=== PATIENT | female | born 1935 | race Two or more races ===

== ENCOUNTER 2016-07-11 15:53 | Emergency (ER) | payer MEDICARE, BC ==
--- NOTE | 2016-07-11 17:09 | ER Document Report ---
ED General - General Chief Complaint: Chest Pain > 30 Stated Complaint: CHEST PAIN Mode of Arrival: Ambulatory Information source: Patient, Relative Notes: 81-year-old female Hebrew-speaking presents with complaints of angina chest pain of over 3 year duration. Patient notes the pain is every single day does not change. Patient has been seen in over 50 to emergency departments and has had multiple evaluations and is always negative. Patient does have a dehydrator tender but has not seen a dehydrator tender recently. TRAVEL OUTSIDE OF THE [place] IN LAST 30 DAYS: No - HPI Onset: Other Onset/Duration: Persistent Quality of pain: Achy Severity: Mild Pain Level: 1 Associated symptoms: Chest pain Exacerbated by: Denies Relieved by: Denies Similar symptoms previously: Yes Recently seen / treated by doctor: Yes - Related Data Allergies/Adverse Reactions: clindamycin Allergy (Verified 05/15/16 16:13) clopidogrel [From Plavix] Allergy (Verified 05/15/16 16:13) diatrizoate meglumine [From -Gastroview] Allergy (Verified 05/15/16 16:13) diatrizoate sodium [From MD-Gastroview] Allergy (Verified 05/15/16 16:13) dipyridamole [From Aggrenox] Allergy (Verified 05/15/16 16:13) erythromycin base [From Erythrocin] Allergy (Verified 05/15/16 16:13) meloxicam Allergy (Verified 05/15/16 16:13) pantoprazole Allergy (Verified 05/15/16 16:13) risedronate sodium [From Actonel] Allergy (Verified 05/15/16 16:13) sulfamethoxazole [From Bactrim] Allergy (Verified 05/15/16 16:13) ticlopidine Allergy (Verified 05/15/16 16:13) tobramycin Allergy (Verified 05/15/16 16:13) trimethoprim [From Bactrim] Allergy (Verified 05/15/16 16:13) Past Medical History - Social History Smoking Status: Never Smoker Cigarette use (# per day): No Chew tobacco use (# tins/day): No Smoking Education Provided: No Family History: Reviewed & Not Pertinent - Past Medical History Cardiac Medical History: Reports: Hx Congestive Heart Failure, Hx Heart Attack, Hx Hypertension Neurological Medical History: Reports: Hx Cerebrovascular Accident. Denies: Hx Seizures Musculoskeltal Medical History: Reports Hx Arthritis Psychiatric Medical History: Reports: Hx Anxiety Past Surgical History: Reports: Hx Cardiac Catheterization, Hx Cardiac Surgery Review of Systems - Review of Systems Notes: REVIEW OF SYSTEMS: CONSTITUTIONAL : Denies fever, chills, or sweats. Denies recent illness. EENT: Denies eye, ear, throat, or mouth pain or symptoms. Denies nasal or sinus congestion or discharge. Denies throat, tongue, or mouth swelling or difficulty swallowing. CARDIOVASCULAR: Admits to chest pain RESPIRATORY: Denies cough, cold, or chest congestion. Denies shortness of breath, difficulty breathing, or wheezing. GASTROINTESTINAL: Denies abdominal pain or distention. Denies nausea, vomiting , or diarrhea. Denies blood in vomitus, stools, or per rectum. Denies black, tarry stools. Denies constipation. GENITOURINARY: Denies difficulty urinating, painful urination, burning, frequency, blood in urine, or discharge. FEMALE GENITOURINARY: Denies vaginal bleeding, heavy or abnormal periods, irregular periods. Denies vaginal discharge or odor. MUSCULOSKELETAL: Denies back or neck pain or stiffness. Denies joint pain or swelling. SKIN: Denies rash, lesions or sores. HEMATOLOGIC : Denies easy bruising or bleeding. LYMPHATIC: Denies swollen, enlarged glands. NEUROLOGICAL: Denies confusion or altered mental status. Denies passing out or loss of consciousness. Denies dizziness or lightheadedness. Denies headache. Denies weakness or paralysis or loss of use of either side. Denies problems with gait or speech. Denies sensory loss, numbness, or tingling. Denies seizures. PSYCHIATRIC: Denies anxiety or stress. Denies depression, suicidal ideation, or homicidal ideation. ALL OTHER SYSTEMS REVIEWED AND NEGATIVE. Dictation was performed using [employer] voice recognition software PHYSICAL EXAMINATION: GENERAL: Well-appearing, well-nourished and in no acute distress. HEAD: Atraumatic, normocephalic. EYES: Pupils equal round and reactive to light, extraocular movements intact, conjunctiva are normal. ENT: Nares patent, oropharynx clear without exudates. Moist mucous membranes. NECK: Normal range of motion, supple without lymphadenopathy LUNGS: Breath sounds clear to auscultation bilaterally and equal. No wheezes rales or rhonchi. HEART: Regular rate and rhythm without murmurs ABDOMEN: Soft, nontender, nondistended abdomen. No guarding, no rebound. No masses appreciated. Female : deferred Musculoskeletal: Normal range of motion, no pitting or edema. No cyanosis. NEUROLOGICAL: Cranial nerves grossly intact. Normal speech, normal gait. Normal sensory, motor exams PSYCH: Normal mood, normal affect. SKIN: Warm, Dry, normal turgor, no rashes or lesions noted. Physical Exam - Vital signs Vitals: Temp Pulse Resp BP Pulse Ox 97.5 F 66 18 153/67 H 98 07/11/16 16:18 07/11/16 16:18 07/11/16 16:18 07/11/16 16:18 07/11/16 16:18 Course - Re-evaluation Re-evalutation: 07/11/16 19:09 This is an extremely well-appearing 81-year-old female who presents with complaints of chest pain, family member admits that this pain is seen every single day, that he only brings her in intermittently. Today patient was brought in because of chest pain did not resolve immediately. Since arrival however the chest pain has overall resolved. Patient was offered admission they refuse to be admitted at this time. I do not believe there is any life- threatening issues given that the pain is constant and has been worked up often. pt will be dc home with follow up with Dr Portillo After performing a Medical Screening Examination, I estimate there is LOW risk for RUPTURED ESOPHAGUS, PNEUMOTHORAX, PULMONARY EMBOLISM, ACUTE CORONARY SYNDROME, OR THORACIC AORTIC DISSECTION, thus I consider the discharge disposition reasonable. The patient and I have discussed the diagnosis and risks , and we agree with discharging home with close follow-up. We also discussed returning to the Emergency Department immediately if new or worsening symptoms occur. We have discussed the symptoms which are most concerning (e.g., bloody sputum, worsening pain or shortness of breath) that necessitate immediate return. - Vital Signs Vital signs: Temp Pulse Resp BP Pulse Ox 97.5 F 66 19 167/85 H 100 07/11/16 16:18 07/11/16 16:18 07/11/16 18:01 07/11/16 18:01 07/11/16 18:01 - Laboratory Result Diagrams: 07/11/16 18:00 07/11/16 18:00 Laboratory results interpreted by me: 07/11/16 07/11/16 18:00 18:00 RDW 14.9 H Plt Count 121 L BUN 24 H AST 75 H ALT 122 H - Diagnostic Test Radiology reviewed: Image reviewed, Reports reviewed - EKG Interpretation by Me EKG shows normal: Sinus rhythm, [place], Intervals, QRS Complexes Discharge - Discharge Clinical Impression: Chest pain Qualifiers: Chest pain type: unspecified Qualified Code(s): R07.9 - Chest pain, unspecified HTN (hypertension) Qualifiers: Hypertension type: essential hypertension Qualified Code(s): I10 - Essential ( primary) hypertension Condition: Stable Disposition: HOME, SELF-CARE Instructions: Chest Pain of Unclear Cause ([facility]) Referrals: HELEN LOPEZ MD [Primary Care Provider] - Follow up tomorrow
--- NOTE | 2016-07-11 17:41 | EKG REPORT ---
SEVERITY:- OTHERWISE NORMAL ECG - SINUS RHYTHM BORDERLINE LEFT AXIS DEVIATION : Confirmed by: Tami Radford MD 11-Jul-2016 17:39:49
[2016-07-11 18:23] LABS: ABSOLUTE EOSINOPHILS # (AUTO) 0.1 10^3/uL (0.0-0.6); ABSOLUTE LYMPHOCYTES (AUTO) 1.1 10^3/uL (0.5-4.7); ABSOLUTE MONOCYTES (AUTO) 0.7 10^3/uL (0.1-1.4); ABSOLUTE NEUT (AUTO) 4.7 10^3/uL (1.7-8.2); BASOPHILS % (AUTO) 0.7 % (0-2); EOSINOPHILS % (AUTO) 1.2 % (0-6); HEMATOCRIT 39.8 % (36.0-47.0); HEMOGLOBIN 13.3 g/dL (12.0-15.5); HGB HCT DIFFERENCE 0.1; LYMPHOCYTES % (AUTO) 16.8 % (13-45); MEAN CORPUSCULAR HEMOGLOBIN 27.4 pg (27.0-33.4); MEAN CORPUSCULAR HGB CONC 33.5 g/dL (32.0-36.0); MEAN CORPUSCULAR VOLUME 82 fl (80-97); MONOCYTES % (AUTO) 10.9 % (3-13); RED BLOOD COUNT 4.85 10^6/uL (3.72-5.28); RED CELL DISTRIBUTION WIDTH 14.9 % (11.5-14.0); SEGMENTED NEUTROPHILS % (AUTO) 70.4 % (42-78); WHITE BLOOD COUNT 6.7 10^3/uL (4.0-10.5)
[2016-07-11 18:41] LABS: ALANINE AMINOTRANSFERASE 122 U/L (9-52); ALBUMIN 3.7 g/dL (3.5-5.0); ALKALINE PHOSPHATASE 93 U/L (38-126); ANION GAP 10 (5-19); ASPARTATE AMINO TRANSFERASE 75 U/L (14-36); BILIRUBIN,TOTAL 0.7 mg/dL (0.2-1.3); BLOOD UREA NITROGEN 24 mg/dL (7-20); CALCIUM 9.5 mg/dL (8.4-10.2); CARBON DIOXIDE 25 mmol/L (22-30); CHLORIDE 105 mmol/L (98-107); CREATINE KINASE 30 U/L (30-135); CREATININE RESULT 0.73 mg/dL (0.52-1.25); GLUCOSE 81 mg/dL (75-110); POTASSIUM 4.1 mmol/L (3.6-5.0); SODIUM 140.4 mmol/L (137-145); TOTAL PROTEIN 6.3 g/dL (6.3-8.2)
[2016-07-11 18:45] LABS: CREATINE KINASE MB 0.35 ng/mL (<4.55)
[2016-07-11 18:46] LABS: TROPONIN I < 0.012 ng/mL
[2016-07-11 19:29] VITALS: BP 134/79
== END 2016-07-11 19:29 | disposition home or self-care (01) ==
LOC: ER 15:53
DX: I20.9 Angina pectoris, unspecified (principal); I10 Essential (primary) hypertension; I25.2 Old myocardial infarction; Z88.1 Allergy status to other antibiotic agents; Z88.8 Allergy status to other drugs, medicaments and biological substances; Z86.73 Personal history of transient ischemic attack (TIA), and cerebral infarction without residual deficits
CPT/HCPCS: 36415; 80053; 82550; 82553; 84484; 85025; 93005; 93010; 99285

== ENCOUNTER → 2016-12-24 | Outpatient (CLI) | payer BC, MEDICARE ==
[2016-12-24 16:24] LABS: ABSOLUTE EOSINOPHILS # (AUTO) 0.1 10^3/uL (0.0-0.6); ABSOLUTE LYMPHOCYTES (AUTO) 1.5 10^3/uL (0.5-4.7); ABSOLUTE MONOCYTES (AUTO) 0.8 10^3/uL (0.1-1.4); ABSOLUTE NEUT (AUTO) 3.3 10^3/uL (1.7-8.2); BASOPHILS % (AUTO) 0.5 % (0-2); EOSINOPHILS % (AUTO) 1.1 % (0-6); HEMATOCRIT 40.6 % (36.0-47.0); HEMOGLOBIN 13.5 g/dL (12.0-15.5); HGB HCT DIFFERENCE -0.1; LYMPHOCYTES % (AUTO) 27.3 % (13-45); MEAN CORPUSCULAR HEMOGLOBIN 27.1 pg (27.0-33.4); MEAN CORPUSCULAR HGB CONC 33.3 g/dL (32.0-36.0); MEAN CORPUSCULAR VOLUME 81 fl (80-97); MONOCYTES % (AUTO) 13.5 % (3-13); RED BLOOD COUNT 4.98 10^6/uL (3.72-5.28); RED CELL DISTRIBUTION WIDTH 16.1 % (11.5-14.0); SEGMENTED NEUTROPHILS % (AUTO) 57.6 % (42-78); WHITE BLOOD COUNT 5.7 10^3/uL (4.0-10.5)
[2016-12-24 16:45] LABS: ALANINE AMINOTRANSFERASE 75 U/L (9-52); ALBUMIN 4.1 g/dL (3.5-5.0); ALKALINE PHOSPHATASE 109 U/L (38-126); ANION GAP 10 (5-19); ASPARTATE AMINO TRANSFERASE 55 U/L (14-36); BILIRUBIN,DIRECT 0.4 mg/dL (0.0-0.4); BILIRUBIN,TOTAL 0.8 mg/dL (0.2-1.3); BLOOD UREA NITROGEN 25 mg/dL (7-20); CALCIUM 9.3 mg/dL (8.4-10.2); CARBON DIOXIDE 28 mmol/L (22-30); CHLORIDE 101 mmol/L (98-107); CHOLESTEROL 164.61 mg/dL (0-200); CREATININE RESULT 0.93 mg/dL (0.52-1.25); Direct HDL 65 mg/dL (>40); GLUCOSE 85 mg/dL (75-110); POTASSIUM 3.9 mmol/L (3.6-5.0); TOTAL PROTEIN 6.9 g/dL (6.3-8.2); TRIGLYCERIDES 59 mg/dL (<150)
[2016-12-24 16:56] LABS: DIRECT LDL 89 mg/dL (<100)
[2016-12-24 17:17] LABS: THYROID STIMULATING HORMONE 1.85 uIU/mL (0.47-4.68)
== END ==
LOC: OD 15:00
PROVIDERS: ATTEND Family Medicine
DX: I10 Essential (primary) hypertension (principal); E78.5 Hyperlipidemia, unspecified; E03.9 Hypothyroidism, unspecified
CPT/HCPCS: 36415; 80053; 80061; 84439; 84443; 85025

== ENCOUNTER → 2017-01-21 | Outpatient (CLI) | payer MEDICARE ==
--- NOTE | 2017-01-21 12:07 | RADIOLOGY REPORT (SQ) ---
EXAM DESCRIPTION: U/S ABDOMEN LIMITED W/O DOP COMPLETED DATE/TIME: 01/21/2017 11:46 am REASON FOR STUDY: ABN LFT R94.5 ABNORMAL RESULTS OF LIVER FUNCTION STUDIES COMPARISON: None. TECHNIQUE: Dynamic and static grayscale images acquired of the abdomen and recorded on PACS. Additio nal selected color Doppler and spectral images recorded. LIMITATIONS: None. FINDINGS: PANCREAS: Head and body normal. Tail was obscured by gas. LIVER: 12 cm. Normal echotexture. LIVER VASCULATURE: Normal directional flow of the main portal vein and hepatic veins. GALLBLADDER: No stones. Normal wall thickness. No pericholecystic fluid. ULTRASOUND-DETECTED CENTENO'S SIGN: Negative. INTRAHEPATIC DUCTS AND COMMON DUCT: CBD and intrahepatic ducts normal caliber. No filling defects. INFERIOR VENA CAVA: Normal flow. 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 RIGHT KIDNEY: Normal size, 9.2 cm. The renal pelvis is prominent, measuring 13 mm. There is no hardy e hydronephrosis, however. There is a 13 mm lower pole cyst. PERITONEAL AND RIGHT PLEURAL SPACE: No ascites or effusions. OTHER: No other significant findings. IMPRESSION: 1. Normal liver and gallbladder and ductal system. 2. 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 TECHNICAL DOCUMENTATION: JOB ID: [id number] [employer]- All Rights Reserved
== END ==
LOC: RAD 10:54
PROVIDERS: ATTEND Family Medicine
DX: R94.5 Abnormal results of liver function studies (principal)
CPT/HCPCS: 76705

== ENCOUNTER → 2017-05-31 | Outpatient (CLI) | payer MEDICARE, OTHER ==
[2017-05-31 16:15] LABS: ABSOLUTE EOSINOPHILS # (AUTO) 0.1 10^3/uL (0.0-0.6); ABSOLUTE LYMPHOCYTES (AUTO) 1.2 10^3/uL (0.5-4.7); ABSOLUTE MONOCYTES (AUTO) 0.6 10^3/uL (0.1-1.4); ABSOLUTE NEUT (AUTO) 2.8 10^3/uL (1.7-8.2); BASOPHILS % (AUTO) 0.4 % (0-2); EOSINOPHILS % (AUTO) 1.1 % (0-6); HEMATOCRIT 39.7 % (36.0-47.0); HEMOGLOBIN 13.7 g/dL (12.0-15.5); LYMPHOCYTES % (AUTO) 25.5 % (13-45); MEAN CORPUSCULAR HEMOGLOBIN 28.6 pg (27.0-33.4); MEAN CORPUSCULAR HGB CONC 34.6 g/dL (32.0-36.0); MEAN CORPUSCULAR VOLUME 82 fl (80-97); MONOCYTES % (AUTO) 13.5 % (3-13); PLATELET COUNT 160 10^3/uL (150-450); RED BLOOD COUNT 4.81 10^6/uL (3.72-5.28); RED CELL DISTRIBUTION WIDTH 14.9 % (11.5-14.0); SEGMENTED NEUTROPHILS % (AUTO) 59.5 % (42-78); TOTAL CELLS COUNTED % (AUTO) 100 %; WHITE BLOOD COUNT 4.6 10^3/uL (4.0-10.5)
[2017-05-31 16:38] LABS: ALANINE AMINOTRANSFERASE 58 U/L (9-52); ALBUMIN 4.1 g/dL (3.5-5.0); ALKALINE PHOSPHATASE 86 U/L (38-126); ANION GAP 9 (5-19); ASPARTATE AMINO TRANSFERASE 47 U/L (14-36); BILIRUBIN,DIRECT 0.3 mg/dL (0.0-0.4); BILIRUBIN,TOTAL 0.7 mg/dL (0.2-1.3); BLOOD UREA NITROGEN 16 mg/dL (7-20); CALCIUM 9.6 mg/dL (8.4-10.2); CARBON DIOXIDE 29 mmol/L (22-30); CHLORIDE 100 mmol/L (98-107); CHOLESTEROL 146.33 mg/dL (0-200); GLUCOSE 88 mg/dL (75-110); POTASSIUM 3.8 mmol/L (3.6-5.0); SODIUM 137.5 mmol/L (137-145); TOTAL PROTEIN 6.4 g/dL (6.3-8.2); TRIGLYCERIDES 73 mg/dL (<150)
[2017-05-31 16:48] LABS: DIRECT LDL 74 mg/dL (<100)
[2017-05-31 16:54] LABS: FREE T4 (FREE THYROXINE) 2.22 ng/dL (0.78-2.19)
[2017-05-31 17:08] LABS: THYROID STIMULATING HORMONE 0.4 uIU/mL (0.47-4.68)
== END ==
LOC: OD 14:53
PROVIDERS: ATTEND Family Medicine
DX: I10 Essential (primary) hypertension (principal); E03.9 Hypothyroidism, unspecified; E78.5 Hyperlipidemia, unspecified
CPT/HCPCS: 36415; 80053; 80061; 84439; 84443; 85025

== ENCOUNTER 2017-07-16 01:19 | Emergency (ER) | payer MEDICARE, OTHER ==
--- NOTE | 2017-07-16 01:55 | ER Document Report ---
ED General - General Chief Complaint: Fall Stated Complaint: SHOULDER PAIN/FALL Time Seen by Provider: 07/16/17 01:26 TRAVEL OUTSIDE OF THE [place] IN LAST 30 DAYS: No - HPI Notes: Patient is an 82-year-old female with a past medical history of CVA, [place], hypertension, hypercholesterolemia, osteoarthritis, syncopal episodes who presents to the ED status post fall while in the bathroom prior to arrival. Patient states that she believes she had another syncopal episode. Son states that he heard a thump in the bathroom and found his mother on the floor not responding to him initially. After about a minute she was responding normally. Patient states that she felt flushed, developed a headache, started having chest pains prior to the fall. Pt is not sure if she hit her head or not. EMS did not see any hematoma, bleeding, or obvious bruising to the head/face. Son states that she has chronic intermittent headaches as well as angina. Patient has also been complaining of right shoulder pain, mid back pain since the fall. All of her pains do not radiate. Pain in the chest is described as an ache. Son states that she has been eating and drinking normally without any difficulties. She has been urinating normally and having normal bowel movements. EMS stated that she had one episode of vomiting during transport, they gave Zofran, with no other recurrence of vomiting. Patient has no other concerns or complaints at this time. Patient is not on any blood thinners aside from aspirin once daily. Denies any fever, changes in vision/speech/ mentation/hearing, URI, sore throat, palpitations, syncope, cough, shortness of breath, wheeze, dyspnea, abdominal pain, diarrhea, urinary retention, dysuria, hematuria, loss of control of bowel or bladder, numbness/tingling, saddle anesthesia, muscle paralysis/weakness, or rash. - Related Data Allergies/Adverse Reactions: clindamycin Allergy (Verified 07/16/17 01:23) clopidogrel [From Plavix] Allergy (Verified 07/16/17 01:23) diatrizoate meglumine [From MD-Gastroview] Allergy (Verified 07/16/17 01:23) diatrizoate sodium [From MD-Gastroview] Allergy (Verified 07/16/17 01:23) dipyridamole [From Aggrenox] Allergy (Verified 07/16/17 01:23) erythromycin base [From Erythrocin] Allergy (Verified 07/16/17 01:23) meloxicam Allergy (Verified 07/16/17 01:23) pantoprazole Allergy (Verified 07/16/17 01:23) risedronate sodium [From Actonel] Allergy (Verified 07/16/17 01:23) sulfamethoxazole [From Bactrim] Allergy (Verified 07/16/17 01:23) ticlopidine Allergy (Verified 07/16/17 01:23) tobramycin Allergy (Verified 07/16/17 01:23) trimethoprim [From Bactrim] Allergy (Verified 07/16/17 01:23) IVC dye Allergy (Uncoded 07/16/17 01:52) Past Medical History - Social History Smoking Status: Unknown if Ever Smoked Family History: Reviewed & Not Pertinent Patient has suicidal ideation: No Patient has homicidal ideation: No - Past Medical History Cardiac Medical History: Reports: Hx Congestive Heart Failure, Hx Heart Attack, Hx Hypercholesterolemia, Hx Hypertension Neurological Medical History: Reports: Hx Cerebrovascular Accident. Denies: Hx Seizures Renal/ Medical History: Denies: Hx Peritoneal Dialysis Musculoskeltal Medical History: Reports Hx Arthritis Psychiatric Medical History: Reports: Hx Anxiety Past Surgical History: Reports: Hx Cardiac Catheterization, Hx Cardiac Surgery Review of Systems - Review of Systems -: Yes All other systems reviewed and negative Physical Exam - Vital signs Vitals: Temp Pulse Resp BP Pulse Ox 98.4 F 52 L 14 127/57 H 96 07/16/17 01:23 07/16/17 01:23 07/16/17 01:23 07/16/17 01:23 07/16/17 01:23 - Notes Notes: PHYSICAL EXAMINATION: GENERAL: Well-appearing, well-nourished and in no acute distress. A&Ox4. Answers questions appropriately. HEAD: Atraumatic, normocephalic. there is a small 0.2cm abrasion to the posterior scalp, no hematoma or bogginess. No baker sign EYES: Pupils equal round and reactive to light, extraocular movements intact, sclera anicteric, conjunctiva are normal. No raccoon eyes/entrapment. Vis bear grossly intact. ENT: EAC clear b/l. TM's intact b/l without erythema, fluid, or perforation. Nares patent and without discharge. oropharynx clear without exudates. No tonsilar hypertrophy or erythema. Moist mucous membranes. No sinus tenderness. No hemotympanum/CSF discharge. NECK: Normal range of motion, supple without lymphadenopathy. No rigidity. No midline tenderness. Chest: No flail chest. equal rise/fall. + moderate costo-sternal tenderness LUNGS: Breath sounds clear to auscultation bilaterally and equal. No wheezes rales or rhonchi. HEART: Regular rate and rhythm without murmurs, rubs, gallops. ABDOMEN: Soft, nontender, nondistended abdomen. No guarding, no rebound. No masses appreciated. Normal bowel sounds present. No CVA tenderness bilaterally. Musculoskeletal: Rt shoulder: FROM. Strength 5+/5. + mild tenderness to the posterior shoulder. Ext's otherwise b/l: FROM to passive/active. Strength 5+/5. No deficits noted. No bony tenderness of extremities. Back: FROM to passive/active. Strength 5+/5. No vertebral point tenderness, stepoffs, or deformities. + mild tenderness to the mid back rt side soft tissue. No ecchymosis. SLR negative b/l. Extremities: No cyanosis, clubbing, or edema b/l. Peripheral pulses 2+. Capillary refill less than 2 seconds. NEUROLOGICAL: NIH 0. GCS 15. MMSE intact. Cranial nerves grossly intact. Normal speech. Normal sensory, motor exams. Reflexes 2+ b/l. MARY KATE's negative. Pronator drift negative. Heel/tobar, finger/nose wnl. PSYCH: Normal mood, normal affect. SKIN: Warm, Dry, normal turgor, no rashes or lesions noted Course - Re-evaluation Re-evalutation: 07/16/17 04:01 CT scan of the head/neck negative XR's were all unremarkable for acute pathology 07/16/17 04:12 Patient is an afebrile, well-hydrated, 82-year-old female who presents to the ED status post fall with an abrasion to the scalp. There was suspicion of a possible syncopal episode she has had this historically. Vitals are stable. Orthostatics are negative. PE is otherwise unremarkable for any focal neurological deficits. NIH 0, GCS 15, MMSE intact, cranial nerves grossly intact. CT scan of the head and the neck were unremarkable for any acute pathology. X-ray of the right shoulder, thoracic spine, chest x-ray were all unremarkable for any acute pathology. CBC, CMP, EKG/cardiac enzymes were unremarkable for any acute pathology. Urinalysis was also unremarkable. Patient is tolerating p.o. without any difficulties. Low suspicion for any acute glaucoma, temporal arteritis, meningitis, intracranial hemorrhage, ischemic stroke, ACS, or carditis, pneumothorax, PE, dissection, severe dehydration, sepsis, or fracture at this time. Patient is aware that her condition can change from initial presentation and that she needs to monitor symptoms closely for any acute changes. Tylenol was given p.o. today. Patient states that her chest pains have since resolved. Patient states that she is feeling well and would like to go home. Advised patient and family that I recommend she be admitted for chest pain observation. After thorough review of the risks and benefits, patient and family decided that they would like to be discharged and they understand that they will return with any worsening symptoms. They also understand that there is a risk of heart attack and if they leave. She is already scheduled to meet with her primary care provider on Tuesday for a recheck. Return to the ED with any worsening/concerning symptoms otherwise as reviewed discharge. Patient and family are in agreement. - Vital Signs Vital signs: Temp Pulse Resp BP Pulse Ox 98.4 F 67 19 133/67 H 100 07/16/17 01:23 07/16/17 04:11 07/16/17 04:09 07/16/17 04:11 07/16/17 04:09 - Laboratory Result Diagrams: 07/16/17 02:32 07/16/17 02:32 Laboratory results interpreted by me: 07/16/17 07/16/17 02:32 02:32 RDW 14.8 H Potassium 3.5 L BUN 24 H Est GFR (Non-Af Amer) 53 L Creatine Kinase 27 L Discharge - Discharge Clinical Impression: Fall Qualifiers: Encounter type: initial encounter Qualified Code(s): W19.XXXA - Unspecified fall, initial encounter Abrasion of head Qualifiers: Encounter type: initial encounter Qualified Code(s): S00.91XA - Abrasion of unspecified part of head, initial encounter Chest pain, unspecified Qualifiers: Chest pain type: unspecified Qualified Code(s): R07.9 - Chest pain, unspecified Condition: Stable Disposition: HOME, SELF-CARE Instructions: Head Injury Precautions ([facility]) Additional Instructions: Keep the skin clean Wash with soap and water Tylenol/ibuprofen if needed Triple antibiotic ointment Take medication as directed Monitor blood pressure closely Healthy diet Maintain adequate fluid intake Monitor for any worsening symptoms Keep appointment with your PCM on Tuesday Return to the ED with any worsening symptoms and/or development of fever, headache, changes in behavior/mentation/speech/vision, chest pain, palpitations , syncope, shortness of breath, trouble breathing, abdominal pain, n/v/d, abscess, purulent discharge, red streaks, worsening swelling, saddle anesthesia , numbness/tingling, paralysis/weakness, or other worsening symptoms that are concerning to you. Referrals: HELEN LOPEZ MD [Primary Care Provider] - 07/18/17
[2017-07-16 02:41] LABS: ABSOLUTE BASOPHILS # (AUTO) 0.1 10^3/uL (0.0-0.2); ABSOLUTE EOSINOPHILS # (AUTO) 0.1 10^3/uL (0.0-0.6); ABSOLUTE LYMPHOCYTES (AUTO) 1.5 10^3/uL (0.5-4.7); ABSOLUTE MONOCYTES (AUTO) 0.7 10^3/uL (0.1-1.4); ABSOLUTE NEUT (AUTO) 6.1 10^3/uL (1.7-8.2); BASOPHILS % (AUTO) 0.7 % (0-2); EOSINOPHILS % (AUTO) 1.3 % (0-6); HEMATOCRIT 41.2 % (36.0-47.0); HEMOGLOBIN 14.2 g/dL (12.0-15.5); LYMPHOCYTES % (AUTO) 17.2 % (13-45); MEAN CORPUSCULAR HEMOGLOBIN 28.5 pg (27.0-33.4); MEAN CORPUSCULAR HGB CONC 34.4 g/dL (32.0-36.0); MEAN CORPUSCULAR VOLUME 83 fl (80-97); MONOCYTES % (AUTO) 8.6 % (3-13); PLATELET COUNT 165 10^3/uL (150-450); RED BLOOD COUNT 4.97 10^6/uL (3.72-5.28); RED CELL DISTRIBUTION WIDTH 14.8 % (11.5-14.0); SEGMENTED NEUTROPHILS % (AUTO) 72.2 % (42-78); TOTAL CELLS COUNTED % (AUTO) 100 %; WHITE BLOOD COUNT 8.5 10^3/uL (4.0-10.5)
[2017-07-16 02:55] LABS: INTERNATIONAL RATION (INR) 0.96; PROTHROMBIN TIME 13.5 SEC (11.4-15.4)
[2017-07-16 03:01] LABS: ALANINE AMINOTRANSFERASE 49 U/L (9-52); ALBUMIN 3.9 g/dL (3.5-5.0); ALKALINE PHOSPHATASE 97 U/L (38-126); ANION GAP 7 (5-19); ASPARTATE AMINO TRANSFERASE 34 U/L (14-36); BILIRUBIN,DIRECT 0.4 mg/dL (0.0-0.4); BILIRUBIN,TOTAL 0.6 mg/dL (0.2-1.3); BLOOD UREA NITROGEN 24 mg/dL (7-20); CALCIUM 9.3 mg/dL (8.4-10.2); CARBON DIOXIDE 25 mmol/L (22-30); CHLORIDE 106 mmol/L (98-107); CREATINE KINASE 27 U/L (30-135); GLUCOSE 97 mg/dL (75-110); POTASSIUM 3.5 mmol/L (3.6-5.0); SODIUM 138.3 mmol/L (137-145); TOTAL PROTEIN 6.5 g/dL (6.3-8.2)
[2017-07-16 03:11] LABS: APPEARANCE,URINE CLEAR; BILIRUBIN,URINE NEGATIVE (NEGATIVE); COLOR,URINE YELLOW; GLUCOSE, URINE NEGATIVE (NEGATIVE); KETONES,URINE NEGATIVE (NEGATIVE); LEUKOCYTE ESTERASE,URINE NEGATIVE (NEGATIVE); NITRITE,URINE NEGATIVE (NEGATIVE); PROTEIN,URINE NEGATIVE (NEGATIVE); URINE SPECIFIC GRAVITY 1.023; UROBILINOGEN,URINE NEGATIVE mg/dL (<2.0)
[2017-07-16 03:13] LABS: CREATINE KINASE MB 0.41 ng/mL (<4.55)
[2017-07-16 03:16] LABS: TROPONIN I < 0.012 ng/mL
[2017-07-16] MEDS ORDERED: ACETAMINOPHEN 325 MG TABLET PO ONE (03:30)
--- NOTE | 2017-07-16 03:35 | RADIOLOGY REPORT (SQ) ---
EXAM DESCRIPTION: CT HEAD WITHOUT CLINICAL HISTORY: 82 years Female, possible syncope, fall COMPARISON: 05.15.16 TECHNIQUE: No contrast. This exam was performed according to our departmental dose-optimization program, which includes automated exposure control, adjustment of the mA and/or kV according to patient size and/or use of iterative reconstruction technique. FINDINGS: Encephalomalacia of the right basal ganglia involves the right external and internal capsule, lacunar infarct of the left putamen and left external capsule, moderate cerebral volume loss, and atherosclerosis. No hemorrhage. No mass, mass effect, or midline shift. Extra-axial structures appear otherwise grossly intact. Impression: No acute findings.
--- NOTE | 2017-07-16 03:42 | RADIOLOGY REPORT (SQ) ---
EXAM DESCRIPTION: CT CERVICAL SPINE WITHOUT CLINICAL HISTORY: 82 years Female, possible syncope, fall COMPARISON: None. TECHNIQUE: No contrast. Coronal and sagittal reformat. This exam was performed according to our departmental dose-optimization program, which includes automated exposure control, adjustment of the mA and/or kV according to patient size and/or use of iterative reconstruction technique. Limitation: Mild motion artifact. FINDINGS: Mild disc desiccation between the C4 and C6 levels, 0.2 cm C4 retrolisthesis, mild spondylosis includes mild bilateral C6 foraminal stenosis, no evidence of fracture-subluxation. Mild C5 anterior vertebral height loss. 2 cm right thyroid lesion. Atherosclerosis. Unenhanced nuchal soft tissues, inferior cranium, and upper thorax appear otherwise grossly intact. Impression: No acute findings. IMPRESSION: 1. Mild C5 anterior vertebral compression deformity. Limitation. 2. Indeterminate 2 cm right thyroid lesion; thyroid ultrasound recommended.
--- NOTE | 2017-07-16 03:48 | RADIOLOGY REPORT (SQ) ---
EXAM DESCRIPTION: SHOULDER RIGHT 2 OR MORE VIEWS CLINICAL HISTORY: 82 years, Female, shoulder pain s/p fall COMPARISON: None. NUMBER OF VIEWS: 3 Findings: Bones, joints, and soft tissues of the right shoulder appear intact. IMPRESSION: No acute findings.
--- NOTE | 2017-07-16 03:50 | RADIOLOGY REPORT (SQ) ---
EXAM DESCRIPTION: T SPINE AP/LAT CLINICAL HISTORY: 82 years, Female, mid back pain s/p fall COMPARISON: None. NUMBER OF VIEWS: 1 LIMITATIONS: None. FINDINGS: Mild-moderate T12 anterior vertebral compression deformity. Mild exaggerated upper thoracic kyphosis. Normal alignment. Demineralization. Atherosclerosis. IMPRESSION: Mild-moderate T12 anterior vertebral compression deformity.
--- NOTE | 2017-07-16 03:52 | RADIOLOGY REPORT (SQ) ---
EXAM DESCRIPTION: CHEST SINGLE VIEW CLINICAL HISTORY: 82 years Female, chest pain COMPARISON: 12.31.16 NUMBER OF VIEWS/TECHNIQUE: 1/AP LIMITATIONS: None. FINDINGS: Prominent interstitium, mildly enlarged cardiac silhouette atherosclerosis, and bony demineralization. IMPRESSION: No acute cardiopulmonary findings.
[2017-07-16 04:20] VITALS: BP 137/67
--- NOTE | 2017-07-16 08:47 | EKG REPORT ---
SEVERITY:- BORDERLINE ECG - SINUS RHYTHM BORDERLINE LEFT AXIS DEVIATION BORDERLINE T WAVE ABNORMALITIES : Confirmed by: Brayan Bashir MD 16-Jul-2017 08:45:59
== END 2017-07-16 04:54 | disposition home or self-care (01) ==
LOC: ER 01:19
DX: S00.01XA Abrasion of scalp, initial encounter (principal); M25.511 Pain in right shoulder; M54.9 Dorsalgia, unspecified; W19.XXXA Unspecified fall, initial encounter; R51 Headache; R07.9 Chest pain, unspecified; R11.10 Vomiting, unspecified; I10 Essential (primary) hypertension; Z79.82 Long term (current) use of aspirin; I25.2 Old myocardial infarction; Z86.73 Personal history of transient ischemic attack (TIA), and cerebral infarction without residual deficits; Z88.1 Allergy status to other antibiotic agents; Z88.8 Allergy status to other drugs, medicaments and biological substances; Z91.041 Radiographic dye allergy status
CPT/HCPCS: 93005; 99284; 51701; 36415; 87086; 82553; 82550; 85025; 85610; 80053; 81001; 84484; 71045; 73030; 72070; 70450; 72125; 93010; A9270

== ENCOUNTER → 2017-08-10 | Outpatient (CLI) | payer MEDICARE, OTHER ==
--- NOTE | 2017-08-10 16:45 | RADIOLOGY REPORT (SQ) ---
EXAM DESCRIPTION: U/S EXTREMITY NONVASCULAR COMP COMPLETED DATE/TIME: 08/10/2017 4:25 pm REASON FOR STUDY: DISORDER OF THE SKIN AND SUBCUTANEOS TISSUE, UNSPECIFIED L98.9 DISORDER OF THE SK IN AND SUBCUTANEOUS TISSUE, UNSPECIF COMPARISON: None. TECHNIQUE: Dynamic and static grayscale images acquired of the localized site of clinical concern an d recorded on PACS. Additional selected color Doppler and spectral images recorded. SITE OF CONCERN: Right antecubital fossa. LIMITATIONS: None. FINDINGS: SKIN AND SUBCUTANEOUS TISSUES: No masses. No fluid collections. No edema. No foreign vishal s. DEEP SOFT TISSUES/MUSCLES: No masses. No fluid collections. No edema. VASCULAR: No increased or decreased vascularity. No occlusions. OTHER: No other significant finding. IMPRESSION: NO SOFT TISSUE MASS, FLUID COLLECTION, OR FOREIGN BODY. TECHNICAL DOCUMENTATION: JOB ID: [id number] [employer]- All Rights Reserved Reading location - IP/workstation name: [email or web address]
== END ==
LOC: RAD 15:53
PROVIDERS: ATTEND Physician Assistant
DX: L98.9 Disorder of the skin and subcutaneous tissue, unspecified (principal)
CPT/HCPCS: 76881

== ENCOUNTER 2017-08-21 09:47 | Emergency (ER) | payer MEDICARE, OTHER ==
[2017-08-21 10:48] LABS: ABSOLUTE EOSINOPHILS # (AUTO) 0.1 10^3/uL (0.0-0.6); ABSOLUTE LYMPHOCYTES (AUTO) 1.5 10^3/uL (0.5-4.7); ABSOLUTE MONOCYTES (AUTO) 0.7 10^3/uL (0.1-1.4); ABSOLUTE NEUT (AUTO) 4.5 10^3/uL (1.7-8.2); BASOPHILS % (AUTO) 0.4 % (0-2); EOSINOPHILS % (AUTO) 1.3 % (0-6); HEMATOCRIT 44.3 % (36.0-47.0); LYMPHOCYTES % (AUTO) 21.3 % (13-45); MEAN CORPUSCULAR HEMOGLOBIN 28.5 pg (27.0-33.4); MEAN CORPUSCULAR HGB CONC 33.9 g/dL (32.0-36.0); MEAN CORPUSCULAR VOLUME 84 fl (80-97); MONOCYTES % (AUTO) 10.9 % (3-13); PLATELET COUNT 172 10^3/uL (150-450); RED BLOOD COUNT 5.27 10^6/uL (3.72-5.28); RED CELL DISTRIBUTION WIDTH 14.9 % (11.5-14.0); SEGMENTED NEUTROPHILS % (AUTO) 66.1 % (42-78); TOTAL CELLS COUNTED % (AUTO) 100 %; WHITE BLOOD COUNT 6.9 10^3/uL (4.0-10.5)
[2017-08-21 11:06] LABS: INTERNATIONAL RATION (INR) 0.93; PROTHROMBIN TIME 12.9 SEC (11.4-15.4)
--- NOTE | 2017-08-21 11:16 | RADIOLOGY REPORT (SQ) ---
EXAM DESCRIPTION: CT HEAD WITHOUT COMPLETED DATE/TIME: 08/21/2017 10:58 am REASON FOR STUDY: altered COMPARISON: 07/16/2017 TECHNIQUE: Axial images acquired through the brain without intravenous contrast. Images reviewed wi th bone, brain and subdural windows. Additional sagittal and coronal reconstructions were generated. Images stored on PACS. All CT scanners at this facility use dose modulation, iterative reconstruction, and/or weight based d osing when appropriate to reduce radiation dose to as low as reasonably achievable (ALARA). [facility]: Dose Right [facility]: CareDose [facility]: Dose Right [facility]: Teradose 4D [facility]: Smart [employer] RADIATION DOSE: CT Rad equipment meets quality standard of care and radiation dose reduction techniq ues were employed. CTDIvol: 48.5 mGy. DLP: 854 mGy-cm.mGy. LIMITATIONS: None. FINDINGS: VENTRICLES: Prominent. CEREBRUM: No masses. No hemorrhage. No midline shift. Areas of low density in the white matter mos t likely due to chronic micro-vascular ischemic change. No evidence for acute infarction. CEREBELLUM: No masses. No hemorrhage. No alteration of density. No evidence for acute infarction. EXTRAAXIAL SPACES: Age-related involutional change. No fluid collections. No masses. ORBITS AND GLOBE: No intra- or extraconal masses. Normal contour of globe without masses. CALVARIUM: No fracture. PARANASAL SINUSES: No fluid or mucosal thickening. SOFT TISSUES: No mass or hematoma. OTHER: No other significant finding. IMPRESSION: CHRONIC CHANGES OF ATROPHY AND MICROVASCULAR ISCHEMIA. NO ACUTE PROCESS. EVIDENCE OF ACUTE STROKE: NO. TECHNICAL DOCUMENTATION: JOB ID: [id number] Quality ID # [id number]: Final reports with documentation of one or more dose reduction techniques (e.g., Au tomated exposure control, adjustment of the mA and/or kV according to patient size, use of iterative reconstruction technique) 2010 [employer]- All Rights Reserved Reading location - IP/workstation name: [email or web address]
--- NOTE | 2017-08-21 11:27 | RADIOLOGY REPORT (SQ) ---
EXAM DESCRIPTION: CHEST 2 VIEWS COMPLETED DATE/TIME: 08/21/2017 11:12 am REASON FOR STUDY: altered COMPARISON: 07/16/2017 EXAM PARAMETERS: NUMBER OF VIEWS: two views TECHNIQUE: Digital Frontal and Lateral radiographic views of the chest acquired. RADIATION DOSE: NA LIMITATIONS: none FINDINGS: LUNGS AND PLEURA: Chronic interstitial changes. MEDIASTINUM AND HILAR STRUCTURES: Stable. HEART AND VASCULAR STRUCTURES: Stable cardiomegaly. BONES: No acute findings. HARDWARE: None in the chest. OTHER: No other significant finding. IMPRESSION: NO ACUTE RADIOGRAPHIC FINDING IN THE CHEST. TECHNICAL DOCUMENTATION: JOB ID: [id number] [employer]- All Rights Reserved Reading location - IP/workstation name: [email or web address]
[2017-08-21 11:33] LABS: ALANINE AMINOTRANSFERASE 59 U/L (9-52); ALBUMIN 4.1 g/dL (3.5-5.0); ALKALINE PHOSPHATASE 92 U/L (38-126); ANION GAP 10 (5-19); ASPARTATE AMINO TRANSFERASE 60 U/L (14-36); BILIRUBIN,DIRECT 0.4 mg/dL (0.0-0.4); BILIRUBIN,TOTAL 0.7 mg/dL (0.2-1.3); BLOOD UREA NITROGEN 23 mg/dL (7-20); CALCIUM 9.6 mg/dL (8.4-10.2); CARBON DIOXIDE 27 mmol/L (22-30); CHLORIDE 103 mmol/L (98-107); GLUCOSE 107 mg/dL (75-110); POTASSIUM 3.5 mmol/L (3.6-5.0); SODIUM 139.7 mmol/L (137-145); TOTAL PROTEIN 7.1 g/dL (6.3-8.2)
--- NOTE | 2017-08-21 11:46 | ER Document Report ---
ED General - General Chief Complaint: Altered Mental Status Stated Complaint: ALTERED MENTAL STATUS Time Seen by Provider: 08/21/17 10:16 Mode of Arrival: Ambulatory Information source: Patient, Relative Notes: 82-year-old female history of dementia presents with family with concerns of altered mental status and urinary incontinence, it appears patient has been having such symptoms for the past 3-4 days has been staring off acting different from her baseline TRAVEL OUTSIDE OF THE [place] IN LAST 30 DAYS: No - HPI Onset: Other - Since Tuesday Onset/Duration: Intermittent Quality of pain: No pain Severity: Mild Pain Level: Denies Associated symptoms: Slow to respond, Other Exacerbated by: Denies Relieved by: Denies Similar symptoms previously: No Recently seen / treated by doctor: No - Related Data Allergies/Adverse Reactions: clindamycin Allergy (Verified 08/21/17 11:18) clopidogrel [From Plavix] Allergy (Verified 08/21/17 11:18) diatrizoate meglumine [From -Gastroview] Allergy (Verified 08/21/17 11:18) diatrizoate sodium [From MD-Gastroview] Allergy (Verified 08/21/17 11:18) dipyridamole [From Aggrenox] Allergy (Verified 08/21/17 11:18) erythromycin base [From Erythrocin] Allergy (Verified 08/21/17 11:18) meloxicam Allergy (Verified 08/21/17 11:18) pantoprazole Allergy (Verified 08/21/17 11:18) risedronate sodium [From Actonel] Allergy (Verified 08/21/17 11:18) sulfamethoxazole [From Bactrim] Allergy (Verified 08/21/17 11:18) ticlopidine Allergy (Verified 08/21/17 11:18) tobramycin Allergy (Verified 08/21/17 11:18) trimethoprim [From Bactrim] Allergy (Verified 08/21/17 11:18) IVC dye Allergy (Uncoded 07/16/17 01:52) Past Medical History - Social History Smoking Status: Never Smoker Cigarette use (# per day): No Chew tobacco use (# tins/day): No Smoking Education Provided: No Family History: Reviewed & Not Pertinent Patient has suicidal ideation: No Patient has homicidal ideation: No - Past Medical History Cardiac Medical History: Reports: Hx Congestive Heart Failure, Hx Heart Attack, Hx Hypercholesterolemia, Hx Hypertension Neurological Medical History: Reports: Hx Cerebrovascular Accident. Denies: Hx Seizures Renal/ Medical History: Denies: Hx Peritoneal Dialysis Musculoskeltal Medical History: Reports Hx Arthritis Psychiatric Medical History: Reports: Hx Anxiety Past Surgical History: Reports: Hx Cardiac Catheterization, Hx Cardiac Surgery Review of Systems - Review of Systems Notes: REVIEW OF SYSTEMS: CONSTITUTIONAL : Denies fever, chills, or sweats. Denies recent illness. EENT: Denies eye, ear, throat, or mouth pain or symptoms. Denies nasal or sinus congestion or discharge. Denies throat, tongue, or mouth swelling or difficulty swallowing. CARDIOVASCULAR: Denies chest pain. Denies palpitations or racing or irregular heart beat. Denies ankle edema. RESPIRATORY: Denies cough, cold, or chest congestion. Denies shortness of breath, difficulty breathing, or wheezing. GASTROINTESTINAL: Denies abdominal pain or distention. Denies nausea, vomiting , or diarrhea. Denies blood in vomitus, stools, or per rectum. Denies black, tarry stools. Denies constipation. GENITOURINARY: Urinary frequency FEMALE GENITOURINARY: Denies vaginal bleeding, heavy or abnormal periods, irregular periods. Denies vaginal discharge or odor. MUSCULOSKELETAL: Denies back or neck pain or stiffness. Denies joint pain or swelling. SKIN: Denies rash, lesions or sores. HEMATOLOGIC : Denies easy bruising or bleeding. LYMPHATIC: Denies swollen, enlarged glands. NEUROLOGICAL: D slow to respond PSYCHIATRIC: Denies anxiety or stress. Denies depression, suicidal ideation, or homicidal ideation. ALL OTHER SYSTEMS REVIEWED AND NEGATIVE. PHYSICAL EXAMINATION: GENERAL: Frail elderly female. HEAD: Atraumatic, normocephalic. EYES: Pupils equal round and reactive to light, extraocular movements intact, conjunctiva are normal. ENT: Nares patent, oropharynx clear without exudates. Moist mucous membranes. NECK: Normal range of motion, supple without lymphadenopathy LUNGS: Breath sounds clear to auscultation bilaterally and equal. No wheezes rales or rhonchi. HEART: Regular rate and rhythm without murmurs ABDOMEN: Soft, nontender, nondistended abdomen. No guarding, no rebound. No masses appreciated. Female : deferred Musculoskeletal: Normal range of motion, no pitting or edema. No cyanosis. NEUROLOGICAL: Cranial nerves grossly intact. Normal speech, normal gait. Normal sensory, motor exams PSYCH: Normal mood, normal affect. SKIN: Warm, Dry, normal turgor, no rashes or lesions noted. Dictation was performed using [employer] voice recognition software Physical Exam - Vital signs Vitals: Pulse Resp BP Pulse Ox 59 L 16 149/74 H 96 08/21/17 10:03 08/21/17 10:03 08/21/17 10:03 08/21/17 10:03 Course - Re-evaluation Re-evalutation: 08/21/17 11:46 Patient has probable UTI given altered mental status confusion and urinary frequency and incontinence lab work pending 08/21/17 15:05 Patient's urinalysis lab work noted no significant abnormality CT head x-ray were also negative, I believe the urinary incontinence may actually be secondary to worsening dementia, given that there is no infectious process that the patient looks well has no complaints herself I believe she is stable for discharge with social service consult. I believe they do require more care at home and the son is able to provide especially since patient and her are both having significant needs Son is happy with this plan After performing a Medical Screening Examination, I estimate there is LOW risk for INTRACRANIAL HEMORRHAGE, ISCHEMIC CVA, MALIGNANT DYSRHYTHMIA, ACUTE CORONARY SYNDROME, MENINGITIS, PULMONARY EMBOLISM, or SEPSIS thus I consider the discharge disposition reasonable. I have reevaluated this patient multiple times and no significant life threatening changes are noted. The patient her son and I have discussed the diagnosis and risks, and we agree with discharging home with close follow-up with the understanding that symptoms and presentations can change. We also discussed returning to the Emergency Department immediately if new or worsening symptoms occur. We have discussed the symptoms which are most concerning (e.g., changing or worsening pain, weakness, vomiting, fever) that necessitate immediate return. - Vital Signs Vital signs: Temp Pulse Resp BP Pulse Ox 98 F 59 L 17 152/75 H 99 08/21/17 14:29 08/21/17 10:03 08/21/17 14:03 08/21/17 14:03 08/21/17 14:03 - Laboratory Result Diagrams: 08/21/17 10:34 08/21/17 10:34 Laboratory results interpreted by me: 08/21/17 08/21/17 10:34 10:34 RDW 14.9 H Potassium 3.5 L BUN 23 H AST 60 H ALT 59 H - Diagnostic Test Radiology reviewed: Image reviewed - CT head notes no acute abnormality, chest x -ray two-view no acute abnormality, Reports reviewed - EKG Interpretation by Me EKG shows normal: Sinus rhythm, [place], Intervals, QRS Complexes, ST-T Waves Discharge - Discharge Clinical Impression: HTN (hypertension) Qualifiers: Hypertension type: essential hypertension Qualified Code(s): I10 - Essential ( primary) hypertension Dementia Qualifiers: Dementia type: unspecified type Dementia behavioral disturbance: without behavioral disturbance Qualified Code(s): F03.90 - Unspecified dementia without behavioral disturbance Condition: Stable Disposition: HOME, SELF-CARE Instructions: Dementia ([facility]) Referrals: HELEN LOPEZ MD [Primary Care Provider] - Follow up in 3-5 days
[2017-08-21 12:06] LABS: APPEARANCE,URINE CLEAR; BILIRUBIN,URINE NEGATIVE (NEGATIVE); COLOR,URINE YELLOW; GLUCOSE, URINE NEGATIVE (NEGATIVE); KETONES,URINE NEGATIVE (NEGATIVE); LEUKOCYTE ESTERASE,URINE NEGATIVE (NEGATIVE); NITRITE,URINE NEGATIVE (NEGATIVE); PROTEIN,URINE NEGATIVE (NEGATIVE); URINE SPECIFIC GRAVITY 1.011; UROBILINOGEN,URINE NEGATIVE mg/dL (<2.0)
[2017-08-21] MEDS ORDERED: VALSARTAN 80 MG TABLET PO ONE (13:11)
[2017-08-21] MEDS ORDERED: HYDROCHLOROTHIAZIDE 12.5 MG CAPSULE PO SCH (13:15)
[2017-08-21 14:29] VITALS: BP 152/75
--- NOTE | 2017-08-21 16:42 | EKG REPORT ---
SEVERITY:- ABNORMAL ECG - SINUS RHYTHM PROBABLE LVH WITH SECONDARY REPOL ABNRM : Confirmed by: Vikki Boswell 21-Aug-2017 16:41:29
== END 2017-08-21 14:29 | disposition home or self-care (01) ==
LOC: ER 09:47
DX: F03.90 Unspecified dementia, unspecified severity, without behavioral disturbance, psychotic disturbance, mood disturbance, and anxiety (principal); R32 Unspecified urinary incontinence; R35.0 Frequency of micturition; I10 Essential (primary) hypertension; I25.2 Old myocardial infarction; Z88.1 Allergy status to other antibiotic agents; Z88.8 Allergy status to other drugs, medicaments and biological substances; Z91.041 Radiographic dye allergy status; Z86.73 Personal history of transient ischemic attack (TIA), and cerebral infarction without residual deficits
CPT/HCPCS: 36415; 51702; 70450; 71046; 80053; 81001; 82962; 83605; 84443; 85025; 85610; 87040; 87086; 93005; 93010; 99285

== ENCOUNTER 2017-08-26 11:17 | Emergency (ER) | payer MEDICARE, OTHER ==
[2017-08-26] MEDS ORDERED: ASPIRIN 81 MG TABLET, CHEWABLE PO ONE (11:18)
--- NOTE | 2017-08-26 11:26 | ER Document Report ---
ED General - General Stated Complaint: CHEST PAIN Time Seen by Provider: 08/26/17 11:20 Mode of Arrival: Medic Information source: Patient, Relative, [facility] Records Notes: 82-year-old female presents with signs concerning for chest wall pain. Patient' s son who takes care of her and father as well presents stating his mother said that she had chest wall pain, however when patient arrives here she denies any pain to myself or her son, it is noted that son has made either a doctor's appointment or emergency department visit every single day since he has taken custody of his mother TRAVEL OUTSIDE OF THE [place] IN LAST 30 DAYS: No - HPI Onset: Just prior to arrival Onset/Duration: Sudden Quality of pain: Achy Severity: Mild Pain Level: 1 Associated symptoms: Body/muscle aches, Chest pain Exacerbated by: Movement Relieved by: Denies Similar symptoms previously: No Recently seen / treated by doctor: Yes - Related Data Allergies/Adverse Reactions: clindamycin Allergy (Verified 08/21/17 11:18) clopidogrel [From Plavix] Allergy (Verified 08/21/17 11:18) diatrizoate meglumine [From MD-Gastroview] Allergy (Verified 08/21/17 11:18) diatrizoate sodium [From MD-Gastroview] Allergy (Verified 08/21/17 11:18) dipyridamole [From Aggrenox] Allergy (Verified 08/21/17 11:18) erythromycin base [From Erythrocin] Allergy (Verified 08/21/17 11:18) meloxicam Allergy (Verified 08/21/17 11:18) pantoprazole Allergy (Verified 08/21/17 11:18) risedronate sodium [From Actonel] Allergy (Verified 08/21/17 11:18) sulfamethoxazole [From Bactrim] Allergy (Verified 08/21/17 11:18) ticlopidine Allergy (Verified 08/21/17 11:18) tobramycin Allergy (Verified 08/21/17 11:18) trimethoprim [From Bactrim] Allergy (Verified 08/21/17 11:18) IVC dye Allergy (Uncoded 07/16/17 01:52) Past Medical History - Social History Smoking Status: Never Smoker Cigarette use (# per day): No Chew tobacco use (# tins/day): No Smoking Education Provided: No Family History: Reviewed & Not Pertinent - Past Medical History Cardiac Medical History: Reports: Hx Congestive Heart Failure, Hx Heart Attack, Hx Hypercholesterolemia, Hx Hypertension Neurological Medical History: Reports: Hx Cerebrovascular Accident. Denies: Hx Seizures Renal/ Medical History: Denies: Hx Peritoneal Dialysis Musculoskeltal Medical History: Reports Hx Arthritis Psychiatric Medical History: Reports: Hx Anxiety Past Surgical History: Reports: Hx Cardiac Catheterization, Hx Cardiac Surgery Review of Systems - Review of Systems Notes: Patient is evaluated stable at this time there is no signs of any cardiac concerns, patient has been evaluated multiple times in the past week by primary care as well as emergency medicine physicians, she has no chest pain she looks well son notes that she looks well at this time, the chest pain is reproducible upon palpation of her chest wall, given that enzymes were negative and that the patient overall looks fine I do believe she is stable for discharge to follow- up with 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 I have reevaluated this patient multiple times and no significant life threatening changes are noted. The patient her son and I have discussed the diagnosis and risks, and we agree with discharging home with close follow-up. We also discussed returning to the Emergency Department immediately if new or worsening symptoms occur. We have discussed the symptoms which are most concerning (e.g., bloody sputum, worsening pain or shortness of breath) that necessitate immediate return. Physical Exam - Vital signs Vitals: Pulse Ox 95 08/26/17 11:18 Course - Vital Signs Vital signs: Temp Pulse Resp BP Pulse Ox 99.0 F 63 124/59 L 96 08/26/17 14:23 08/26/17 14:23 08/26/17 14:23 08/26/17 14:23 - Laboratory Result Diagrams: 08/26/17 12:13 08/26/17 12:13 Laboratory results interpreted by me: 08/26/17 08/26/17 12:13 12:13 RDW 15.2 H Monocytes % 15.4 H AST 44 H ALT 57 H Total Protein 6.0 L Discharge - Discharge Clinical Impression: Chest wall pain Dementia Qualifiers: Dementia type: Alzheimer's disease Alzheimer's disease onset: late-onset Dementia behavioral disturbance: without behavioral disturbance Qualified Code(s ): G30.1 - Alzheimer's disease with late onset; F02.80 - Dementia in other diseases classified elsewhere without behavioral disturbance; F02.80 - Dementia in other diseases classified elsewhere without behavioral disturbance; F02.80 - Dementia in other diseases classified elsewhere without behavioral disturbance Condition: Stable Disposition: HOME, SELF-CARE Instructions: Chest Wall Pain ([facility]) Referrals: HELEN LOPEZ MD [Primary Care Provider] - Follow up tomorrow
--- NOTE | 2017-08-26 12:18 | RADIOLOGY REPORT (SQ) ---
EXAM DESCRIPTION: CHEST SINGLE VIEW COMPLETED DATE/TIME: 08/26/2017 11:50 am REASON FOR STUDY: bed 8 cp COMPARISON: 08/21/2017 EXAM PARAMETERS: NUMBER OF VIEWS: One view. TECHNIQUE: Single frontal radiographic view of the chest acquired. RADIATION DOSE: NA LIMITATIONS: None. FINDINGS: LUNGS AND PLEURA: No opacities, masses or pneumothorax. No pleural effusion. MEDIASTINUM AND HILAR STRUCTURES: No masses. Contour normal. HEART AND VASCULAR STRUCTURES: Cardiac silhouette remains enlarged and is unchanged in configuration. BONES: No acute findings. HARDWARE: None in the chest. OTHER: No other significant finding. IMPRESSION: No significant interval change. No acute findings. Cardiomegaly. Other findings as no irena above TECHNICAL DOCUMENTATION: JOB ID: [id number] [employer]- All Rights Reserved Reading location - IP/workstation name: [email or web address]
[2017-08-26 12:29] LABS: ABSOLUTE EOSINOPHILS # (AUTO) 0.1 10^3/uL (0.0-0.6); ABSOLUTE LYMPHOCYTES (AUTO) 1.2 10^3/uL (0.5-4.7); ABSOLUTE MONOCYTES (AUTO) 1.1 10^3/uL (0.1-1.4); ABSOLUTE NEUT (AUTO) 4.8 10^3/uL (1.7-8.2); BASOPHILS % (AUTO) 0.4 % (0-2); EOSINOPHILS % (AUTO) 1.3 % (0-6); HEMATOCRIT 39.4 % (36.0-47.0); HEMOGLOBIN 13.5 g/dL (12.0-15.5); LYMPHOCYTES % (AUTO) 16.6 % (13-45); MEAN CORPUSCULAR HEMOGLOBIN 28.5 pg (27.0-33.4); MEAN CORPUSCULAR HGB CONC 34.1 g/dL (32.0-36.0); MEAN CORPUSCULAR VOLUME 84 fl (80-97); MONOCYTES % (AUTO) 15.4 % (3-13); PLATELET COUNT 176 10^3/uL (150-450); RED BLOOD COUNT 4.72 10^6/uL (3.72-5.28); RED CELL DISTRIBUTION WIDTH 15.2 % (11.5-14.0); SEGMENTED NEUTROPHILS % (AUTO) 66.3 % (42-78); TOTAL CELLS COUNTED % (AUTO) 100 %; WHITE BLOOD COUNT 7.2 10^3/uL (4.0-10.5)
[2017-08-26 12:45] LABS: ALANINE AMINOTRANSFERASE 57 U/L (9-52); ALBUMIN 3.6 g/dL (3.5-5.0); ALKALINE PHOSPHATASE 87 U/L (38-126); ANION GAP 9 (5-19); ASPARTATE AMINO TRANSFERASE 44 U/L (14-36); BILIRUBIN,DIRECT 0.3 mg/dL (0.0-0.4); BLOOD UREA NITROGEN 18 mg/dL (7-20); CALCIUM 9.3 mg/dL (8.4-10.2); CARBON DIOXIDE 28 mmol/L (22-30); CHLORIDE 100 mmol/L (98-107); CREATINE KINASE 108 U/L (30-135); GLUCOSE 108 mg/dL (75-110); POTASSIUM 3.8 mmol/L (3.6-5.0); SODIUM 137.3 mmol/L (137-145)
[2017-08-26 12:58] LABS: CREATINE KINASE MB 0.78 ng/mL (<4.55); TROPONIN I < 0.012 ng/mL
--- NOTE | 2017-08-26 13:36 | EKG REPORT ---
SEVERITY:- ABNORMAL ECG - SINUS RHYTHM BORDERLINE LEFT AXIS DEVIATION NONSPECIFIC T ABNORMALITIES, LATERAL LEADS : Confirmed by: Brayan Bashir MD 26-Aug-2017 13:35:38
[2017-08-26 15:09] VITALS: BP 124/59
== END 2017-08-26 14:40 | disposition home or self-care (01) ==
LOC: ER 11:17
DX: R07.89 Other chest pain (principal); G30.1 Alzheimer's disease with late onset; F02.80 Dementia in other diseases classified elsewhere, unspecified severity, without behavioral disturbance, psychotic disturbance, mood disturbance, and anxiety; M79.1 Myalgia; I50.9 Heart failure, unspecified; I25.2 Old myocardial infarction; I10 Essential (primary) hypertension
CPT/HCPCS: 36415; 71045; 80053; 82550; 82553; 84484; 85025; 93005; 93010; 99285

== ENCOUNTER → 2017-08-31 | Outpatient (CLI) | payer MEDICARE, OTHER ==
--- NOTE | 2017-08-31 10:31 | RADIOLOGY REPORT (SQ) ---
EXAM DESCRIPTION: MRI HEAD WITHOUT COMPLETED DATE/TIME: 08/31/2017 9:45 am REASON FOR STUDY: CVA (I63.9) I63.9 CEREBRAL INFARCTION, UNSPECIFIED COMPARISON: CT brain 08/23/2017, 08/21/2017, 07/16/2017 TECHNIQUE: Multiplanar imaging includes non-contrasted T1, T2, FLAIR, and diffusion with ADC map seq uences. Images stored on PACS. LIMITATIONS: None. 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 This result was discussed with Dr. Briseno, 08/31/2017, 1020 hours. CSF SPACES: Normal in size and contour. No hemorrhage. CEREBRUM: Diffusion-weighted images are positive for a subacute nonhemorrhagic infarct in the left fr ontal deep periventricular white matter. Elsewhere in the bifrontal and biparietal, and bilateral temporal lobe white matter there is diffuse small vessel ischemic change, chronic. Multiple old lacunar infarcts in the basal ganglia, right and left thalamus. No mass effect or midline shift. No acute intracranial hemorrhage. Gradient echo T2 weighted images demonstrate spotty hemosiderin deposition in the right basal ganglia from remote prior hemorrhage. POSTERIOR FOSSA: No signal alteration. No hemorrhage. No edema, masses or mass effect. Internal ilia tory canals, cerebello-pontine angles, mastoids normal. DIFFUSION IMAGING: Negative for acute or sub-acute infarction. ORBITS: Post cataract surgery bilaterally PARANASAL SINUSES: No fluid levels. Mucosa normal. OTHER: No other significant finding. IMPRESSION: Subacute nonhemorrhagic left basal ganglia infarct. 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 COMMENT: Pertinent findings on the imaging study reported as a CRITICAL RESULT to SILVESTRE BRISENO MD at10:20 on 08/31/2017. Category of Critical Result: Nonruptured anterior communicating artery region aneurysm, subacute infa rct left deep periventricular white matter TECHNICAL DOCUMENTATION: JOB ID: [id number]- All Rights Reserved Reading location - IP/workstation name: [email or web address]
== END ==
LOC: RAD 08:38
PROVIDERS: ATTEND Psychiatry & Neurology Neurology
DX: I63.9 Cerebral infarction, unspecified (principal)
CPT/HCPCS: 70551

== ENCOUNTER → 2017-10-03 | Outpatient (CLI) | payer MEDICARE, OTHER ==
[2017-10-03 17:41] LABS: ABSOLUTE EOSINOPHILS # (AUTO) 0.1 10^3/uL (0.0-0.6); ABSOLUTE MONOCYTES (AUTO) 0.6 10^3/uL (0.1-1.4); ABSOLUTE NEUT (AUTO) 5.1 10^3/uL (1.7-8.2); BASOPHILS % (AUTO) 0.4 % (0-2); EOSINOPHILS % (AUTO) 1.2 % (0-6); HEMATOCRIT 38.2 % (36.0-47.0); HEMOGLOBIN 12.7 g/dL (12.0-15.5); LYMPHOCYTES % (AUTO) 14.7 % (13-45); MEAN CORPUSCULAR HEMOGLOBIN 27.6 pg (27.0-33.4); MEAN CORPUSCULAR HGB CONC 33.3 g/dL (32.0-36.0); MEAN CORPUSCULAR VOLUME 83 fl (80-97); MONOCYTES % (AUTO) 9.1 % (3-13); PLATELET COUNT 224 10^3/uL (150-450); RED CELL DISTRIBUTION WIDTH 15.2 % (11.5-14.0); SEGMENTED NEUTROPHILS % (AUTO) 74.6 % (42-78); TOTAL CELLS COUNTED % (AUTO) 100 %; WHITE BLOOD COUNT 6.8 10^3/uL (4.0-10.5)
[2017-10-03 17:47] LABS: INTERNATIONAL RATION (INR) 1.08; PROTHROMBIN TIME 14.6 SEC (11.4-15.4)
[2017-10-03 17:54] LABS: ANION GAP 12 (5-19); BLOOD UREA NITROGEN 20 mg/dL (7-20); CALCIUM 9.6 mg/dL (8.4-10.2); CARBON DIOXIDE 26 mmol/L (22-30); CHLORIDE 101 mmol/L (98-107); GLUCOSE 99 mg/dL (75-110); POTASSIUM 4.6 mmol/L (3.6-5.0); SODIUM 138.6 mmol/L (137-145)
== END ==
LOC: OD 16:22
PROVIDERS: ATTEND Family Medicine
DX: S80.12XA Contusion of left lower leg, initial encounter (principal); X58.XXXA Exposure to other specified factors, initial encounter; Y93.9 Activity, unspecified; Y92.9 Unspecified place or not applicable
CPT/HCPCS: 36415; 80048; 85025; 85610

== ENCOUNTER 2017-10-22 20:09 | Emergency (ER) | payer MEDICARE, OTHER ==
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
[2017-10-22 21:06] LABS: ABSOLUTE BASOPHILS # (AUTO) 0.1 10^3/uL (0.0-0.2); ABSOLUTE EOSINOPHILS # (AUTO) 0.1 10^3/uL (0.0-0.6); ABSOLUTE LYMPHOCYTES (AUTO) 1.2 10^3/uL (0.5-4.7); ABSOLUTE MONOCYTES (AUTO) 0.8 10^3/uL (0.1-1.4); BASOPHILS % (AUTO) 0.9 % (0-2); EOSINOPHILS % (AUTO) 2.2 % (0-6); HEMATOCRIT 36.8 % (36.0-47.0); HEMOGLOBIN 12.5 g/dL (12.0-15.5); MEAN CORPUSCULAR HEMOGLOBIN 27.7 pg (27.0-33.4); MEAN CORPUSCULAR HGB CONC 33.9 g/dL (32.0-36.0); MEAN CORPUSCULAR VOLUME 82 fl (80-97); MONOCYTES % (AUTO) 13.1 % (3-13); PLATELET COUNT 196 10^3/uL (150-450); RED CELL DISTRIBUTION WIDTH 15.4 % (11.5-14.0); SEGMENTED NEUTROPHILS % (AUTO) 64.8 % (42-78); TOTAL CELLS COUNTED % (AUTO) 100 %; WHITE BLOOD COUNT 6.2 10^3/uL (4.0-10.5)
[2017-10-22 21:23] LABS: ALANINE AMINOTRANSFERASE 45 U/L (9-52); ALBUMIN 3.7 g/dL (3.5-5.0); ALKALINE PHOSPHATASE 89 U/L (38-126); ANION GAP 9 (5-19); ASPARTATE AMINO TRANSFERASE 61 U/L (14-36); BILIRUBIN,DIRECT 0.3 mg/dL (0.0-0.4); BILIRUBIN,TOTAL 0.5 mg/dL (0.2-1.3); BLOOD UREA NITROGEN 24 mg/dL (7-20); CALCIUM 9.4 mg/dL (8.4-10.2); CARBON DIOXIDE 28 mmol/L (22-30); CHLORIDE 102 mmol/L (98-107); CREATINE KINASE 32 U/L (30-135); GLUCOSE 133 mg/dL (75-110); SODIUM 138.9 mmol/L (137-145); TOTAL PROTEIN 6.4 g/dL (6.3-8.2)
[2017-10-22] MEDS ORDERED: NORMAL SALINE 1000 ML 500 ML IV ONE (21:34)
--- NOTE | 2017-10-22 21:41 | RADIOLOGY REPORT (SQ) ---
EXAM DESCRIPTION: CT HEAD WITHOUT COMPLETED DATE/TIME: 10/22/2017 9:11 pm REASON FOR STUDY: syncope/fall, ? head injury, on xarelto COMPARISON: 08/23/2017. 2016. TECHNIQUE: Axial images acquired through the brain without intravenous contrast. Images reviewed wi th bone, brain and subdural windows. Additional sagittal and coronal reconstructions were generated. Images stored on PACS. All CT scanners at this facility use dose modulation, iterative reconstruction, and/or weight based d osing when appropriate to reduce radiation dose to as low as reasonably achievable (ALARA). [facility]: Dose Right [facility]: CareDose [facility]: Dose Right [facility]: Teradose 4D [facility]: Zagster RADIATION DOSE: mGy. LIMITATIONS: None. FINDINGS: VENTRICLES: Prominent. CEREBRUM: No masses. No hemorrhage. No midline shift. Areas of low density in the white matter mos t likely due to chronic micro-vascular ischemic change. This includes well-defined chronic lacunar i nfarcts in the deep white matter. No evidence for acute infarction. CEREBELLUM: No masses. No hemorrhage. No alteration of density. No evidence for acute infarction. EXTRAAXIAL SPACES: Age-related involutional change. No fluid collections. No masses. ORBITS AND GLOBE: No intra- or extraconal masses. Normal contour of globe without masses. CALVARIUM: No fracture. PARANASAL SINUSES: No fluid or mucosal thickening. SOFT TISSUES: No mass or hematoma. OTHER: No other significant finding. IMPRESSION: CHRONIC CHANGES OF ATROPHY AND MICROVASCULAR ISCHEMIA. NO ACUTE PROCESS. EVIDENCE OF ACUTE STROKE: NO. TECHNICAL DOCUMENTATION: JOB ID: [id number] Quality ID # [id number]: Final reports with documentation of one or more dose reduction techniques (e.g., Au tomated exposure control, adjustment of the mA and/or kV according to patient size, use of iterative reconstruction technique) 2010 [employer]- All Rights Reserved Reading location - IP/workstation name: [email or web address]
--- NOTE | 2017-10-22 21:59 | RADIOLOGY REPORT (SQ) ---
EXAM DESCRIPTION: HIP BILATERAL COMPLETED DATE/TIME: 10/22/2017 9:06 pm REASON FOR STUDY: fall, ? hip injury COMPARISON: None. NUMBER OF VIEWS: Three views. TECHNIQUE: AP pelvis and additional frog-leg views of the right and left hips. LIMITATIONS: None. FINDINGS: There is no acute fracture or dislocation. The pelvic ring is intact. The bilateral hip joints are maintained. Degenerative changes are noted at the visualized lower lumbar spine. The sof t tissues are unremarkable. IMPRESSION: No radiographic evidence for acute fracture or dislocation at the bilateral hips. TECHNICAL DOCUMENTATION: JOB ID: [id number] OH-[id number] 2010 [employer]- All Rights Reserved Reading location - IP/workstation name: [email or web address]
--- NOTE | 2017-10-22 22:02 | RADIOLOGY REPORT (SQ) ---
EXAM DESCRIPTION: CHEST SINGLE VIEW COMPLETED DATE/TIME: 10/22/2017 9:06 pm REASON FOR STUDY: syncopal episode COMPARISON: Chest x-ray 08/21/2017. EXAM PARAMETERS: NUMBER OF VIEWS: One view. TECHNIQUE: Single frontal radiographic view of the chest acquired. RADIATION DOSE: NA LIMITATIONS: None. FINDINGS: LUNGS AND PLEURA: No consolidation, pneumothorax or pleural effusion. MEDIASTINUM AND HILAR STRUCTURES: No masses. Contour normal. HEART AND VASCULAR STRUCTURES: The heart remains enlarged. There is no overt vascular congestion. BONES: No acute findings. HARDWARE: None in the chest. IMPRESSION: Stable cardiomegaly. Otherwise, no acute radiographic finding in the chest. TECHNICAL DOCUMENTATION: JOB ID: [id number] [id number] 2010 [employer]- All Rights Reserved Reading location - IP/workstation name: [email or web address]
[2017-10-23 00:10] LABS: APPEARANCE,URINE CLEAR; BILIRUBIN,URINE NEGATIVE (NEGATIVE); COLOR,URINE STRAW; GLUCOSE, URINE NEGATIVE (NEGATIVE); KETONES,URINE NEGATIVE (NEGATIVE); LEUKOCYTE ESTERASE,URINE NEGATIVE (NEGATIVE); NITRITE,URINE NEGATIVE (NEGATIVE); PROTEIN,URINE NEGATIVE (NEGATIVE); URINE SPECIFIC GRAVITY 1.003; UROBILINOGEN,URINE NEGATIVE mg/dL (<2.0)
[2017-10-23 01:31] VITALS: BP 172/77
--- NOTE | 2017-10-24 07:35 | EKG REPORT ---
SEVERITY:- OTHERWISE NORMAL ECG - SINUS RHYTHM ATRIAL PREMATURE COMPLEX BORDERLINE LEFT AXIS DEVIATION : Confirmed by: Brayan Bashir MD 24-Oct-2017 07:34:20
== END 2017-10-23 01:04 | disposition home or self-care (01) ==
LOC: ER 20:09
DX: S40.022A Contusion of left upper arm, initial encounter (principal); S40.021A Contusion of right upper arm, initial encounter; M25.559 Pain in unspecified hip; W19.XXXA Unspecified fall, initial encounter; Y92.512 Supermarket, store or market as the place of occurrence of the external cause; R55 Syncope and collapse; I10 Essential (primary) hypertension; I25.2 Old myocardial infarction; Z79.01 Long term (current) use of anticoagulants; Z88.1 Allergy status to other antibiotic agents; Z88.8 Allergy status to other drugs, medicaments and biological substances; Z91.041 Radiographic dye allergy status
CPT/HCPCS: 93005; 99285; 51701; 36415; 82550; 85025; 80053; 81001; 84484; 71045; 73522; 70450; 93010; J7030

== ENCOUNTER 2017-10-26 11:42 | Emergency (ER) | payer MEDICARE, OTHER ==
--- NOTE | 2017-10-26 14:15 | RADIOLOGY REPORT (SQ) ---
EXAM DESCRIPTION: CT HEAD WITHOUT COMPLETED DATE/TIME: 10/26/2017 1:51 pm REASON FOR STUDY: fall on xarelto COMPARISON: 10/22/2017 TECHNIQUE: Axial images acquired through the brain without intravenous contrast. Images reviewed wi th bone, brain and subdural windows. Additional sagittal and coronal reconstructions were generated. Images stored on PACS. All CT scanners at this facility use dose modulation, iterative reconstruction, and/or weight based d osing when appropriate to reduce radiation dose to as low as reasonably achievable (ALARA). [facility]: Dose Right [facility]: CareDose [facility]: Dose Right [facility]: Teradose 4D [facility]: Smart NutraMed RADIATION DOSE: CT Rad equipment meets quality standard of care and radiation dose reduction techniq ues were employed. CTDIvol: 53.2 mGy. DLP: 1097 mGy-cm.mGy. LIMITATIONS: None. FINDINGS: VENTRICLES: Prominent. CEREBRUM: No masses. No hemorrhage. No midline shift. Areas of low density in the white matter mos t likely due to chronic micro-vascular ischemic change. The previously described chronic lacunar inf arcts are again identified and appears stable. No evidence for acute infarction. CEREBELLUM: No masses. No hemorrhage. No alteration of density. No evidence for acute infarction. EXTRAAXIAL SPACES: Age-related involutional change. No fluid collections. No masses. ORBITS AND GLOBE: No intra- or extraconal masses. Normal contour of globe without masses. CALVARIUM: No fracture. PARANASAL SINUSES: No fluid or mucosal thickening. SOFT TISSUES: No mass or hematoma. OTHER: No other significant finding. IMPRESSION: CHRONIC CHANGES OF ATROPHY AND MICROVASCULAR ISCHEMIA. Stable appearing old lacunar inf arcts. NO ACUTE PROCESS. EVIDENCE OF ACUTE STROKE: NO. TECHNICAL DOCUMENTATION: JOB ID: [id number] Quality ID # [id number]: Final reports with documentation of one or more dose reduction techniques (e.g., Au tomated exposure control, adjustment of the mA and/or kV according to patient size, use of iterative reconstruction technique) 2010 [employer]- All Rights Reserved Reading location - IP/workstation name: [email or web address]
--- NOTE | 2017-10-26 14:30 | RADIOLOGY REPORT (SQ) ---
EXAM DESCRIPTION: HIP BILATERAL COMPLETED DATE/TIME: 10/26/2017 2:14 pm REASON FOR STUDY: fall on xarelto COMPARISON: Comparison 10/22/2017 TECHNIQUE: AP pelvis and additional frog-leg view of the right and left hip. LIMITATIONS: None. FINDINGS: No acute fractures identified. The hips appear intact and stable prior study. If an occult fracture suspected clinically, consider followup imaging. IMPRESSION: Nothing acute. TECHNICAL DOCUMENTATION: JOB ID: [id number] [employer]- All Rights Reserved Reading location - IP/workstation name: [email or web address]
--- NOTE | 2017-10-26 14:35 | RADIOLOGY REPORT (SQ) ---
EXAM DESCRIPTION: SHOULDER RIGHT 2 OR MORE VIEWS COMPLETED DATE/TIME: 10/26/2017 2:14 pm REASON FOR STUDY: fall on xarelto scapula pain COMPARISON: 07/16/2017 NUMBER OF VIEWS: Three views. TECHNIQUE: Internal rotation, external rotation, and Y view images acquired of the right shoulder. LIMITATIONS: None. FINDINGS: MINERALIZATION: Normal. BONES: No acute fracture or dislocation. No worrisome bone lesions. JOINTS: Joint spaces of the shoulder maintained. VISUALIZED LUNGS AND RIBS: No pneumothorax. No rib fracture. SOFT TISSUES: No tendon calcification. OTHER: No other significant finding. IMPRESSION: No acute fracture or dislocation identified of the right shoulder. TECHNICAL DOCUMENTATION: JOB ID: [id number] [employer]- All Rights Reserved Reading location - IP/workstation name: [email or web address]
--- NOTE | 2017-10-26 14:48 | RADIOLOGY REPORT (SQ) ---
EXAM DESCRIPTION: SACRUM AND COCCYX COMPLETED DATE/TIME: 10/26/2017 2:14 pm REASON FOR STUDY: fall on xarelto COMPARISON: None. NUMBER OF VIEWS: Three views. TECHNIQUE: AP, lateral, and tilt views of the sacrum and coccyx. LIMITATIONS: Study is limited due to the patient's body habitus and overlying gas and fecal material in the colon. FINDINGS: MINERALIZATION: Normal. BONES: No acute fracture or dislocation. No worrisome bone lesions. SOFT TISSUES: No soft tissue swelling. No foreign body. OTHER: There is some loss of the cortical margins of the left SI joint with associated bony sclerosis and cystic changes consistent with degenerative changes. IMPRESSION: Limited study as noted above. No acute fracture or dislocation. Other findings as note d above TECHNICAL DOCUMENTATION: JOB ID: [id number] [employer]- All Rights Reserved Reading location - IP/workstation name: [email or web address]
--- NOTE | 2017-10-26 14:58 | ER Document Report ---
ED General - General Chief Complaint: Fall Injury Stated Complaint: FALL/FACE PAIN Time Seen by Provider: 10/26/17 13:19 TRAVEL OUTSIDE OF THE [place] IN LAST 30 DAYS: No - HPI Patient complains to provider of: Fall face injury Notes: Patient was seen on Tuesday she had a syncopal episode fall hitting her face causing significant trauma patient is on Xarelto at the time basic x-rays and head CT was performed otherwise was negative. Family member at bedside states the patient's bruising has worsened since discharge and is concerned. Otherwise has no other syncopal episodes patient has been going by her daily activities as normal. Patient resting comfortably with obvious bruising to the face and extremities. Family states patient is having some pain of the coccyx at this time and is requesting x-rays of the tailbone - Related Data Allergies/Adverse Reactions: clindamycin Allergy (Verified 08/21/17 11:18) clopidogrel [From Plavix] Allergy (Verified 08/21/17 11:18) diatrizoate meglumine [From -Gastroview] Allergy (Verified 08/21/17 11:18) diatrizoate sodium [From MD-Gastroview] Allergy (Verified 08/21/17 11:18) dipyridamole [From Aggrenox] Allergy (Verified 08/21/17 11:18) erythromycin base [From Erythrocin] Allergy (Verified 08/21/17 11:18) meloxicam Allergy (Verified 08/21/17 11:18) pantoprazole Allergy (Verified 08/21/17 11:18) risedronate sodium [From Actonel] Allergy (Verified 08/21/17 11:18) sulfamethoxazole [From Bactrim] Allergy (Verified 08/21/17 11:18) ticlopidine Allergy (Verified 08/21/17 11:18) tobramycin Allergy (Verified 08/21/17 11:18) trimethoprim [From Bactrim] Allergy (Verified 08/21/17 11:18) IVC dye Allergy (Uncoded 07/16/17 01:52) Past Medical History - Social History Smoking Status: Never Smoker Chew tobacco use (# tins/day): No Frequency of alcohol use: None Drug Abuse: None Family History: Reviewed & Not Pertinent Patient has suicidal ideation: No Patient has homicidal ideation: No - Past Medical History Cardiac Medical History: Reports: Hx Congestive Heart Failure, Hx Heart Attack, Hx Hypercholesterolemia, Hx Hypertension Neurological Medical History: Reports: Hx Cerebrovascular Accident. Denies: Hx Seizures Renal/ Medical History: Denies: Hx Peritoneal Dialysis Musculoskeltal Medical History: Reports Hx Arthritis Psychiatric Medical History: Reports: Hx Anxiety Past Surgical History: Reports: Hx Cardiac Catheterization, Hx Cardiac Surgery Review of Systems - Review of Systems -: Yes ROS unobtainable due to patient's medical condition - Dementia Physical Exam - Vital signs Vitals: Temp Pulse Resp BP Pulse Ox 97.9 F 59 L 20 146/69 H 96 10/26/17 12:08 10/26/17 12:08 10/26/17 12:08 10/26/17 12:08 10/26/17 12:08 Interpretation: Normal - General General appearance: Appears well, Alert - HEENT Head: Normocephalic. No: Atraumatic - Lateral ecchymosis to the nasal bridge and going to the inferior orbits with minimal swelling. Patient also has some ecchymosis to the right superior forehead Eyes: Normal Pupils: PERRL - Respiratory Respiratory status: No respiratory distress Chest status: Nontender Breath sounds: Normal Chest palpation: Normal - Cardiovascular Rhythm: Regular Heart sounds: Normal auscultation Murmur: No - Abdominal Inspection: Normal Distension: No distension Bowel sounds: Normal Tenderness: Nontender Organomegaly: No organomegaly - Back Back: Normal, Nontender - Extremities General upper extremity: Normal inspection, Nontender, Normal color, Normal ROM , Normal temperature, Other - Ecchymosis to the right scapula General lower extremity: Normal inspection, Nontender, Normal color, Normal ROM , Normal temperature, Other - No tenderness to palpation of the hips no tenderness palpation of the SI joints - Neurological Neuro grossly intact: Yes Cognition: Normal Orientation: AAOx4 [place] Coma Scale Eye Opening: Spontaneous [place] Coma Scale Verbal: Oriented [place] Coma Scale Motor: Obeys Commands Martí[place] Coma Scale Total: 15 Speech: Normal Motor strength normal: LUE, RUE, LLE, RLE Sensory: Normal - Psychological Associated symptoms: Normal affect, Normal mood - Skin Skin Temperature: Warm Skin Moisture: Dry Skin Color: Normal Course - Re-evaluation Re-evalutation: 10/26/17 19:43 X-rays performed showing no signs of any critical pathology no fracture seen. Read CT the patient's head again showing no traumatic findings no intracranial bleeding. More likely the continued ecchymosis and developing bruises from patient's underlying use of Xarelto they recommend holding Xarelto for the next 48-72 hours follow-up PCP family states understanding was discharged home - Vital Signs Vital signs: Temp Pulse Resp BP Pulse Ox 98.0 F 59 L 18 151/74 H 96 10/26/17 14:59 10/26/17 12:08 10/26/17 14:59 10/26/17 14:59 10/26/17 12:08 Discharge - Discharge Clinical Impression: Multiple bruises Fall Qualifiers: Encounter type: subsequent encounter Qualified Code(s): W19.XXXD - Unspecified fall, subsequent encounter Condition: Good Disposition: HOME, SELF-CARE Instructions: Contusion ([facility]) Additional Instructions: Hold the patient Xarelto for the next 72 hours for 3 days. Follow-up with your primary care physician return to ER symptoms worsen All of your x-rays today and a repeat head CT did not show any signs of fracture internal bleeding or other significant pathology Referrals: HELEN LOPEZ MD [Primary Care Provider] - Follow up as needed
[2017-10-26 15:03] VITALS: BP 151/74
== END 2017-10-26 15:04 | disposition home or self-care (01) ==
LOC: ER 11:42
DX: S00.33XA Contusion of nose, initial encounter (principal); S00.10XA Contusion of unspecified eyelid and periocular area, initial encounter; S00.83XA Contusion of other part of head, initial encounter; S40.011A Contusion of right shoulder, initial encounter; M53.3 Sacrococcygeal disorders, not elsewhere classified; W19.XXXA Unspecified fall, initial encounter; I10 Essential (primary) hypertension; I25.2 Old myocardial infarction; F03.90 Unspecified dementia, unspecified severity, without behavioral disturbance, psychotic disturbance, mood disturbance, and anxiety; Z79.01 Long term (current) use of anticoagulants; Z88.1 Allergy status to other antibiotic agents; Z88.8 Allergy status to other drugs, medicaments and biological substances; Z91.041 Radiographic dye allergy status
CPT/HCPCS: 70450; 72220; 73522; 99284

== ENCOUNTER 2017-10-26 17:52 | Emergency (ER) | payer MEDICARE, OTHER ==
--- NOTE | 2017-10-26 18:42 | ER Document Report ---
ED General <JAN ZARAGOZA - Last Filed: 10/26/17 22:24> - General Mode of Arrival: Medic Information source: Patient, Relative TRAVEL OUTSIDE OF THE [place] IN LAST 30 DAYS: No <RICKI NIX - Last Filed: 10/27/17 21:46> - General Chief Complaint: Near Syncope Stated Complaint: SYNCOPAL EPISODE Time Seen by Provider: 10/26/17 18:19 Notes: Patient is an 82 year old female with CHF, HTN, high cholesterol, hyperlipidemia , anxiety and dementia presents to the emergency department accompanied by son complaining of a syncopal episode prior to arrival. Son states on 10/22/2017 the patient fell on her face while in [place] and was seen and discharged in this emergency department with negative CT scans of head and xray. Son states he brought the patient to her PCP due to bruising on the patient's face worsening and was sent to the emergency department for another CT scan. Patient was discharged from this emergency with another negative CT scan of the head at around 1500 today. Son states the patient ate at the cafeteria here and went home around 16:30. When the patient arrived to her home, the son states the home was extremely hot due to the heat accidentally being on. Son states the patient was sitting down when she proceeded to have a syncopal episode. Son states he called the ambulance and prior to EMS arrival to their home, the patient became responsive and vomited. Patient states she feels better at bedside. Son states the patient would have very similar syncopal episodes when it was very hot. He states for the last 10 years the patient would always vomit after a syncopal episode due to it being hot but would feel better afterwards. Son states this started to occur after the patient received an cardiac stent that blocked off another smaller artery further stating she had a GA shortly after. (RICKI NIX) - Related Data Allergies/Adverse Reactions: clindamycin Allergy (Verified 08/21/17 11:18) clopidogrel [From Plavix] Allergy (Verified 08/21/17 11:18) diatrizoate meglumine [From MDSharathGastroview] Allergy (Verified 08/21/17 11:18) diatrizoate sodium [From MDSharathGastroview] Allergy (Verified 08/21/17 11:18) dipyridamole [From Aggrenox] Allergy (Verified 08/21/17 11:18) erythromycin base [From Erythrocin] Allergy (Verified 08/21/17 11:18) meloxicam Allergy (Verified 08/21/17 11:18) pantoprazole Allergy (Verified 08/21/17 11:18) risedronate sodium [From Actonel] Allergy (Verified 08/21/17 11:18) sulfamethoxazole [From Bactrim] Allergy (Verified 08/21/17 11:18) ticlopidine Allergy (Verified 08/21/17 11:18) tobramycin Allergy (Verified 08/21/17 11:18) trimethoprim [From Bactrim] Allergy (Verified 08/21/17 11:18) IVC dye Allergy (Uncoded 07/16/17 01:52) Past Medical History - General Information source: Patient, Relative - Social History Smoking Status: Never Smoker Cigarette use (# per day): No Chew tobacco use (# tins/day): No Smoking Education Provided: No Frequency of alcohol use: None Family History: Reviewed & Not Pertinent - Past Medical History Cardiac Medical History: Reports: Hx Congestive Heart Failure, Hx Heart Attack, Hx Hypercholesterolemia, Hx Hypertension Neurological Medical History: Reports: Hx Cerebrovascular Accident. Denies: Hx Seizures Renal/ Medical History: Denies: Hx Peritoneal Dialysis Musculoskeltal Medical History: Reports Hx Arthritis Psychiatric Medical History: Reports: Hx Anxiety Past Surgical History: Reports: Hx Cardiac Catheterization, Hx Cardiac Surgery <RICKI NIX - Last Filed: 10/27/17 21:46> Review of Systems - Review of Systems Constitutional: No symptoms reported EENT: No symptoms reported Cardiovascular: See HPI, Syncope Respiratory: No symptoms reported Gastrointestinal: See HPI, Vomiting Genitourinary: No symptoms reported Female Genitourinary: No symptoms reported Musculoskeletal: No symptoms reported Skin: No symptoms reported Hematologic/Lymphatic: No symptoms reported Neurological/Psychological: See HPI -: Yes All other systems reviewed and negative <RICKI NIX - Last Filed: 10/27/17 21:46> Physical Exam - General General appearance: Appears well, Alert In distress: None - HEENT Head: Normocephalic, Other Eyes: Periorbital ecchymosis - Slightly worsening Conjunctiva: Normal Extraocular movements intact: Yes Pupils: PERRL Neck: Normal. No: Carotid bruit - Respiratory Respiratory status: No respiratory distress Chest status: Nontender Breath sounds: Normal Chest palpation: Normal - Cardiovascular Rhythm: Regular Heart sounds: Normal auscultation Murmur: No Friction rub: No Gallop: None auscultated Pulses: Normal: Radial, Dorsalis pedis - Abdominal Inspection: Normal - Back Back: Normal - Extremities General upper extremity: Normal ROM, Other - Bruising on BUE, son states this was in attempt to pick her up General lower extremity: Normal ROM - Neurological Cognition: Other - Demented Orientation: Disoriented to person, Disoriented to place, Disoriented to time, Disoriented to events - Psychological Associated symptoms: Normal affect, Normal mood - Skin Skin Temperature: Warm Skin Moisture: Dry Skin Color: Normal <RICKI NIX - Last Filed: 10/27/17 21:46> - Vital signs Vitals: Temp Pulse Resp BP Pulse Ox 97.4 F 55 L 18 108/49 L 98 10/26/17 18:21 10/26/17 18:21 10/26/17 18:21 10/26/17 18:21 10/26/17 18:21 Course - Laboratory Result Diagrams: 10/26/17 19:00 10/26/17 19:00 <JAN ZARAGOZA - Last Filed: 10/26/17 22:24> - Laboratory Result Diagrams: 10/26/17 19:00 10/26/17 19:00 <RICKI NIX - Last Filed: 10/27/17 21:46> - Re-evaluation Re-evalutation: 10/26/17 22:24 CBC, Chem-12, and urinalysis are all unremarkable. I suspect her syncopal episode at home was similar to all the others that she has had by history, and possibly been precipitated by the high temperatures in the home when they returned home. At this time there is no concerns about her returning home and continuing her regular medications. (JAN ZARAGOZA) - Vital Signs Vital signs: Temp Pulse Resp BP Pulse Ox 97.8 F 81 20 154/61 H 95 10/26/17 22:38 10/26/17 22:38 10/26/17 22:38 10/26/17 22:38 10/26/17 22:38 - Laboratory Laboratory results interpreted by me: 10/26/17 10/26/17 19:00 19:00 RDW 15.8 H Lymphocytes % 11.9 L Potassium 3.5 L Est GFR (Non-Af Amer) 58 L Glucose 126 H Creatine Kinase 22 L Total Protein 6.0 L Discharge <JAN ZARAGOZA - Last Filed: 10/26/17 22:24> <RICKI NIX - Last Filed: 10/27/17 21:46> - Discharge Clinical Impression: Syncope Qualifiers: Syncope type: unspecified Qualified Code(s): R55 - Syncope and collapse Condition: Stable Disposition: HOME, SELF-CARE Additional Instructions: I suspect you are correct about this syncopal episode being caused by the high temperatures in the home and it being similar to many prior episodes of the same thing. You should continue her regular medications and be sure she drinks plenty of fluids. Follow-up with Dr. Denise as needed. RETURN TO THE EMERGENCY ROOM IF ANY NEW OR WORSENING SYMPTOMS. Referrals: HELEN DENISE MD [Primary Care Provider] - Follow up as needed Scribe Attestation: 10/26/17 18:47 I personally performed the services described in the documentation, reviewed and edited the documentation which was dictated to the scribe in my presence, and it accurately records my words and actions. (JAN ZARAGOZA) Scribe Documentation - Scribe Written by Scribe:: Madison Terry, 10/26/2017 19:44 acting as scribe for :: Hever <RICKI NIX - Last Filed: 10/27/17 21:46>
[2017-10-26 19:20] LABS: ABSOLUTE BASOPHILS # (AUTO) 0.1 10^3/uL (0.0-0.2); ABSOLUTE EOSINOPHILS # (AUTO) 0.2 10^3/uL (0.0-0.6); ABSOLUTE MONOCYTES (AUTO) 0.9 10^3/uL (0.1-1.4); ABSOLUTE NEUT (AUTO) 6.3 10^3/uL (1.7-8.2); BASOPHILS % (AUTO) 0.6 % (0-2); EOSINOPHILS % (AUTO) 2.1 % (0-6); HEMATOCRIT 37.1 % (36.0-47.0); HEMOGLOBIN 12.4 g/dL (12.0-15.5); LYMPHOCYTES % (AUTO) 11.9 % (13-45); MEAN CORPUSCULAR HEMOGLOBIN 27.2 pg (27.0-33.4); MEAN CORPUSCULAR HGB CONC 33.5 g/dL (32.0-36.0); MEAN CORPUSCULAR VOLUME 81 fl (80-97); PLATELET COUNT 190 10^3/uL (150-450); RED BLOOD COUNT 4.58 10^6/uL (3.72-5.28); RED CELL DISTRIBUTION WIDTH 15.8 % (11.5-14.0); SEGMENTED NEUTROPHILS % (AUTO) 74.4 % (42-78); TOTAL CELLS COUNTED % (AUTO) 100 %; WHITE BLOOD COUNT 8.5 10^3/uL (4.0-10.5)
[2017-10-26 19:39] LABS: ALANINE AMINOTRANSFERASE 44 U/L (9-52); ALBUMIN 3.6 g/dL (3.5-5.0); ALKALINE PHOSPHATASE 91 U/L (38-126); ANION GAP 10 (5-19); ASPARTATE AMINO TRANSFERASE 35 U/L (14-36); BILIRUBIN,DIRECT 0.2 mg/dL (0.0-0.4); BILIRUBIN,TOTAL 0.5 mg/dL (0.2-1.3); BLOOD UREA NITROGEN 18 mg/dL (7-20); CALCIUM 9.5 mg/dL (8.4-10.2); CARBON DIOXIDE 28 mmol/L (22-30); CHLORIDE 100 mmol/L (98-107); CREATINE KINASE 22 U/L (30-135); GLUCOSE 126 mg/dL (75-110); POTASSIUM 3.5 mmol/L (3.6-5.0); SODIUM 138.2 mmol/L (137-145)
[2017-10-26 21:51] LABS: APPEARANCE,URINE CLEAR; BILIRUBIN,URINE NEGATIVE (NEGATIVE); COLOR,URINE YELLOW; GLUCOSE, URINE NEGATIVE (NEGATIVE); KETONES,URINE NEGATIVE (NEGATIVE); LEUKOCYTE ESTERASE,URINE NEGATIVE (NEGATIVE); NITRITE,URINE NEGATIVE (NEGATIVE); PROTEIN,URINE NEGATIVE (NEGATIVE); URINE SPECIFIC GRAVITY 1.014; UROBILINOGEN,URINE NEGATIVE mg/dL (<2.0)
[2017-10-26 22:39] VITALS: BP 154/61
== END 2017-10-26 22:44 | disposition home or self-care (01) ==
LOC: ER 17:52
DX: R55 Syncope and collapse (principal); R11.10 Vomiting, unspecified; S00.10XA Contusion of unspecified eyelid and periocular area, initial encounter; W19.XXXA Unspecified fall, initial encounter; S40.022A Contusion of left upper arm, initial encounter; S40.021A Contusion of right upper arm, initial encounter; X58.XXXA Exposure to other specified factors, initial encounter; F03.90 Unspecified dementia, unspecified severity, without behavioral disturbance, psychotic disturbance, mood disturbance, and anxiety; I10 Essential (primary) hypertension; I25.2 Old myocardial infarction; Z95.5 Presence of coronary angioplasty implant and graft; Z88.1 Allergy status to other antibiotic agents; Z88.8 Allergy status to other drugs, medicaments and biological substances; Z91.041 Radiographic dye allergy status
CPT/HCPCS: 36415; 51701; 80053; 81001; 82550; 84484; 85025; 99284

== ENCOUNTER → 2017-10-26 | Outpatient (CLI) | payer MEDICARE, OTHER | LOC: HHS 10:10 | DX: Z12.83 Encounter for screening for malignant neoplasm of skin (principal) ==

== ENCOUNTER 2017-11-03 01:06 | Emergency (ER) | payer MEDICARE, OTHER ==
[2017-11-03 02:06] LABS: ABSOLUTE BASOPHILS # (AUTO) 0.1 10^3/uL (0.0-0.2); ABSOLUTE EOSINOPHILS # (AUTO) 0.2 10^3/uL (0.0-0.6); ABSOLUTE LYMPHOCYTES (AUTO) 1.4 10^3/uL (0.5-4.7); ABSOLUTE MONOCYTES (AUTO) 0.9 10^3/uL (0.1-1.4); ABSOLUTE NEUT (AUTO) 5.1 10^3/uL (1.7-8.2); BASOPHILS % (AUTO) 0.7 % (0-2); EOSINOPHILS % (AUTO) 2.3 % (0-6); HEMATOCRIT 34.3 % (36.0-47.0); HEMOGLOBIN 11.8 g/dL (12.0-15.5); LYMPHOCYTES % (AUTO) 18.1 % (13-45); MEAN CORPUSCULAR HEMOGLOBIN 27.7 pg (27.0-33.4); MEAN CORPUSCULAR HGB CONC 34.4 g/dL (32.0-36.0); MEAN CORPUSCULAR VOLUME 81 fl (80-97); MONOCYTES % (AUTO) 11.9 % (3-13); PLATELET COUNT 193 10^3/uL (150-450); RED BLOOD COUNT 4.25 10^6/uL (3.72-5.28); RED CELL DISTRIBUTION WIDTH 15.5 % (11.5-14.0); TOTAL CELLS COUNTED % (AUTO) 100 %; WHITE BLOOD COUNT 7.7 10^3/uL (4.0-10.5)
--- NOTE | 2017-11-03 02:13 | ER Document Report ---
ED General - General Stated Complaint: SYNCOPE Time Seen by Provider: 11/03/17 01:52 Notes: Patient is an 82-year-old female that comes emergency department by EMS for chief complaint of an episode where she stopped responding, was standing rigid and staring off, then her son supported her slowly down to the bed and she had an episode of vomiting. He states that she did not look like she passed out although after less than a minute later she started responding again. He states that he checked her strength and she was weaker on the right side and appeared to have a right-sided facial droop. This had resolved by the time she got to EMS and then to the emergency department. Patient is on Xarelto, has a history of CVA, dementia, anxiety, CHF, hypertension, hyperlipidemia. She does not speak [place], she lives at home with her son and her . The son is their commercial diver. TRAVEL OUTSIDE OF THE [place] IN LAST 30 DAYS: No - Related Data Allergies/Adverse Reactions: clindamycin Allergy (Verified 08/21/17 11:18) clopidogrel [From Plavix] Allergy (Verified 08/21/17 11:18) diatrizoate meglumine [From MD-Gastroview] Allergy (Verified 08/21/17 11:18) diatrizoate sodium [From MD-Gastroview] Allergy (Verified 08/21/17 11:18) dipyridamole [From Aggrenox] Allergy (Verified 08/21/17 11:18) erythromycin base [From Erythrocin] Allergy (Verified 08/21/17 11:18) meloxicam Allergy (Verified 08/21/17 11:18) pantoprazole Allergy (Verified 08/21/17 11:18) risedronate sodium [From Actonel] Allergy (Verified 08/21/17 11:18) sulfamethoxazole [From Bactrim] Allergy (Verified 08/21/17 11:18) ticlopidine Allergy (Verified 08/21/17 11:18) tobramycin Allergy (Verified 08/21/17 11:18) trimethoprim [From Bactrim] Allergy (Verified 08/21/17 11:18) IVC dye Allergy (Uncoded 07/16/17 01:52) Past Medical History - General Information source: Patient, Relative - Social History Smoking Status: Never Smoker Frequency of alcohol use: None Drug Abuse: None Lives with: Family Family History: Reviewed & Not Pertinent - Past Medical History Cardiac Medical History: Reports: Hx Congestive Heart Failure, Hx Heart Attack, Hx Hypercholesterolemia, Hx Hypertension Neurological Medical History: Reports: Hx Cerebrovascular Accident. Denies: Hx Seizures Renal/ Medical History: Denies: Hx Peritoneal Dialysis Musculoskeltal Medical History: Reports Hx Arthritis Psychiatric Medical History: Reports: Hx Anxiety Past Surgical History: Reports: Hx Cardiac Catheterization, Hx Cardiac Surgery Review of Systems - Review of Systems Constitutional: No symptoms reported EENT: No symptoms reported Cardiovascular: See HPI Respiratory: No symptoms reported Gastrointestinal: No symptoms reported Genitourinary: No symptoms reported Female Genitourinary: No symptoms reported Musculoskeletal: No symptoms reported Skin: No symptoms reported Hematologic/Lymphatic: No symptoms reported Neurological/Psychological: See HPI Physical Exam - Vital signs Vitals: Resp Pulse Ox 15 98 11/03/17 01:13 11/03/17 01:13 - Notes Notes: GENERAL: Alert, interacts well. No acute distress. HEAD: Normocephalic. Old healing ecchymosis around both orbits and over the zygomatic areas. EYES: Pupils equal, round, and reactive to light. Extraocular movements intact. ENT: Oral mucosa moist, tongue midline. NECK: Full range of motion. Supple. Trachea midline. LUNGS: Clear to auscultation bilaterally, no wheezes, rales, or rhonchi. No respiratory distress. HEART: Regular rate and rhythm. No murmur ABDOMEN: Soft, non-tender. Non-distended. Bowel sounds present in all 4 quadrants. EXTREMITIES: Moves all 4 extremities spontaneously. No edema, normal radial and dorsalis pedis pulses bilaterally. No cyanosis. BACK: no cervical, thoracic, lumbar midline tenderness. No saddle anesthesia, normal distal neurovascular exam. NEUROLOGICAL: Alert and responsive but confused. Normal speech. [cranial nerves II through XII grossly intact]. PSYCH: Normal affect, normal mood. SKIN: Warm, dry, normal turgor. No rashes or lesions noted. Course - Re-evaluation Re-evalutation: My neurological exam shows no deficits. Patient has dementia and has some confusion, does not remember details, however otherwise she is neurologically intact. Patient has old bruises over the face, CT of the head with no acute findings, chest x-ray showing possible pneumonia, however patient has no cough, fever, hypoxia, shortness of breath, or leukocytosis. I did discuss the x-ray with the son. CBC, chemistry, troponin, urinalysis generally unremarkable. On reevaluation patient still has no complaints. Because of concerning reported neurological symptoms I discussed with patient and son and recommended admission, especially because of the focal weakness on the right side with facial droop which resolved. However they declined admission, they state they want to leave, they will follow-up with outpatient sources, they state they will return if they need to but they do not agree to admission at this time. I explained that if there is an underlying abnormality including bleed or other abnormality patient could decompensate or even , they state understanding, they state they still want to leave. They do appear to be able to make this decision at this time. Discharged AGAINST MEDICAL ADVICE. - Vital Signs Vital signs: Temp Pulse Resp BP Pulse Ox 17 139/67 H 98 11/03/17 04:00 11/03/17 02:02 11/03/17 04:00 - Laboratory Result Diagrams: 11/03/17 01:50 11/03/17 01:50 Laboratory results interpreted by me: 11/03/17 11/03/17 11/03/17 01:50 01:50 04:16 Hgb 11.8 L Hct 34.3 L RDW 15.5 H Sodium 135.9 L BUN 23 H Est GFR (Non-Af Amer) 55 L AST 39 H Creatine Kinase < 20 L Total Protein 5.9 L Albumin 3.4 L Ur Leukocyte Esterase TRACE H Discharge - Discharge Clinical Impression: Confusion, Resolved focal neurological deficit Syncopal episodes Qualifiers: Syncope type: unspecified Qualified Code(s): R55 - Syncope and collapse Condition: Stable Disposition: AGAINST MEDICAL ADVICE Additional Instructions: Because of the resolving neurological symptoms and deficit reported tonight, admission was recommended, you have signed out AGAINST MEDICAL ADVICE. The workup is incomplete at this time and there could be a life-threatening underlying cause. Please return at any time for additional evaluation and management.
[2017-11-03 02:30] LABS: CREATINE KINASE MB 0.23 ng/mL (<4.55); TROPONIN I < 0.012 ng/mL
[2017-11-03 02:31] VITALS: BP 139/67
[2017-11-03 02:34] LABS: ALANINE AMINOTRANSFERASE 49 U/L (9-52); ALBUMIN 3.4 g/dL (3.5-5.0); ALKALINE PHOSPHATASE 94 U/L (38-126); ANION GAP 8 (5-19); ASPARTATE AMINO TRANSFERASE 39 U/L (14-36); BILIRUBIN,DIRECT 0.3 mg/dL (0.0-0.4); BILIRUBIN,TOTAL 0.5 mg/dL (0.2-1.3); BLOOD UREA NITROGEN 23 mg/dL (7-20); CALCIUM 9.1 mg/dL (8.4-10.2); CARBON DIOXIDE 26 mmol/L (22-30); CHLORIDE 102 mmol/L (98-107); GLUCOSE 109 mg/dL (75-110); POTASSIUM 3.6 mmol/L (3.6-5.0); SODIUM 135.9 mmol/L (137-145); TOTAL PROTEIN 5.9 g/dL (6.3-8.2)
[2017-11-03 02:35] LABS: CREATINE KINASE < 20 U/L (30-135)
--- NOTE | 2017-11-03 03:00 | RADIOLOGY REPORT (SQ) ---
EXAM DESCRIPTION: XR CHEST 1 VIEW COMPLETED DATE/TME: 11/03/2017 02:11 CLINICAL HISTORY: 82 years Female, AMS COMPARISON: 6.9.18, 3.3.18 NUMBER OF VIEWS/TECHNIQUE: 1/AP FINDINGS: Mild interstitial markings, mildly enlarged cardiac silhouette, atherosclerosis, small opacity of the medial right lung apex, possible right infrahilar calcified granuloma. No pneumothorax. No acute bone defect. IMPRESSION: Worsening includes small right upper lobar pneumonia/atelectasis. Recommend CR/CT surveillance including at 7-12 weeks following initiation of clinically warranted therapy.
--- NOTE | 2017-11-03 03:02 | RADIOLOGY REPORT (SQ) ---
EXAM DESCRIPTION: CT HEAD WITHOUT IV CONTRAST COMPLETED DATE/TME: 11/03/2017 02:11 CLINICAL HISTORY: 82 years Female, unresponsive episode, right sided weakness, vomit COMPARISON: None. TECHNIQUE: No contrast. Coronal and sagittal reformat. This exam was performed according to our departmental dose-optimization program, which includes automated exposure control, adjustment of the mA and/or kV according to patient size and/or use of iterative reconstruction technique. FINDINGS: No hemorrhage. No mass, mass effect, or midline shift. Atherosclerosis, moderate cerebral volume loss, lacunar infarct of bilateral basal ganglia includes left putamen and right external capsule, moderate white matter microangiopathy pattern. Brain and extra-axial structures appear otherwise intact. IMPRESSION: No acute findings.
[2017-11-03 04:46] LABS: APPEARANCE,URINE CLEAR; BILIRUBIN,URINE NEGATIVE (NEGATIVE); COLOR,URINE YELLOW; GLUCOSE, URINE NEGATIVE (NEGATIVE); KETONES,URINE NEGATIVE (NEGATIVE); LEUKOCYTE ESTERASE,URINE TRACE (NEGATIVE); NITRITE,URINE NEGATIVE (NEGATIVE); PROTEIN,URINE NEGATIVE (NEGATIVE); URINE SPECIFIC GRAVITY 1.011; UROBILINOGEN,URINE NEGATIVE mg/dL (<2.0)
--- NOTE | 2017-11-03 09:36 | EKG REPORT ---
SEVERITY:- BORDERLINE ECG - SINUS RHYTHM BORDERLINE LEFT AXIS DEVIATION BORDERLINE T WAVE ABNORMALITIES : Confirmed by: Vikki Boswell 03-Nov-2017 09:34:57
== END 2017-11-03 05:30 | disposition left against medical advice (07) ==
LOC: ER 01:06
DX: R55 Syncope and collapse (principal); R41.0 Disorientation, unspecified; R11.10 Vomiting, unspecified; Z79.01 Long term (current) use of anticoagulants; Z86.73 Personal history of transient ischemic attack (TIA), and cerebral infarction without residual deficits; F03.90 Unspecified dementia, unspecified severity, without behavioral disturbance, psychotic disturbance, mood disturbance, and anxiety; I10 Essential (primary) hypertension; I25.2 Old myocardial infarction
CPT/HCPCS: 36415; 70450; 71045; 80053; 81001; 82550; 82553; 84484; 85025; 93005; 93010; 99285

== ENCOUNTER 2017-11-10 22:32 | Emergency (ER) | payer MEDICARE, OTHER ==
--- NOTE | 2017-11-10 22:48 | ER Document Report ---
ED Medical Screen (RME) - General Chief Complaint: Fall Stated Complaint: FALL/HEAD INJURY Time Seen by Provider: 11/10/17 22:45 Mode of Arrival: Wheelchair Information source: Relative Notes: Patient was at home and fell off of her bed. Her son states he found her with her face on the floor. There was no loss of consciousness no nausea or vomiting. Son is very concerned as patient takes Xarelto. Patient is very concerned about bruising to right side of face that does have an old appearance. Patient has tenderness to left maxillary area. I have greeted and performed a rapid initial assessment of this patient. A comprehensive ED assessment and evaluation of the patient, analysis of test results and completion of the medical decision making process will be conducted by additional ED providers. TRAVEL OUTSIDE OF THE [place] IN LAST 30 DAYS: No - Related Data Allergies/Adverse Reactions: clindamycin Allergy (Verified 11/10/17 22:34) clopidogrel [From Plavix] Allergy (Verified 11/10/17 22:34) diatrizoate meglumine [From -Gastroview] Allergy (Verified 11/10/17 22:34) diatrizoate sodium [From MD-Gastroview] Allergy (Verified 11/10/17 22:34) dipyridamole [From Aggrenox] Allergy (Verified 11/10/17 22:34) erythromycin base [From Erythrocin] Allergy (Verified 11/10/17 22:34) meloxicam Allergy (Verified 11/10/17 22:34) pantoprazole Allergy (Verified 11/10/17 22:34) risedronate sodium [From Actonel] Allergy (Verified 11/10/17 22:34) sulfamethoxazole [From Bactrim] Allergy (Verified 11/10/17 22:34) ticlopidine Allergy (Verified 11/10/17 22:34) tobramycin Allergy (Verified 11/10/17 22:34) trimethoprim [From Bactrim] Allergy (Verified 11/10/17 22:34) IVC dye Allergy (Uncoded 07/16/17 01:52) Past Medical History - Past Medical History Cardiac Medical History: Reports: Hx Congestive Heart Failure, Hx Heart Attack, Hx Hypercholesterolemia, Hx Hypertension Neurological Medical History: Reports: Hx Cerebrovascular Accident. Denies: Hx Seizures Renal/ Medical History: Denies: Hx Peritoneal Dialysis Musculoskeltal Medical History: Reports Hx Arthritis Psychiatric Medical History: Reports: Hx Anxiety Past Surgical History: Reports: Hx Cardiac Catheterization, Hx Cardiac Surgery Physical Exam - Vital signs Vitals: Temp Pulse Resp BP Pulse Ox 98.4 F 70 16 182/92 H 97 11/10/17 22:38 11/10/17 22:38 11/10/17 22:38 11/10/17 22:38 11/10/17 22:38 - General General appearance: Appears well Notes: Old appearing ecchymosis to the right periorbital area, patient with tenderness to left maxillary area Course - Vital Signs Vital signs: Temp Pulse Resp BP Pulse Ox 98.4 F 70 16 182/92 H 97 11/10/17 22:38 11/10/17 22:38 11/10/17 22:38 11/10/17 22:38 11/10/17 22:38 Doctor's Discharge - Discharge Referrals: HELEN LOPEZ MD [Primary Care Provider] - Follow up as needed
--- NOTE | 2017-11-10 23:20 | RADIOLOGY REPORT (SQ) ---
EXAM DESCRIPTION: CT HEAD WITHOUT IV CONTRAST COMPLETED DATE/TME: 11/10/2017 22:45 EXAM DESCRIPTION: CLINICAL HISTORY: fall, facial injury COMPARISON: August 23, 2017 TECHNIQUE: Contiguous axial CT images of the head were obtained. Coronal and sagittal reconstructions were created from the axial data. This exam was performed according to our departmental dose-optimization program, which includes automated exposure control, adjustment of the mA and/or kV according to patient size and/or use of iterative reconstruction technique. FINDINGS: Since the prior exam, there is interval evolution of encephalomalacia at sites of abnormality previously seen. No definite acute abnormality is seen today. There is no evidence of acute mass, mass effect, midline shift or hemorrhage. The ventricles and extra-axial CSF spaces are unremarkable. No acute abnormalities of the bones is seen. IMPRESSION: No acute intracranial abnormality.
--- NOTE | 2017-11-10 23:22 | RADIOLOGY REPORT (SQ) ---
EXAM DESCRIPTION: CT MAXILLOFACIAL WITHOUT IV CONTRAST COMPLETED DATE/TME: 11/10/2017 22:45 EXAM DESCRIPTION: CLINICAL HISTORY: 82 years Female fall, facial injury COMPARISON: None. TECHNIQUE: Contiguous axial images obtained through the maxillofacial region without IV contrast. Reformatted images obtained. This exam was performed according to our department optimization program which includes automated exposure control, adjustment of the mA and/or kv according to patient size and/or use of iterative reconstruction technique. FINDINGS: There are degenerative changes. The post septal orbits appear unremarkable. No fluid or significant mucosal thickening in the visualized paranasal sinuses. No facial bone fractures are identified. IMPRESSION: No facial bone fractures are identified.
--- NOTE | 2017-11-10 23:24 | RADIOLOGY REPORT (SQ) ---
EXAM DESCRIPTION: CT CERVICAL SPINE WITHOUT IV CONTRAST COMPLETED DATE/TME: 11/10/2017 22:45 EXAM DESCRIPTION: CLINICAL HISTORY: fall, facial injury COMPARISON: None Available TECHNIQUE: Contiguous axial images of the cervical spine were obtained without the administration of intravenous contrast followed by reconstruction images. This exam was performed according to our departmental dose-optimization program, which includes automated exposure control, adjustment of the mA and/or kV according to patient size and/or use of iterative reconstruction technique. FINDINGS: There is no acute fracture or subluxation. Prevertebral soft tissues are within normal limits. IMPRESSION: No acute fracture or subluxation
--- NOTE | 2017-11-10 23:34 | ER Document Report ---
ED General - General Chief Complaint: Fall Stated Complaint: FALL/HEAD INJURY Time Seen by Provider: 11/10/17 22:45 Mode of Arrival: Ambulatory Information source: Patient Notes: Chief complaint: Fall History of complain:( obtained from----patient) 82 years old female with multiple falls due to dementia as well as stroke in the past. On Xarelto. Had another fall today therefore the son brought her to the ED. She cannot ambulate without assistance. She was trying to get up and do things on her own fell. Hit her left side of the face on the bed. No loss of consciousness. No headache. No other injuries. Onset: As above Duration: Just prior to arrival Severity: Moderate Quality: Sharp Context: CVA and falls Exacerbating factor and relieving factors: Any ambulation REVIEW OF SYSTEMS: Not possible to obtain PHYSICAL EXAMINATION: GENERAL: well-nourished and in no acute distress. Right-sided CVA noted HEAD: Atraumatic, normocephalic. No obvious head trauma EYES: Pupils equal round and reactive to light, extraocular movements intact, conjunctiva are normal. ENT: Nares patent, oropharynx clear without exudates. Moist mucous membranes. NECK: Normal range of motion, supple without lymphadenopathy LUNGS: Breath sounds clear to auscultation bilaterally and equal. No wheezes rales or rhonchi. HEART: Regular rate and rhythm without murmurs ABDOMEN: Soft, nontender, nondistended abdomen. No guarding, no rebound. No masses appreciated. Examination of genitals-deferred Musculoskeletal: Normal range of motion, no pitting or edema. No cyanosis. NEUROLOGICAL: Right-sided weakness over the upper and lower limbs were noted. Right facial weakness. PSYCH: Normal mood, normal affect. SKIN: Warm, Dry, normal turgor, no rashes or lesions noted. Dictation was performed using [employer] voice recognition software TRAVEL OUTSIDE OF THE [place] IN LAST 30 DAYS: No - Related Data Allergies/Adverse Reactions: clindamycin Allergy (Verified 11/10/17 22:34) clopidogrel [From Plavix] Allergy (Verified 11/10/17 22:34) diatrizoate meglumine [From SHERYLGastromisha] Allergy (Verified 11/10/17 22:34) diatrizoate sodium [From SHERYLGastromisha] Allergy (Verified 11/10/17 22:34) dipyridamole [From Aggrenox] Allergy (Verified 11/10/17 22:34) erythromycin base [From Erythrocin] Allergy (Verified 11/10/17 22:34) meloxicam Allergy (Verified 11/10/17 22:34) pantoprazole Allergy (Verified 11/10/17 22:34) risedronate sodium [From Actonel] Allergy (Verified 11/10/17 22:34) sulfamethoxazole [From Bactrim] Allergy (Verified 11/10/17 22:34) ticlopidine Allergy (Verified 11/10/17 22:34) tobramycin Allergy (Verified 11/10/17 22:34) trimethoprim [From Bactrim] Allergy (Verified 11/10/17 22:34) IVC dye Allergy (Uncoded 07/16/17 01:52) Past Medical History - General Information source: Relative - Social History Smoking Status: Never Smoker Cigarette use (# per day): No Chew tobacco use (# tins/day): No Smoking Education Provided: No Frequency of alcohol use: None Drug Abuse: None Lives with: Family Family History: Reviewed & Not Pertinent - Past Medical History Cardiac Medical History: Reports: Hx Congestive Heart Failure, Hx Heart Attack, Hx Hypercholesterolemia, Hx Hypertension Neurological Medical History: Reports: Hx Cerebrovascular Accident. Denies: Hx Seizures Renal/ Medical History: Denies: Hx Peritoneal Dialysis Musculoskeltal Medical History: Reports Hx Arthritis Psychiatric Medical History: Reports: Hx Anxiety Past Surgical History: Reports: Hx Cardiac Catheterization, Hx Cardiac Surgery Review of Systems - Review of Systems Notes: Dictated Physical Exam - Vital signs Vitals: Temp Pulse Resp BP Pulse Ox 98.4 F 70 16 182/92 H 97 11/10/17 22:38 11/10/17 22:38 11/10/17 22:38 11/10/17 22:38 11/10/17 22:38 - Notes Notes: Dictated Course - Vital Signs Vital signs: Temp Pulse Resp BP Pulse Ox 98.4 F 70 16 182/92 H 97 11/10/17 22:38 11/10/17 22:38 11/10/17 22:38 11/10/17 22:38 11/10/17 22:38 - Diagnostic Test Radiology reviewed: Reports reviewed - CT of the head reported by radiologist as no bleeding X-ray of the facial bone reported by radiologist as no fractures Discharge - Discharge Clinical Impression: Multiple falls CVA (cerebral vascular accident) Qualifiers: CVA mechanism: embolism Precerebral and cerebral artery: unspecified cerebral artery Qualified Code(s): I63.40 - 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
[2017-11-11 00:04] VITALS: BP 157/63
== END 2017-11-11 00:21 | disposition home or self-care (01) ==
LOC: ER 22:32
DX: Z04.3 Encounter for examination and observation following other accident (principal); R29.6 Repeated falls; R29.810 Facial weakness; R53.1 Weakness; F03.90 Unspecified dementia, unspecified severity, without behavioral disturbance, psychotic disturbance, mood disturbance, and anxiety; I10 Essential (primary) hypertension; Z79.01 Long term (current) use of anticoagulants; Z88.1 Allergy status to other antibiotic agents; Z88.8 Allergy status to other drugs, medicaments and biological substances; Z91.041 Radiographic dye allergy status; Z86.73 Personal history of transient ischemic attack (TIA), and cerebral infarction without residual deficits
CPT/HCPCS: 70450; 70486; 72125; 99284

== ENCOUNTER 2017-12-04 17:25 | Inpatient (IN) | payer MEDICARE, OTHER ==
[2017-12-04 17:50] LABS: ABSOLUTE BASOPHILS # (AUTO) 0.1 10^3/uL (0.0-0.2); ABSOLUTE EOSINOPHILS # (AUTO) 0.1 10^3/uL (0.0-0.6); ABSOLUTE LYMPHOCYTES (AUTO) 1.4 10^3/uL (0.5-4.7); ABSOLUTE MONOCYTES (AUTO) 0.9 10^3/uL (0.1-1.4); ABSOLUTE NEUT (AUTO) 3.8 10^3/uL (1.7-8.2); EOSINOPHILS % (AUTO) 1.3 % (0-6); HEMATOCRIT 37.8 % (36.0-47.0); HEMOGLOBIN 12.5 g/dL (12.0-15.5); MEAN CORPUSCULAR HEMOGLOBIN 25.9 pg (27.0-33.4); MEAN CORPUSCULAR HGB CONC 33.1 g/dL (32.0-36.0); MEAN CORPUSCULAR VOLUME 78 fl (80-97); MONOCYTES % (AUTO) 14.9 % (3-13); PLATELET COUNT 213 10^3/uL (150-450); RED BLOOD COUNT 4.84 10^6/uL (3.72-5.28); RED CELL DISTRIBUTION WIDTH 15.7 % (11.5-14.0); SEGMENTED NEUTROPHILS % (AUTO) 59.8 % (42-78); TOTAL CELLS COUNTED % (AUTO) 100 %; WHITE BLOOD COUNT 6.3 10^3/uL (4.0-10.5)
[2017-12-04 17:56] LABS: INTERNATIONAL RATION (INR) 1.51; PROTHROMBIN TIME 18.9 SEC (11.4-15.4)
[2017-12-04 17:57] LABS: PARTIAL THROMBOPLASTIN TIME 26.7 SEC (23.5-35.8)
[2017-12-04 18:03] LABS: ALANINE AMINOTRANSFERASE 35 U/L (9-52); ALBUMIN 3.7 g/dL (3.5-5.0); ALKALINE PHOSPHATASE 98 U/L (38-126); ANION GAP 16 (5-19); ASPARTATE AMINO TRANSFERASE 30 U/L (14-36); BILIRUBIN,DIRECT 0.2 mg/dL (0.0-0.4); BILIRUBIN,TOTAL 0.7 mg/dL (0.2-1.3); BLOOD UREA NITROGEN 17 mg/dL (7-20); CALCIUM 9.3 mg/dL (8.4-10.2); CARBON DIOXIDE 21 mmol/L (22-30); CHLORIDE 98 mmol/L (98-107); GLUCOSE 138 mg/dL (75-110); POTASSIUM 4.1 mmol/L (3.6-5.0); TOTAL PROTEIN 6.7 g/dL (6.3-8.2)
--- NOTE | 2017-12-04 18:05 | RADIOLOGY REPORT (SQ) ---
EXAM DESCRIPTION: CHEST SINGLE VIEW COMPLETED DATE/TIME: 12/04/2017 5:55 pm REASON FOR STUDY: fall, syncope COMPARISON: 11/03/2017. EXAM PARAMETERS: NUMBER OF VIEWS: One view. TECHNIQUE: Single frontal radiographic view of the chest acquired. RADIATION DOSE: NA LIMITATIONS: None. FINDINGS: LUNGS AND PLEURA: No opacities, masses or pneumothorax. No pleural effusion. MEDIASTINUM AND HILAR STRUCTURES: No masses. Contour normal. HEART AND VASCULAR STRUCTURES: Heart upper limits of normal in size. Normal vasculature. BONES: No acute findings. HARDWARE: None in the chest. OTHER: No other significant finding. IMPRESSION: NO ACUTE RADIOGRAPHIC FINDING IN THE CHEST. TECHNICAL DOCUMENTATION: JOB ID: [id number] [employer]- All Rights Reserved Reading location - IP/workstation name: [email or web address]
--- NOTE | 2017-12-04 18:05 | RADIOLOGY REPORT (SQ) ---
EXAM DESCRIPTION: CT HEAD WITHOUT COMPLETED DATE/TIME: 12/04/2017 5:52 pm REASON FOR STUDY: fall, syncope COMPARISON: Multiple prior studies, the most recent dated 11/10/2017. TECHNIQUE: Axial images acquired through the brain without intravenous contrast. Images reviewed wi th bone, brain and subdural windows. Additional sagittal and coronal reconstructions were generated. Images stored on PACS. All CT scanners at this facility use dose modulation, iterative reconstruction, and/or weight based d osing when appropriate to reduce radiation dose to as low as reasonably achievable (ALARA). [facility]: Dose Right [facility]: CareDose [facility]: Dose Right [facility]: Teradose 4D [facility]: [employer] RADIATION DOSE: CT Rad equipment meets quality standard of care and radiation dose reduction techniq ues were employed. CTDIvol: 53.2 mGy. DLP: 964 mGy-cm.mGy. LIMITATIONS: None. FINDINGS: VENTRICLES: Prominent. CEREBRUM: No masses. No hemorrhage. No midline shift. Areas of low density in the white matter mos t likely due to chronic micro-vascular ischemic change. Old lacunar infarcts. No evidence for acute infarction. CEREBELLUM: No masses. No hemorrhage. No alteration of density. No evidence for acute infarction. EXTRAAXIAL SPACES: Age-related involutional change. No fluid collections. No masses. ORBITS AND GLOBE: No intra- or extraconal masses. Normal contour of globe without masses. CALVARIUM: No fracture. PARANASAL SINUSES: No fluid or mucosal thickening. SOFT TISSUES: No mass or hematoma. OTHER: No other significant finding. IMPRESSION: CHRONIC CHANGES OF ATROPHY AND MICROVASCULAR ISCHEMIA. OLD LACUNAR INFARCTS. NO ACUTE PROCESS. EVIDENCE OF ACUTE STROKE: NO. TECHNICAL DOCUMENTATION: JOB ID: [id number] Quality ID # [id number]: Final reports with documentation of one or more dose reduction techniques (e.g., Au tomated exposure control, adjustment of the mA and/or kV according to patient size, use of iterative reconstruction technique) 2010 [employer]- All Rights Reserved Reading location - IP/workstation name: [email or web address]
--- NOTE | 2017-12-04 18:20 | RADIOLOGY REPORT (SQ) ---
EXAM DESCRIPTION: CT CERVICAL SPINE WITHOUT COMPLETED DATE/TIME: 12/04/2017 5:52 pm REASON FOR STUDY: fall, syncope COMPARISON: CT cervical spine 11/10/2017. TECHNIQUE: Axial images acquired through the cervical spine without intravenous contrast. Images re viewed with lung, soft tissue and bone windows. Reconstructed coronal and sagittal MPR images review ed. Images stored on PACS. All CT scanners at this facility use dose modulation, iterative reconstruction, and/or weight based d osing when appropriate to reduce radiation dose to as low as reasonably achievable (ALARA). [facility]: Dose Right [facility]: CareDose [facility]: Dose Right [facility]: Teradose 4D [facility]: [employer] RADIATION DOSE: CT Rad equipment meets quality standard of care and radiation dose reduction techniq ues were employed. CTDIvol: 9.8 mGy. DLP: 174 mGy-cm. mGy. LIMITATIONS: None. FINDINGS: ALIGNMENT: Anatomic. MINERALIZATION: Normal. VERTEBRAL BODIES: No fractures or dislocation. DISCS: Mild multilevel degenerative disc disease. FACETS, LATERAL MASSES, POSTERIOR ELEMENTS: No fractures. No dislocation. HARDWARE: None in the spine. VISUALIZED RIBS: No fractures. LUNG APICES AND SOFT TISSUES: No acute findings. There is a 16 x 16 mm hypodense nodule at the right lobe of the thyroid gland. IMPRESSION: 1. No acute fracture at the cervical spine. 2. Hypodense nodule at the right lobe of the thyroid gland. This can be further characterized with d edicated ultrasound. TECHNICAL DOCUMENTATION: JOB ID: [id number] Quality ID # [id number]: Final reports with documentation of one or more dose reduction techniques (e.g., Au tomated exposure control, adjustment of the mA and/or kV according to patient size, use of iterative reconstruction technique) 2010 [employer]- All Rights Reserved Reading location - IP/workstation name: [email or web address]
[2017-12-04 19:58] LABS: FREE T3 3.08 pg/mL (2.77-5.27); FREE T4 (FREE THYROXINE) 1.92 ng/dL (0.78-2.19)
[2017-12-04 20:01] LABS: APPEARANCE,URINE CLEAR; BILIRUBIN,URINE NEGATIVE (NEGATIVE); COLOR,URINE YELLOW; GLUCOSE, URINE NEGATIVE (NEGATIVE); KETONES,URINE NEGATIVE (NEGATIVE); LEUKOCYTE ESTERASE,URINE NEGATIVE (NEGATIVE); NITRITE,URINE NEGATIVE (NEGATIVE); PROTEIN,URINE NEGATIVE (NEGATIVE); URINE SPECIFIC GRAVITY 1.014; UROBILINOGEN,URINE NEGATIVE mg/dL (<2.0)
[2017-12-04 20:12] LABS: THYROID STIMULATING HORMONE 5.58 uIU/mL (0.47-4.68)
--- NOTE | 2017-12-04 21:49 | ER Document Report ---
ED General - General Chief Complaint: Syncope Stated Complaint: FALL,SYNCOPE Time Seen by Provider: 12/04/17 17:29 Information source: Patient - [employer] language line paraprofessional interpreter used. Notes: 82-year-old Gambian-speaking female brought in by EMS for multiple syncopal episodes. Most recent syncopal episode was 2 days ago where she was sitting on the arm couch, passed out the arm of the couch broke and she fell off and hit her head. Son states that she does take blood thinners, since then has been increasingly confused, lethargic, diaphoretic and having nausea and vomiting. When EMS picked her up they report that she bradycardia down to the 30s and then vomited and came back up to the 50s. She was also hypotensive for EMS with a blood pressure of 100/60. Patient was not seen for this syncopal episode a few days ago. Patient reports headache and right-sided neck pain. Son reports that the syncopal episodes are occurring more frequently and lasting for longer and longer before she will wake up and be responsive again. TRAVEL OUTSIDE OF THE [place] IN LAST 30 DAYS: No - Related Data Allergies/Adverse Reactions: clindamycin Allergy (Verified 11/10/17 22:34) clopidogrel [From Plavix] Allergy (Verified 11/10/17 22:34) diatrizoate meglumine [From MD-Gastroview] Allergy (Verified 11/10/17 22:34) diatrizoate sodium [From MD-Gastroview] Allergy (Verified 11/10/17 22:34) dipyridamole [From Aggrenox] Allergy (Verified 11/10/17 22:34) erythromycin base [From Erythrocin] Allergy (Verified 11/10/17 22:34) meloxicam Allergy (Verified 11/10/17 22:34) pantoprazole Allergy (Verified 11/10/17 22:34) risedronate sodium [From Actonel] Allergy (Verified 11/10/17 22:34) sulfamethoxazole [From Bactrim] Allergy (Verified 11/10/17 22:34) ticlopidine Allergy (Verified 11/10/17 22:34) tobramycin Allergy (Verified 11/10/17 22:34) trimethoprim [From Bactrim] Allergy (Verified 11/10/17 22:34) IVC dye Allergy (Uncoded 07/16/17 01:52) Past Medical History - General Information source: Patient - Social History Smoking Status: Former Smoker Lives with: Family Family History: Reviewed & Not Pertinent Patient has suicidal ideation: No Patient has homicidal ideation: No - Past Medical History Cardiac Medical History: Reports: Hx Congestive Heart Failure, Hx Heart Attack, Hx Hypercholesterolemia, Hx Hypertension Neurological Medical History: Reports: Hx Cerebrovascular Accident. Denies: Hx Seizures Renal/ Medical History: Denies: Hx Peritoneal Dialysis Musculoskeletal Medical History: Reports Hx Arthritis Psychiatric Medical History: Reports: Hx Anxiety Past Surgical History: Reports: Hx Cardiac Catheterization, Hx Cardiac Surgery Review of Systems - Review of Systems Constitutional: See HPI, Diaphoresis EENT: See HPI - Facial bruising Cardiovascular: See HPI, Syncope Respiratory: No symptoms reported Gastrointestinal: See HPI, Vomiting Neurological/Psychological: See HPI -: Yes All other systems reviewed and negative Physical Exam - Vital signs Vitals: Temp 98.6 F 12/04/17 17:37 Interpretation: Normal - Notes Notes: GENERAL: Alert, interacts well. No acute distress. HEAD: Normocephalic, diffuse ecchymoses across her forehead, bridge of her nose , under her eyes and raccoon eyes distribution and some bruising posteriorly along her occiput as well. EYES: Pupils equal, round and reactive to light, extraocular movements intact. ENT: Oral mucosa moist, tongue midline. NECK: Full range of motion, supple, trachea midline. Tenderness palpation across the right trapezius muscles in the cervical region. LUNGS: Clear to auscultation bilaterally, no wheezes, rales or rhonchi, no respiratory distress. HEART: Regular rate and rhythm, no murmurs, gallops, rubs. ABDOMEN: Soft, nontender, nondistended, bowel sounds present in all 4 quadrants. EXTREMITIES: Moves all 4 extremities spontaneously, no edema, radial and dorsalis pedis pulses 2/4 bilaterally. No cyanosis. NEUROLOGICAL: Alert and oriented x3, normal speech, cranial nerves II through XII grossly intact, biceps and patellar DTRs 2+ bilaterally. PSYCH: Normal mood, normal affect. SKIN: Warm, Dry, normal turgor. Course - Re-evaluation Re-evalutation: 12/04/17 21:56 CBC unremarkable, coags have a prolonged INR 1.51, CMP grossly unremarkable, slightly dry with a CO2 of 21, no renal failure, TSH is elevated at 5.58, T3 and T3-4 are unremarkable, urinalysis unremarkable, CT scan of the head does not reveal any fractures or intracranial hemorrhage, CT scan of the neck does not reveal any acute fracture or dislocation, there is a 13-16 x 16 mm hypodense nodule of the right lobe of the thyroid gland. Chest x-ray reveals no acute process. 12/04/17 21:56 I am quite concerned about her multiple syncopal episodes this patient has had, I have looked through her prior visits and even though she has been having increasing syncopal episodes since June she remains on blood thinners and does not appear to have had an admission to this hospital in the past year. I discussed the patient with Dr. Hoff who is covering for her primary care physician Dr. Denise, he agrees with placing the patient on Dr. Denise's service in observation status. 12/04/17 21:58 Patient is high risk for intracranial hemorrhage, the descriptions of longer and longer duration of her syncopal episodes is concerning for cardiac etiology including possible bradycardia or sinus pauses. - Vital Signs Vital signs: Temp Pulse Resp BP Pulse Ox 98.6 F 20 116/72 99 12/04/17 17:37 12/04/17 19:02 12/04/17 19:02 12/04/17 19:02 - Laboratory Result Diagrams: 12/04/17 17:34 12/04/17 17:34 Laboratory results interpreted by me: 12/04/17 12/04/17 12/04/17 17:34 17:34 17:34 MCV 78 L MCH 25.9 L RDW 15.7 H Monocytes % 14.9 H PT 18.9 H Sodium 135.0 L Carbon Dioxide 21 L Glucose 138 H TSH 12/04/17 17:34 MCV MCH RDW Monocytes % PT Sodium Carbon Dioxide Glucose TSH 5.58 H - EKG Interpretation by Me Additional EKG results interpreted by me: 12/04/17 22:27 EKG shows sinus rhythm rate of 62, left axis deviation, normal interval, no ST segment elevations or depressions, no T-wave inversions per my interpretation. Discharge - Discharge Clinical Impression: Syncope Qualifiers: Syncope type: unspecified Qualified Code(s): R55 - Syncope and collapse Condition: Good Disposition: ADMITTED OBSERVATION Admitting Provider: Howie Unit Admitted: Telemetry
--- NOTE | 2017-12-04 22:58 | EKG REPORT ---
SEVERITY:- BORDERLINE ECG - SINUS RHYTHM BORDERLINE LEFT AXIS DEVIATION BORDERLINE T WAVE ABNORMALITIES : Confirmed by: Vikki Boswell 04-Dec-2017 22:56:49
[2017-12-05] MEDS ORDERED: HYDROCHLOROTHIAZIDE 12.5 MG TABLET PO ONE (05:05)
[2017-12-05] MEDS ORDERED: VALSARTAN 160 MG TABLET PO ONE (05:05)
[2017-12-05] MEDS ORDERED: ACETAMINOPHEN 325 MG TABLET PO PRN (08:24)
[2017-12-05 11:26] LABS: CREATINE KINASE MB 0.68 ng/mL (<4.55)
[2017-12-05 11:31] LABS: TROPONIN I < 0.012 ng/mL
--- NOTE | 2017-12-05 11:51 | PDOC CONSULTATION ---
Consultation Consult Date: 12/05/17 Attending physician:: HELEN LOPEZ Consult reason:: Syncope History of Present Illness Admission Date/PCP: 12/05/17 08:24 HELEN LOPEZ MD Patient complains of: Syncope History of Present Illness: KEVAN SEAY is a 82 year old female Hebrew-speaking female brought in by EMS for multiple syncopal episodes. Most recent syncopal episode was 2 days ago where she was sitting on the arm couch, passed out the arm of the couch broke and she fell off and hit her head. Son states that she does take blood thinners, since then has been increasingly confused, lethargic, diaphoretic and having nausea and vomiting. When EMS picked her up they report that she bradycardia down to the 30s and then vomited and came back up to the 50s. She was also hypotensive for EMS with a blood pressure of 100/60. Patient was not seen for this syncopal episode a few days ago. Patient reports headache and right-sided neck pain. Son reports that the syncopal episodes are occurring more frequently and lasting for longer and longer before she will wake up and be responsive again. This history was reviewed and confirmed. Patient on questioning denied any chest pain. She denied any shortness of breath. There is no history of seizure disorder, however positive for strokes or mini strokes, based on CT scan reports. Past Medical History Cardiac Medical History: Reports: Congestive Heart Failure, Myocardial Infarction, Hyperlipidema, Hypertension Neurological Medical History: Denies: Seizures Musculoskeltal Medical History: Reports: Arthritis Past Surgical History Past Surgical History: Reports: Cardiac Catheterization Social History Information Source: [facility] Records Lives with: Family Smoking Status: Former Smoker - Advance Directive Resuscitation Status: Full Code Surrogate healthcare decision maker:: Patient's son is the surrogate decision-maker Family History Family History: Reviewed & Not Pertinent Parental Family History Reviewed: No - Noncontributory at patient's age Children Family History Reviewed: No Sibling(s) Family History Reviewed.: No Medication/Allergy Home Medications: Atorvastatin Calcium [Lipitor 20 mg Tablet] 20 mg PO QHS 12/05/17 Carvedilol [Coreg 12.5 mg Tablet] 12.5 mg PO Q12 12/05/17 Levothyroxine Sodium [Synthroid 0.1 mg Tablet] 0.1 mg PO Q6AM 12/05/17 Omeprazole 20 mg PO BIDACBS 12/05/17 Prednisone [Deltasone 5 mg Tablet] 5 mg PO MOWEFR@1000 12/05/17 Rivaroxaban [Xarelto] 20 mg PO DAILY 12/05/17 Valsartan/Hydrochlorothiazide [Valsartan-Hctz 160-12.5 mg Tab] 1 tab PO DAILY Allergies/Adverse Reactions: clindamycin Allergy (Verified 11/10/17 22:34) clopidogrel [From Plavix] Allergy (Verified 11/10/17 22:34) diatrizoate meglumine [From -Gastroview] Allergy (Verified 11/10/17 22:34) diatrizoate sodium [From MD-Gastroview] Allergy (Verified 11/10/17 22:34) dipyridamole [From Aggrenox] Allergy (Verified 11/10/17 22:34) erythromycin base [From Erythrocin] Allergy (Verified 11/10/17 22:34) meloxicam Allergy (Verified 11/10/17 22:34) pantoprazole Allergy (Verified 11/10/17 22:34) risedronate sodium [From Actonel] Allergy (Verified 11/10/17 22:34) sulfamethoxazole [From Bactrim] Allergy (Verified 11/10/17 22:34) ticlopidine Allergy (Verified 11/10/17 22:34) tobramycin Allergy (Verified 11/10/17 22:34) trimethoprim [From Bactrim] Allergy (Verified 11/10/17 22:34) IVC dye Allergy (Uncoded 07/16/17 01:52) Review of Systems Review of Systems: Please see history of present illness and past medical history as wall. Constitutional: No fever or chills reported. Recent fatigue and tiredness. Head : No recent chronic headaches, recent head injury. Eyes: No recent eye pain, diplopia, redness, discharge, acute visual changes. Ears: No recent chronic ear pain, acute hearing loss, ear discharge. Oral cavity: No recent ulcerations, bleeding, oral cavity discomfort. Neck: No recent acute neck pain reported. Hematologic: No recent easy bruising or bleeding. Lymphatic: No recent lymph node enlargement reported. Cardiovascular system review: See history of present illness. Respiratory system review: No hemoptysis or blood clots in the lungs reported. Mild Shortness of breath on exertion Gastrointestinal system review: Negative for any recent acute hematemesis, melena. Genitourinary system review: No recent acute or chronic hematuria, flank pain, UTI etc. reported. Skin system review: Negative for any recent abnormal bruising, no rash, no pruritus reported. Neurologic: History of prior history of strokes, mini strokes, no definite history of seizure disorder. History of syncopal spell at least 2. Psychologic: No history of major psychosis or major depression reported. Musculoskeletal: Minor aches and pains reported. No acute joint swelling reported. Endocrine: No recent polyuria, polydipsia, recent heat or cold intolerance. Physical Exam Vital Signs: Temp Pulse Resp BP Pulse Ox 97.9 F 17 157/66 H 97 12/05/17 04:40 12/05/17 06:01 12/05/17 11:01 12/05/17 11:01 Exam: GENERAL: well-nourished and in no acute distress. Alert and oriented x3 HEAD: Atraumatic, normocephalic. EYES: Pupils equal round and reactive to light, extraocular movements intact, sclera anicteric, conjunctiva are normal. ENT: TMs normal, nares patent, oropharynx clear without exudates. Moist mucous membranes. No oral ulcerations or bleeding gums noted NECK: supple without lymphadenopathy. Trachea is central. No cervical or axillary lymphadenopathy noted. Carotids are 2+, JVD WNL LUNGS: Respiration seems nonlabored, no significant accessory muscle action noted. Breath sounds clear to auscultation bilaterally and equal noted. No wheezes rales or rhonchi noted. No significant dullness noted on percussion. CHEST: Palpation of the chest wall shows no significant chest wall tenderness. 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 ABDOMEN: Soft, no significant tenderness appreciated, normoactive bowel sounds. No guarding, no rebound. No rigidity noted . No masses appreciated. EXTREMITIES: Pedal pulses are 1-2+, no calf tenderness noted. No clubbing or cyanosis. negative pedal edema noted NEUROLOGICAL: Focused neurological exam showed no significant neurologic deficit. Normal speech, no focal weakness appreciated. PSYCH: Normal mood, normal affect. Judgment and insight not evaluated today because of language difficulty. SKIN: No significant ecchymosis, skin is noted to be warm. MUSCULOSKELETAL EXAM: No significant acute joint swelling noted. Results Laboratory Results: 12/05/17 12/05/17 10:15 10:25 Creatine Kinase 41 CK-MB (CK-2) 0.68 Troponin I < 0.012 EKG Comments: Sinus rhythm, no acute ST-T wave changes are noted. Impressions: Cervical Spine CT 12/04/17 17:37 IMPRESSION: 1. No acute fracture at the cervical spine. 2. Hypodense nodule at the right lobe of the thyroid gland. This can be further characterized with dedicated ultrasound. Chest X-Ray 12/04/17 17:37 IMPRESSION: NO ACUTE RADIOGRAPHIC FINDING IN THE CHEST. Head CT 12/04/17 17:37 IMPRESSION: CHRONIC CHANGES OF ATROPHY AND MICROVASCULAR ISCHEMIA. OLD LACUNAR INFARCTS. NO ACUTE PROCESS. EVIDENCE OF ACUTE STROKE: NO. Assessment & Plan - Diagnosis (1) Syncope Qualifiers: Syncope type: unspecified Qualified Code(s): R55 - Syncope and collapse Is this a current diagnosis for this admission?: Yes (2) CAD (coronary artery disease) Qualifiers: Coronary Disease-Associated Artery/Lesion type: [place] artery [place] vs. transplanted heart: [place] heart Associated angina: angina presence unspecified Qualified Code(s): I25.10 - Atherosclerotic heart disease of [place] coronary artery without angina pectoris Is this a current diagnosis for this admission?: Yes (3) Hypertension Qualifiers: Hypertension type: essential hypertension Qualified Code(s): I10 - Essential (primary) hypertension Is this a current diagnosis for this admission?: Yes (4) Gastroesophageal reflux Qualifiers: Esophagitis presence: esophagitis presence not specified Qualified Code(s) : K21.9 - Gastro-esophageal reflux disease without esophagitis Is this a current diagnosis for this admission?: Yes (5) Hypothyroidism Qualifiers: Hypothyroidism type: unspecified Qualified Code(s): E03.9 - Hypothyroidism , unspecified Is this a current diagnosis for this admission?: Yes (6) History of cerebrovascular accident Is this a current diagnosis for this admission?: Yes - Notes Notes: Syncope: The cause is undetermined at this time. There could be multiple differential diagnosis. This includes cardiac arrhythmia in this patient's age group, hypotension secondary to orthostasis, seizure disorder, hypoglycemia et cetera. Both erika and tachyarrhythmias are possible. Patient will benefit from cardiac monitoring during this admission. May need to consider outpatient cardiac monitoring using mobile cardiac supervisor plasma if clinically indicated. At this point agree with holding carvedilol since bradycardia was noted by the ER physician. CAD: Currently symptomatically stable. Hypertension: Recommend liberal blood pressure control in this lady. Gastroesophageal reflux: Continue PPIs Hypothyroidism: Continue replacement therapy with Synthroid History of cerebrovascular accident: CT scans reviewed. May consider neurological input. Based on my review of CT scans and MRI, patient mainly had subcortical and mid brain infarctions which are usually due to atherosclerosis and hypertension. Since patient has history of recurrent fall, may consider switch to just Plavix. - Time Time Spent: 30 to 50 Minutes - CODE STATUS was discussed, patient remains full code. Surrogate decision-maker unchanged. Multiple medical problems were addressed. More than 50% of the time spent coordinating care, discussing management plans with involved caregivers. Management plans discussed with involved personnels. Medical decision making was of moderate to high complexity , patient's has multiple comorbidities. Medications reviewed and adjusted accordingly: Yes
--- NOTE | 2017-12-05 13:24 | PDOC H&P ---
History of Present Illness Admission Date/PCP: 12/05/17 08:24 HELEN LOPEZ MD Patient complains of: Syncopal episode and fall History of Present Illness: KEVAN SEAY is a 82 year old female This 82-year-old female with a significant history of the vascular dementia history of the multiple strokes history of the cardiac arrest and history of the coronary artery disease and a history of the left-sided DVT and currently on the XareltoAnd [facility] issues and Brought the Patient's Back in the Hospital Because of the Multiple Fall and the Bruise on the Face and a Syncopal Episode with the Heart Rate Was Running in the Lower End In the emergency department patient initial CT of the head was negative for any acute intracranial pathology ER physicians noticed the heart rate was running low in the beta-burak currently stopped Patients when I saw in the ER patient is alert awake as usual underlying dementia the patient has always a language barrier unable to speak the [place] and these with his son but much answer all the questions and the son is taking care of the patient's Very extensive discussions with the son today getting the all history is and the plan is we will consult the cardiology and admit the patient in the hospital for further evaluations Past Medical History Cardiac Medical History: Reports: Congestive Heart Failure, Myocardial Infarction, Hyperlipidema, Hypertension Neurological Medical History: Denies: Seizures Musculoskeltal Medical History: Reports: Arthritis Psychiatric Medical History: Reports: Dementia Past Surgical History Past Surgical History: Reports: Cardiac Catheterization, Other Social History Information Source: Relative Lives with: Family Smoking Status: Former Smoker Frequency of Alcohol Use: None Hx Recreational Drug Use: No Hx Prescription Drug Abuse: No - Advance Directive Resuscitation Status: Full Code Family History Family History: Reviewed & Not Pertinent Parental Family History Reviewed: Yes Children Family History Reviewed: Yes Sibling(s) Family History Reviewed.: Yes Medication/Allergy Home Medications: Atorvastatin Calcium [Lipitor 20 mg Tablet] 20 mg PO QHS 12/05/17 Carvedilol [Coreg 12.5 mg Tablet] 12.5 mg PO Q12 12/05/17 Levothyroxine Sodium [Synthroid 0.1 mg Tablet] 0.1 mg PO Q6AM 12/05/17 Omeprazole 20 mg PO BIDACBS 12/05/17 Prednisone [Deltasone 5 mg Tablet] 5 mg PO MOWEFR@1000 12/05/17 Rivaroxaban [Xarelto] 20 mg PO DAILY 12/05/17 Valsartan/Hydrochlorothiazide [Valsartan-Hctz 160-12.5 mg Tab] 1 tab PO DAILY Allergies/Adverse Reactions: clindamycin Allergy (Verified 11/10/17 22:34) clopidogrel [From Plavix] Allergy (Verified 11/10/17 22:34) diatrizoate meglumine [From MD-Gastroview] Allergy (Verified 11/10/17 22:34) diatrizoate sodium [From MD-Gastroview] Allergy (Verified 11/10/17 22:34) dipyridamole [From Aggrenox] Allergy (Verified 11/10/17 22:34) erythromycin base [From Erythrocin] Allergy (Verified 11/10/17 22:34) meloxicam Allergy (Verified 11/10/17 22:34) pantoprazole Allergy (Verified 11/10/17 22:34) risedronate sodium [From Actonel] Allergy (Verified 11/10/17 22:34) sulfamethoxazole [From Bactrim] Allergy (Verified 11/10/17 22:34) ticlopidine Allergy (Verified 11/10/17 22:34) tobramycin Allergy (Verified 11/10/17 22:34) trimethoprim [From Bactrim] Allergy (Verified 11/10/17 22:34) IVC dye Allergy (Uncoded 07/16/17 01:52) Review of Systems ROS unobtainable: Due to mental status All systems: reviewed and no additional remarkable complaints except as stated Physical Exam Vital Signs: Temp Pulse Resp BP Pulse Ox 97.9 F 17 139/73 H 96 12/05/17 04:40 12/05/17 06:01 12/05/17 12:02 12/05/17 12:02 General appearance: PRESENT: no acute distress, thin Head exam: PRESENT: atraumatic, normocephalic Additional Comments: There is some mild bruises in the forehead in the face is Eye exam: PRESENT: conjunctiva pink, EOMI, PERRLA. ABSENT: scleral icterus Ear exam: PRESENT: normal external ear exam Mouth exam: PRESENT: dry mucosa, moist, tongue midline Neck exam: PRESENT: full ROM. ABSENT: carotid bruit, JVD, lymphadenopathy, thyromegaly Respiratory exam: PRESENT: clear to auscultation nikolas Cardiovascular exam: PRESENT: RRR. ABSENT: diastolic murmur, rubs, systolic murmur Pulses: PRESENT: normal dorsalis pedis pul, +2 pedal pulses bilateral Vascular exam: PRESENT: normal capillary refill GI/Abdominal exam: PRESENT: normal bowel sounds, soft. ABSENT: distended, guarding, mass, organolmegaly, rebound, tenderness Rectal exam: PRESENT: deferred Extremities exam: ABSENT: joint swelling, pedal edema Neurological exam: PRESENT: alert, awake. ABSENT: motor sensory deficit Additional comments: Patients move all 4 extremity Psychiatric exam: PRESENT: appropriate affect, normal mood. ABSENT: homicidal ideation, suicidal ideation Skin exam: PRESENT: dry, intact, warm. ABSENT: cyanosis, rash Results Laboratory Results: 12/05/17 12/05/17 10:15 10:25 Creatine Kinase 41 CK-MB (CK-2) 0.68 Troponin I < 0.012 Impressions: Cervical Spine CT 12/04/17 17:37 IMPRESSION: 1. No acute fracture at the cervical spine. 2. Hypodense nodule at the right lobe of the thyroid gland. This can be further characterized with dedicated ultrasound. Chest X-Ray 12/04/17 17:37 IMPRESSION: NO ACUTE RADIOGRAPHIC FINDING IN THE CHEST. Head CT 12/04/17 17:37 IMPRESSION: CHRONIC CHANGES OF ATROPHY AND MICROVASCULAR ISCHEMIA. OLD LACUNAR INFARCTS. NO ACUTE PROCESS. EVIDENCE OF ACUTE STROKE: NO. Assessment & Plan - Diagnosis (1) Syncope Qualifiers: Syncope type: unspecified Qualified Code(s): R55 - Syncope and collapse Is this a current diagnosis for this admission?: Yes Plan: As on history getting from the son unable to get from the patient's patient initial CT head was negative most likely underlying some cardiac arrhythmia with multiple other etiology we consult the local cardiology currently hold the Coreg and continues to monitor the patient (2) Vascular dementia Qualifiers: Dementia behavioral disturbance: with behavioral disturbance Qualified Code (s): F01.51 - Vascular dementia with behavioral disturbance Is this a current diagnosis for this admission?: Yes Plan: With recently worsening patient also seen by the neurology as outpatient at [facility] Son is not willing to put any restraint but discussed with the son in the hospital patients require some IV and then needs some soft restraints is okay (3) Recurrent falls Is this a current diagnosis for this admission?: Yes Plan: Patients did a fall precautions (4) Deep venous thrombosis Qualifiers: Laterality: left Is this a current diagnosis for this admission?: Yes Plan: Patient has a [id number] DVT just 2 months back discussed with the son about this recurrent fall will repeat the ultrasound and if it has come back negative may be a consider low-dose Eliquis to reduce the bleeding issues (5) CAD (coronary artery disease) Qualifiers: Coronary Disease-Associated Artery/Lesion type: [place] artery [place] vs. transplanted heart: [place] heart Associated angina: angina presence unspecified Qualified Code(s): I25.10 - Atherosclerotic heart disease of [place] coronary artery without angina pectoris Is this a current diagnosis for this admission?: Yes Plan: Consult the cardiology for further evaluations (6) Gastroesophageal reflux Qualifiers: Esophagitis presence: esophagitis presence not specified Qualified Code(s) : K21.9 - Gastro-esophageal reflux disease without esophagitis Is this a current diagnosis for this admission?: Yes (7) History of cerebrovascular accident Is this a current diagnosis for this admission?: Yes Plan: Patients get a real benefit from this low-dose Eliquis (8) Hypertension Qualifiers: Hypertension type: essential hypertension Qualified Code(s): I10 - Essential (primary) hypertension Is this a current diagnosis for this admission?: Yes Plan: Continues to current medications (9) Hypothyroidism Qualifiers: Hypothyroidism type: unspecified Qualified Code(s): E03.9 - Hypothyroidism , unspecified Is this a current diagnosis for this admission?: Yes Plan: Check a TSH - Time Time Spent: 30 to 50 Minutes Medications reviewed and adjusted accordingly: Yes Anticipated discharge: Home with Homehealth Within: Other - Inpatient Certification Medical Necessity: Need Close Monitoring Due to Risk of Patient Decompensation Post Hospital Care: D/C Medical Receptionist Documentation - Plan Summary Plan Summary: See other MD orders consult cardiology very extensive discussed with the son regarding the patient's current condition and all plan
[2017-12-05 15:18] LABS: CREATINE KINASE MB 0.55 ng/mL (<4.55)
[2017-12-05 15:19] LABS: TROPONIN I < 0.012 ng/mL
[2017-12-05] MEDS: RIVAROXABAN 10 MG TABLET PO SCH (17:21)
[2017-12-05] MEDS: LANSOPRAZOLE 15 MG TAB.RAP.DR PO SCH (17:21)
[2017-12-05 21:41] LABS: CREATINE KINASE MB 0.41 ng/mL (<4.55)
[2017-12-05 21:53] LABS: TROPONIN I < 0.012 ng/mL
[2017-12-06] MEDS: ATORVASTATIN CALCIUM 20 MG TABLET PO SCH ×2 (00:07→21:13)
[2017-12-06] MEDS: LEVOTHYROXINE SODIUM 0.1 MG TABLET PO SCH (05:25)
[2017-12-06 05:28] LABS: ABSOLUTE EOSINOPHILS # (AUTO) 0.1 10^3/uL (0.0-0.6); ABSOLUTE LYMPHOCYTES (AUTO) 1.7 10^3/uL (0.5-4.7); ABSOLUTE MONOCYTES (AUTO) 1.1 10^3/uL (0.1-1.4); ABSOLUTE NEUT (AUTO) 5.2 10^3/uL (1.7-8.2); BASOPHILS % (AUTO) 0.5 % (0-2); EOSINOPHILS % (AUTO) 1.3 % (0-6); HEMATOCRIT 37.6 % (36.0-47.0); HEMOGLOBIN 12.9 g/dL (12.0-15.5); LYMPHOCYTES % (AUTO) 21.1 % (13-45); MEAN CORPUSCULAR HEMOGLOBIN 26.2 pg (27.0-33.4); MEAN CORPUSCULAR HGB CONC 34.2 g/dL (32.0-36.0); MEAN CORPUSCULAR VOLUME 77 fl (80-97); MONOCYTES % (AUTO) 13.7 % (3-13); PLATELET COUNT 192 10^3/uL (150-450); RED BLOOD COUNT 4.91 10^6/uL (3.72-5.28); RED CELL DISTRIBUTION WIDTH 16.2 % (11.5-14.0); SEGMENTED NEUTROPHILS % (AUTO) 63.4 % (42-78); TOTAL CELLS COUNTED % (AUTO) 100 %; WHITE BLOOD COUNT 8.1 10^3/uL (4.0-10.5)
[2017-12-06 05:47] LABS: ANION GAP 12 (5-19); BLOOD UREA NITROGEN 20 mg/dL (7-20); CARBON DIOXIDE 24 mmol/L (22-30); CHLORIDE 99 mmol/L (98-107); GLUCOSE 117 mg/dL (75-110); POTASSIUM 3.5 mmol/L (3.6-5.0); SODIUM 134.6 mmol/L (137-145)
[2017-12-06] MEDS ORDERED: POTASSIUM CHLORIDE 10 MEQ CAPSULE.ER PO ONE ×2 (06:49→15:00)
[2017-12-06] MEDS: LANSOPRAZOLE 15 MG TAB.RAP.DR PO SCH ×2 (08:45→18:00)
--- NOTE | 2017-12-06 09:28 | PDOC PROGRESS REPORT ---
Subjective Progress Note for:: 12/06/17 Subjective:: Patient's currently doing fair No events happens overnight No chest pain no short of breath Reason For Visit: SYNCOPAL EPISODE Physical Exam Vital Signs: Temp Pulse Resp BP Pulse Ox 97.9 F 65 16 140/74 H 96 12/06/17 04:28 12/06/17 04:28 12/06/17 04:28 12/06/17 04:28 12/06/17 04:28 Intake & Output 12/05/17 12/06/17 12/07/17 06:59 06:59 06:59 Intake Total 0 Balance 0 Weight 48.9 kg General appearance: PRESENT: no acute distress, well-developed, well-nourished Head exam: PRESENT: atraumatic, normocephalic Eye exam: PRESENT: conjunctiva pink, EOMI, PERRLA. ABSENT: scleral icterus Ear exam: PRESENT: normal external ear exam Mouth exam: PRESENT: moist, tongue midline Neck exam: PRESENT: full ROM. ABSENT: carotid bruit, JVD, lymphadenopathy, thyromegaly Respiratory exam: PRESENT: clear to auscultation nikolas Cardiovascular exam: PRESENT: RRR. ABSENT: diastolic murmur, rubs, systolic murmur Pulses: PRESENT: normal dorsalis pedis pul, +2 pedal pulses bilateral Vascular exam: PRESENT: normal capillary refill GI/Abdominal exam: PRESENT: normal bowel sounds, soft. ABSENT: distended, guarding, mass, organolmegaly, rebound, tenderness Rectal exam: PRESENT: deferred Extremities exam: ABSENT: pedal edema Neurological exam: PRESENT: alert, awake, oriented to person. ABSENT: motor sensory deficit Psychiatric exam: PRESENT: appropriate affect, normal mood. ABSENT: homicidal ideation, suicidal ideation Skin exam: PRESENT: dry, intact, warm. ABSENT: cyanosis, rash Results Laboratory Results: 12/06/17 05:04 12/06/17 05:04 12/06/17 12/06/17 05:04 05:04 WBC 8.1 RBC 4.91 Hgb 12.9 Hct 37.6 MCV 77 L MCH 26.2 L MCHC 34.2 RDW 16.2 H Plt Count 192 Seg Neutrophils % 63.4 Lymphocytes % 21.1 Monocytes % 13.7 H Eosinophils % 1.3 Basophils % 0.5 Absolute Neutrophils 5.2 Absolute Lymphocytes 1.7 Absolute Monocytes 1.1 Absolute Eosinophils 0.1 Absolute Basophils 0.0 Sodium 134.6 L Potassium 3.5 L Chloride 99 Carbon Dioxide 24 Anion Gap 12 BUN 20 Creatinine 0.79 Est GFR ( Amer) > 60 Est GFR (Non-Af Amer) > 60 Glucose 117 H Calcium 9.0 Magnesium 2.0 12/05/17 12/05/17 12/05/17 10:15 10:25 14:30 Creatine Kinase 41 36 CK-MB (CK-2) 0.68 Troponin I < 0.012 12/05/17 12/05/17 12/05/17 14:30 20:53 20:53 Creatine Kinase 32 CK-MB (CK-2) 0.55 0.41 Troponin I < 0.012 < 0.012 Impressions: Cervical Spine CT 12/04/17 17:37 IMPRESSION: 1. No acute fracture at the cervical spine. 2. Hypodense nodule at the right lobe of the thyroid gland. This can be further characterized with dedicated ultrasound. Chest X-Ray 12/04/17 17:37 IMPRESSION: NO ACUTE RADIOGRAPHIC FINDING IN THE CHEST. Head CT 12/04/17 17:37 IMPRESSION: CHRONIC CHANGES OF ATROPHY AND MICROVASCULAR ISCHEMIA. OLD LACUNAR INFARCTS. NO ACUTE PROCESS. EVIDENCE OF ACUTE STROKE: NO. Assessment & Plan - Diagnosis (1) Syncope Qualifiers: Syncope type: unspecified Qualified Code(s): R55 - Syncope and collapse Is this a current diagnosis for this admission?: Yes Plan: Patient initial CT head is negative's currently all stableFollow with cardiology (2) Vascular dementia Qualifiers: Dementia behavioral disturbance: with behavioral disturbance Qualified Code (s): F01.51 - Vascular dementia with behavioral disturbance Is this a current diagnosis for this admission?: Yes Plan: With recently worsening patient also seen by the neurology as outpatient at [facility] is not willing to put any restraint but discussed with the son in the hospital patients require some IV and then needs some soft restraints is okay (3) Recurrent falls Is this a current diagnosis for this admission?: Yes Plan: Patients did a fall precautions (4) Deep venous thrombosis Qualifiers: Laterality: left Is this a current diagnosis for this admission?: Yes Plan: Continues to Xarelto will wait for the ultrasound reports (5) CAD (coronary artery disease) Qualifiers: Coronary Disease-Associated Artery/Lesion type: [place] artery [place] vs. transplanted heart: [place] heart Associated angina: angina presence unspecified Qualified Code(s): I25.10 - Atherosclerotic heart disease of [place] coronary artery without angina pectoris Is this a current diagnosis for this admission?: Yes Plan: Consult the cardiology for further evaluations (6) Gastroesophageal reflux Qualifiers: Esophagitis presence: esophagitis presence not specified Qualified Code(s) : K21.9 - Gastro-esophageal reflux disease without esophagitis Is this a current diagnosis for this admission?: Yes (7) History of cerebrovascular accident Is this a current diagnosis for this admission?: Yes Plan: Patients get a real benefit from this low-dose Eliquis (8) Hypertension Qualifiers: Hypertension type: essential hypertension Qualified Code(s): I10 - Essential (primary) hypertension Is this a current diagnosis for this admission?: Yes Plan: Continues to current medications (9) Hypothyroidism Qualifiers: Hypothyroidism type: unspecified Qualified Code(s): E03.9 - Hypothyroidism , unspecified Is this a current diagnosis for this admission?: Yes Plan: Check a TSH - Time Time Spent with patient: 15-24 minutes Medications reviewed and adjusted accordingly: Yes Anticipated discharge: Home with Homehealth Within: within 24 hours - Inpatient Certification Medical Necessity: Need Close Monitoring Due to Risk of Patient Decompensation Post Hospital Care: D/C [employer] Documentation - Plan Summary Plan Summary: Continues to current medications
[2017-12-06] MEDS ORDERED: (PENDING PHARMACY ID) (Valsartan/Hydrochlorothiazide [Valsartan-Hctz 160-12.5 Mg Tab] 1 TA PO SCH (10:00)
--- NOTE | 2017-12-06 12:01 | RADIOLOGY REPORT (SQ) ---
EXAM DESCRIPTION: VENOUS BILATERAL LOWER COMPLETED DATE/TIME: 12/06/2017 11:51 am REASON FOR STUDY: dvt R55 SYNCOPE AND COLLAPSE N39.498 OTHER SPECIFIED URINARY INCONTINENCE COMPARISON: None. TECHNIQUE: Dynamic and static sosa scale and color images acquired of both lower extremity venous sy stems. Selected spectral images acquired with additional compression and augmentation maneuvers. Imag es stored on PACS. LIMITATIONS: None. FINDINGS: RIGHT LEG COMMON FEMORAL AND FEMORAL: Normal phasicity, compression and augmentation. No visualized echogenic m aterial on sosa scale. No defects on color images. POPLITEAL: Normal compression and augmentation. No visualized echogenic material on sosa scale. No de fects on color images. CALF VESSELS: Normal compression and augmentation. No visualized echogenic material on sosa scale. No defects on color image. GSV AND SSV: Normal compression. No visualized echogenic material on sosa scale. No defects on color images. ANY DEEP VENOUS INSUFFICIENCY: Not evaluated. ANY EVIDENCE OF POPLITEAL CYST: No. OTHER: No other significant finding. LEFT LEG COMMON FEMORAL AND FEMORAL: Normal phasicity, compression and augmentation. No visualized echogenic m aterial on sosa scale. No defects on color images. POPLITEAL: Normal compression and augmentation. No visualized echogenic material on sosa scale. No de fects on color images. CALF VESSELS: Normal compression and augmentation. No visualized echogenic material on sosa scale. No defects on color images. GSV AND SSV: Normal compression. No visualized echogenic material on sosa scale. No defects on color images. ANY DEEP VENOUS INSUFFICIENCY: Not evaluated. ANY EVIDENCE POPLITEAL CYST: No. OTHER: No other significant finding. IMPRESSION: NO EVIDENCE DVT OR SVT IN EITHER LEG. TECHNICAL DOCUMENTATION: JOB ID: [id number] [employer]- All Rights Reserved Reading location - IP/workstation name: [email or web address]
--- NOTE | 2017-12-06 12:18 | RADIOLOGY REPORT (SQ) ---
EXAM DESCRIPTION: CAROTID DOPPLER COMPLETED DATE/TIME: 12/06/2017 11:51 am REASON FOR STUDY: syncoap episode R55 SYNCOPE AND COLLAPSE N39.498 OTHER SPECIFIED URINARY INCONTI NENCE COMPARISON: None. TECHNIQUE: Grayscale ultrasound, Doppler velocity and spectra, and color Doppler images acquired of the extra-cranial carotid and vertebral arteries. Images stored on PACS. LIMITATIONS: None. FINDINGS: RIGHT CAROTID CCA Velocities: Within normal limits. ICA Velocities Peak systolic 0.33 m/s. End diastolic 0.09 m/s. Proximal ICA/CCA peak systolic ratio 1.9. Spectra normal. No significant plaque. LEFT CAROTID CCA Velocities: Within normal limits. ICA Velocities Peak systolic 0.27 m/s. End diastolic 0.06 m/s. Proximal ICA/CCA peak systolic ratio 1.2. Mild plaque proximal ICA. VERTEBRAL ARTERIES: Antegrade flow. Normal waveforms. SUBCLAVIAN ARTERIES: No finding. OTHER: No other significant finding. IMPRESSION: NO HEMODYNAMICALLY SIGNIFICANT STENOSIS. COMMENT: Quality ID #[id number]: Velocity criteria are extrapolated from the diameter data as defined by t he Society of Radiologists in Ultrasound Consensus Conference. Radiology 2003: 229; 340-346. TECHNICAL DOCUMENTATION: JOB ID: [id number] [employer]- All Rights Reserved Reading location - IP/workstation name: [email or web address]
[2017-12-06] MEDS: VALSARTAN 160 MG TABLET PO SCH (14:10)
[2017-12-06] MEDS: HYDROCHLOROTHIAZIDE 12.5 MG TABLET PO SCH (14:10)
[2017-12-06] MEDS: RIVAROXABAN 10 MG TABLET PO SCH (17:59)
--- NOTE | 2017-12-06 18:44 | XCELERA REPORT ---
[address] [address] Transthoracic Echocardiogram Report Name: KEVAN SEAY Age: 82 yrs Gender: Female : 1935 Patient Status: Inpatient Patient Location: [address] [place] [address] Study Date: 12/06/2017 09:19 AM Height: 62 in Weight: 116 lb BSA: 1.5 m2 Procedure: A complete two-dimensional transthoracic echocardiogram was performed (2D, M-mode, spectral and color flow Doppler). The study was technically adequate with some images being suboptimal in quality. Reason For Study: Syncope Ordering Physician: VIKKI HDZ Performed By: Betsy Alonso Interpretation Summary The left ventricular ejection fraction is normal. There is mild concentric left ventricular hypertrophy. The left ventricle is grossly normal size. Doppler measurements suggest pseudonormalized left ventricular relaxation, which is associated with grade II/IV or mild to moderate diastolic dysfunction Wall motion cannot be accurately commented on, but no definite regional wall motion abnormalities noted. The right ventricular systolic function is normal. There is a trace amount of mitral regurgitation There is no mitral valve stenosis. There is a moderate amount of aortic regurgitation There is no aortic valve stenosis There is a trace or physiologic amount of tricuspid regurgitation Tricuspid regurgitation jet envelope not well defined to measure RV systolic pressure accurately. There is no pericardial effusion. MMode/2D Measurements & Calculations RVDd: 2.5 cm LVIDd: 3.3 cm FS: 26.1 % Ao root diam: 2.6 cm IVSd: 1.0 cm LVIDs: 2.5 cm EDV(Teich): 44.9 ml LVPWd: 1.0 cm ESV(Teich): 21.4 ml Ao root area: 5.5 cm2 EF(Teich): 52.4 % LA dimension: 2.9 cm Doppler Measurements & Calculations MV E max mariah: MV P1/2t max mariah: Ao V2 max: AI max mariah: 59.2 cm/sec 60.2 cm/sec 169.0 cm/sec 423.5 cm/sec MV A max mariah: MV P1/2t: 83.2 msec Ao max PG: AI max P.4 cm/sec 11.4 mmHg 71.7 mmHg MV E/A: 0.70 MVA(P1/2t): 2.6 cm2 AI dec slope: MV dec slope: 212.1 cm/sec2 280.4 cm/sec2 MV dec time: AI P1/2t: 0.26 sec 442.4 msec LV V1 max PG: PA V2 max: 6.9 mmHg 93.8 cm/sec LV V1 max: PA max P.5 mmHg 131.8 cm/sec Left Ventricle The left ventricle is grossly normal size. There is mild concentric left ventricular hypertrophy. The left ventricular ejection fraction is normal. Doppler measurements suggest pseudonormalized left ventricular relaxation, which is associated with grade II/IV or mild to moderate diastolic dysfunction. Wall motion cannot be accurately commented on, but no definite regional wall motion abnormalities noted. Right Ventricle The right ventricle is grossly normal size. There is normal right ventricular wall thickness. The right ventricular systolic function is normal. Atria The right atrium is normal. The left atrial size is normal. Mitral Valve The mitral valve leaflets are sclerotic, but show no functional abnormalities. There is no mitral valve stenosis. There is a trace amount of mitral regurgitation. Aortic Valve The aortic valve is mildly calcified. There is no aortic valve stenosis. There is a moderate amount of aortic regurgitation. Tricuspid Valve The tricuspid valve is not well visualized, but is grossly normal. There is no tricuspid stenosis. There is a trace or physiologic amount of tricuspid regurgitation. Tricuspid regurgitation jet envelope not well defined to measure RV systolic pressure accurately. Pulmonic Valve The pulmonic valve is not well visualized. Great Vessels The aortic root is not well visualized. The inferior vena cava was not well visualized. Effusions There is no pericardial effusion. : VIKKI HDZ > Vikki Hdz
--- NOTE | 2017-12-06 18:51 | PDOC PROGRESS REPORT ---
Subjective Progress Note for:: 12/06/17 Subjective:: Patient seems to be doing better with gradual improvement. Patient is difficult to understand but is denying any chest arm or neck discomfort. Patient denying any PND, orthopnea. Patient denied any sustained palpitations, dizziness, syncope, near syncope. Patient denying any fever chills. Patient denying any other significant discomfort. Patient is maintaining sinus rhythm. No significant bradycardia or tachyarrhythmia noted Review of systems: Rest review of systems negative. Medications: Medications have been reviewed. Reason For Visit: SYNCOPAL EPISODE Physical Exam Vital Signs: Temp Pulse Resp BP Pulse Ox 97.6 F 72 14 179/81 H 99 12/06/17 12:04 12/06/17 12:04 12/06/17 12:04 12/06/17 12:04 12/06/17 12:04 Intake & Output 12/05/17 12/06/17 12/07/17 06:59 06:59 06:59 Intake Total 0 651 Balance 0 651 Weight 48.9 kg Exam: GENERAL: well-nourished and in no acute distress. Patient is alert orientation cannot be checked because of language difficulty. HEAD: Atraumatic, normocephalic. EYES: Pupils equal round and reactive to light, extraocular movements intact, sclera anicteric, conjunctiva are normal. ENT: TMs normal, nares patent, oropharynx clear without exudates. Moist mucous membranes. No oral ulcerations or bleeding gums noted NECK: supple without lymphadenopathy or JVD. Trachea is central. No cervical or axillary lymphadenopathy noted. Carotids are 2+ LUNGS: Breath sounds bibasilar fine crackles at bases. No significant dullness noted. CHEST: Palpation of chest wall shows no significant chest wall tenderness. 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 ABDOMEN: Soft, no significant tenderness appreciated, normoactive bowel sounds. No guarding, no rebound. No rigidity noted . No masses appreciated. EXTREMITIES: Pedal pulses are 1-2+, no calf tenderness noted, Trace + pedal edema noted. No clubbing or cyanosis. NEUROLOGICAL: Patient is alert on quick exam, no significant neurologic deficit noted but patient does have history of TIAs and stroke. PSYCH: Mood seems normal. Cannot assess insight and judgment because of language difficulty. SKIN: No significant ecchymosis, rash, ulcerations or signs of pruritus noted. MUSCULOSKELETAL EXAM: No significant joint swelling noted. Results Laboratory Results: 12/06/17 05:04 12/06/17 05:04 12/06/17 12/06/17 05:04 05:04 WBC 8.1 RBC 4.91 Hgb 12.9 Hct 37.6 MCV 77 L MCH 26.2 L MCHC 34.2 RDW 16.2 H Plt Count 192 Seg Neutrophils % 63.4 Lymphocytes % 21.1 Monocytes % 13.7 H Eosinophils % 1.3 Basophils % 0.5 Absolute Neutrophils 5.2 Absolute Lymphocytes 1.7 Absolute Monocytes 1.1 Absolute Eosinophils 0.1 Absolute Basophils 0.0 Sodium 134.6 L Potassium 3.5 L Chloride 99 Carbon Dioxide 24 Anion Gap 12 BUN 20 Creatinine 0.79 Est GFR ( Amer) > 60 Est GFR (Non-Af Amer) > 60 Glucose 117 H Calcium 9.0 Magnesium 2.0 12/05/17 12/05/17 12/05/17 10:15 10:25 14:30 Creatine Kinase 41 36 CK-MB (CK-2) 0.68 Troponin I < 0.012 12/05/17 12/05/17 12/05/17 14:30 20:53 20:53 Creatine Kinase 32 CK-MB (CK-2) 0.55 0.41 Troponin I < 0.012 < 0.012 EKG Comments: Telemetry shows sinus rhythm without any sustained tachycardia or bradycardia Impressions: Cervical Spine CT 12/04/17 17:37 IMPRESSION: 1. No acute fracture at the cervical spine. 2. Hypodense nodule at the right lobe of the thyroid gland. This can be further characterized with dedicated ultrasound. Chest X-Ray 12/04/17 17:37 IMPRESSION: NO ACUTE RADIOGRAPHIC FINDING IN THE CHEST. Head CT 12/04/17 17:37 IMPRESSION: CHRONIC CHANGES OF ATROPHY AND MICROVASCULAR ISCHEMIA. OLD LACUNAR INFARCTS. NO ACUTE PROCESS. EVIDENCE OF ACUTE STROKE: NO. Carotid Doppler Study 12/06/17 00:00 IMPRESSION: NO HEMODYNAMICALLY SIGNIFICANT STENOSIS. Venous Doppler Study 12/06/17 00:00 IMPRESSION: NO EVIDENCE DVT OR SVT IN EITHER LEG. Assessment & Plan - Diagnosis (1) Syncope Qualifiers: Syncope type: unspecified Qualified Code(s): R55 - Syncope and collapse Is this a current diagnosis for this admission?: Yes (2) CAD (coronary artery disease) Qualifiers: Coronary Disease-Associated Artery/Lesion type: [place] artery [place] vs. transplanted heart: [place] heart Associated angina: angina presence unspecified Qualified Code(s): I25.10 - Atherosclerotic heart disease of [place] coronary artery without angina pectoris Is this a current diagnosis for this admission?: Yes (3) Hypertension Qualifiers: Hypertension type: essential hypertension Qualified Code(s): I10 - Essential (primary) hypertension Is this a current diagnosis for this admission?: Yes (4) Gastroesophageal reflux Qualifiers: Esophagitis presence: esophagitis presence not specified Qualified Code(s) : K21.9 - Gastro-esophageal reflux disease without esophagitis Is this a current diagnosis for this admission?: Yes (5) Hypothyroidism Qualifiers: Hypothyroidism type: unspecified Qualified Code(s): E03.9 - Hypothyroidism , unspecified Is this a current diagnosis for this admission?: Yes (6) History of cerebrovascular accident Is this a current diagnosis for this admission?: Yes - Notes Notes: 2D echo results reviewed. It shows normal LVEF, mild LVH, moderate aortic incompetence. No significant stenotic valve disease or severe pulmonary hypertension noted to explain syncope due to structural heart disease. Syncope: The cause is undetermined at this time. There could be multiple differential diagnosis. This includes cardiac arrhythmia in this patient's age group, hypotension secondary to orthostasis, seizure disorder, hypoglycemia et cetera. Both erika and tachyarrhythmias are possible. Patient will benefit from cardiac monitoring during this admission. May need to consider outpatient cardiac monitoring using mobile cardiac personnel monitor if clinically indicated. At this point agree with holding carvedilol since bradycardia was noted by the ER physician. CAD: Currently symptomatically stable. Hypertension: Recommend liberal blood pressure control in this lady. Gastroesophageal reflux: Continue PPIs Hypothyroidism: Continue replacement therapy with Synthroid History of cerebrovascular accident: CT scans reviewed. May consider neurological input. Based on my review of CT scans and MRI, patient mainly had subcortical and mid brain infarctions which are usually due to atherosclerosis and hypertension. Since patient has history of recurrent fall, may consider switch to just Plavix. - Time Time with patient: Greater than 35 minutes - 2D echo results were reviewed. CODE STATUS was discussed, patient remains full code. Surrogate decision-maker unchanged. Multiple medical problems were addressed. More than 50% of the time spent coordinating care, discussing management plans with involved caregivers. Management plans discussed with involved personnels. Medical decision making was of moderate to high complexity, patient's has multiple comorbidities. Medications reviewed and adjusted accordingly: Yes
[2017-12-07 05:20] LABS: ABSOLUTE EOSINOPHILS # (AUTO) 0.1 10^3/uL (0.0-0.6); ABSOLUTE LYMPHOCYTES (AUTO) 1.5 10^3/uL (0.5-4.7); ABSOLUTE MONOCYTES (AUTO) 0.9 10^3/uL (0.1-1.4); ABSOLUTE NEUT (AUTO) 4.1 10^3/uL (1.7-8.2); BASOPHILS % (AUTO) 0.7 % (0-2); EOSINOPHILS % (AUTO) 1.9 % (0-6); HEMATOCRIT 36.7 % (36.0-47.0); HEMOGLOBIN 12.6 g/dL (12.0-15.5); LYMPHOCYTES % (AUTO) 22.5 % (13-45); MEAN CORPUSCULAR HEMOGLOBIN 26.4 pg (27.0-33.4); MEAN CORPUSCULAR HGB CONC 34.4 g/dL (32.0-36.0); MEAN CORPUSCULAR VOLUME 77 fl (80-97); MONOCYTES % (AUTO) 13.9 % (3-13); PLATELET COUNT 187 10^3/uL (150-450); RED BLOOD COUNT 4.79 10^6/uL (3.72-5.28); TOTAL CELLS COUNTED % (AUTO) 100 %; WHITE BLOOD COUNT 6.7 10^3/uL (4.0-10.5)
[2017-12-07 05:37] LABS: ANION GAP 11 (5-19); BLOOD UREA NITROGEN 22 mg/dL (7-20); CARBON DIOXIDE 23 mmol/L (22-30); CHLORIDE 98 mmol/L (98-107); GLUCOSE 109 mg/dL (75-110); POTASSIUM 4.1 mmol/L (3.6-5.0); SODIUM 132.3 mmol/L (137-145)
[2017-12-07] MEDS: LEVOTHYROXINE SODIUM 0.1 MG TABLET PO SCH (05:39)
[2017-12-07] MEDS ORDERED: PREDNISONE 5 MG TABLET PO SCH (10:00)
[2017-12-07] MEDS: HYDROCHLOROTHIAZIDE 12.5 MG TABLET PO SCH (10:30)
[2017-12-07] MEDS: VALSARTAN 160 MG TABLET PO SCH (10:30)
--- NOTE | 2017-12-07 10:30 | PDOC DISCHARGE SUMMARY ---
General - Admit/Disc Date/PCP Admission Date/Primary Care Provider: 12/05/17 08:24 HELEN LOPEZ MD Discharge Date: 12/07/17 - Discharge Diagnosis (1) Syncope Is this a current diagnosis for this admission?: Yes Summary: Current all workup is negative follow outpatients cardiology for engine monitor and currently hold the beta-burak (2) Vascular dementia Is this a current diagnosis for this admission?: Yes Summary: Currently all stable (3) Recurrent falls Is this a current diagnosis for this admission?: Yes Summary: Discussed with the son about the fall precautions (4) Deep venous thrombosis Is this a current diagnosis for this admission?: Yes Summary: Patient have a left femoral thrombosis currently all resolved On current ultrasound was diagnosis on September 2017Patients need at least 3-6 month treatments at least will continue some of the month the Xarelto and then cut down to 10 mg tablets The extensive discussions with the son with the side effect of the Xarelto with the patient frequent fall understand and will continues to monitor the patient's (5) CAD (coronary artery disease) Is this a current diagnosis for this admission?: Yes Summary: Currently follow with the cardiologyRecent echocardiogram was all stable (6) Gastroesophageal reflux Is this a current diagnosis for this admission?: Yes Summary: Currently all stable (7) History of cerebrovascular accident Is this a current diagnosis for this admission?: Yes Summary: Once the patient's done with the Xarelto we will start the patient on Plavix and aspirin (8) Hypertension Is this a current diagnosis for this admission?: Yes Summary: Currently well under control (9) Hypothyroidism Is this a current diagnosis for this admission?: Yes Summary: Currently all stable - Additional Information Resuscitation Status: Full Code Discharge Diet: As Tolerated Discharge Activity: Activity As Tolerated Home Medications: Atorvastatin Calcium [Lipitor 20 mg Tablet] 20 mg PO QHS 12/05/17 Levothyroxine Sodium [Synthroid 0.1 mg Tablet] 0.1 mg PO Q6AM 12/05/17 Omeprazole 20 mg PO BIDACBS 12/05/17 Prednisone [Deltasone 5 mg Tablet] 2.5 mg PO Q2D 12/05/17 Rivaroxaban [Xarelto] 20 mg PO QHS 12/05/17 Valsartan/Hydrochlorothiazide [Valsartan-Hctz 160-12.5 mg Tab] 0.5 tab PO DAILY 12/05/17 History of Present Illness History of Present Illness: KEVAN SEAY is a 82 year old female This 82-year-old female with a significant history of the vascular dementia history of the multiple strokes history of the cardiac arrest and history of the coronary artery disease and a history of the left-sided DVT and currently on the XareltoAnd [facility] issues and Brought the Patient's Back in the Hospital Because of the Multiple Fall and the Bruise on the Face and a Syncopal Episode with the Heart Rate Was Running in the Lower End In the emergency department patient initial CT of the head was negative for any acute intracranial pathology ER physicians noticed the heart rate was running low in the beta-burak currently stopped Patients when I saw in the ER patient is alert awake as usual underlying dementia the patient has always a language barrier unable to speak the Malaysian and these with his son but much answer all the questions and the son is taking care of the patient's Very extensive discussions with the son today getting the all history is and the plan is we will consult the cardiology and admit the patient in the hospital for further evaluations Hospital Course Hospital Course: This is a 82-year-old female with multiple medical problem as able came with the possible syncopal episode and frequent fall and bruise An initial CT of the head was negative's patient's admitting in the [facility] close monitor patient's heart rate was low to slowing the ER and beta-burak was stopped and consult the cardiology His echocardiogram is also stable Patient had ultrasound for the lower extremity for the DVT was done was negative and patient was diagnosis back in September for a very extensive DVT and suggested continues with 3-6 month treatment for the Xarelto Patients underwent for physical therapy and patient's otherwise remained stable no further episodes p.o. intake is good Discussed with the cardiology is okay to discharge with the events monitor Very extensive discussed with the son regarding the patient's current conditions fall precautions talked about the Xarelto and patient to son understand very well Follow with the cardiology and following office in 1 week and recheck the Chem-7 Physical Exam Vital Signs: Temp Pulse Resp BP Pulse Ox 97.3 F 69 16 148/64 H 99 12/07/17 07:50 12/07/17 07:50 12/07/17 07:50 12/07/17 07:50 12/07/17 07:50 Intake & Output 12/06/17 12/07/17 12/08/17 06:59 06:59 06:59 Intake Total 0 1150 Balance 0 1150 Weight 48.9 kg 48 kg General appearance: PRESENT: no acute distress, well-developed, well-nourished Head exam: PRESENT: atraumatic, normocephalic Eye exam: PRESENT: conjunctiva pink, EOMI, PERRLA. ABSENT: scleral icterus Ear exam: PRESENT: normal external ear exam Mouth exam: PRESENT: moist, tongue midline Neck exam: PRESENT: full ROM. ABSENT: carotid bruit, JVD, lymphadenopathy, thyromegaly Respiratory exam: PRESENT: clear to auscultation nikolas Cardiovascular exam: PRESENT: RRR. ABSENT: diastolic murmur, rubs, systolic murmur Pulses: PRESENT: normal dorsalis pedis pul, +2 pedal pulses bilateral Vascular exam: PRESENT: normal capillary refill GI/Abdominal exam: PRESENT: normal bowel sounds, soft. ABSENT: distended, guarding, mass, organolmegaly, rebound, tenderness Rectal exam: PRESENT: deferred Gentrourinary exam: ABSENT: testicular tenderness Extremities exam: ABSENT: pedal edema Musculoskeletal exam: PRESENT: ambulatory Neurological exam: PRESENT: alert, awake, oriented to person. ABSENT: motor sensory deficit Psychiatric exam: PRESENT: appropriate affect, normal mood. ABSENT: homicidal ideation, suicidal ideation Skin exam: PRESENT: dry, intact, warm. ABSENT: cyanosis, rash Results Laboratory Results: 12/07/17 04:46 12/07/17 04:46 12/07/17 12/07/17 04:46 04:46 WBC 6.7 RBC 4.79 Hgb 12.6 Hct 36.7 MCV 77 L MCH 26.4 L MCHC 34.4 RDW 16.0 H Plt Count 187 Seg Neutrophils % 61.0 Lymphocytes % 22.5 Monocytes % 13.9 H Eosinophils % 1.9 Basophils % 0.7 Absolute Neutrophils 4.1 Absolute Lymphocytes 1.5 Absolute Monocytes 0.9 Absolute Eosinophils 0.1 Absolute Basophils 0.0 Sodium 132.3 L Potassium 4.1 Chloride 98 Carbon Dioxide 23 Anion Gap 11 BUN 22 H Creatinine 0.80 Est GFR ( Amer) > 60 Est GFR (Non-Af Amer) > 60 Glucose 109 Calcium 9.0 Magnesium 1.8 12/05/17 12/05/17 12/05/17 10:15 10:25 14:30 Creatine Kinase 41 36 CK-MB (CK-2) 0.68 Troponin I < 0.012 12/05/17 12/05/17 12/05/17 14:30 20:53 20:53 Creatine Kinase 32 CK-MB (CK-2) 0.55 0.41 Troponin I < 0.012 < 0.012 Impressions: Cervical Spine CT 12/04/17 17:37 IMPRESSION: 1. No acute fracture at the cervical spine. 2. Hypodense nodule at the right lobe of the thyroid gland. This can be further characterized with dedicated ultrasound. Chest X-Ray 12/04/17 17:37 IMPRESSION: NO ACUTE RADIOGRAPHIC FINDING IN THE CHEST. Head CT 12/04/17 17:37 IMPRESSION: CHRONIC CHANGES OF ATROPHY AND MICROVASCULAR ISCHEMIA. OLD LACUNAR INFARCTS. NO ACUTE PROCESS. EVIDENCE OF ACUTE STROKE: NO. Carotid Doppler Study 12/06/17 00:00 IMPRESSION: NO HEMODYNAMICALLY SIGNIFICANT STENOSIS. Venous Doppler Study 12/06/17 00:00 IMPRESSION: NO EVIDENCE DVT OR SVT IN EITHER LEG. Qualifiers - * PATIENT BEING DISCHARGED WITH ANY OF THE FOLLOWING DIAGNOSIS: No VTE patient discharged on overlapping Therapy?: Yes Plan Time Spent: Greater than 30 Minutes - Currently hold the beta-burak Follow cardiology outpatients and a Holter monitor Following office in 1 week recheck the CBC and Chem-7 Fall precautions
[2017-12-07 13:42] VITALS: BP 117/46
--- NOTE | 2017-12-07 19:36 | PDOC PROGRESS REPORT ---
Subjective Progress Note for:: 12/07/17 Subjective:: Patient seems to be doing better. No significant cardiac dysrhythmia noted. Patient neighbor at bedside. Patient is difficult to understand but is denying any chest arm or neck discomfort. Patient denying any PND, orthopnea. Patient is maintaining sinus rhythm. No significant bradycardia or tachyarrhythmia noted Review of systems: Rest review of systems negative. Medications: Medications have been reviewed. Reason For Visit: SYNCOPAL EPISODE Physical Exam Vital Signs: Temp Pulse Resp BP Pulse Ox 97.6 F 81 16 117/46 L 97 12/07/17 12:30 12/07/17 12:30 12/07/17 12:30 12/07/17 12:30 12/07/17 12:30 Intake & Output 12/06/17 12/07/17 12/08/17 06:59 06:59 06:59 Intake Total 0 1150 Balance 0 1150 Weight 48.9 kg 48 kg Exam: GENERAL: well-nourished and in no acute distress. 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 Patient however has significant memory problem and may have underlying dementia. HEAD: Atraumatic, normocephalic. EYES: Pupils equal round and reactive to light, extraocular movements intact, sclera anicteric, conjunctiva are normal. ENT: TMs normal, nares patent, oropharynx clear without exudates. Moist mucous membranes. No oral ulcerations or bleeding gums noted NECK: supple without lymphadenopathy or JVD. Trachea is central. No cervical or axillary lymphadenopathy noted. Carotids are 2+ LUNGS: Breath sounds bibasilar fine crackles at bases. No significant dullness noted. CHEST: Palpation of chest wall shows no significant chest wall tenderness. HEART: [place] [employer], No PSH, 2/6 [place] aortic area, 1/6 daniels systolic murmur mitral area, rubs or gallops. ABDOMEN: Soft, no significant tenderness appreciated, normoactive bowel sounds. No guarding, no rebound. No rigidity noted . No masses appreciated. EXTREMITIES: Pedal pulses are 1-2+, no calf tenderness noted, Trace + pedal edema noted. No clubbing or cyanosis. NEUROLOGICAL: Patient is alert, no focal neurological deficit noted on quick neurologic exam. PSYCH: Mood normal. Judgment and insight not checked SKIN: No significant ecchymosis, rash, ulcerations or signs of pruritus noted. MUSCULOSKELETAL EXAM: No significant joint swelling noted. Results Laboratory Results: 12/07/17 04:46 12/07/17 04:46 12/07/17 12/07/17 04:46 04:46 WBC 6.7 RBC 4.79 Hgb 12.6 Hct 36.7 MCV 77 L MCH 26.4 L MCHC 34.4 RDW 16.0 H Plt Count 187 Seg Neutrophils % 61.0 Lymphocytes % 22.5 Monocytes % 13.9 H Eosinophils % 1.9 Basophils % 0.7 Absolute Neutrophils 4.1 Absolute Lymphocytes 1.5 Absolute Monocytes 0.9 Absolute Eosinophils 0.1 Absolute Basophils 0.0 Sodium 132.3 L Potassium 4.1 Chloride 98 Carbon Dioxide 23 Anion Gap 11 BUN 22 H Creatinine 0.80 Est GFR ( Amer) > 60 Est GFR (Non-Af Amer) > 60 Glucose 109 Calcium 9.0 Magnesium 1.8 12/05/17 12/05/17 12/05/17 10:15 10:25 14:30 Creatine Kinase 41 36 CK-MB (CK-2) 0.68 Troponin I < 0.012 12/05/17 12/05/17 12/05/17 14:30 20:53 20:53 Creatine Kinase 32 CK-MB (CK-2) 0.55 0.41 Troponin I < 0.012 < 0.012 EKG Comments: Telemetry shows sinus rhythm without any sustained tachycardia or bradycardia. Impressions: Cervical Spine CT 12/04/17 17:37 IMPRESSION: 1. No acute fracture at the cervical spine. 2. Hypodense nodule at the right lobe of the thyroid gland. This can be further characterized with dedicated ultrasound. Chest X-Ray 12/04/17 17:37 IMPRESSION: NO ACUTE RADIOGRAPHIC FINDING IN THE CHEST. Head CT 12/04/17 17:37 IMPRESSION: CHRONIC CHANGES OF ATROPHY AND MICROVASCULAR ISCHEMIA. OLD LACUNAR INFARCTS. NO ACUTE PROCESS. EVIDENCE OF ACUTE STROKE: NO. Carotid Doppler Study 12/06/17 00:00 IMPRESSION: NO HEMODYNAMICALLY SIGNIFICANT STENOSIS. Venous Doppler Study 12/06/17 00:00 IMPRESSION: NO EVIDENCE DVT OR SVT IN EITHER LEG. Assessment & Plan - Diagnosis (1) Syncope Qualifiers: Syncope type: unspecified Qualified Code(s): R55 - Syncope and collapse Is this a current diagnosis for this admission?: Yes (2) CAD (coronary artery disease) Qualifiers: Coronary Disease-Associated Artery/Lesion type: [place] artery [place] vs. transplanted heart: [place] heart Associated angina: angina presence unspecified Qualified Code(s): I25.10 - Atherosclerotic heart disease of [place] coronary artery without angina pectoris Is this a current diagnosis for this admission?: Yes (3) Hypertension Qualifiers: Hypertension type: essential hypertension Qualified Code(s): I10 - Essential (primary) hypertension Is this a current diagnosis for this admission?: Yes (4) Gastroesophageal reflux Qualifiers: Esophagitis presence: esophagitis presence not specified Qualified Code(s) : K21.9 - Gastro-esophageal reflux disease without esophagitis Is this a current diagnosis for this admission?: Yes (5) Hypothyroidism Qualifiers: Hypothyroidism type: unspecified Qualified Code(s): E03.9 - Hypothyroidism , unspecified Is this a current diagnosis for this admission?: Yes (6) History of cerebrovascular accident Is this a current diagnosis for this admission?: Yes - Notes Notes: Syncope: The cause is undetermined at this time. There could be multiple differential diagnosis. So far no significant arrhythmias noted. Recommend cardiac event monitoring as an outpatient. This could be performed through my office. CAD: Currently symptomatically stable. Hypertension: Recommend liberal blood pressure control in this lady. Gastroesophageal reflux: Continue PPIs Hypothyroidism: Continue replacement therapy with Synthroid History of cerebrovascular accident: CT scans reviewed. May consider neurological input. Based on my review of CT scans and MRI, patient mainly had subcortical and mid brain infarctions which are usually due to atherosclerosis and hypertension. Since patient has history of recurrent fall, may consider switch to just Plavix. However patient currently on Xarelto therapy for history of DVT. Recommend completing course of Xarelto and then placing patient on Plavix. This was discussed with Dr. Denise. - Time Time with patient: 15-25 minutes - CODE STATUS was discussed, patient remains full code. Surrogate decision-maker unchanged. Multiple medical problems were addressed. More than 50% of the time spent coordinating care, discussing management plans with involved caregivers. Management plans discussed with involved personnels. Medical decision making was of moderate to high complexity , patient's has multiple comorbidities. Medications reviewed and adjusted accordingly: Yes
== END 2017-12-07 15:00 | disposition home health service (06) | DRG 312 ==
LOC: ER 17:25 → EH 22:12 → OBSVTOIN 12-05 08:24 → 3W 12-05 21:30
PROVIDERS: ADMIT Family Medicine; ATTEND Family Medicine
DX: R55 Syncope and collapse (principal); F01.50 Vascular dementia, unspecified severity, without behavioral disturbance, psychotic disturbance, mood disturbance, and anxiety; I25.10 Atherosclerotic heart disease of native coronary artery without angina pectoris; K21.9 Gastro-esophageal reflux disease without esophagitis; E03.9 Hypothyroidism, unspecified; E04.1 Nontoxic single thyroid nodule; W08.XXXA Fall from other furniture, initial encounter; E78.00 Pure hypercholesterolemia, unspecified; I11.0 Hypertensive heart disease with heart failure; I50.9 Heart failure, unspecified; M19.90 Unspecified osteoarthritis, unspecified site; F41.9 Anxiety disorder, unspecified; I25.2 Old myocardial infarction; Z91.81 History of falling; Z86.718 Personal history of other venous thrombosis and embolism; Z79.01 Long term (current) use of anticoagulants; Z86.73 Personal history of transient ischemic attack (TIA), and cerebral infarction without residual deficits; Z79.02 Long term (current) use of antithrombotics/antiplatelets; Z79.899 Other long term (current) drug therapy; Z87.891 Personal history of nicotine dependence; Z88.8 Allergy status to other drugs, medicaments and biological substances; Z88.1 Allergy status to other antibiotic agents; Z88.3 Allergy status to other anti-infective agents; Z91.041 Radiographic dye allergy status; Z79.52 Long term (current) use of systemic steroids
CPT/HCPCS: 36415; 70450; 71045; 72125; 80048; 80053; 81001; 82550; 82553; 83735; 84439; 84443; 84481; 84484; 85025; 85610; 85730; 87040; 87086; 93005; 93010; 93306; 93880; 93970; 99285; G8978-GP; G8979-GP; J7512

== ENCOUNTER 2018-03-30 05:28 | Inpatient (IN) | payer MEDICARE, OTHER ==
--- NOTE | 2018-03-30 05:48 | ER Document Report ---
ED Medical Screen (RME) - General Chief Complaint: Chest Pain Stated Complaint: CHEST PAIN Time Seen by Provider: 03/30/18 05:37 Notes: 82-year-old hospice patient comes from home by EMS after reporting chest pain and vomiting about 1 hour prior to arrival per EMS. EMS reports son (river boat captain ) consulted hospice and then decided to send her to the emergency department for workup/evaluation. Patient states she feels improved, given 324 mg aspirin by EMS. Denies current nausea, denies headache, denies abdominal pain. Past medical history dementia, hypertension, hyperlipidemia, [place], and she is [place]- speaking. TRAVEL OUTSIDE OF THE [place] IN LAST 30 DAYS: No - Related Data Allergies/Adverse Reactions: clindamycin Allergy (Verified 11/10/17 22:34) clopidogrel [From Plavix] Allergy (Verified 11/10/17 22:34) diatrizoate meglumine [From MD-Gastroview] Allergy (Verified 11/10/17 22:34) diatrizoate sodium [From MD-Gastroview] Allergy (Verified 11/10/17 22:34) dipyridamole [From Aggrenox] Allergy (Verified 11/10/17 22:34) erythromycin base [From Erythrocin] Allergy (Verified 11/10/17 22:34) meloxicam Allergy (Verified 11/10/17 22:34) pantoprazole Allergy (Verified 11/10/17 22:34) risedronate sodium [From Actonel] Allergy (Verified 11/10/17 22:34) sulfamethoxazole [From Bactrim] Allergy (Verified 11/10/17 22:34) ticlopidine Allergy (Verified 11/10/17 22:34) tobramycin Allergy (Verified 11/10/17 22:34) trimethoprim [From Bactrim] Allergy (Verified 11/10/17 22:34) IVC dye Allergy (Uncoded 07/16/17 01:52) Past Medical History - Past Medical History Cardiac Medical History: Reports: Hx Congestive Heart Failure, Hx Heart Attack, Hx Hypercholesterolemia, Hx Hypertension Neurological Medical History: Reports: Hx Cerebrovascular Accident. Denies: Hx Seizures Renal/ Medical History: Denies: Hx Peritoneal Dialysis Musculoskeltal Medical History: Reports Hx Arthritis Psychiatric Medical History: Reports: Hx Anxiety, Hx Dementia Denies: Hx Depression Past Surgical History: Reports: Hx Cardiac Catheterization, Hx Cardiac Surgery, Other - Immunizations History of Influenza Vaccine for 02/2017 - 07/2017 Season: Yes Physical Exam - Vital signs Vitals: Temp Pulse Ox 99.0 F 87 L 03/30/18 05:32 03/30/18 05:32 - General General appearance: Appears well, Alert In distress: None - Cardiovascular Rhythm: Regular. No: Irregularly irregular, Extrasystoles, Tachycardia, Bradycardia Heart sounds: Normal auscultation, S1 appreciated, S2 appreciated Course - Re-evaluation Re-evalutation: I have greeted and performed a rapid initial assessment of this patient. A comprehensive ED assessment and evaluation of the patient, analysis of test results and completion of the medical decision making process will be conducted by additional ED providers. - Vital Signs Vital signs: Temp Pulse Resp BP Pulse Ox 99.0 F 15 162/87 H 100 03/30/18 05:32 03/30/18 05:36 03/30/18 05:36 03/30/18 05:36 Doctor's Discharge - Discharge Referrals: HELEN LOPEZ MD [Primary Care Provider] - Follow up as needed
[2018-03-30 05:58] LABS: ABSOLUTE BASOPHILS # (AUTO) 0.1 10^3/uL (0.0-0.2); ABSOLUTE EOSINOPHILS # (AUTO) 0.2 10^3/uL (0.0-0.6); ABSOLUTE LYMPHOCYTES (AUTO) 1.2 10^3/uL (0.5-4.7); ABSOLUTE NEUT (AUTO) 6.2 10^3/uL (1.7-8.2); EOSINOPHILS % (AUTO) 1.8 % (0-6); HEMATOCRIT 35.4 % (36.0-47.0); HEMOGLOBIN 12.4 g/dL (12.0-15.5); LYMPHOCYTES % (AUTO) 13.7 % (13-45); MEAN CORPUSCULAR HGB CONC 34.9 g/dL (32.0-36.0); MEAN CORPUSCULAR VOLUME 71 fl (80-97); MONOCYTES % (AUTO) 11.3 % (3-13); PLATELET COUNT 239 10^3/uL (150-450); RED BLOOD COUNT 4.96 10^6/uL (3.72-5.28); RED CELL DISTRIBUTION WIDTH 17.1 % (11.5-14.0); SEGMENTED NEUTROPHILS % (AUTO) 72.2 % (42-78); TOTAL CELLS COUNTED % (AUTO) 100 %; WHITE BLOOD COUNT 8.6 10^3/uL (4.0-10.5)
[2018-03-30 06:10] LABS: ALANINE AMINOTRANSFERASE 29 U/L (9-52); ALKALINE PHOSPHATASE 111 U/L (38-126); ANION GAP 13 (5-19); ASPARTATE AMINO TRANSFERASE 40 U/L (14-36); BILIRUBIN,DIRECT 0.1 mg/dL (0.0-0.4); BILIRUBIN,TOTAL 0.7 mg/dL (0.2-1.3); BLOOD UREA NITROGEN 21 mg/dL (7-20); CALCIUM 9.1 mg/dL (8.4-10.2); CARBON DIOXIDE 26 mmol/L (22-30); CHLORIDE 81 mmol/L (98-107); CREATINE KINASE 65 U/L (30-135); GLUCOSE 110 mg/dL (75-110); POTASSIUM 4.5 mmol/L (3.6-5.0); TOTAL PROTEIN 6.7 g/dL (6.3-8.2)
[2018-03-30 06:17] LABS: SODIUM 120.2 mmol/L (137-145)
[2018-03-30] MEDS ORDERED: NORMAL SALINE 1000 ML 1,000 ML IV PRN ×2 (06:18→08:45)
--- NOTE | 2018-03-30 06:18 | RADIOLOGY REPORT (SQ) ---
EXAM DESCRIPTION: XR CHEST 1 VIEW COMPLETED DATE/TME: 03/30/2018 05:44. CLINICAL HISTORY: chest pain COMPARISON: 11/03/2017 FINDINGS: Single frontal view of the chest. Cardiomediastinal silhouette is stable. Low lung volumes. Leads overlie the chest. No consolidation, pneumothorax, or pleural effusion. Osseous structures are stable. Upper abdominal soft tissues are unremarkable. IMPRESSION: 1. No acute pulmonary process identified.
[2018-03-30 06:21] LABS: CREATINE KINASE MB 2.97 ng/mL (<4.55); TROPONIN I < 0.012 ng/mL
--- NOTE | 2018-03-30 07:33 | ER Document Report ---
ED General - General Chief Complaint: Chest Pain Stated Complaint: CHEST PAIN Time Seen by Provider: 03/30/18 05:37 TRAVEL OUTSIDE OF THE [place] IN LAST 30 DAYS: No - HPI Notes: Patient is a 82-year-old female that presents to the emergency department for chief complaint of chest pain. Patient started complaining of chest pain and appeared dyspneic per her son. HPI is provided by the son because of patient's dementia. Patient's son states that she was grabbing her chest and breathing very heavily. Currently he states she appears normal. The shortness of breath lasted for maybe an hour before she appeared to return to normal. Patient's son is also concerned that her blood pressure has been very labile. He did give her an extra dose of Diovan last night for blood pressure that was 190 systolic. He states he was told by previous physician in [place] that he can give extra doses of her blood pressure medications if she is requiring it. Patient also had one episode of emesis last night. Son has been giving her a pured diet because of difficulty eating. Past Medical History: Dementia, strokes Past Surgical History: Reviewed in chart Social History: Reviewed in chart Family History: Reviewed and noncontributory for presenting illness Allergies: Reviewed, see documented allergy list. REVIEW OF SYSTEMS: Unable to obtain because of mental status and dementia PHYSICAL EXAMINATION: Vital signs reviewed, nursing noted reviewed. GENERAL: Somnolent, wakes to verbal stimuli HEAD: normocephalic. EYES: Eyes appear normal, extraocular movements intact, sclera anicteric, conjunctiva are normal. ENT: No facial bone tenderness. Nares patent, oropharynx clear without exudates. Moist mucous membranes. NECK: Normal range of motion, supple without lymphadenopathy LUNGS: Breath sounds clear to auscultation bilaterally and equal. No wheezes rales or rhonchi. HEART: Regular rate and rhythm without murmurs ABDOMEN: Soft, nontender, normoactive bowel sounds. No rebound, guarding, or rigidity. No masses appreciated. EXTREMITIES: Nontender, good range of motion, no pitting or edema. NEUROLOGICAL: No focal neurological deficits. Moves all extremities spontaneously Motor and sensory grossly intact on exam. PSYCH: Normal mood, normal affect. SKIN: Warm, Dry, normal turgor. Left periorbital ecchymosis - Related Data Allergies/Adverse Reactions: clindamycin Allergy (Verified 11/10/17 22:34) clopidogrel [From Plavix] Allergy (Verified 11/10/17 22:34) diatrizoate meglumine [From MD-Gastroview] Allergy (Verified 11/10/17 22:34) diatrizoate sodium [From MD-Gastroview] Allergy (Verified 11/10/17 22:34) dipyridamole [From Aggrenox] Allergy (Verified 11/10/17 22:34) erythromycin base [From Erythrocin] Allergy (Verified 11/10/17 22:34) meloxicam Allergy (Verified 11/10/17 22:34) pantoprazole Allergy (Verified 11/10/17 22:34) risedronate sodium [From Actonel] Allergy (Verified 11/10/17 22:34) sulfamethoxazole [From Bactrim] Allergy (Verified 11/10/17 22:34) ticlopidine Allergy (Verified 11/10/17 22:34) tobramycin Allergy (Verified 11/10/17 22:34) trimethoprim [From Bactrim] Allergy (Verified 11/10/17 22:34) IVC dye Allergy (Uncoded 07/16/17 01:52) Past Medical History - Social History Smoking Status: Never Smoker Chew tobacco use (# tins/day): No Frequency of alcohol use: None Drug Abuse: None Family History: Reviewed & Not Pertinent Patient has suicidal ideation: No Patient has homicidal ideation: No - Past Medical History Cardiac Medical History: Reports: Hx Congestive Heart Failure, Hx Heart Attack, Hx Hypercholesterolemia, Hx Hypertension Neurological Medical History: Reports: Hx Cerebrovascular Accident. Denies: Hx Seizures Renal/ Medical History: Denies: Hx Peritoneal Dialysis Musculoskeletal Medical History: Reports Hx Arthritis Psychiatric Medical History: Reports: Hx Anxiety, Hx Dementia Denies: Hx Depression Past Surgical History: Reports: Hx Cardiac Catheterization, Hx Cardiac Surgery, Other Review of Systems - Review of Systems Notes: Dictated Physical Exam - Vital signs Vitals: Temp Pulse Ox 99.0 F 87 L 03/30/18 05:32 03/30/18 05:32 - Notes Notes: Dictated Course - Re-evaluation Re-evalutation: 03/30/18 07:31 Vitals reviewed. Nursing notes reviewed. Patient's EKG shows no acute ischemia. Her troponin is negative. She is resting comfortably in the cot and in no acute distress. Patient did arrive on hospice however patient son states that he would like her to be treated for whatever we find. He states that she is not going to in the next 6 months and he is not sure why she is on hospice. He would like to revoke hospice if that is what is required for her to have further care. Lab work shows hyponatremia at 120. Patient was given 1 L IV normal saline in the emergency room. She will be admitted to the hospital for further monitoring of her hyponatremia and chest discomfort. Case discussed with Dr. Granados who accepted admission. Patient stable at time of admission. Laboratory 03/30/18 03/30/18 03/30/18 05:48 05:48 05:48 WBC 8.6 RBC 4.96 Hgb 12.4 Hct 35.4 L MCV 71 L MCH 25.0 L MCHC 34.9 RDW 17.1 H Plt Count 239 Seg Neutrophils % 72.2 Lymphocytes % 13.7 Monocytes % 11.3 Eosinophils % 1.8 Basophils % 1.0 Absolute Neutrophils 6.2 Absolute Lymphocytes 1.2 Absolute Monocytes 1.0 Absolute Eosinophils 0.2 Absolute Basophils 0.1 Sodium 120.2 L* Potassium 4.5 Chloride 81 L Carbon Dioxide 26 Anion Gap 13 BUN 21 H Creatinine 0.94 Est GFR ( Amer) > 60 Est GFR (Non-Af Amer) 57 L Glucose 110 Calcium 9.1 Total Bilirubin 0.7 Direct Bilirubin 0.1 Neonat Total Bilirubin Not Reportable Neonat Direct Bilirubin Not Reportable Neonat Indirect Bili Not Reportable AST 40 H ALT 29 Alkaline Phosphatase 111 Creatine Kinase 65 CK-MB (CK-2) 2.97 Troponin I < 0.012 Total Protein 6.7 Albumin 4.0 Chest X-Ray 03/30/18 05:44 IMPRESSION: 1. No acute pulmonary process identified. - Vital Signs Vital signs: Temp Pulse Resp BP Pulse Ox 99.0 F 11 L 95/49 L 97 03/30/18 05:32 03/30/18 07:08 03/30/18 07:08 03/30/18 07:08 - Laboratory Result Diagrams: 03/30/18 05:48 03/30/18 05:48 Laboratory results interpreted by me: 03/30/18 03/30/18 05:48 05:48 Hct 35.4 L MCV 71 L MCH 25.0 L RDW 17.1 H Sodium 120.2 L* Chloride 81 L BUN 21 H Est GFR (Non-Af Amer) 57 L AST 40 H - EKG Interpretation by Me Additional EKG results interpreted by me: 03/30/18 07:33 Interpreted by myself [id number]: Dermal sinus rhythm, rate 80, normal axis, nonspecific T wave abnormality , no significant change from 12/04/17, no ST elevation Discharge - Discharge Clinical Impression: Hyponatremia Chest pain Qualifiers: Chest pain type: unspecified Qualified Code(s): R07.9 - Chest pain, unspecified Condition: Stable Disposition: ADMITTED INPATIENT Admitting Provider: [facility] Unit Admitted: Telemetry
--- NOTE | 2018-03-30 08:59 | EKG REPORT ---
SEVERITY:- ABNORMAL ECG - SINUS RHYTHM PROBABLE LEFT ATRIAL ABNORMALITY BORDERLINE IVCD WITH LAD NONSPECIFIC T ABNORMALITIES, LATERAL LEADS : Confirmed by: Vikki Boswell 30-Mar-2018 08:58:21
[2018-03-30] MEDS: ENOXAPARIN SODIUM INJ 40 MG/0.4 ML DISP.SYRIN SUBCUT SCH (13:39)
[2018-03-30 14:23] LABS: OSMOLALITY,URINE 290 mOsm/kg (300-900)
[2018-03-30 14:39] LABS: URINE SODIUM 66 mmol/L (30-90)
[2018-03-30 14:42] LABS: APPEARANCE,URINE CLEAR; BILIRUBIN,URINE NEGATIVE (NEGATIVE); COLOR,URINE STRAW; GLUCOSE, URINE NEGATIVE (NEGATIVE); KETONES,URINE NEGATIVE (NEGATIVE); LEUKOCYTE ESTERASE,URINE NEGATIVE (NEGATIVE); NITRITE,URINE NEGATIVE (NEGATIVE); PROTEIN,URINE NEGATIVE (NEGATIVE); URINE SPECIFIC GRAVITY 1.008; UROBILINOGEN,URINE NEGATIVE mg/dL (<2.0)
--- NOTE | 2018-03-30 20:23 | PDOC H&P ---
History of Present Illness Admission Date/PCP: 03/30/18 07:37 HELEN LOPEZ MD History of Present Illness: KEVAN SEAY is a 82 year old female, She has profound dementia, history taking is a challenge ,son not available to assist with history taking, I reviewed records of the emergency room, according to the ER doctor patient apparently was in hospice care that was revoked today,she has bruises on her face and extremities suggesting repeated falls, she does not know why she came to the emergency room. In the emergency room she was evaluated she was found to have severe hyponatremia, serum sodium 120, the serum osmolality was low, the urine osmolality is elevated, the urine sodium is elevated, in the setting of normovolemia this suggests SIADH Past Medical History Cardiac Medical History: Reports: Congestive Heart Failure, Myocardial Infarction, Hyperlipidema, Hypertension Neurological Medical History: Denies: Seizures Musculoskeltal Medical History: Reports: Arthritis Psychiatric Medical History: Reports: Dementia Past Surgical History Past Surgical History: Reports: Cardiac Catheterization, Other Social History Smoking Status: Never Smoker Frequency of Alcohol Use: None Hx Recreational Drug Use: No Drugs: None Hx Prescription Drug Abuse: No - Advance Directive Resuscitation Status: Full Code Family History Family History: Reviewed & Not Pertinent Parental Family History Reviewed: Yes Children Family History Reviewed: Yes Sibling(s) Family History Reviewed.: Yes Medication/Allergy Home Medications: Aspirin [Ecotrin 325 mg EC Tablet] 325 mg PO DAILY 03/30/18 Atorvastatin Calcium [Lipitor 20 mg Tablet] 20 mg PO QHS 03/30/18 Carvedilol [Coreg 3.125 mg Tablet] 3.125 mg PO BIDP PRN 03/30/18 Levothyroxine Sodium [Synthroid 0.1 mg Tablet] 0.1 mg PO Q6AM 03/30/18 Omeprazole 20 mg PO DAILY 03/30/18 Prednisone [Deltasone 5 mg Tablet] 2.5 mg PO Q48H 03/30/18 Valsartan/Hydrochlorothiazide [Diovan Hct 160-25 mg Tablet] 0.5 tab PO BID 03/30 Allergies/Adverse Reactions: clindamycin Allergy (Verified 11/10/17 22:34) clopidogrel [From Plavix] Allergy (Verified 11/10/17 22:34) diatrizoate meglumine [From -Gastroview] Allergy (Verified 11/10/17 22:34) diatrizoate sodium [From -Gastroview] Allergy (Verified 11/10/17 22:34) dipyridamole [From Aggrenox] Allergy (Verified 11/10/17 22:34) erythromycin base [From Erythrocin] Allergy (Verified 11/10/17 22:34) meloxicam Allergy (Verified 11/10/17 22:34) pantoprazole Allergy (Verified 11/10/17 22:34) risedronate sodium [From Actonel] Allergy (Verified 11/10/17 22:34) sulfamethoxazole [From Bactrim] Allergy (Verified 11/10/17 22:34) ticlopidine Allergy (Verified 11/10/17 22:34) tobramycin Allergy (Verified 11/10/17 22:34) trimethoprim [From Bactrim] Allergy (Verified 11/10/17 22:34) IVC dye Allergy (Uncoded 07/16/17 01:52) Review of Systems ROS unobtainable: Due to mental status Physical Exam Vital Signs: Temp Pulse Resp BP Pulse Ox 97.5 F 66 16 122/47 L 100 03/30/18 15:19 03/30/18 15:19 03/30/18 15:19 03/30/18 15:19 03/30/18 15:19 Intake & Output 03/29/18 03/30/18 03/31/18 06:59 06:59 06:59 Intake Total 1237 Output Total 150 Balance 1087 Weight 54.3 kg General appearance: PRESENT: no acute distress Eye exam: PRESENT: PERRLA Respiratory exam: PRESENT: clear to auscultation nikolas Cardiovascular exam: PRESENT: +S1, +S2 GI/Abdominal exam: PRESENT: soft Neurological exam: PRESENT: alert, CN II-XII grossly intact Results Laboratory Results: 03/30/18 03/30/18 13:50 13:50 Urine Color STRAW Urine Appearance CLEAR Urine pH 6.0 Ur Specific [place] 1.008 Urine Protein NEGATIVE Urine Glucose (UA) NEGATIVE Urine Ketones NEGATIVE Urine Blood NEGATIVE Urine Nitrite NEGATIVE Ur Leukocyte Esterase NEGATIVE Urine WBC (Auto) 0 Urine Osmolality 290 L Impressions: Chest X-Ray 03/30/18 05:44 IMPRESSION: 1. No acute pulmonary process identified. 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
--- NOTE | 2018-03-30 22:27 | PDOC CONSULTATION ---
Consultation Consult Date: 03/30/18 Attending physician:: DEB PARIS Consult reason:: Near syncope History of Present Illness Admission Date/PCP: 03/30/18 07:37 HELEN LOPEZ MD Patient complains of: Generalized weakness History of Present Illness: KEVAN SEAY is a 82 year old female, with history of dementia who was seen in the emergency room this morning. Patient's son at bedside. Patient aberrantly grabbed her chest and complained of chest pain. Patient was therefore sent to the emergency room. Patient also apparently patient had a fall and had bruised left orbital region. Definite history of loss of consciousness. Patient was also noted to have low sodium. Patient sent to the ER for management. However, son is still wants to continue with the hospice service. Past Medical History Cardiac Medical History: Reports: Congestive Heart Failure, Myocardial Infarction, Hyperlipidema, Hypertension Neurological Medical History: Denies: Seizures Musculoskeltal Medical History: Reports: Arthritis Psychiatric Medical History: Reports: Dementia Denies: Depression Past Surgical History Past Surgical History: Reports: Cardiac Catheterization, Other Social History Information Source: Patient Smoking Status: Never Smoker Frequency of Alcohol Use: None Hx Recreational Drug Use: No Drugs: None Hx Prescription Drug Abuse: No - Advance Directive Resuscitation Status: Patient son wants hospice care to continue Family History Family History: Reviewed & Not Pertinent Parental Family History Reviewed: No Children Family History Reviewed: No Sibling(s) Family History Reviewed.: No Medication/Allergy Home Medications: Aspirin [Ecotrin 325 mg EC Tablet] 325 mg PO DAILY 03/30/18 Atorvastatin Calcium [Lipitor 20 mg Tablet] 20 mg PO QHS 03/30/18 Carvedilol [Coreg 3.125 mg Tablet] 3.125 mg PO BIDP PRN 03/30/18 Levothyroxine Sodium [Synthroid 0.1 mg Tablet] 0.1 mg PO Q6AM 03/30/18 Omeprazole 20 mg PO DAILY 03/30/18 Prednisone [Deltasone 5 mg Tablet] 2.5 mg PO Q48H 03/30/18 Valsartan/Hydrochlorothiazide [Diovan Hct 160-25 mg Tablet] 0.5 tab PO BID 03/30 Allergies/Adverse Reactions: clindamycin Allergy (Verified 11/10/17 22:34) clopidogrel [From Plavix] Allergy (Verified 11/10/17 22:34) diatrizoate meglumine [From SHERYLGastroview] Allergy (Verified 11/10/17 22:34) diatrizoate sodium [From MDSharathGastroview] Allergy (Verified 11/10/17 22:34) dipyridamole [From Aggrenox] Allergy (Verified 11/10/17 22:34) erythromycin base [From Erythrocin] Allergy (Verified 11/10/17 22:34) meloxicam Allergy (Verified 11/10/17 22:34) pantoprazole Allergy (Verified 11/10/17 22:34) risedronate sodium [From Actonel] Allergy (Verified 11/10/17 22:34) sulfamethoxazole [From Bactrim] Allergy (Verified 11/10/17 22:34) ticlopidine Allergy (Verified 11/10/17 22:34) tobramycin Allergy (Verified 11/10/17 22:34) trimethoprim [From Bactrim] Allergy (Verified 11/10/17 22:34) IVC dye Allergy (Uncoded 07/16/17 01:52) Review of Systems ROS unobtainable: Due to mental status Physical Exam Vital Signs: Temp Pulse Resp BP Pulse Ox 98.2 F 78 14 116/50 L 100 03/30/18 20:00 03/30/18 20:00 03/30/18 20:00 03/30/18 20:00 03/30/18 20:00 Intake & Output 03/29/18 03/30/18 03/31/18 06:59 06:59 06:59 Intake Total 1237 Output Total 150 Balance 1087 Weight 54.3 kg Exam: GENERAL: well-nourished and in no acute distress. Patient is alert but not oriented to place time or person. HEAD: Atraumatic, normocephalic. EYES: Pupils equal round and reactive to light, extraocular movements intact, sclera anicteric, conjunctiva are normal. ENT: TMs normal, nares patent, oropharynx clear without exudates. Moist mucous membranes. No oral ulcerations or bleeding gums noted NECK: supple without lymphadenopathy or JVD. Trachea is central. No cervical or axillary lymphadenopathy noted. Carotids are 2+ LUNGS: Breath sounds bibasilar fine crackles at bases. No significant dullness noted. CHEST: Palpation of chest wall shows no significant chest wall tenderness. HEART: [place] [employer], No PSH, 2/6 [place] aortic area, 1/6 daniels systolic murmur mitral area, rubs or gallops. ABDOMEN: Soft, no significant tenderness appreciated, normoactive bowel sounds. No guarding, no rebound. No rigidity noted . No masses appreciated. EXTREMITIES: Pedal pulses are 1-2+, no calf tenderness noted, Trace + pedal edema noted. No clubbing or cyanosis. NEUROLOGICAL: Patient is alert but is not able to participate in neurological exam because of patient's current mental status PSYCH: Patient cannot participate in a neurologic and psych exam because of the patient's current mental status SKIN: No significant ecchymosis, rash, ulcerations or signs of pruritus noted. MUSCULOSKELETAL EXAM: No significant joint swelling noted. Results Laboratory Results: 03/30/18 03/30/18 13:50 13:50 Urine Color STRAW Urine Appearance CLEAR Urine pH 6.0 Ur Specific [place] 1.008 Urine Protein NEGATIVE Urine Glucose (UA) NEGATIVE Urine Ketones NEGATIVE Urine Blood NEGATIVE Urine Nitrite NEGATIVE Ur Leukocyte Esterase NEGATIVE Urine WBC (Auto) 0 Urine Osmolality 290 L EKG Comments: Sinus rhythm, minor nonspecific T wave inversions Impressions: Chest X-Ray 03/30/18 05:44 IMPRESSION: 1. No acute pulmonary process identified. Assessment & Plan - Diagnosis (1) Chest pain Qualifiers: Chest pain type: unspecified Qualified Code(s): R07.9 - Chest pain, unspecified Is this a current diagnosis for this admission?: Yes (2) CAD (coronary artery disease) Qualifiers: Coronary Disease-Associated Artery/Lesion type: [place] artery [place] vs. transplanted heart: [place] heart Associated angina: angina presence unspecified Qualified Code(s): I25.10 - Atherosclerotic heart disease of [place] coronary artery without angina pectoris Is this a current diagnosis for this admission?: Yes (3) Recurrent falls Is this a current diagnosis for this admission?: Yes (4) Hyponatremia Is this a current diagnosis for this admission?: Yes (5) Hypertension Qualifiers: Hypertension type: essential hypertension Qualified Code(s): I10 - Essential (primary) hypertension Is this a current diagnosis for this admission?: Yes (6) Syncope Qualifiers: Syncope type: unspecified Qualified Code(s): R55 - Syncope and collapse Is this a current diagnosis for this admission?: Yes - Notes Notes: Chest pain: Patient was noted to grab her chest. However when I talked with the son in the emergency room, he wanted patient to continue in hospice program and did not want any ischemia evaluation be pursued. Hyponatremia: Continue with fluid restriction. May consider tolvaptan therapy CAD: Possibly symptomatic but no further evaluation planned due to patient's dementia and hospice status. Recurrent falls: Patient will benefit from fall prevention and physical therapy if felt a candidate. Hypertension: Recommend liberal control, and avoid diuretics and pure vasodilators Syncope: Cause not clear but agree with cardiac monitoring. Will repeat EKG in the morning - Time Time Spent: 30 to 50 Minutes Medications reviewed and adjusted accordingly: Yes
[2018-03-31 05:42] LABS: ABSOLUTE BASOPHILS # (AUTO) 0.1 10^3/uL (0.0-0.2); ABSOLUTE EOSINOPHILS # (AUTO) 0.1 10^3/uL (0.0-0.6); ABSOLUTE LYMPHOCYTES (AUTO) 1.1 10^3/uL (0.5-4.7); ABSOLUTE MONOCYTES (AUTO) 0.8 10^3/uL (0.1-1.4); ABSOLUTE NEUT (AUTO) 5.4 10^3/uL (1.7-8.2); EOSINOPHILS % (AUTO) 1.8 % (0-6); HEMATOCRIT 33.9 % (36.0-47.0); HEMOGLOBIN 11.6 g/dL (12.0-15.5); MEAN CORPUSCULAR HEMOGLOBIN 24.6 pg (27.0-33.4); MEAN CORPUSCULAR HGB CONC 34.3 g/dL (32.0-36.0); MEAN CORPUSCULAR VOLUME 72 fl (80-97); PLATELET COUNT 211 10^3/uL (150-450); RED BLOOD COUNT 4.73 10^6/uL (3.72-5.28); SEGMENTED NEUTROPHILS % (AUTO) 71.2 % (42-78); TOTAL CELLS COUNTED % (AUTO) 100 %; WHITE BLOOD COUNT 7.6 10^3/uL (4.0-10.5)
[2018-03-31 06:09] LABS: ALANINE AMINOTRANSFERASE 26 U/L (9-52); ALBUMIN 3.1 g/dL (3.5-5.0); ALKALINE PHOSPHATASE 92 U/L (38-126); ANION GAP 13 (5-19); ASPARTATE AMINO TRANSFERASE 21 U/L (14-36); BILIRUBIN,DIRECT 0.1 mg/dL (0.0-0.4); BILIRUBIN,TOTAL 0.4 mg/dL (0.2-1.3); BLOOD UREA NITROGEN 13 mg/dL (7-20); CALCIUM 8.8 mg/dL (8.4-10.2); CARBON DIOXIDE 22 mmol/L (22-30); CHLORIDE 94 mmol/L (98-107); GLUCOSE 84 mg/dL (75-110); POTASSIUM 4.4 mmol/L (3.6-5.0); TOTAL PROTEIN 5.3 g/dL (6.3-8.2)
[2018-03-31] MEDS: ENOXAPARIN SODIUM INJ 40 MG/0.4 ML DISP.SYRIN SUBCUT SCH (10:03)
[2018-03-31] MEDS: NYSTATIN CREAM 15 GM TP SCH ×4 (10:04→22:33)
--- NOTE | 2018-03-31 21:24 | PDOC PROGRESS REPORT ---
Subjective Progress Note for:: 03/31/18 Subjective:: I saw the patient and his son in the room today I explained to me that his mother as SIADH the mainstay of treatment is to restrict fluid, I am not sure she is a good candidate for tolvaptan therapy especially because she is also hospice patient hopefully discharge home tomorrow Reason For Visit: HYPONATREMIC ENCEPHALOPATHY Physical Exam Vital Signs: Temp Pulse Resp BP Pulse Ox 98.9 F 78 20 148/72 H 97 03/31/18 19:38 03/31/18 19:38 03/31/18 19:38 03/31/18 20:10 03/31/18 19:38 Intake & Output 03/30/18 03/31/18 04/01/18 06:59 06:59 06:59 Intake Total 1237 935 Output Total 150 Balance 1087 935 Weight 54.2 kg General appearance: PRESENT: no acute distress Eye exam: PRESENT: PERRLA Respiratory exam: PRESENT: clear to auscultation nikolas Cardiovascular exam: PRESENT: +S1, +S2 Neurological exam: PRESENT: alert Results Laboratory Results: 03/31/18 05:06 03/31/18 05:06 03/31/18 03/31/18 05:06 05:06 WBC 7.6 RBC 4.73 Hgb 11.6 L Hct 33.9 L MCV 72 L MCH 24.6 L MCHC 34.3 RDW 17.0 H Plt Count 211 Seg Neutrophils % 71.2 Lymphocytes % 15.0 Monocytes % 11.0 Eosinophils % 1.8 Basophils % 1.0 Absolute Neutrophils 5.4 Absolute Lymphocytes 1.1 Absolute Monocytes 0.8 Absolute Eosinophils 0.1 Absolute Basophils 0.1 Sodium 129.0 L Potassium 4.4 Chloride 94 L Carbon Dioxide 22 Anion Gap 13 BUN 13 Creatinine 0.59 Est GFR ( Amer) > 60 Est GFR (Non-Af Amer) > 60 Glucose 84 Calcium 8.8 Total Bilirubin 0.4 AST 21 ALT 26 Alkaline Phosphatase 92 Total Protein 5.3 L Albumin 3.1 L Impressions: Chest X-Ray 03/30/18 05:44 IMPRESSION: 1. No acute pulmonary process identified. Assessment & Plan - Diagnosis (1) Hyponatremia Is this a current diagnosis for this admission?: Yes (2) SIADH (syndrome of inappropriate ADH production) Is this a current diagnosis for this admission?: Yes Plan: continue fluid restriction (3) Dementia Qualifiers: Dementia type: unspecified type Dementia behavioral disturbance: without behavioral disturbance Qualified Code(s): F03.90 - Unspecified dementia without behavioral disturbance Is this a current diagnosis for this admission?: Yes
--- NOTE | 2018-03-31 23:58 | PDOC PROGRESS REPORT ---
Subjective Progress Note for:: 03/31/18 Subjective:: Patient seems to be doing better with gradual improvement. Pt is denying any chest arm or neck discomfort. Patient denying any PND, orthopnea. Patient denied any sustained palpitations, dizziness, syncope, near syncope. Patient denying any fever chills. Patient denying any other significant discomfort. Patient is maintaining sinus rhythm. Review of systems: Rest review of systems negative. Medications: Medications have been reviewed. Reason For Visit: HYPONATREMIC ENCEPHALOPATHY Physical Exam Vital Signs: Temp Pulse Resp BP Pulse Ox 98.6 F 77 20 128/90 H 97 03/31/18 23:16 03/31/18 23:16 03/31/18 23:16 03/31/18 23:16 03/31/18 23:16 Intake & Output 03/30/18 03/31/18 04/01/18 06:59 06:59 06:59 Intake Total 1237 935 Output Total 150 Balance 1087 935 Weight 54.2 kg Exam: GENERAL: well-nourished and in no acute distress. HEAD: Atraumatic, normocephalic. EYES: Pupils equal round and reactive to light, extraocular movements intact, sclera anicteric, conjunctiva are normal. ENT: TMs normal, nares patent, oropharynx clear without exudates. Moist mucous membranes. No oral ulcerations or bleeding gums noted NECK: supple without lymphadenopathy or JVD. Trachea is central. No cervical or axillary lymphadenopathy noted. Carotids are 2+ LUNGS: Breath sounds bibasilar fine crackles at bases. No significant dullness noted. CHEST: Palpation of chest wall shows no significant chest wall tenderness. 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 ABDOMEN: Soft, no significant tenderness appreciated, normoactive bowel sounds. No guarding, no rebound. No rigidity noted . No masses appreciated. EXTREMITIES: Pedal pulses are 1-2+, no calf tenderness noted, Trace + pedal edema noted. No clubbing or cyanosis. NEUROLOGICAL: Patient is alert but is not able to participate in neurological exam because of patient's current mental status PSYCH: Mood felt to be normal, judgment and insight could not be checked SKIN: Negative for rash, ulcerations or signs of pruritus noted. Ecchymosis noted over the left orbit MUSCULOSKELETAL EXAM: No significant joint swelling noted. Results Laboratory Results: 03/31/18 05:06 03/31/18 05:06 03/31/18 03/31/18 05:06 05:06 WBC 7.6 RBC 4.73 Hgb 11.6 L Hct 33.9 L MCV 72 L MCH 24.6 L MCHC 34.3 RDW 17.0 H Plt Count 211 Seg Neutrophils % 71.2 Lymphocytes % 15.0 Monocytes % 11.0 Eosinophils % 1.8 Basophils % 1.0 Absolute Neutrophils 5.4 Absolute Lymphocytes 1.1 Absolute Monocytes 0.8 Absolute Eosinophils 0.1 Absolute Basophils 0.1 Sodium 129.0 L Potassium 4.4 Chloride 94 L Carbon Dioxide 22 Anion Gap 13 BUN 13 Creatinine 0.59 Est GFR ( Amer) > 60 Est GFR (Non-Af Amer) > 60 Glucose 84 Calcium 8.8 Total Bilirubin 0.4 AST 21 ALT 26 Alkaline Phosphatase 92 Total Protein 5.3 L Albumin 3.1 L EKG Comments: Telemetry monitoring off due to allergic reaction Impressions: Chest X-Ray 03/30/18 05:44 IMPRESSION: 1. No acute pulmonary process identified. Assessment & Plan - Diagnosis (1) Chest pain Qualifiers: Chest pain type: unspecified Qualified Code(s): R07.9 - Chest pain, unspecified Is this a current diagnosis for this admission?: Yes (2) CAD (coronary artery disease) Qualifiers: Coronary Disease-Associated Artery/Lesion type: [place] artery [place] vs. transplanted heart: benton heart Associated angina: angina presence unspecified Qualified Code(s): I25.10 - Atherosclerotic heart disease of [place] coronary artery without angina pectoris Is this a current diagnosis for this admission?: Yes (3) Recurrent falls Is this a current diagnosis for this admission?: Yes (4) Hyponatremia Is this a current diagnosis for this admission?: Yes (5) Hypertension Qualifiers: Hypertension type: essential hypertension Qualified Code(s): I10 - Essential (primary) hypertension Is this a current diagnosis for this admission?: Yes (6) Syncope Qualifiers: Syncope type: unspecified Qualified Code(s): R55 - Syncope and collapse Is this a current diagnosis for this admission?: Yes - Notes Notes: Chest pain: When I talked with the son in the emergency room, he wanted patient to continue in hospice program and did not want any ischemia evaluation be pursued. At this point no intervention planned and probably not of much benefit. Hyponatremia: Continue with fluid restriction. May consider tolvaptan therapy CAD: Possibly symptomatic but no further evaluation planned due to patient's dementia. Recurrent falls: Patient will benefit from fall prevention and physical therapy if felt a candidate. Hypertension: Recommend liberal control, and avoid diuretics and pure vasodilators Syncope: Patient off cardiac monitoring. Will sign off. - Time Time with patient: 15-25 minutes Medications reviewed and adjusted accordingly: Yes
--- NOTE | 2018-04-01 00:15 | EKG REPORT ---
SEVERITY:- ABNORMAL ECG - SINUS RHYTHM PROBABLE INFERIOR INFARCT, AGE INDETERMINATE LATERAL LEADS ARE ALSO INVOLVED : Confirmed by: Vikki Boswell 01-Apr-2018 00:14:24
[2018-04-01 06:08] LABS: ABSOLUTE EOSINOPHILS # (AUTO) 0.1 10^3/uL (0.0-0.6); ABSOLUTE MONOCYTES (AUTO) 0.9 10^3/uL (0.1-1.4); ABSOLUTE NEUT (AUTO) 4.9 10^3/uL (1.7-8.2); BASOPHILS % (AUTO) 0.5 % (0-2); EOSINOPHILS % (AUTO) 1.7 % (0-6); HEMATOCRIT 34.6 % (36.0-47.0); HEMOGLOBIN 12.2 g/dL (12.0-15.5); LYMPHOCYTES % (AUTO) 13.9 % (13-45); MEAN CORPUSCULAR HEMOGLOBIN 25.2 pg (27.0-33.4); MEAN CORPUSCULAR HGB CONC 35.2 g/dL (32.0-36.0); MEAN CORPUSCULAR VOLUME 71 fl (80-97); MONOCYTES % (AUTO) 13.3 % (3-13); PLATELET COUNT 213 10^3/uL (150-450); RED BLOOD COUNT 4.84 10^6/uL (3.72-5.28); RED CELL DISTRIBUTION WIDTH 16.8 % (11.5-14.0); SEGMENTED NEUTROPHILS % (AUTO) 70.6 % (42-78); TOTAL CELLS COUNTED % (AUTO) 100 %
[2018-04-01] MEDS: ENOXAPARIN SODIUM INJ 40 MG/0.4 ML DISP.SYRIN SUBCUT SCH (10:56)
[2018-04-01] MEDS: NYSTATIN CREAM 15 GM TP SCH (10:56)
[2018-04-01 13:11] LABS: ALANINE AMINOTRANSFERASE 22 U/L (9-52); ALBUMIN 3.1 g/dL (3.5-5.0); ALKALINE PHOSPHATASE 82 U/L (38-126); ANION GAP 12 (5-19); ASPARTATE AMINO TRANSFERASE 19 U/L (14-36); BILIRUBIN,DIRECT 0.1 mg/dL (0.0-0.4); BILIRUBIN,TOTAL 0.4 mg/dL (0.2-1.3); BLOOD UREA NITROGEN 11 mg/dL (7-20); CALCIUM 8.9 mg/dL (8.4-10.2); CARBON DIOXIDE 22 mmol/L (22-30); CHLORIDE 96 mmol/L (98-107); GLUCOSE 138 mg/dL (75-110); POTASSIUM 4.4 mmol/L (3.6-5.0); SODIUM 129.6 mmol/L (137-145); TOTAL PROTEIN 5.4 g/dL (6.3-8.2)
--- NOTE | 2018-04-01 13:19 | PDOC DISCHARGE SUMMARY ---
General - Admit/Disc Date/PCP Admission Date/Primary Care Provider: 03/30/18 07:37 HELEN LOPEZ MD Discharge Date: 04/01/18 - Discharge Diagnosis (1) Hyponatremia Is this a current diagnosis for this admission?: Yes (2) SIADH (syndrome of inappropriate ADH production) Is this a current diagnosis for this admission?: Yes (3) Dementia Is this a current diagnosis for this admission?: Yes - Additional Information Resuscitation Status: Full Code Prescriptions: Valsartan [Diovan 160 mg Tablet] 160 mg PO DAILY #30 tablet Home Medications: Aspirin [Ecotrin 325 mg EC Tablet] 325 mg PO DAILY 03/30/18 Atorvastatin Calcium [Lipitor 20 mg Tablet] 20 mg PO QHS 03/30/18 Carvedilol [Coreg 3.125 mg Tablet] 3.125 mg PO BIDP PRN 03/30/18 Levothyroxine Sodium [Synthroid 0.1 mg Tablet] 0.1 mg PO Q6AM 03/30/18 Omeprazole 20 mg PO DAILY 03/30/18 Prednisone [Deltasone 5 mg Tablet] 2.5 mg PO Q48H 03/30/18 Nystatin [Mycostatin Cream 15 gm] 1 applic TP QID tube 04/01/18 Valsartan [Diovan 160 mg Tablet] 160 mg PO DAILY #30 tablet 04/01/18 History of Present Illness History of Present Illness: KEVAN SEAY is a 82 year old female, She has profound dementia, history taking is a challenge ,son not available to assist with history taking, I reviewed records of the emergency room, according to the ER doctor patient apparently was in hospice care that was revoked today,she has bruises on her face and extremities suggesting repeated falls, she does not know why she came to the emergency room. In the emergency room she was evaluated she was found to have severe hyponatremia, serum sodium 120, the serum osmolality was low, the urine osmolality is elevated, the urine sodium is elevated, in the setting of normovolemia this suggests SIADH Hospital Course Hospital Course: Patient was admitted for the management of hyponatremia due to SIADH, she was treated with IV fluids normal saline this was Discontinued once the serum sodium was 125, she has profound dementia presently on hospice patient, the hyponatremia will be treated with fluid restriction this was explained to family , tolvaptan is probably preferred but too expensive for hospice patient Physical Exam Vital Signs: Temp Pulse Resp BP Pulse Ox 98.8 F 76 16 138/73 H 96 04/01/18 11:13 04/01/18 11:13 04/01/18 11:13 04/01/18 11:13 04/01/18 11:13 Intake & Output 03/31/18 04/01/18 04/02/18 06:59 06:59 06:59 Intake Total 1237 935 Output Total 150 Balance 1087 935 Weight 54.2 kg 52.6 kg General appearance: PRESENT: no acute distress Eye exam: PRESENT: PERRLA Respiratory exam: PRESENT: clear to auscultation nikolas Cardiovascular exam: PRESENT: +S1, +S2 Neurological exam: PRESENT: alert Results Laboratory Results: 04/01/18 05:27 04/01/18 12:35 04/01/18 04/01/18 05:27 12:35 WBC 7.0 RBC 4.84 Hgb 12.2 Hct 34.6 L MCV 71 L MCH 25.2 L MCHC 35.2 RDW 16.8 H Plt Count 213 Seg Neutrophils % 70.6 Lymphocytes % 13.9 Monocytes % 13.3 H Eosinophils % 1.7 Basophils % 0.5 Absolute Neutrophils 4.9 Absolute Lymphocytes 1.0 Absolute Monocytes 0.9 Absolute Eosinophils 0.1 Absolute Basophils 0.0 Sodium 129.6 L Potassium 4.4 Chloride 96 L Carbon Dioxide 22 Anion Gap 12 BUN 11 Creatinine 0.59 Est GFR ( Amer) > 60 Est GFR (Non-Af Amer) > 60 Glucose 138 H Calcium 8.9 Total Bilirubin 0.4 AST 19 ALT 22 Alkaline Phosphatase 82 Total Protein 5.4 L Albumin 3.1 L Impressions: Chest X-Ray 03/30/18 05:44 IMPRESSION: 1. No acute pulmonary process identified. Qualifiers - * PATIENT BEING DISCHARGED WITH ANY OF THE FOLLOWING DIAGNOSIS: No
[2018-04-01 13:57] VITALS: BP 148/72
== END 2018-04-01 14:55 | disposition home or self-care (01) | DRG 641 ==
LOC: ER 05:28 → EH 07:37 → 3N 11:53 → 3S 16:22
PROVIDERS: ADMIT Internal Medicine; ATTEND Internal Medicine
DX: E87.1 Hypo-osmolality and hyponatremia (principal); E22.2 Syndrome of inappropriate secretion of antidiuretic hormone; G93.49 Other encephalopathy; F03.90 Unspecified dementia, unspecified severity, without behavioral disturbance, psychotic disturbance, mood disturbance, and anxiety; E78.00 Pure hypercholesterolemia, unspecified; I10 Essential (primary) hypertension; M19.90 Unspecified osteoarthritis, unspecified site; S05.12XA Contusion of eyeball and orbital tissues, left eye, initial encounter; W01.0XXA Fall on same level from slipping, tripping and stumbling without subsequent striking against object, initial encounter; I25.10 Atherosclerotic heart disease of native coronary artery without angina pectoris; Z91.81 History of falling; I25.2 Old myocardial infarction; Z79.899 Other long term (current) drug therapy; Z88.2 Allergy status to sulfonamides; Z88.8 Allergy status to other drugs, medicaments and biological substances; Z88.3 Allergy status to other anti-infective agents; Z91.041 Radiographic dye allergy status; Z86.73 Personal history of transient ischemic attack (TIA), and cerebral infarction without residual deficits
CPT/HCPCS: 36415; 71045; 80053; 81001; 82550; 82553; 83930; 83935; 84300; 84484; 85025; 93005; 93010; 96360; 99285; J1650; J3490; J7030

== ENCOUNTER → 2018-05-01 | Outpatient (CLI) | payer MEDICARE ==
[2018-05-01 17:48] LABS: ABSOLUTE BASOPHILS # (AUTO) 0.1 10^3/uL (0.0-0.2); ABSOLUTE EOSINOPHILS # (AUTO) 0.1 10^3/uL (0.0-0.6); ABSOLUTE LYMPHOCYTES (AUTO) 1.1 10^3/uL (0.5-4.7); ABSOLUTE MONOCYTES (AUTO) 0.8 10^3/uL (0.1-1.4); ABSOLUTE NEUT (AUTO) 5.1 10^3/uL (1.7-8.2); BASOPHILS % (AUTO) 0.7 % (0-2); HEMATOCRIT 33.9 % (36.0-47.0); HEMOGLOBIN 11.6 g/dL (12.0-15.5); LYMPHOCYTES % (AUTO) 15.4 % (13-45); MEAN CORPUSCULAR HEMOGLOBIN 25.5 pg (27.0-33.4); MEAN CORPUSCULAR HGB CONC 34.2 g/dL (32.0-36.0); MEAN CORPUSCULAR VOLUME 75 fl (80-97); MONOCYTES % (AUTO) 11.6 % (3-13); PLATELET COUNT 245 10^3/uL (150-450); RED BLOOD COUNT 4.54 10^6/uL (3.72-5.28); RED CELL DISTRIBUTION WIDTH 18.8 % (11.5-14.0); SEGMENTED NEUTROPHILS % (AUTO) 70.3 % (42-78); TOTAL CELLS COUNTED % (AUTO) 100 %; WHITE BLOOD COUNT 7.3 10^3/uL (4.0-10.5)
[2018-05-01 17:57] LABS: HEMATOCRIT 33.9 % (36.0-47.0); HEMOGLOBIN 11.6 g/dL (12.0-15.5); LYMPHOCYTES % (AUTO) 15.4 % (13-45); MEAN CORPUSCULAR HEMOGLOBIN 25.5 pg (27.0-33.4); MEAN CORPUSCULAR HGB CONC 34.2 g/dL (32.0-36.0); MEAN CORPUSCULAR VOLUME 75 fl (80-97); PLATELET COUNT 245 10^3/uL (150-450); RED BLOOD COUNT 4.54 10^6/uL (3.72-5.28); RED CELL DISTRIBUTION WIDTH 18.8 % (11.5-14.0); SEGMENTED NEUTROPHILS % (AUTO) 70.3 % (42-78); WHITE BLOOD COUNT 7.3 10^3/uL (4.0-10.5)
[2018-05-01 17:58] LABS: ABSOLUTE BASOPHILS # (AUTO) 0.1 10^3/uL (0.0-0.2); ABSOLUTE EOSINOPHILS # (AUTO) 0.1 10^3/uL (0.0-0.6); ABSOLUTE LYMPHOCYTES (AUTO) 1.1 10^3/uL (0.5-4.7); ABSOLUTE MONOCYTES (AUTO) 0.8 10^3/uL (0.1-1.4); ABSOLUTE NEUT (AUTO) 5.1 10^3/uL (1.7-8.2); BASOPHILS % (AUTO) 0.7 % (0-2); MONOCYTES % (AUTO) 11.6 % (3-13); TOTAL CELLS COUNTED % (AUTO) 100 %
[2018-05-01 18:14] LABS: ALANINE AMINOTRANSFERASE 25 U/L (9-52); ALBUMIN 3.8 g/dL (3.5-5.0); ALKALINE PHOSPHATASE 90 U/L (38-126); ANION GAP 7 (5-19); ASPARTATE AMINO TRANSFERASE 22 U/L (14-36); BILIRUBIN,DIRECT 0.1 mg/dL (0.0-0.4); BILIRUBIN,TOTAL 0.5 mg/dL (0.2-1.3); BLOOD UREA NITROGEN 21 mg/dL (7-20); CALCIUM 9.6 mg/dL (8.4-10.2); CARBON DIOXIDE 27 mmol/L (22-30); CHLORIDE 101 mmol/L (98-107); GLUCOSE 105 mg/dL (75-110); IRON(TIBC) 34.5 ug/dL (37-170); POTASSIUM 4.3 mmol/L (3.6-5.0); SODIUM 134.8 mmol/L (137-145); TOTAL PROTEIN 6.3 g/dL (6.3-8.2)
[2018-05-01 18:29] LABS: FREE T4 (FREE THYROXINE) 1.73 ng/dL (0.78-2.19)
[2018-05-01 18:43] LABS: THYROID STIMULATING HORMONE 2.87 uIU/mL (0.47-4.68)
[2018-05-01 18:56] LABS: ALANINE AMINOTRANSFERASE 25 U/L (9-52); ALBUMIN 3.8 g/dL (3.5-5.0); ALKALINE PHOSPHATASE 90 U/L (38-126); ANION GAP 7 (5-19); ASPARTATE AMINO TRANSFERASE 22 U/L (14-36); BILIRUBIN,DIRECT 0.1 mg/dL (0.0-0.4); BILIRUBIN,TOTAL 0.5 mg/dL (0.2-1.3); BLOOD UREA NITROGEN 21 mg/dL (7-20); CALCIUM 9.6 mg/dL (8.4-10.2); CARBON DIOXIDE 27 mmol/L (22-30); CHLORIDE 101 mmol/L (98-107); GLUCOSE 105 mg/dL (75-110); POTASSIUM 4.3 mmol/L (3.6-5.0); SODIUM 134.8 mmol/L (137-145); TOTAL PROTEIN 6.3 g/dL (6.3-8.2)
[2018-05-01 19:05] LABS: CHOLESTEROL 161.73 mg/dL (0-200); TRIGLYCERIDES 68 mg/dL (<150); VLDL CHOLESTEROL 13.6 mg/dL (10-31)
[2018-05-01 19:16] LABS: DIRECT LDL 98 mg/dL (<100)
== END ==
LOC: OD 15:59
PROVIDERS: ATTEND Family Medicine
DX: E78.5 Hyperlipidemia, unspecified (principal); F01.50 Vascular dementia, unspecified severity, without behavioral disturbance, psychotic disturbance, mood disturbance, and anxiety; I67.9 Cerebrovascular disease, unspecified; E03.9 Hypothyroidism, unspecified; I10 Essential (primary) hypertension; R32 Unspecified urinary incontinence; R06.00 Dyspnea, unspecified; D50.9 Iron deficiency anemia, unspecified; R53.83 Other fatigue
CPT/HCPCS: 36415; 80053; 80061; 82728; 83540; 83550; 83880; 84439; 84443; 85025; 87086; 87088; 87186

== ENCOUNTER 2018-06-07 17:31 | Emergency (ER) | payer MEDICARE ==
--- NOTE | 2018-06-07 18:03 | ER Document Report ---
ED Fall - General Stated Complaint: FALL BODY PAIN Time Seen by Provider: 06/07/18 17:38 Primary Care Provider: HELEN LOPEZ MD [Primary Care Provider] - Follow up as needed Notes: 83-year-old female to emergency department chief complaint of fall. Patient has dementia. Citizen Of [place]-speaking only. Attended by the family members. Family members is concerned because she is on Xarelto. Has had multiple falls. Currently patient has no complaints. Has bruising which appears old in nature underneath both eyes. Some bruising on the right tibia and some bruising and abrasion on the right hand. Denies any back pain, hip pain. No reproducible pain except on the tibia and right hand. TRAVEL OUTSIDE OF THE [place] IN LAST 30 DAYS: No - HPI Occurred: Just prior to arrival Where: Home Context: Tripped Associated symptoms: None Location of injury/pain: Hand, Lower extremity Quality of pain: Achy Severity: Moderate - Related data Allergies/Adverse Reactions: clindamycin Allergy (Verified 11/10/17 22:34) clopidogrel [From Plavix] Allergy (Verified 11/10/17 22:34) diatrizoate meglumine [From MD-Gastroview] Allergy (Verified 11/10/17 22:34) diatrizoate sodium [From MD-Gastroview] Allergy (Verified 11/10/17 22:34) dipyridamole [From Aggrenox] Allergy (Verified 11/10/17 22:34) erythromycin base [From Erythrocin] Allergy (Verified 11/10/17 22:34) meloxicam Allergy (Verified 11/10/17 22:34) pantoprazole Allergy (Verified 11/10/17 22:34) risedronate sodium [From Actonel] Allergy (Verified 11/10/17 22:34) sulfamethoxazole [From Bactrim] Allergy (Verified 11/10/17 22:34) ticlopidine Allergy (Verified 11/10/17 22:34) tobramycin Allergy (Verified 11/10/17 22:34) trimethoprim [From Bactrim] Allergy (Verified 11/10/17 22:34) IVC dye Allergy (Uncoded 07/16/17 01:52) Past Medical History - General Information source: Relative, [facility] Records Cannot obtain history due to: Dementia - Social History Smoking Status: Unknown if Ever Smoked Frequency of alcohol use: None Drug Abuse: None Lives with: Family Family History: Reviewed & Not Pertinent Patient has suicidal ideation: No Patient has homicidal ideation: No - Past Medical History Cardiac Medical History: Reports: Hx Congestive Heart Failure, Hx Heart Attack, Hx Hypercholesterolemia, Hx Hypertension Neurological Medical History: Reports: Hx Cerebrovascular Accident. Denies: Hx Seizures Renal/ Medical History: Denies: Hx Peritoneal Dialysis Musculoskeletal Medical History: Reports Hx Arthritis Psychiatric Medical History: Reports: Hx Anxiety, Hx Dementia Denies: Hx Depression Past Surgical History: Reports: Hx Cardiac Catheterization, Hx Cardiac Surgery, Other Review of Systems - Review of Systems -: Yes ROS unobtainable due to patient's medical condition - Due to severe dementia Physical Exam - Vital signs Vitals: Temp Pulse BP Pulse Ox 97.7 F 68 137/62 H 99 06/07/18 17:51 06/07/18 17:51 06/07/18 17:51 06/07/18 17:51 Interpretation: Normal - General General appearance: Appears well, Alert - HEENT Head: Normocephalic, Other - Bruising underneath both eyes. Eyes: Normal Pupils: PERRL Notes: Patient has bruising noted underneath both eyes which appears old. - Respiratory Respiratory status: No respiratory distress Chest status: Nontender Breath sounds: Normal Chest palpation: Normal - Cardiovascular Rhythm: Regular Heart sounds: Normal auscultation Murmur: No - Abdominal Inspection: Normal Distension: No distension Bowel sounds: Normal Tenderness: Nontender Organomegaly: No organomegaly - Back Back: Normal, Nontender - Extremities General upper extremity: Tender - Tenderness on the dorsum of the right hand with small abrasion. No obvious suturable lacerations., Normal color, Normal ROM, Normal temperature General lower extremity: Normal inspection, Tender - There is to palpation right anterior tobar with large contusion noted on the right anterior tib-fib area., Normal color, Normal ROM, Normal temperature. No: Jae's sign - Neurological Neuro grossly intact: Yes Cognition: Confused [place] Coma Scale Eye Opening: Spontaneous [place] Coma Scale Verbal: Oriented [place] Coma Scale Motor: Obeys Commands [place] Coma Scale Total: 15 Speech: Normal Motor strength normal: LUE, RUE, LLE, RLE Sensory: Normal - Psychological Associated symptoms: Normal affect, Normal mood - Skin Skin Temperature: Warm Skin Moisture: Dry Skin Color: Normal Course - Re-evaluation Re-evalutation: 06/08/18 00:00 Patient is on blood thinners a CT head was performed also she had some facial bruising so the concern was for possible intracranial bleeding. CT scan did not show any obvious intracranial bleeding. No significant signs of skull fracture. Patient had no midline tenderness. Full range of motion of her cervical spine. No pain to palpation of the thoracic or lumbar spine. No pelvic instability. No pain to palpation of the hips, abdomen, chest. There was a bruise noted on the dorsum of the right hand with small abrasion so x-ray was taken of that. There is a large bruise on the right tib-fib anteriorly so x-ray was taken of that. All films were negative. CT negative. I did speak at length with the son. I advised him to follow-up with primary care doctor he has further concerns. At this time we will discharge in stable condition. - Vital Signs Vital signs: Temp Pulse Resp BP Pulse Ox 97.8 F 84 165/80 H 99 06/07/18 21:37 06/07/18 21:37 06/07/18 21:37 06/07/18 21:37 Discharge - Discharge Clinical Impression: Contusion of right tibia Contusion of right hand Qualifiers: Encounter type: initial encounter Qualified Code(s): S60.221A - Contusion of right hand, initial encounter Condition: Good Disposition: HOME, SELF-CARE Instructions: Abrasions ([facility]), Contusion ([facility]) Referrals: HELEN LOPEZ MD [Primary Care Provider] - Follow up as needed
--- NOTE | 2018-06-07 18:31 | RADIOLOGY REPORT (SQ) ---
EXAM DESCRIPTION: HAND RIGHT 3 VIEWS COMPLETED DATE/TIME: 06/07/2018 6:20 pm REASON FOR STUDY: fall COMPARISON: None. EXAM PARAMETERS: NUMBER OF VIEWS: Three views. TECHNIQUE: AP, lateral and oblique radiographic images acquired of the right hand. LIMITATIONS: None. FINDINGS: MINERALIZATION: Normal. BONES: No acute fracture or dislocation. No worrisome bone lesions. JOINTS: No effusions. SOFT TISSUES: No soft tissue swelling. No foreign body. OTHER: No other significant finding. IMPRESSION: NEGATIVE STUDY OF THE RIGHT HAND. NO RADIOGRAPHIC EVIDENCE OF ACUTE INJURY. TECHNICAL DOCUMENTATION: JOB ID: [id number] [employer]- All Rights Reserved Reading location - IP/workstation name: [email or web address]
--- NOTE | 2018-06-07 18:31 | RADIOLOGY REPORT (SQ) ---
EXAM DESCRIPTION: CT HEAD WITHOUT COMPLETED DATE/TIME: 06/07/2018 6:17 pm REASON FOR STUDY: fall, facial bruising COMPARISON: 12/04/2017 TECHNIQUE: Axial images acquired through the brain without intravenous contrast. Images reviewed wi th bone, brain and subdural windows. Additional sagittal and coronal reconstructions were generated. Images stored on PACS. All CT scanners at this facility use dose modulation, iterative reconstruction, and/or weight based d osing when appropriate to reduce radiation dose to as low as reasonably achievable (ALARA). [facility]: Dose Right [facility]: CareDose [facility]: Dose Right [facility]: Teradose 4D [facility]: Smart DevonWay RADIATION DOSE: CT Rad equipment meets quality standard of care and radiation dose reduction techniq ues were employed. CTDIvol: 53.2 mGy. DLP: 937 mGy-cm. mGy. LIMITATIONS: None. FINDINGS: VENTRICLES: Prominent ventricles secondary to involutional atrophy. CEREBRUM: Cortical atrophy. There are couple of old small lacunar infarcts. No masses. No hemorrha ge. No midline shift. No evidence for acute infarction. Areas of low density in the white matter mo st likely chronic small vessel ischemic changes. CEREBELLUM: No masses. No hemorrhage. No alteration of density. No evidence for acute infarction. EXTRAAXIAL SPACES: No fluid collections. No masses. ORBITS AND GLOBE: No intra- or extraconal masses. Normal contour of globe without masses. CALVARIUM: No fracture. PARANASAL SINUSES: No fluid or mucosal thickening. SOFT TISSUES: No mass or hematoma. OTHER: No other significant finding. IMPRESSION: Involutional changes of aging with chronic microvascular ischemia. Old lacunar infarcts . No acute intracranial imaging findings. EVIDENCE OF ACUTE STROKE: NO. COMMENT: Quality ID # [id number]: Final reports with documentation of one or more dose reduction techniques (e.g., Automated exposure control, adjustment of the mA and/or kV according to patient size, use of iterative reconstruction technique) TECHNICAL DOCUMENTATION: JOB ID: [id number] [employer]- All Rights Reserved Reading location - IP/workstation name: [email or web address]
--- NOTE | 2018-06-07 20:40 | RADIOLOGY REPORT (SQ) ---
EXAM DESCRIPTION: XR TIBIA FIBULA 2 VIEWS COMPLETED DATE/TME: 06/07/2018 20:11 CLINICAL HISTORY: 83 years, Female, fall, pain COMPARISON: None. NUMBER OF VIEWS: 3 TECHNIQUE: 3 views of the right tibia fibula LIMITATIONS: None. FINDINGS: Diffuse osteopenia. Vascular calcifications. Negative for acute fracture or dislocation. Soft tissues are otherwise unremarkable IMPRESSION: No acute osseous abnormality copyright 2010 [employer]- All Rights Reserved
[2018-06-07 21:39] VITALS: BP 165/80
== END 2018-06-07 21:39 | disposition home or self-care (01) ==
LOC: ER 17:31
DX: S80.11XA Contusion of right lower leg, initial encounter (principal); S60.221A Contusion of right hand, initial encounter; W19.XXXA Unspecified fall, initial encounter; Y92.002 Bathroom of unspecified non-institutional (private) residence as the place of occurrence of the external cause; S00.12XA Contusion of left eyelid and periocular area, initial encounter; S00.11XA Contusion of right eyelid and periocular area, initial encounter; X58.XXXA Exposure to other specified factors, initial encounter; F03.90 Unspecified dementia, unspecified severity, without behavioral disturbance, psychotic disturbance, mood disturbance, and anxiety; I10 Essential (primary) hypertension; I25.2 Old myocardial infarction; Z79.01 Long term (current) use of anticoagulants; Z86.73 Personal history of transient ischemic attack (TIA), and cerebral infarction without residual deficits; Z88.1 Allergy status to other antibiotic agents; Z88.8 Allergy status to other drugs, medicaments and biological substances; Z91.041 Radiographic dye allergy status
CPT/HCPCS: 70450; 99284

== ENCOUNTER 2018-06-17 03:13 | Emergency (ER) | payer MEDICARE, MEDICAID ==
[2018-06-17 04:44] LABS: ABSOLUTE EOSINOPHILS # (AUTO) 0.3 10^3/uL (0.0-0.6); ABSOLUTE LYMPHOCYTES (AUTO) 1.2 10^3/uL (0.5-4.7); ABSOLUTE NEUT (AUTO) 8.5 10^3/uL (1.7-8.2); BASOPHILS % (AUTO) 0.4 % (0-2); EOSINOPHILS % (AUTO) 2.4 % (0-6); HEMATOCRIT 33.1 % (36.0-47.0); LYMPHOCYTES % (AUTO) 10.6 % (13-45); MEAN CORPUSCULAR HEMOGLOBIN 24.3 pg (27.0-33.4); MEAN CORPUSCULAR HGB CONC 33.2 g/dL (32.0-36.0); MEAN CORPUSCULAR VOLUME 73 fl (80-97); MONOCYTES % (AUTO) 9.2 % (3-13); PLATELET COUNT 253 10^3/uL (150-450); RED BLOOD COUNT 4.51 10^6/uL (3.72-5.28); RED CELL DISTRIBUTION WIDTH 17.3 % (11.5-14.0); SEGMENTED NEUTROPHILS % (AUTO) 77.4 % (42-78); TOTAL CELLS COUNTED % (AUTO) 100 %
[2018-06-17 05:02] LABS: ALANINE AMINOTRANSFERASE 27 U/L (9-52); ALBUMIN 3.7 g/dL (3.5-5.0); ALKALINE PHOSPHATASE 100 U/L (38-126); ANION GAP 8 (5-19); ASPARTATE AMINO TRANSFERASE 19 U/L (14-36); BILIRUBIN,DIRECT 0.2 mg/dL (0.0-0.4); BILIRUBIN,TOTAL 0.4 mg/dL (0.2-1.3); BLOOD UREA NITROGEN 26 mg/dL (7-20); CALCIUM 9.1 mg/dL (8.4-10.2); CARBON DIOXIDE 25 mmol/L (22-30); CHLORIDE 103 mmol/L (98-107); GLUCOSE 118 mg/dL (75-110); POTASSIUM 4.2 mmol/L (3.6-5.0); SODIUM 135.6 mmol/L (137-145)
--- NOTE | 2018-06-17 05:24 | ER Document Report ---
ED Medical Screen (RME) - General Chief Complaint: Near Syncope Stated Complaint: SYNCOPE Time Seen by Provider: 06/17/18 05:17 Primary Care Provider: HELEN LOPEZ MD [Primary Care Provider] - Follow up as needed Mode of Arrival: Medic Information source: Relative - Son Notes: Patient is an 83-year-old female who presents the emergency department via EMS for apparent episode of syncope at home. Patient's son is at bedside who is the primary political anthropologist. He states that she was sitting on the toilet when she passed out. He denies her striking her head as he states he was standing next to her when this happened. He states that she has an extensive cardiac history. He denies any recent nausea, vomiting, diarrhea or fevers. He states that she is incontinent of urine but denies any change in her urinary patterns or frequency. Patient's vital signs are within normal limits on arrival patient is alert to her norm. Patient has a history of dementia. Patient does have a large hematoma to her left upper arm from the IV that EMS placed as it had normal saline infusing into it when it apparently infiltrated. I have greeted and performed a rapid initial assessment of this patient. A comprehensive ED assessment and evaluation of the patient, analysis of test results and completion of the medical decision making process will be conducted by additional ED providers. Dictation of this chart was performed using voice recognition software; therefore, there may be some unintended grammatical errors. TRAVEL OUTSIDE OF THE [place] IN LAST 30 DAYS: No - Related Data Allergies/Adverse Reactions: clindamycin Allergy (Verified 11/10/17 22:34) clopidogrel [From Plavix] Allergy (Verified 11/10/17 22:34) diatrizoate meglumine [From MD-Gastroview] Allergy (Verified 11/10/17 22:34) diatrizoate sodium [From MD-Gastroview] Allergy (Verified 11/10/17 22:34) dipyridamole [From Aggrenox] Allergy (Verified 11/10/17 22:34) erythromycin base [From Erythrocin] Allergy (Verified 11/10/17 22:34) meloxicam Allergy (Verified 11/10/17 22:34) pantoprazole Allergy (Verified 11/10/17 22:34) risedronate sodium [From Actonel] Allergy (Verified 11/10/17 22:34) sulfamethoxazole [From Bactrim] Allergy (Verified 11/10/17 22:34) ticlopidine Allergy (Verified 11/10/17 22:34) tobramycin Allergy (Verified 11/10/17 22:34) trimethoprim [From Bactrim] Allergy (Verified 11/10/17 22:34) IVC dye Allergy (Uncoded 07/16/17 01:52) Past Medical History - Social History Chew tobacco use (# tins/day): No Frequency of alcohol use: None Drug Abuse: None - Past Medical History Cardiac Medical History: Reports: Hx Congestive Heart Failure, Hx Heart Attack, Hx Hypercholesterolemia, Hx Hypertension Neurological Medical History: Reports: Hx Cerebrovascular Accident. Denies: Hx Seizures Renal/ Medical History: Denies: Hx Peritoneal Dialysis Musculoskeltal Medical History: Reports Hx Arthritis Psychiatric Medical History: Reports: Hx Anxiety, Hx Dementia Denies: Hx Depression Past Surgical History: Reports: Hx Cardiac Catheterization, Hx Cardiac Surgery, Other - Immunizations History of Influenza Vaccine for 02/2017 - 07/2017 Season: Yes Physical Exam - Vital signs Vitals: Temp 97.5 F 06/17/18 04:47 Course - Vital Signs Vital signs: Temp Pulse Resp BP Pulse Ox 97.5 F 06/17/18 04:47 - Laboratory Result Diagrams: 06/17/18 04:35 06/17/18 04:35 Laboratory results interpreted by me: 06/17/18 06/17/18 04:35 04:35 WBC 11.0 H Hgb 11.0 L Hct 33.1 L MCV 73 L MCH 24.3 L RDW 17.3 H Lymphocytes % 10.6 L Absolute Neutrophils 8.5 H Sodium 135.6 L BUN 26 H Creatinine 1.29 H Est GFR ( Amer) 48 L Est GFR (Non-Af Amer) 39 L Glucose 118 H Total Protein 6.0 L Doctor's Discharge - Discharge Referrals: HELEN LOPEZ MD [Primary Care Provider] - Follow up as needed
--- NOTE | 2018-06-17 06:06 | RADIOLOGY REPORT (SQ) ---
CLINICAL HISTORY: syncope COMPARISON: None. TECHNIQUE: CT HEAD WITHOUT IV CONTRAST on 06/17/2018 4:36 AM [employer]OT[employer]YPE [employer] This exam was performed according to our departmental dose-optimization program, which includes automated exposure control, adjustment of the mA and/or kV according to patient size and/or use of iterative reconstruction technique. FINDINGS: There is no acute hemorrhage, mass effect or midline shift. There is a old left basal ganglia lacunar infarct. There is a large old right basal ganglia infarct. There is no hydrocephalus. There is no significant volume loss for age. There are mild patchy hypodensities within the periventricular and subcortical white matter, consistent with microangiopathic ischemic changes. The calvarium is intact. Orbits and globes are unremarkable. The paranasal sinuses are clear. Mastoid air cells are clear. IMPRESSION: No acute intracranial findings. No change.
--- NOTE | 2018-06-17 06:08 | RADIOLOGY REPORT (SQ) ---
EXAM DESCRIPTION: XR CHEST 1 VIEW COMPLETED DATE/TME: 06/17/2018 04:36 CLINICAL HISTORY: 83 years Female, syncope COMPARISON: None. NUMBER OF VIEWS/TECHNIQUE: 03/30/18 FINDINGS: Increased lung volume, clear parenchyma, normal cardiac silhouette, and intact bony thorax.Atherosclerotic vascular disease. IMPRESSION: No acute cardiopulmonary findings.
[2018-06-17] MEDS ORDERED: NORMAL SALINE 1000 ML 250 ML IV ONE (06:33)
--- NOTE | 2018-06-17 08:44 | EKG REPORT ---
SEVERITY:- BORDERLINE ECG - SINUS RHYTHM BORDERLINE LEFT AXIS DEVIATION BORDERLINE T WAVE ABNORMALITIES : Confirmed by: Brayan Bashir MD 17-Jun-2018 08:43:39
[2018-06-17] MEDS ORDERED: NORMAL SALINE 1000 ML 1,000 ML IV PRN (09:51)
[2018-06-17 10:31] LABS: APPEARANCE,URINE CLEAR; BILIRUBIN,URINE NEGATIVE (NEGATIVE); COLOR,URINE YELLOW; GLUCOSE, URINE NEGATIVE (NEGATIVE); KETONES,URINE NEGATIVE (NEGATIVE); LEUKOCYTE ESTERASE,URINE NEGATIVE (NEGATIVE); NITRITE,URINE NEGATIVE (NEGATIVE); PROTEIN,URINE NEGATIVE (NEGATIVE); URINE SPECIFIC GRAVITY 1.018; UROBILINOGEN,URINE NEGATIVE mg/dL (<2.0)
[2018-06-17 14:37] VITALS: BP 114/77
--- NOTE | 2018-06-17 15:27 | ER Document Report ---
Entered by RICKI NIX SCRIBE 06/17/18 0703 Acting as scribe for:JAN ZARAGOZA MD ED General - General Chief Complaint: Near Syncope Stated Complaint: SYNCOPE Time Seen by Provider: 06/17/18 05:17 Primary Care Provider: HELEN LOPEZ MD [Primary Care Provider] - 06/19/18 Mode of Arrival: Medic Information source: Relative Notes: Patient is an 83 year old female with dementia, CHF, CAD, HTN, hyperlipidemia and a history of VT, stents presents to the emergency department accompanied by son (primary caretaker resort) complaining of a syncopal episode onset prior to arrival. Son states the patient was sitting on a toilet when she proceeded to pass out. He states he was able to prevent her from falling off the toilet and hitting her head while she was unconscious. He states the patient also had an episode of fecal incontinence while she was passed out. He also states after the syncopal event the patient complained of chest pain. He states he does not believe the patient has been dehydrated due him providing copious amounts of flu ids. He states he has been administering fluids with more salt due to the patient being hyponatremic during her last visit to the ED in March 2018. Son mentions a new COMMUTATOR [employer] coming to the patient's home yesterday smelling heavily of cigarette smoke. He wonders if this could have caused the patient to have a syncopal episode this morning. He also states the house was warmer than usual yesterday. Patient is currently on Xarelto. TRAVEL OUTSIDE OF THE [place] IN LAST 30 DAYS: No - Related Data Allergies/Adverse Reactions: clindamycin Allergy (Verified 11/10/17 22:34) clopidogrel [From Plavix] Allergy (Verified 11/10/17 22:34) diatrizoate meglumine [From MD-Gastroview] Allergy (Verified 11/10/17 22:34) diatrizoate sodium [From MD-Gastroview] Allergy (Verified 11/10/17 22:34) dipyridamole [From Aggrenox] Allergy (Verified 11/10/17 22:34) erythromycin base [From Erythrocin] Allergy (Verified 11/10/17 22:34) meloxicam Allergy (Verified 11/10/17 22:34) pantoprazole Allergy (Verified 11/10/17 22:34) risedronate sodium [From Actonel] Allergy (Verified 11/10/17 22:34) sulfamethoxazole [From Bactrim] Allergy (Verified 11/10/17 22:34) ticlopidine Allergy (Verified 11/10/17 22:34) tobramycin Allergy (Verified 11/10/17 22:34) trimethoprim [From Bactrim] Allergy (Verified 11/10/17 22:34) IVC dye Allergy (Uncoded 07/16/17 01:52) Past Medical History - General Information source: Relative - Son - Social History Smoking Status: Never Smoker Chew tobacco use (# tins/day): No Frequency of alcohol use: None Drug Abuse: None Family History: Reviewed & Not Pertinent Patient has suicidal ideation: No Patient has homicidal ideation: No - Past Medical History Cardiac Medical History: Reports: Hx Congestive Heart Failure, Hx Heart Attack, Hx Hypercholesterolemia, Hx Hypertension Neurological Medical History: Reports: Hx Cerebrovascular Accident Musculoskeletal Medical History: Reports Hx Arthritis Psychiatric Medical History: Reports: Hx Anxiety, Hx Dementia Past Surgical History: Reports: Hx Cardiac Catheterization, Hx Cardiac Surgery, Other Review of Systems - Review of Systems Constitutional: No symptoms reported EENT: No symptoms reported Cardiovascular: No symptoms reported Respiratory: No symptoms reported Gastrointestinal: See HPI, Fecal incontinence Genitourinary: No symptoms reported Female Genitourinary: No symptoms reported Musculoskeletal: No symptoms reported Skin: No symptoms reported Hematologic/Lymphatic: No symptoms reported Neurological/Psychological: No symptoms reported Physical Exam - Vital signs Vitals: Resp Pulse Ox 19 98 06/17/18 04:08 06/17/18 04:08 - Notes Notes: GENERAL: Alert, demented at baseline. No acute distress. HEAD: Normocephalic, atraumatic. EYES: Pupils equal, round, and reactive to light. Extraocular movements intact. ENT: Oral mucosa moist, tongue midline. NECK: Full range of motion. Supple. Trachea midline. LUNGS: Clear to auscultation bilaterally, no wheezes, rales, or rhonchi. No respiratory distress. No tenderness to palpation. HEART: Regular rate and rhythm. No murmurs, gallops, or rubs. ABDOMEN: Soft, non-tender. Non-distended. Bowel sounds present in all 4 quadrants. EXTREMITIES: Moves all 4 extremities spontaneously. LUE contains old bruising and swelling, consistent with history of a recent fall. Left forearm, wrist and hand contains no bruising or swelling. IV in right hand, dorsal aspect. Trace edema in the BLE, radial and dorsalis pedis pulses 2/4 bilaterally. NEUROLOGICAL: Alert, demented at baseline. Does not speak Latvian so son speaks for her. PSYCH: Normal affect, normal mood. SKIN: Warm, dry. Course - Vital Signs Vital signs: Temp Pulse Resp BP Pulse Ox 97.5 F 20 121/59 L 99 06/17/18 04:47 06/17/18 13:01 06/17/18 13:01 06/17/18 13:01 - Laboratory Result Diagrams: 06/17/18 04:35 06/17/18 04:35 Laboratory results interpreted by me: 06/17/18 06/17/18 04:35 04:35 WBC 11.0 H Hgb 11.0 L Hct 33.1 L MCV 73 L MCH 24.3 L RDW 17.3 H Lymphocytes % 10.6 L Absolute Neutrophils 8.5 H Sodium 135.6 L BUN 26 H Creatinine 1.29 H Est GFR ( Amer) 48 L Est GFR (Non-Af Amer) 39 L Glucose 118 H Total Protein 6.0 L - Diagnostic Test Radiology reviewed: Image reviewed, Reports reviewed - CT scan of the head and chest x-ray of the chest were unremarkable. - EKG Interpretation by Me EKG shows normal: Sinus rhythm, [place], Intervals, QRS Complexes. abnormal: ST-T Waves - Borderline T wave abnormalities Rate: Normal - 66 Rhythm: NSR [place]/QRS: Left axis deviation - Borderline left axis deviation When compared to previous EKG there are: No significant change Discharge - Discharge Clinical Impression: Dehydration Syncope Qualifiers: Syncope type: unspecified Qualified Code(s): R55 - Syncope and collapse Hypotension Qualifiers: Hypotension type: unspecified hypotension type Qualified Code(s): I95.9 - Hypotension, unspecified Condition: Stable Disposition: HOME, SELF-CARE Additional Instructions: Dehydration Dehydration can result from vomiting or diarrhea, fever, or decreased intake of fluids. If severe, hospitalization and intravenous fluids may be required. Most cases are treated at home with fluids by mouth. Depending on the type of dehydration, the doctor may prescribe antinausea medicine or potassium replacements. Call the doctor or return for re-examination if you become progressively weak, vomit repeatedly, or have other new symptoms. Your near syncope and low blood pressure are most likely due to being dehydrated. There were no other abnormalities found. Be sure to increase the amount of fluid you are drinking. Follow-up with your doctor Tuesday to recheck your serum electrolytes and kidney function. RETURN TO THE EMERGENCY ROOM IF ANY NEW OR WORSENING SYMPTOMS. Referrals: HELEN LOPEZ MD [Primary Care Provider] - 06/19/18 I personally performed the services described in the documentation, reviewed and edited the documentation which was dictated to the scribe in my presence, and it accurately records my words and actions.
== END 2018-06-17 14:37 | disposition home or self-care (01) ==
LOC: ER 03:13
DX: E86.0 Dehydration (principal); I95.9 Hypotension, unspecified; R55 Syncope and collapse; S40.022A Contusion of left upper arm, initial encounter; X58.XXXA Exposure to other specified factors, initial encounter; F03.90 Unspecified dementia, unspecified severity, without behavioral disturbance, psychotic disturbance, mood disturbance, and anxiety; I10 Essential (primary) hypertension; I25.10 Atherosclerotic heart disease of native coronary artery without angina pectoris; I25.2 Old myocardial infarction; R15.9 Full incontinence of feces; R07.9 Chest pain, unspecified; Z79.01 Long term (current) use of anticoagulants; Z88.1 Allergy status to other antibiotic agents; Z88.8 Allergy status to other drugs, medicaments and biological substances; Z91.041 Radiographic dye allergy status
CPT/HCPCS: 93005; 99285; 96360; 96361; 51701; 36415; 85025; 80053; 81001; 84484; 83605; 71045; 70450; 93010; J7030

== ENCOUNTER → 2018-06-20 | Outpatient (CLI) | payer MEDICARE, MEDICAID ==
[2018-06-20 17:49] LABS: ABSOLUTE EOSINOPHILS # (AUTO) 0.3 10^3/uL (0.0-0.6); ABSOLUTE NEUT (AUTO) 6.2 10^3/uL (1.7-8.2); BASOPHILS % (AUTO) 0.5 % (0-2); EOSINOPHILS % (AUTO) 3.5 % (0-6); HEMATOCRIT 34.3 % (36.0-47.0); HEMOGLOBIN 11.4 g/dL (12.0-15.5); LYMPHOCYTES % (AUTO) 11.3 % (13-45); MEAN CORPUSCULAR HEMOGLOBIN 24.5 pg (27.0-33.4); MEAN CORPUSCULAR HGB CONC 33.2 g/dL (32.0-36.0); MEAN CORPUSCULAR VOLUME 74 fl (80-97); MONOCYTES % (AUTO) 12.1 % (3-13); PLATELET COUNT 237 10^3/uL (150-450); RED BLOOD COUNT 4.65 10^6/uL (3.72-5.28); RED CELL DISTRIBUTION WIDTH 17.3 % (11.5-14.0); SEGMENTED NEUTROPHILS % (AUTO) 72.6 % (42-78); TOTAL CELLS COUNTED % (AUTO) 100 %; WHITE BLOOD COUNT 8.5 10^3/uL (4.0-10.5)
[2018-06-20 18:09] LABS: ALANINE AMINOTRANSFERASE 27 U/L (9-52); ALBUMIN 3.8 g/dL (3.5-5.0); ALKALINE PHOSPHATASE 99 U/L (38-126); ANION GAP 9 (5-19); ASPARTATE AMINO TRANSFERASE 19 U/L (14-36); BILIRUBIN,DIRECT 0.1 mg/dL (0.0-0.4); BILIRUBIN,TOTAL 0.4 mg/dL (0.2-1.3); BLOOD UREA NITROGEN 21 mg/dL (7-20); CALCIUM 9.1 mg/dL (8.4-10.2); CARBON DIOXIDE 26 mmol/L (22-30); CHLORIDE 102 mmol/L (98-107); GLUCOSE 118 mg/dL (75-110); POTASSIUM 4.4 mmol/L (3.6-5.0); SODIUM 136.9 mmol/L (137-145)
== END ==
LOC: OD 15:45
PROVIDERS: ATTEND Physician Assistant
DX: E87.1 Hypo-osmolality and hyponatremia (principal)
CPT/HCPCS: 36415; 80053; 85025

== ENCOUNTER 2018-12-25 03:04 | Emergency (ER) | payer MEDICARE, MEDICAID ==
[2018-12-25 04:54] LABS: ABSOLUTE BASOPHILS # (AUTO) 0.1 10^3/uL (0.0-0.2); ABSOLUTE EOSINOPHILS # (AUTO) 0.2 10^3/uL (0.0-0.6); ABSOLUTE MONOCYTES (AUTO) 0.9 10^3/uL (0.1-1.4); ABSOLUTE NEUT (AUTO) 5.9 10^3/uL (1.7-8.2); EOSINOPHILS % (AUTO) 2.5 % (0-6); HEMATOCRIT 35.5 % (36.0-47.0); HEMOGLOBIN 11.5 g/dL (12.0-15.5); LYMPHOCYTES % (AUTO) 12.5 % (13-45); MEAN CORPUSCULAR HEMOGLOBIN 21.9 pg (27.0-33.4); MEAN CORPUSCULAR HGB CONC 32.5 g/dL (32.0-36.0); MEAN CORPUSCULAR VOLUME 68 fl (80-97); MONOCYTES % (AUTO) 10.6 % (3-13); PLATELET COUNT 221 10^3/uL (150-450); RED BLOOD COUNT 5.26 10^6/uL (3.72-5.28); RED CELL DISTRIBUTION WIDTH 18.2 % (11.5-14.0); SEGMENTED NEUTROPHILS % (AUTO) 73.4 % (42-78); TOTAL CELLS COUNTED % (AUTO) 100 %
[2018-12-25 05:00] LABS: INTERNATIONAL RATION (INR) 1.08
[2018-12-25 05:17] LABS: ANION GAP 10 (5-19); BLOOD UREA NITROGEN 24 mg/dL (7-20); CALCIUM 9.2 mg/dL (8.4-10.2); CARBON DIOXIDE 24 mmol/L (22-30); CHLORIDE 103 mmol/L (98-107); GLUCOSE 134 mg/dL (75-110)
[2018-12-25] MEDS ORDERED: NORMAL SALINE 1000 ML 1,000 ML IV ONE (06:42)
--- NOTE | 2018-12-25 07:03 | ER Document Report ---
ED Syncope and Near Syncope - General Chief Complaint: Passed Out Prior to Arrival Stated Complaint: SYNCOPAL EPISODE Time Seen by Provider: 12/25/18 06:06 Primary Care Provider: HELEN LOPEZ MD [Primary Care Provider] - Follow up as needed Notes: 83-year-old female was brought in for evaluation of syncope. The patient is cared for by her son at home. She does have a history of chronic recurring syncope. The patient got up last night and passed out only for a couple seconds there is no tongue biting no loss of bowel or bladder function. The patient did not hit her head. This is been similar to what is happened in the past the son decided to bring her and have her check she has had no fever. She was recently admitted at [facility] also. Has a history of DVT. Has history of dementia. There is been no fever no chills. Max temperature at home was 99. TRAVEL OUTSIDE OF THE [place] IN LAST 30 DAYS: No - Related Data Allergies/Adverse Reactions: clindamycin Allergy (Verified 11/10/17 22:34) clopidogrel [From Plavix] Allergy (Verified 11/10/17 22:34) diatrizoate meglumine [From MD-Gastroview] Allergy (Verified 11/10/17 22:34) diatrizoate sodium [From MD-Gastroview] Allergy (Verified 11/10/17 22:34) dipyridamole [From Aggrenox] Allergy (Verified 11/10/17 22:34) erythromycin base [From Erythrocin] Allergy (Verified 11/10/17 22:34) meloxicam Allergy (Verified 11/10/17 22:34) pantoprazole Allergy (Verified 11/10/17 22:34) risedronate sodium [From Actonel] Allergy (Verified 11/10/17 22:34) sulfamethoxazole [From Bactrim] Allergy (Verified 11/10/17 22:34) ticlopidine Allergy (Verified 11/10/17 22:34) tobramycin Allergy (Verified 11/10/17 22:34) trimethoprim [From Bactrim] Allergy (Verified 11/10/17 22:34) IVC dye Allergy (Uncoded 07/16/17 01:52) Past Medical History - Social History Smoking Status: Unknown if Ever Smoked Family History: Reviewed & Not Pertinent Patient has suicidal ideation: No Patient has homicidal ideation: No - Past Medical History Cardiac Medical History: Reports: Hx Congestive Heart Failure, Hx Heart Attack, Hx Hypercholesterolemia, Hx Hypertension Neurological Medical History: Reports: Hx Cerebrovascular Accident. Denies: Hx Seizures Renal/ Medical History: Denies: Hx Peritoneal Dialysis Musculoskeletal Medical History: Reports Hx Arthritis Psychiatric Medical History: Reports: Hx Anxiety, Hx Dementia Denies: Hx Depression Past Surgical History: Reports: Hx Cardiac Catheterization, Hx Cardiac Surgery, Other Review of Systems - Review of Systems Constitutional: denies: Chills, Fever Cardiovascular: denies: Chest pain, Edema Respiratory: denies: Cough, Short of breath Gastrointestinal: denies: Abdominal pain, Nausea, Vomiting Genitourinary: denies: Dysuria, Hematuria Musculoskeletal: denies: Back pain Neurological/Psychological: Lost consciousness, Other - Syncope. denies: Headaches -: Yes All other systems reviewed and negative Physical Exam - Vital signs Vitals: Resp Pulse Ox 18 97 12/25/18 03:18 12/25/18 03:18 - Notes Notes: GENERAL_APPEARANCE: well_nourished thin, alert, cooperative, no_acute_distress, no_obvious_discomfort. VITALS: reviewed, see vital signs table. HEAD: no_swelling\tenderness on the head. EYES: PERRL, EOMI, conjunctiva_clear. NOSE: no_nasal_discharge. MOUTH: Lightly dry tongue and lips THROAT: no_tonsilar_inflammation, no_airway_obstruction. no_lymphadenopathy NECK: supple, no_neck_tenderness, (-)thyromegaly. BACK: no_back_tenderness. CHEST_WALL: no_chest_tenderness. LUNGS: no_wheezing, no_rales, no_rhonchi, (-)accessory muscle use, good air exchange bilateral. HEART: normal_rate, normal_rhythm, normal_S1, normal_S2, (-)S3, (-)S4, n o_murmur, no_rub. ABDOMEN: normal_BS, soft, no_abd_tenderness, (-)guarding, (-)rebound, no_organomegaly, no_abd_masses. EXTREMITIES: good pulses in all_extremities, no_swelling\tenderness in the ext remities, no_edema. SKIN: warm, dry, good_color, no_rash. MENTAL_STATUS: speech_clear, oriented_X_3, normal_affect, responds_appropriately to questions. NEURO: Neg Motor or Sensory Deficits on exam, CN 2-12 intact, DTR 2+ symmetric x 4, No cerbellar signs Course - Re-evaluation Re-evalutation: 12/25/18 07:02 83-year-old female comes in after episode of syncope. She is had multiple episodes of syncope in the past this is not new. Her doing a full syncope work- up here. The patient does seem clinically little dehydrated with dry mouth and lips we will give her a liter of IV fluids her BUN is mildly elevated. Hemoglob in is pretty much unchanged from last visit. No history of black bloody or tarry stool. The patient otherwise is doing well with hydration. Is of note the patient was brought by her son and he also signed and the other parent. He is trying to care for both of them at home. 12/25/18 07:03 12/25/18 07:[address] the brain chronic changes nothing acute labs are stable BUNs just mildly elevated but likely due to dehydration. Patient received a liter of IV fluids otherwise the patient will be discharged home. Will arrange [facility] follow-up per the request 12/25/18 09:54 There is no urinary tract infections. The patient received a liter of IV fluids and is doing well. Encouraged the son to hydrate the patient a little more. Otherwise the patient has no acute emergency medical condition requiring further stabilization or admission. - Vital Signs Vital signs: Temp Pulse Resp BP Pulse Ox 97.8 F 19 136/65 H 99 12/25/18 03:20 12/25/18 06:01 12/25/18 06:00 12/25/18 06:01 - Laboratory Result Diagrams: 12/25/18 04:40 12/25/18 04:40 Laboratory results interpreted by me: 12/25/18 12/25/18 04:40 04:40 Hgb 11.5 L Hct 35.5 L MCV 68 L MCH 21.9 L RDW 18.2 H Lymphocytes % 12.5 L BUN 24 H Est GFR (Non-Af Amer) 55 L Glucose 134 H - Diagnostic Test Radiology reviewed: Reports reviewed Radiology results interpreted by me: 12/25/18 07:[address] 12/25/18 06:42 IMPRESSION: 1. No acute intracranial abnormality by CT criteria. This exam was performed according to our departmental dose-optimization program, which includes automated exposure control, adjustment of the mA and/or kV according to patient size and/or use of iterative reconstruction technique. Discharge - Discharge Clinical Impression: Dehydration Syncope Qualifiers: Syncope type: unspecified Qualified Code(s): R55 - Syncope and collapse Condition: Good Disposition: HOME, SELF-CARE Instructions: Dehydration ([facility]), Syncopal Episode ([facility]) Referrals: HELEN LOPEZ MD [Primary Care Provider] - Follow up as needed
[2018-12-25 07:31] LABS: APPEARANCE,URINE CLEAR; BILIRUBIN,URINE NEGATIVE (NEGATIVE); COLOR,URINE YELLOW; GLUCOSE, URINE NEGATIVE (NEGATIVE); KETONES,URINE NEGATIVE (NEGATIVE); LEUKOCYTE ESTERASE,URINE NEGATIVE (NEGATIVE); NITRITE,URINE NEGATIVE (NEGATIVE); PROTEIN,URINE NEGATIVE (NEGATIVE); URINE SPECIFIC GRAVITY 1.018; UROBILINOGEN,URINE NEGATIVE mg/dL (<2.0)
--- NOTE | 2018-12-25 07:39 | RADIOLOGY REPORT (SQ) ---
EXAM DESCRIPTION: CT HEAD WITHOUT IV CONTRAST COMPLETED DATE/TME: 12/25/2018 06:42 CLINICAL HISTORY: Syncope COMPARISON: 06/17/2018 TECHNIQUE: Axial CT of the head obtained from the skull apex to the skull base without contrast. FINDINGS: No acute intracranial hemorrhage identified. No mass, mass effect, shift of the midline, abnormal extra-axial fluid collection or CT evidence of acute ischemic change identified. The ventricular system and sulcal spaces are mildly enlarged compatible with mild cerebral atrophy. Scattered areas of hypodensity throughout the supratentorial white matter are nonspecific and may be related to chronic small vessel ischemic change. Bilateral chronic lacunar type infarctions. More confluent encephalomalacia is periventricular white matter with ex vacuo dilatation of the right lateral ventricle is likely related to remote infarction. The visualized paranasal sinuses and the mastoids are clear. No skull fracture identified. Visualized orbits and globes are unremarkable. Atherosclerotic calcification of the intracranial internal carotid arteries. DLP:884.15 mGy-cm IMPRESSION: 1. No acute intracranial abnormality by CT criteria. This exam was performed according to our departmental dose-optimization program, which includes automated exposure control, adjustment of the mA and/or kV according to patient size and/or use of iterative reconstruction technique.
--- NOTE | 2018-12-25 09:00 | RADIOLOGY REPORT (SQ) ---
EXAM DESCRIPTION: CHEST SINGLE VIEW COMPLETED DATE/TIME: 12/25/2018 8:47 am REASON FOR STUDY: syncope COMPARISON: 06/17/2018. EXAM PARAMETERS: NUMBER OF VIEWS: One view. TECHNIQUE: Single frontal radiographic view of the chest acquired. RADIATION DOSE: NA LIMITATIONS: None. FINDINGS: LUNGS AND PLEURA: Chronic interstitial changes. Pleural thickening in the apices. No foc al infiltrates, masses or pneumothorax. No pleural effusion. MEDIASTINUM AND HILAR STRUCTURES: No masses. Contour normal. HEART AND VASCULAR STRUCTURES: Mild cardiac enlargement. Normal vasculature. BONES: No acute findings. HARDWARE: None in the chest. OTHER: No other significant finding. IMPRESSION: CHRONIC SCARRING. NO ACUTE RADIOGRAPHIC FINDING IN THE CHEST. TECHNICAL DOCUMENTATION: JOB ID: [id number] [employer]- All Rights Reserved Reading location - IP/workstation name: [email or web address]
[2018-12-25 10:19] VITALS: BP 164/74
--- NOTE | 2018-12-26 09:41 | EKG REPORT ---
SEVERITY:- ABNORMAL ECG - SINUS RHYTHM PROBABLE INFERIOR INFARCT, AGE INDETERMINATE LATERAL LEADS ARE ALSO INVOLVED : Confirmed by: Vikki Boswell 26-Dec-2018 09:40:53
== END 2018-12-25 10:45 | disposition home or self-care (01) ==
LOC: ER 03:04
DX: E86.0 Dehydration (principal); R55 Syncope and collapse; F03.90 Unspecified dementia, unspecified severity, without behavioral disturbance, psychotic disturbance, mood disturbance, and anxiety; I50.9 Heart failure, unspecified; E78.00 Pure hypercholesterolemia, unspecified; I11.0 Hypertensive heart disease with heart failure; Z86.718 Personal history of other venous thrombosis and embolism; Z88.3 Allergy status to other anti-infective agents; I25.2 Old myocardial infarction
CPT/HCPCS: 93005; 36415; 85025; 85610; 80048; 81001; 84484; 71045; 70450; 93010; J7030; 96360; 99285

== ENCOUNTER 2019-01-02 16:09 | Inpatient (IN) | payer MEDICARE, MEDICAID ==
--- NOTE | 2019-01-02 17:30 | ER Document Report ---
ED General - General TRAVEL OUTSIDE OF THE [place] IN LAST 30 DAYS: No - Related Data Home Medications: Prednisone, valsartan, Synthroid, Coreg, Xarelto, amlodipine, omeprazole, atorvastatin <SARAH AT - Last Filed: 01/02/19 18:12> <DIPTI AGUILAR - Last Filed: 01/02/19 20:41> - General Chief Complaint: Syncope Stated Complaint: PASSED OUT Time Seen by Provider: 01/02/19 16:41 Primary Care Provider: HELEN DENISE MD [Primary Care Provider] - Follow up as needed - [facility] Notes: Patient is an 83-year-old female brought into the emergency department for evaluation. Patient's son is the primary historian. He is her teradata developer. Patient has advanced dementia, multiple DVTs, is on blood thinners. She is having increasing difficulty walking. Today she had a syncopal episode. Evidently she "looked like she was going to pass out," went to the toilet and had a large bowel movement, then in fact had a syncopal episode. This has been an ongoing issue. He was actually in the hospital with her recently with a similar episode. Was seen by Dr. Denise earlier today. Patient notes to me that he is concerned she may have had a stroke. He states that her commuter pilot were unequal several days ago. I asked if he discussed that with Dr. Denise this morning. He states "her commuter pilot were normal then," and then states that doctors normally do not check. The patient herself denies any pain. She is been taking her medications as prescribed. Son is the patient's primary teradata developer, they live at home. According to the son they are not receiving any home health as ordered, as he had been ill and home health requires a doctor's note stating that he is no longer contagious. Patient's son also notes that she has had temperatures in the 99 to 99.5 degree range every night for some time. He also states that her urine is foul-smelling. (SARAH TA) - Related Data Allergies/Adverse Reactions: clindamycin Allergy (Verified 11/10/17 22:34) clopidogrel [From Plavix] Allergy (Verified 11/10/17 22:34) diatrizoate meglumine [From MD-Gastroview] Allergy (Verified 11/10/17 22:34) diatrizoate sodium [From MD-Gastroview] Allergy (Verified 11/10/17 22:34) dipyridamole [From Aggrenox] Allergy (Verified 11/10/17 22:34) erythromycin base [From Erythrocin] Allergy (Verified 11/10/17 22:34) meloxicam Allergy (Verified 11/10/17 22:34) pantoprazole Allergy (Verified 11/10/17 22:34) risedronate sodium [From Actonel] Allergy (Verified 11/10/17 22:34) sulfamethoxazole [From Bactrim] Allergy (Verified 11/10/17 22:34) ticlopidine Allergy (Verified 11/10/17 22:34) tobramycin Allergy (Verified 11/10/17 22:34) trimethoprim [From Bactrim] Allergy (Verified 11/10/17 22:34) IVC dye Allergy (Uncoded 07/16/17 01:52) Past Medical History - General Information source: Relative - Social History Smoking Status: Unknown if Ever Smoked Family History: Reviewed & Not Pertinent Patient has suicidal ideation: No Patient has homicidal ideation: No - Past Medical History Cardiac Medical History: Reports: Hx Congestive Heart Failure, Hx DVT, Hx Heart Attack, Hx Hypercholesterolemia, Hx Hypertension Neurological Medical History: Reports: Hx Cerebrovascular Accident. Denies: Hx Seizures Renal/ Medical History: Denies: Hx Peritoneal Dialysis Musculoskeletal Medical History: Reports Hx Arthritis Psychiatric Medical History: Reports: Hx Anxiety, Hx Dementia Denies: Hx Depression Past Surgical History: Reports: Hx Cardiac Catheterization, Hx Cardiac Surgery, Other <SARAH TA M - Last Filed: 01/02/19 18:12> Review of Systems - Review of Systems Constitutional: See HPI EENT: No symptoms reported Cardiovascular: See HPI Respiratory: No symptoms reported Gastrointestinal: See HPI Genitourinary: See HPI Female Genitourinary: No symptoms reported Musculoskeletal: No symptoms reported Skin: No symptoms reported Neurological/Psychological: No symptoms reported <SARAH TA M - Last Filed: 01/02/19 18:12> Physical Exam <SARAH TA M - Last Filed: 01/02/19 18:12> - Vital signs Vitals: Pulse Ox 96 01/02/19 16:38 - Notes Notes: This is a pleasant 83-year-old female who appears her stated age in no acute distress. She is frail, lying in the bed. She has large frontal hematoma on t he right, appears to be old. She has extensive healing ecchymosis noted to the posterior occiput and down the right aspect of the neck. Again this appears to be old. Pupils are equal round, reactive to light. Oral mucosa is moist. Uvula is midline. Heart is regular rate and rhythm, lungs are clear to oscillation bilaterally. Abdomen is soft, nontender, normoactive bowel sounds. Extremities without cyanosis clubbing. Skin is warm and dry. Patient is awake and alert. She is disoriented to place and time, oriented to person. She has no gross facial asymmetry. She moves all 4 extremities spontaneously. (SARAH TA) Course - Diagnostic Test Radiology reviewed: Reports reviewed <SARAH TA - Last Filed: 01/02/19 18:12> - Laboratory Result Diagrams: 01/02/19 17:59 01/02/19 17:59 <DIPTI AGUILAR - Last Filed: 01/02/19 20:41> - Re-evaluation Re-evalutation: 01/02/19 17:42 Patient presents emergency department for evaluation. She was initially seen, placed on a svp monetization, laboratory investigations and imaging is ordered. Patient is currently stable, will continue to monitor. 01/02/19 18:[address] scan of the head as well as the cervical spine came back as showing no acute process or fracture. Patient "looks better" per the son. I did go and evaluate her again. She remained stable. Her blood pressures in the 120s. I explained to the patient that the expanding ecchymosis was not as a result of continued bleeding but in fact gravity removing old blood. He voiced understanding. Blood work is pending. Urinalysis is pending. Care of this patient was turned over to Dr. Saulo Aguilar, please see his note further remainder of this patient's course and disposition. (SARAH TA) 01/02/19 20:40 Patient was seen and examined, follow-up on imaging and blood work, lower demonstrated mild acute kidney injury, was given small IV fluid bolus, blood pressure was remaining stable, patient was somnolent, not her usual self according to her son, discussed with him at length, he seemed very concerned that she may have had a stroke, I discussed this case with the patient's primary care physician Dr. Denise, he agreed to admit the patient, and obtain MRI and MRAs, patient's son was agreeable with this plan of care, will admit the patient for further evaluation and treatment. (DIPTI AGUILAR) - Vital Signs Vital signs: Temp Pulse Resp BP Pulse Ox 97.8 F 21 H 132/68 H 97 01/02/19 17:06 01/02/19 19:01 01/02/19 19:01 01/02/19 19:01 - Laboratory Laboratory results interpreted by me: 01/02/19 01/02/19 01/02/19 17:59 17:59 18:28 Hgb 11.2 L Hct 34.9 L MCV 68 L MCH 21.9 L RDW 19.1 H Lymphocytes % 9.7 L Sodium 135.6 L BUN 24 H Creatinine 1.30 H Est GFR ( Amer) 47 L Est GFR (Non-Af Amer) 39 L Glucose 126 H Urine Protein 100 H Urine Ketones TRACE H Urine Urobilinogen 4.0 H - Diagnostic Test Radiology results interpreted by me: 01/02/19 18:[address] 01/02/19 16:58 IMPRESSION: No acute findings. Head CT 01/02/19 16:58 IMPRESSION: CHRONIC CHANGES OF ATROPHY AND MICROVASCULAR ISCHEMIA. NO ACUTE PROCESS. EVIDENCE OF ACUTE STROKE: NO. (SARAH TA) - EKG Interpretation by Me Additional EKG results interpreted by me: 01/02/19 17:43 Sinus mechanism with a rate of 69 bpm. PVC noted. Left axis deviation. Nonspecific ST changes, but no acute changes concerning for ischemia or infarction. No significant change compared to prior study. (SARAH TA) Discharge <SARAH TA - Last Filed: 01/02/19 18:12> - Discharge Admitting Provider: Howie Unit Admitted: [facility] <DIPTI AGUILAR - Last Filed: 01/02/19 20:41> - Discharge Clinical Impression: Encephalopathy acute Syncope Qualifiers: Syncope type: unspecified Qualified Code(s): R55 - Syncope and collapse Condition: Stable Disposition: ADMITTED INPATIENT Referrals: HELEN DENISE MD [Primary Care Provider] - Follow up as needed
--- NOTE | 2019-01-02 17:47 | RADIOLOGY REPORT (SQ) ---
EXAM DESCRIPTION: CT HEAD WITHOUT COMPLETED DATE/TIME: 01/02/2019 5:32 pm REASON FOR STUDY: fall, syncope COMPARISON: 12/25/2018 TECHNIQUE: Axial images acquired through the brain without intravenous contrast. Images reviewed wi th bone, brain and subdural windows. Images stored on PACS. All CT scanners at this facility use dose modulation, iterative reconstruction, and/or weight based d osing when appropriate to reduce radiation dose to as low as reasonably achievable (ALARA). [facility]: Dose Right [facility]: CareDose [facility]: Dose Right [facility]: Teradose 4D [facility]: Smart [employer] RADIATION DOSE: CT Rad equipment meets quality standard of care and radiation dose reduction techniq ues were employed. CTDIvol: 48.6 mGy. DLP: 905 mGy-cm.mGy. LIMITATIONS: None. FINDINGS: VENTRICLES: Prominent. CEREBRUM: No masses. No hemorrhage. No midline shift. Areas of low density in the white matter mos t likely due to chronic micro-vascular ischemic change. No evidence for acute infarction. CEREBELLUM: No masses. No hemorrhage. No alteration of density. No evidence for acute infarction. EXTRAAXIAL SPACES: Age-related involutional change. No fluid collections. No masses. ORBITS AND GLOBE: No intra- or extraconal masses. Normal contour of globe without masses. CALVARIUM: No fracture. PARANASAL SINUSES: No fluid or mucosal thickening. SOFT TISSUES: No mass or hematoma. OTHER: No other significant finding. IMPRESSION: CHRONIC CHANGES OF ATROPHY AND MICROVASCULAR ISCHEMIA. NO ACUTE PROCESS. EVIDENCE OF ACUTE STROKE: NO. TECHNICAL DOCUMENTATION: JOB ID: [id number] Quality ID # 436: Final reports with documentation of one or more dose reduction techniques (e.g., Au tomated exposure control, adjustment of the mA and/or kV according to patient size, use of iterative reconstruction technique) 2010 [employer]- All Rights Reserved Reading location - IP/workstation name: [email or web address]
--- NOTE | 2019-01-02 17:50 | RADIOLOGY REPORT (SQ) ---
EXAM DESCRIPTION: CT CERVICAL SPINE WITHOUT COMPLETED DATE/TIME: 01/02/2019 5:33 pm REASON FOR STUDY: fall, syncope COMPARISON: None. TECHNIQUE: Axial images acquired through the cervical spine without intravenous contrast. Images re viewed with lung, soft tissue and bone windows. Reconstructed coronal and sagittal MPR images review ed. Images stored on PACS. All CT scanners at this facility use dose modulation, iterative reconstruction, and/or weight based d osing when appropriate to reduce radiation dose to as low as reasonably achievable (ALARA). [facility]: Dose Right [facility]: CareDose [facility]: Dose Right [facility]: Teradose 4D [facility]: Smart [employer] RADIATION DOSE: CT Rad equipment meets quality standard of care and radiation dose reduction techniq ues were employed. CTDIvol: 13.4 mGy. DLP: 263 mGy-cm. mGy. LIMITATIONS: None. FINDINGS: ALIGNMENT: Anatomic. MINERALIZATION: Osteopenia. VERTEBRAL BODIES: No fractures or dislocation. DISCS: Disc space narrowing and osteophyte formation C4-5 and C5-6. FACETS, LATERAL MASSES, POSTERIOR ELEMENTS: No fractures. No dislocation. No acute findings. HARDWARE: None in the spine. VISUALIZED RIBS: No fractures. LUNG APICES AND SOFT TISSUES: No significant or acute findings. OTHER: No other significant finding. IMPRESSION: No acute findings. TECHNICAL DOCUMENTATION: JOB ID: [id number] Quality ID # [id number]: Final reports with documentation of one or more dose reduction techniques (e.g., Au tomated exposure control, adjustment of the mA and/or kV according to patient size, use of iterative reconstruction technique) 2010 [employer]- All Rights Reserved Reading location - IP/workstation name: [email or web address]
[2019-01-02 18:34] LABS: ABSOLUTE EOSINOPHILS # (AUTO) 0.4 10^3/uL (0.0-0.6); ABSOLUTE LYMPHOCYTES (AUTO) 0.9 10^3/uL (0.5-4.7); BASOPHILS % (AUTO) 0.4 % (0-2); EOSINOPHILS % (AUTO) 3.9 % (0-6); HEMATOCRIT 34.9 % (36.0-47.0); HEMOGLOBIN 11.2 g/dL (12.0-15.5); LYMPHOCYTES % (AUTO) 9.7 % (13-45); MEAN CORPUSCULAR HEMOGLOBIN 21.9 pg (27.0-33.4); MEAN CORPUSCULAR HGB CONC 32.2 g/dL (32.0-36.0); MEAN CORPUSCULAR VOLUME 68 fl (80-97); MONOCYTES % (AUTO) 10.9 % (3-13); PLATELET COUNT 225 10^3/uL (150-450); RED BLOOD COUNT 5.13 10^6/uL (3.72-5.28); RED CELL DISTRIBUTION WIDTH 19.1 % (11.5-14.0); SEGMENTED NEUTROPHILS % (AUTO) 75.1 % (42-78); TOTAL CELLS COUNTED % (AUTO) 100 %; WHITE BLOOD COUNT 9.3 10^3/uL (4.0-10.5)
[2019-01-02 18:51] LABS: ALBUMIN 4.1 g/dL (3.5-5.0); ALKALINE PHOSPHATASE 97 U/L (38-126); ANION GAP 12 (5-19); ASPARTATE AMINO TRANSFERASE 24 U/L (14-36); BILIRUBIN,DIRECT 0.2 mg/dL (0.0-0.4); BILIRUBIN,TOTAL 0.5 mg/dL (0.2-1.3); BLOOD UREA NITROGEN 24 mg/dL (7-20); CALCIUM 9.5 mg/dL (8.4-10.2); CARBON DIOXIDE 25 mmol/L (22-30); CHLORIDE 99 mmol/L (98-107); CREATINE KINASE 30 U/L (30-135); GLUCOSE 126 mg/dL (75-110); TOTAL PROTEIN 6.8 g/dL (6.3-8.2)
[2019-01-02 18:53] LABS: APPEARANCE,URINE SLIGHTLY-CLOUDY; BILIRUBIN,URINE NEGATIVE (NEGATIVE); COLOR,URINE AMBER; GLUCOSE, URINE NEGATIVE (NEGATIVE); KETONES,URINE TRACE mg/dL (NEGATIVE); LEUKOCYTE ESTERASE,URINE NEGATIVE (NEGATIVE); NITRITE,URINE NEGATIVE (NEGATIVE); PROTEIN,URINE 100 mg/dL (NEGATIVE); URINE SPECIFIC GRAVITY 1.021
[2019-01-02 18:59] LABS: INTERNATIONAL RATION (INR) 1.08
[2019-01-02 19:01] LABS: CREATINE KINASE MB 0.59 ng/mL (<4.55); TROPONIN I < 0.012 ng/mL
[2019-01-02] MEDS ORDERED: NORMAL SALINE 250 ML IV ONE (19:13)
--- NOTE | 2019-01-02 19:57 | EKG REPORT ---
SEVERITY:- ABNORMAL ECG - SINUS RHYTHM VENTRICULAR PREMATURE COMPLEX PROBABLE INFERIOR INFARCT, AGE INDETERMINATE : Confirmed by: Tami Radford MD 02-Jan-2019 19:56:33
[2019-01-02] MEDS ORDERED: ACETAMINOPHEN 650 MG SUPP.RECT PR PRN (20:40)
[2019-01-02] MEDS ORDERED: 1/2 NORMAL SALINE 1,000 ML IV PRN (20:40)
[2019-01-02] MEDS ORDERED: ENOXAPARIN SODIUM INJ 30 MG/0.3 ML DISP.SYRIN SUBCUT SCH (21:00)
[2019-01-02 21:25] VITALS: BP 156/78
[2019-01-02 21:53] LABS: CREATINE KINASE MB 0.53 ng/mL (<4.55)
[2019-01-02 21:58] LABS: TROPONIN I < 0.012 ng/mL
--- NOTE | 2019-01-02 23:33 | RADIOLOGY REPORT (SQ) ---
EXAM DESCRIPTION: MR BRAIN ANGIOGRAPHY WITHOUT IV CONTRAST COMPLETED DATE/TME: 01/02/2019 20:38 CLINICAL HISTORY: 83 years, Female, slurred speech, altered mental status COMPARISON: None. TECHNIQUE: 359 Images stored on PACS. LIMITATIONS: None. FINDINGS: The vertebral basilar system is unremarkable. The petrous portions of the internal carotid arteries appear widely patent bilaterally. At least moderate atheromatous changes to the cavernous and supraclinoid internal carotid arteries bilaterally, becoming more severe on the left. In addition, there is a focal area of outpouching in the region of the anterior communicating artery consistent with aneurysm. This measures approximately 3.9 mm x 4.4 mm x 2.9 mm. No other evidence for aneurysm or arteriovenous malformation. IMPRESSION: Moderate to severe atheromatous changes resulting in narrowing of the cavernous and supraclinoid internal carotid arteries bilaterally, appearing slightly more pronounced on the left. 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 copyright 2010 [employer]- All Rights Reserved
--- NOTE | 2019-01-02 23:39 | RADIOLOGY REPORT (SQ) ---
EXAM DESCRIPTION: [employer]Lex: MR BRAIN WITHOUT IV CONTRAST CLINICAL HISTORY: 83 years Female; slurred speech, altered mental status TECHNIQUE: Routine noncontrast MRI brain protocol COMPARISON: CT head 01/02/2019 FINDINGS: No diffusion restriction. Moderately severe diffuse cerebral atrophy is noted. There are extensive T2 signal changes in the cerebral white matter, nonspecific but typical for severe chronic small vessel disease. Multiple focal infarcts are noted in the basal ganglia bilaterally. No acute edema or mass effect. No hemosiderin deposition. Both globes are aphakic. Calvarial marrow is normal. Paranasal sinuses and mastoid air cells are clear. Normal flow-voids are seen in the major intracranial arteries. IMPRESSION: 1. No acute infarct or mass effect 2. Severe chronic ischemic changes with atrophy and bilateral basal ganglia infarcts.
--- NOTE | 2019-01-03 08:56 | PDOC H&P ---
History of Present Illness Admission Date/PCP: 01/02/19 20:44 HELEN LOPEZ MD Patient complains of: Syncopal episode History of Present Illness: KEVAN SEAY is a 83 year old female This 83-year-old female with a history of the dementia history of the hyper tension hyperlipidemia history of the cerebrovascular accident history of the brain aneurysms and multiple comorbidity brought to the emergency department by the son and according to the son patient was not responding and not feeling well and he worry about any strokes Patient is currently taking the Xarelto due to the history of DVT and with ongoing chronic vascular changes with multiple plaque formation of the carotid In the emergency department patient initial blood work and a CT of the head was negative Patient's when I saw it alert awake answering my questions have some difficulty for the communication as usual because of the language barrier but son is pretty much all communicate Patient underwent for MRI and MRA of the head which did not show any acute strokes but chronic vascular changes and also brain aneurysm which patient evaluated with the neurology and vascular surgery in the past and not operable Patient's at this point doing well and his sons pretty much wants to go home because according to the son patients does not do very well in the hospital in patients at this point discussed with the son that patients is already on a maximum medications already and his Xarelto and aspirin and also increase the statin dose drip to 40 mg Son understand very well about not staying in the hospital with the multiple comorbidity but according to the sons patient is currently doing well and she can do better at home and patients is DNR/DNI and because of the family situations with his father he wants to take the mother homes Past Medical History Cardiac Medical History: Reports: Congestive Heart Failure, DVT, Myocardial Infarction, Hyperlipidema, Hypertension Neurological Medical History: Reports: Ischemic CVA Denies: Seizures Renal/ Medical History: Reports: Chronic Kidney Disease Musculoskeltal Medical History: Reports: Arthritis Psychiatric Medical History: Reports: Dementia Denies: Depression Past Surgical History Past Surgical History: Reports: Cardiac Catheterization, Other Social History Information Source: Relative Smoking Status: Unknown if Ever Smoked Frequency of Alcohol Use: None Hx Recreational Drug Use: No Drugs: None Hx Prescription Drug Abuse: No Family History Family History: Reviewed & Not Pertinent Parental Family History Reviewed: Yes Children Family History Reviewed: Yes Sibling(s) Family History Reviewed.: Yes Medication/Allergy Home Medications: Atorvastatin Calcium [Lipitor 20 mg Tablet] 20 mg PO QHS 03/30/18 Carvedilol [Coreg 3.125 mg Tablet] 3.125 mg PO BIDP PRN 03/30/18 Levothyroxine Sodium [Synthroid 0.1 mg Tablet] 0.1 mg PO Q6AM 03/30/18 Prednisone [Deltasone 5 mg Tablet] 2.5 mg PO Q2D 03/30/18 Amlodipine Besylate [Norvasc 5 mg Tablet] 5 mg PO DAILY 01/02/19 Rivaroxaban [Xarelto] 20 mg PO DAILY 01/02/19 Valsartan 80 mg PO Q12 01/02/19 Allergies/Adverse Reactions: clindamycin Allergy (Verified 11/10/17 22:34) clopidogrel [From Plavix] Allergy (Verified 11/10/17 22:34) diatrizoate meglumine [From SHERYLGastroview] Allergy (Verified 11/10/17 22:34) diatrizoate sodium [From Gastroview] Allergy (Verified 11/10/17 22:34) dipyridamole [From Aggrenox] Allergy (Verified 11/10/17 22:34) erythromycin base [From Erythrocin] Allergy (Verified 11/10/17 22:34) meloxicam Allergy (Verified 11/10/17 22:34) pantoprazole Allergy (Verified 11/10/17 22:34) risedronate sodium [From Actonel] Allergy (Verified 11/10/17 22:34) sulfamethoxazole [From Bactrim] Allergy (Verified 11/10/17 22:34) ticlopidine Allergy (Verified 11/10/17 22:34) tobramycin Allergy (Verified 11/10/17 22:34) trimethoprim [From Bactrim] Allergy (Verified 11/10/17 22:34) IVC dye Allergy (Uncoded 07/16/17 01:52) Review of Systems ROS unobtainable: Due to mental status All systems: reviewed and no additional remarkable complaints except as stated Physical Exam Vital Signs: Temp Pulse Resp BP Pulse Ox 97.8 F 16 156/78 H 98 01/02/19 17:06 01/02/19 21:01 01/02/19 21:01 01/02/19 21:01 Intake & Output 01/02/19 01/03/19 01/04/19 06:59 06:59 06:59 Intake Total 250 Balance 250 Weight 56 kg General appearance: PRESENT: no acute distress, well-developed, well-nourished Head exam: PRESENT: atraumatic, normocephalic Eye exam: PRESENT: conjunctiva pink, EOMI, PERRLA. ABSENT: scleral icterus Ear exam: PRESENT: normal external ear exam Mouth exam: PRESENT: moist, tongue midline Neck exam: PRESENT: full ROM. ABSENT: carotid bruit, JVD, lymphadenopathy, thyromegaly Respiratory exam: PRESENT: clear to auscultation nikolas Cardiovascular exam: PRESENT: RRR. ABSENT: diastolic murmur, rubs, systolic murmur Pulses: PRESENT: normal dorsalis pedis pul, +2 pedal pulses bilateral Vascular exam: PRESENT: normal capillary refill GI/Abdominal exam: PRESENT: normal bowel sounds, soft. ABSENT: distended, guarding, mass, organolmegaly, rebound, tenderness Rectal exam: PRESENT: deferred Neurological exam: PRESENT: alert, awake, oriented to person, oriented to place, reflexes normal, CN II-XII grossly intact. ABSENT: motor sensory deficit Psychiatric exam: PRESENT: appropriate affect, normal mood. ABSENT: homicidal ideation, suicidal ideation Skin exam: PRESENT: dry, intact, warm. ABSENT: cyanosis, rash Results Laboratory Results: 01/02/19 17:59 01/02/19 17:59 01/02/19 01/02/19 01/02/19 17:59 17:59 18:28 WBC 9.3 RBC 5.13 Hgb 11.2 L Hct 34.9 L MCV 68 L MCH 21.9 L MCHC 32.2 RDW 19.1 H Plt Count 225 Seg Neutrophils % 75.1 Lymphocytes % 9.7 L Monocytes % 10.9 Eosinophils % 3.9 Basophils % 0.4 Absolute Neutrophils 7.0 Absolute Lymphocytes 0.9 Absolute Monocytes 1.0 Absolute Eosinophils 0.4 Absolute Basophils 0.0 Sodium 135.6 L Potassium 4.0 Chloride 99 Carbon Dioxide 25 Anion Gap 12 BUN 24 H Creatinine 1.30 H Est GFR ( Amer) 47 L Est GFR (Non-Af Amer) 39 L Glucose 126 H Calcium 9.5 Total Bilirubin 0.5 AST 24 Alkaline Phosphatase 97 Total Protein 6.8 Albumin 4.1 Urine Color RANJANA Urine Appearance SLIGHTLY-CLOUDY Urine pH 6.0 Ur Specific [place] 1.021 Urine Protein 100 H Urine Glucose (UA) NEGATIVE Urine Ketones TRACE H Urine Blood NEGATIVE Urine Nitrite NEGATIVE Ur Leukocyte Esterase NEGATIVE Urine WBC (Auto) 4 Urine RBC (Auto) 1 01/02/19 01/02/19 01/02/19 17:59 17:59 21:10 Creatine Kinase 30 30 CK-MB (CK-2) 0.59 Troponin I < 0.012 01/02/19 21:10 Creatine Kinase CK-MB (CK-2) 0.53 Troponin I < 0.012 Impressions: Cervical Spine CT 01/02/19 16:58 IMPRESSION: No acute findings. Head CT 01/02/19 16:58 IMPRESSION: CHRONIC CHANGES OF ATROPHY AND MICROVASCULAR ISCHEMIA. NO ACUTE PROCESS. EVIDENCE OF ACUTE STROKE: NO. Brain MRI with MRA 01/02/19 20:38 IMPRESSION: Moderate to severe atheromatous changes resulting in narrowing of the cavernous and supraclinoid internal carotid arteries bilaterally, appearing slightly more pronounced on the left. 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 copyright 2010 [employer]- All Rights Reserved Head MRI 01/02/19 20:38 IMPRESSION: 1. No acute infarct or mass effect 2. Severe chronic ischemic changes with atrophy and bilateral basal ganglia infarcts. Assessment & Plan - Diagnosis (1) Transient ischemic attack Is this a current diagnosis for this admission?: Yes Plan: Admit the patient in IMCU put on a stroke protocol Continues to xeralto to increase his statin to 40 mg (2) CAD (coronary artery disease) Qualifiers: Coronary Disease-Associated Artery/Lesion type: [place] artery Is this a current diagnosis for this admission?: Yes Plan: Patient's initial EKG and cardiac enzyme is all negative currently denied any chest pain (3) Deep venous thrombosis Qualifiers: DVT location: lower extremity Is this a current diagnosis for this admission?: Yes Plan: Currently on Xarelto (4) Gastroesophageal reflux Qualifiers: Esophagitis presence: without esophagitis Qualified Code(s): K21.9 - Gastro-esophageal reflux disease without esophagitis Is this a current diagnosis for this admission?: Yes Plan: Currently all stable (5) History of cerebrovascular accident Is this a current diagnosis for this admission?: Yes (6) Hypertension Qualifiers: Hypertension type: essential hypertension Is this a current diagnosis for this admission?: Yes (7) Hypothyroidism Qualifiers: Hypothyroidism type: unspecified Is this a current diagnosis for this admission?: Yes (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) Is this a current diagnosis for this admission?: Yes Plan: Patient's sodium level is also stable currently with fluid restrictions (9) Syncope Qualifiers: Syncope type: unspecified Qualified Code(s): R55 - Syncope and collapse Is this a current diagnosis for this admission?: Yes Plan: Multiple etiology patient is currently stable (10) Vascular dementia Qualifiers: Dementia behavioral disturbance: with behavioral disturbance Is this a current diagnosis for this admission?: Yes Plan: Worsening the dementia's patients follow outpatients neurology (11) Brain aneurysm Is this a current diagnosis for this admission?: Yes Plan: Patient was evaluated by the neurology and neurosurgery in the past and suggest no interventions continues to monitor follow outpatients neurology discussed with the son - Time Time Spent: 50 to 70 Minutes Medications reviewed and adjusted accordingly: Yes Anticipated discharge: Home Within: Other - Inpatient Certification Based on my medical assessment, after consideration of the patient's comorbidities, presenting symptoms, or acuity I expect that the services needed warrant INPATIENT care.: Yes I certify that my determination is in accordance with my understanding of Medicare's requirements for reasonable and necessary INPATIENT services [42 CFR 412.3e].: Yes Medical Necessity: Significant Comorbidiites Make Outpatient Treatment Too Risky, Need Close Monitoring Due to Risk of Patient Decompensation, Need for N eurological Checks Post Hospital Care: D/C [employer] Lead Documentation - Plan Summary Plan Summary: Very extensive discussions myself in the emergency department and ER physicians regarding the patient's current conditions with the patient's son Patient sounds pretty much not willing to continues to be stay in the hospital and he preferred to go to the home because his mother have issue with the dementia and getting more worse in the hospital and patient will follow outpatient Son also do not want to go to the rehab facility because he preferred to stay his parents at home's Son also expressed that the patient is a DNR/DNI
--- NOTE | 2019-01-03 09:04 | PDOC DISCHARGE SUMMARY ---
General - Admit/Disc Date/PCP Admission Date/Primary Care Provider: 01/02/19 20:44 HELEN LOPEZ MD Discharge Date: 01/03/19 - Discharge Diagnosis (1) Transient ischemic attack Is this a current diagnosis for this admission?: Yes (2) CAD (coronary artery disease) Is this a current diagnosis for this admission?: Yes (3) Deep venous thrombosis Is this a current diagnosis for this admission?: Yes (4) Gastroesophageal reflux Is this a current diagnosis for this admission?: Yes (5) History of cerebrovascular accident Is this a current diagnosis for this admission?: Yes (6) Hypertension Is this a current diagnosis for this admission?: Yes (7) Hypothyroidism Is this a current diagnosis for this admission?: Yes (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) Is this a current diagnosis for this admission?: Yes (9) Syncope Is this a current diagnosis for this admission?: Yes (10) Vascular dementia Is this a current diagnosis for this admission?: Yes (11) Brain aneurysm Is this a current diagnosis for this admission?: Yes - Additional Information Home Medications: Atorvastatin Calcium [Lipitor 20 mg Tablet] 20 mg PO QHS 03/30/18 Carvedilol [Coreg 3.125 mg Tablet] 3.125 mg PO BIDP PRN 03/30/18 Levothyroxine Sodium [Synthroid 0.1 mg Tablet] 0.1 mg PO Q6AM 03/30/18 Prednisone [Deltasone 5 mg Tablet] 2.5 mg PO Q2D 03/30/18 Amlodipine Besylate [Norvasc 5 mg Tablet] 5 mg PO DAILY 01/02/19 Rivaroxaban [Xarelto] 20 mg PO DAILY 01/02/19 Valsartan 80 mg PO Q12 01/02/19 History of Present Illness History of Present Illness: KEVAN SEAY is a 83 year old female This 83-year-old female with a history of the dementia history of the hypertension hyperlipidemia history of the cerebrovascular accident history of the brain aneurysms and multiple comorbidity brought to the emergency department by the son and according to the son patient was not responding and not feeling well and he worry about any strokes Patient is currently taking the Xarelto due to the history of DVT and with ongoing chronic vascular changes with multiple plaque formation of the carotid In the emergency department patient initial blood work and a CT of the head was negative Patient's when I saw it alert awake answering my questions have some difficulty for the communication as usual because of the language barrier but son is pretty much all communicate Patient underwent for MRI and MRA of the head which did not show any acute strokes but chronic vascular changes and also brain aneurysm which patient evaluated with the neurology and vascular surgery in the past and not operable Patient's at this point doing well and his sons pretty much wants to go home because according to the son patients does not do very well in the hospital in patients at this point discussed with the son that patients is already on a maximum medications already and his Xarelto and aspirin and also increase the statin dose drip to 40 mg Son understand very well about not staying in the hospital with the multiple comorbidity but according to the sons patient is currently doing well and she can do better at home and patients is DNR/DNI and because of the family situations with his father he wants to take the mother homes Hospital Course Hospital Course: This is a 83-year-old female as above presented in the emergency departments with the possible TIA patient had underwent for the MRI and MRA of the head which shows no acute strokes Patient's other blood work is all stable Patient initially admitting in the IMCU but patient's sons wants to take at home because her sons prefer to mother to be stay home because the hospital she get more agitated and behavior issues Patient is already on Xarelto aspirin and increase the statin Patient with significant vascular disease significant dementiaAnd multiple neurological issues and patient is seen by the several specialties and even the patient seen and admitting in the dant According to the sons nothing they can fix it At this point I think patients probably okay to go home but again discussed with the son possible TIA and multiple other comorbidity patient always elects to develop a more further stroke and catastrophic events Understand very well I discussed myself this morning again call the son patient is currently doing well At home Again discussed about to follow outpatients neurology increase the dose of the statin Physical Exam Vital Signs: Temp Pulse Resp BP Pulse Ox 97.8 F 16 156/78 H 98 01/02/19 17:06 01/02/19 21:01 01/02/19 21:01 01/02/19 21:01 Intake & Output 01/02/19 01/03/19 01/04/19 06:59 06:59 06:59 Intake Total 250 Balance 250 Weight 56 kg General appearance: PRESENT: no acute distress Eye exam: PRESENT: PERRLA Mouth exam: PRESENT: neck supple Respiratory exam: PRESENT: clear to auscultation nikolas Cardiovascular exam: PRESENT: +S1, +S2 Neurological exam: PRESENT: alert, awake, oriented to person Skin exam: PRESENT: dry Results Laboratory Results: 01/02/19 17:59 01/02/19 17:59 01/02/19 01/02/19 01/02/19 17:59 17:59 18:28 WBC 9.3 RBC 5.13 Hgb 11.2 L Hct 34.9 L MCV 68 L MCH 21.9 L MCHC 32.2 RDW 19.1 H Plt Count 225 Seg Neutrophils % 75.1 Lymphocytes % 9.7 L Monocytes % 10.9 Eosinophils % 3.9 Basophils % 0.4 Absolute Neutrophils 7.0 Absolute Lymphocytes 0.9 Absolute Monocytes 1.0 Absolute Eosinophils 0.4 Absolute Basophils 0.0 Sodium 135.6 L Potassium 4.0 Chloride 99 Carbon Dioxide 25 Anion Gap 12 BUN 24 H Creatinine 1.30 H Est GFR ( Amer) 47 L Est GFR (Non-Af Amer) 39 L Glucose 126 H Calcium 9.5 Total Bilirubin 0.5 AST 24 Alkaline Phosphatase 97 Total Protein 6.8 Albumin 4.1 Urine Color RANJANA Urine Appearance SLIGHTLY-CLOUDY Urine pH 6.0 Ur Specific [place] 1.021 Urine Protein 100 H Urine Glucose (UA) NEGATIVE Urine Ketones TRACE H Urine Blood NEGATIVE Urine Nitrite NEGATIVE Ur Leukocyte Esterase NEGATIVE Urine WBC (Auto) 4 Urine RBC (Auto) 1 01/02/19 01/02/19 01/02/19 17:59 17:59 21:10 Creatine Kinase 30 30 CK-MB (CK-2) 0.59 Troponin I < 0.012 01/02/19 21:10 Creatine Kinase CK-MB (CK-2) 0.53 Troponin I < 0.012 Impressions: Cervical Spine CT 01/02/19 16:58 IMPRESSION: No acute findings. Head CT 01/02/19 16:58 IMPRESSION: CHRONIC CHANGES OF ATROPHY AND MICROVASCULAR ISCHEMIA. NO ACUTE PROCESS. EVIDENCE OF ACUTE STROKE: NO. Brain MRI with MRA 01/02/19 20:38 IMPRESSION: Moderate to severe atheromatous changes resulting in narrowing of the cavernous and supraclinoid internal carotid arteries bilaterally, appearing slightly more pronounced on the left. 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 copyright 2011 [employer]- All Rights Reserved Head MRI 01/02/19 20:38 IMPRESSION: 1. No acute infarct or mass effect 2. Severe chronic ischemic changes with atrophy and bilateral basal ganglia infarcts. Qualifiers - * PATIENT BEING DISCHARGED WITH ANY OF THE FOLLOWING DIAGNOSIS: No Acute Heart Failure - Is this a Heart Failure Patient?: No Plan Time Spent: Greater than 30 Minutes - Patient's son sticking pretty much against the strong medical advice and I think patient is currently doing well discussed with the patient's son this morning and suggest to continues to strongly follow outpatients neurology
[2019-01-03] MEDS ORDERED: RIVAROXABAN 15 MG TABLET PO SCH (17:00)
== END 2019-01-03 01:17 | disposition left against medical advice (07) | DRG 69 ==
LOC: ER 16:09 → EH 20:44 → 3S 23:49
PROVIDERS: ADMIT Family Medicine; ATTEND Family Medicine
DX: G45.9 Transient cerebral ischemic attack, unspecified (principal); E22.2 Syndrome of inappropriate secretion of antidiuretic hormone; E78.5 Hyperlipidemia, unspecified; K21.9 Gastro-esophageal reflux disease without esophagitis; E03.9 Hypothyroidism, unspecified; R55 Syncope and collapse; I25.2 Old myocardial infarction; I11.0 Hypertensive heart disease with heart failure; F03.90 Unspecified dementia, unspecified severity, without behavioral disturbance, psychotic disturbance, mood disturbance, and anxiety; I50.9 Heart failure, unspecified; I67.1 Cerebral aneurysm, nonruptured; Z66 Do not resuscitate; Z79.02 Long term (current) use of antithrombotics/antiplatelets; Z86.718 Personal history of other venous thrombosis and embolism; Z79.82 Long term (current) use of aspirin; Z86.73 Personal history of transient ischemic attack (TIA), and cerebral infarction without residual deficits; Z88.8 Allergy status to other drugs, medicaments and biological substances; Z91.041 Radiographic dye allergy status; Z88.3 Allergy status to other anti-infective agents
CPT/HCPCS: 36415; 51701; 70450; 70544; 70551; 72125; 80053; 81001; 82550; 82553; 84484; 85025; 85610; 87040; 93005; 93010; 96360; 99285; J7050

== ENCOUNTER 2019-01-12 12:37 | Emergency (ER) | payer MEDICARE, MEDICAID ==
--- NOTE | 2019-01-12 13:22 | ER Document Report ---
ED Medical Screen (RME) - General Chief Complaint: Facial Injury Stated Complaint: POSSIBLE SYNCOPE Time Seen by Provider: 01/12/19 13:06 Primary Care Provider: HELEN LOPEZ MD [Primary Care Provider] - Follow up as needed Mode of Arrival: Wheelchair Information source: Relative - Son Notes: Patient is an 83-year-old female with vascular dementia presenting after a fall last night. Patient's son reports that patient has been falling a lot lately, he states she has extreme dizziness whenever he moves her. He denies any altered mental status and states she is at her baseline. Exam: Ecchymosis noted around left eye and across right forehead. I have greeted and performed a rapid initial assessment of this patient. A comprehensive ED assessment and evaluation of the patient, analysis of test results and completion of the medical decision making process will be conducted by additional ED providers. I have specifically instructed the patient or family members with the patient to immediately return to any nursing staff should anything change in the patient's condition or with their chief complaint. This medical record was dictated with voice recognizing software. There may be grammatical, syntax errors that are unintended. TRAVEL OUTSIDE OF THE [place] IN LAST 30 DAYS: No - Related Data Allergies/Adverse Reactions: clindamycin Allergy (Verified 01/12/19 12:58) clopidogrel [From Plavix] Allergy (Verified 01/12/19 12:58) diatrizoate meglumine [From MD-Gastroview] Allergy (Verified 01/12/19 12:58) diatrizoate sodium [From MD-Gastroview] Allergy (Verified 01/12/19 12:58) dipyridamole [From Aggrenox] Allergy (Verified 01/12/19 12:58) erythromycin base [From Erythrocin] Allergy (Verified 01/12/19 12:58) meloxicam Allergy (Verified 01/12/19 12:58) pantoprazole Allergy (Verified 01/12/19 12:58) risedronate sodium [From Actonel] Allergy (Verified 01/12/19 12:58) sulfamethoxazole [From Bactrim] Allergy (Verified 01/12/19 12:58) ticlopidine Allergy (Verified 01/12/19 12:58) tobramycin Allergy (Verified 01/12/19 12:58) trimethoprim [From Bactrim] Allergy (Verified 01/12/19 12:58) IVC dye Allergy (Uncoded 01/12/19 12:58) Past Medical History - Past Medical History Cardiac Medical History: Reports: Hx Congestive Heart Failure, Hx DVT, Hx Heart Attack, Hx Hypercholesterolemia, Hx Hypertension Neurological Medical History: Reports: Hx Cerebrovascular Accident. Denies: Hx Seizures Renal/ Medical History: Denies: Hx Peritoneal Dialysis Musculoskeltal Medical History: Reports Hx Arthritis Psychiatric Medical History: Reports: Hx Anxiety, Hx Dementia Denies: Hx Depression Past Surgical History: Reports: Hx Cardiac Catheterization, Hx Cardiac Surgery, Other - Immunizations History of Influenza Vaccine for 02/2017 - 07/2017 Season: Yes Physical Exam - Vital signs Vitals: Temp Pulse Resp BP Pulse Ox 97.6 F 72 20 141/69 H 99 01/12/19 13:08 01/12/19 13:08 01/12/19 13:08 01/12/19 13:08 01/12/19 13:08 Course - Vital Signs Vital signs: Temp Pulse Resp BP Pulse Ox 97.6 F 72 20 141/69 H 99 01/12/19 13:08 01/12/19 13:08 01/12/19 13:08 01/12/19 13:08 01/12/19 13:08 Doctor's Discharge - Discharge Referrals: HELEN LOPEZ MD [Primary Care Provider] - Follow up as needed
--- NOTE | 2019-01-12 14:07 | RADIOLOGY REPORT (SQ) ---
EXAM DESCRIPTION: CT HEAD WITHOUT COMPLETED DATE/TIME: 01/12/2019 1:53 pm REASON FOR STUDY: fall, on xarelto COMPARISON: 01/02/2019 TECHNIQUE: Axial images acquired through the brain without intravenous contrast. Images reviewed wi th bone, brain and subdural windows. Additional sagittal and coronal reconstructions were generated. Images stored on PACS. All CT scanners at this facility use dose modulation, iterative reconstruction, and/or weight based d osing when appropriate to reduce radiation dose to as low as reasonably achievable (ALARA). [facility]: Dose Right [facility]: CareDose [facility]: Dose Right [facility]: Teradose 4D [facility]: Smart Cuedd RADIATION DOSE: CT Rad equipment meets quality standard of care and radiation dose reduction techniq ues were employed. CTDIvol: 53.2 mGy. DLP: 1017 mGy-cm. mGy. LIMITATIONS: None. FINDINGS: VENTRICLES: Normal size and contour. CEREBRUM: No masses. No hemorrhage. No midline shift. No evidence for acute infarction. Advanced s mall vessel white matter disease and lacunar infarctions of the bilateral basal ganglia. CEREBELLUM: No masses. No hemorrhage. No alteration of density. No evidence for acute infarction. EXTRAAXIAL SPACES: No fluid collections. No masses. ORBITS AND GLOBE: No intra- or extraconal masses. Normal contour of globe without masses. CALVARIUM: No fracture. PARANASAL SINUSES: No fluid or mucosal thickening. SOFT TISSUES: There is a large scalp/subgaleal hematoma about the cranial vault. OTHER: No other significant finding. IMPRESSION: 1. No acute intracranial pathology. Advanced small vessel white matter disease. 2. There is a large scalp/subgaleal hematoma about the cranial vault. EVIDENCE OF ACUTE STROKE: NO. COMMENT: Quality ID # [id number]: Final reports with documentation of one or more dose reduction techniques (e.g., Automated exposure control, adjustment of the mA and/or kV according to patient size, use of iterative reconstruction technique) TECHNICAL DOCUMENTATION: JOB ID: [id number] [employer]- All Rights Reserved Reading location - IP/workstation name: [email or web address]
--- NOTE | 2019-01-12 14:40 | ER Document Report ---
ED Head/Face/Scalp Injury - General Chief Complaint: Facial Injury Stated Complaint: POSSIBLE SYNCOPE Time Seen by Provider: 01/12/19 13:06 Primary Care Provider: HELEN LOPEZ MD [Primary Care Provider] - Follow up as needed Mode of Arrival: Wheelchair TRAVEL OUTSIDE OF THE [place] IN LAST 30 DAYS: No - HPI Notes: Patient is a 83-year-old female with advanced vascular dementia that presents to the emergency department for chief complaint of head injury. Vision son is providing HPI, patient's dementia is too advanced for her to provide any useful HPI. Son states that she has been having issues with getting lightheaded and having vasovagal episodes with bowel movements. Last night she was sitting on the toilet having a bowel movement when she got lightheaded and fell forward. Patient had the top of her head on the ground. She did not have a full syncopal episode or lose consciousness. Patient appeared at her baseline initially. Son states when she woke up this morning she had bruising to her face which was not there last night. He does not believe she hit her face. Patient has not had any complaints of pain. She is currently on Xarelto. Patient was recently on hospice and then had it revoked to begin taking the Xarelto. Son states that he is likely going to try and get her back into hospice. Past Medical History: Vascular dementia Past Surgical History: Reviewed in chart Social History: Lives at home with son Family History: Reviewed and noncontributory for presenting illness Allergies: Reviewed, see documented allergy list. REVIEW OF SYSTEMS: Unable to obtain because of dementia PHYSICAL EXAMINATION: Vital signs reviewed, nursing noted reviewed. GENERAL: Well-appearing, well-nourished and in no acute distress. HEAD: Nontender hematoma, no cranial tenderness or fluctuance EYES: Bilateral periorbital ecchymosis worse on the left than the right, PERRLA, eyes appear normal, extraocular movements intact, sclera anicteric, conjunctiva are normal. ENT: No nasal bridge tenderness, no nasal septal hematoma, nares patent. No facial bone tenderness or laxity, oropharynx clear without exudates. Moist muc ous membranes. NECK: No midline spinal tenderness or paraspinal tenderness, normal range of motion, supple without lymphadenopathy LUNGS: Breath sounds clear to auscultation bilaterally and equal. No wheezes rales or rhonchi. HEART: Regular rate and rhythm without murmurs ABDOMEN: Soft, nontender, normoactive bowel sounds. No rebound, guarding, or rigidity. No masses appreciated. EXTREMITIES: No long bone deformity or tenderness, pelvis stable, good range of motion, no pitting or edema. NEUROLOGICAL: Alert, GCS 15, moves all extremities spontaneously Motor and sensory grossly intact on exam. PSYCH: Normal mood, normal affect. SKIN: Warm, Dry, normal turgor, facial ecchymosis as described above - Related Data Allergies/Adverse Reactions: clindamycin Allergy (Verified 01/12/19 12:58) clopidogrel [From Plavix] Allergy (Verified 01/12/19 12:58) diatrizoate meglumine [From MD-Gastroview] Allergy (Verified 01/12/19 12:58) diatrizoate sodium [From MD-Gastroview] Allergy (Verified 01/12/19 12:58) dipyridamole [From Aggrenox] Allergy (Verified 01/12/19 12:58) erythromycin base [From Erythrocin] Allergy (Verified 01/12/19 12:58) meloxicam Allergy (Verified 01/12/19 12:58) pantoprazole Allergy (Verified 01/12/19 12:58) risedronate sodium [From Actonel] Allergy (Verified 01/12/19 12:58) sulfamethoxazole [From Bactrim] Allergy (Verified 01/12/19 12:58) ticlopidine Allergy (Verified 01/12/19 12:58) tobramycin Allergy (Verified 01/12/19 12:58) trimethoprim [From Bactrim] Allergy (Verified 01/12/19 12:58) IVC dye Allergy (Uncoded 01/12/19 12:58) Past Medical History - General Information source: Relative - Son - Social History Smoking Status: Never Smoker Family History: Reviewed & Not Pertinent Patient has suicidal ideation: No Patient has homicidal ideation: No - Past Medical History Cardiac Medical History: Reports: Hx Congestive Heart Failure, Hx DVT, Hx Heart Attack, Hx Hypercholesterolemia, Hx Hypertension Neurological Medical History: Reports: Hx Cerebrovascular Accident. Denies: Hx Seizures Renal/ Medical History: Denies: Hx Peritoneal Dialysis Musculoskeletal Medical History: Reports Hx Arthritis Psychiatric Medical History: Reports: Hx Anxiety, Hx Dementia Denies: Hx Depression Past Surgical History: Reports: Hx Cardiac Catheterization, Hx Cardiac Surgery, Other Physical Exam - Vital signs Vitals: Temp Pulse Resp BP Pulse Ox 97.6 F 72 20 141/69 H 99 01/12/19 13:08 01/12/19 13:08 01/12/19 13:08 01/12/19 13:08 01/12/19 13:08 Course - Re-evaluation Re-evalutation: 01/12/19 14:37 Vitals reviewed. Nursing notes reviewed. Patient experienced close head injury last night and has remained at her neurologic baseline for greater than [address] brain shows no intracranial hemorrhage. I am not currently clinically suspicious of intracranial hemorrhage. She has no cervical spine tenderness or pain with range of motion. Her facial ecchymosis is likely secondary to the effects of gravity from her scalp hematoma, she did not have any direct facial trauma or facial tenderness to necessitate further imaging. She has full range of motion of her eyes and no ocular entrapment to suggest orbital fracture either. I have discussed at length the concerns that patient is on Xarelto and has been experiencing increased falls and vasovagal episodes. I encouraged him to talk to Dr. Lopez about getting patient back on hospice and taking her off of the Xarelto for concern of life-threatening intracranial hemorrhage if she falls again. Patient's son states that it is difficult to get the patient into see Dr. Lopez but he does have home health that comes daily and he will continue to pursue her palliative care. Patient is at her baseline currently and stable for discharge. Head CT 01/12/19 13:20 IMPRESSION: 1. No acute intracranial pathology. Advanced small vessel white matter disease. 2. There is a large scalp/subgaleal hematoma about the cranial vault. EVIDENCE OF ACUTE STROKE: NO. - Vital Signs Vital signs: Temp Pulse Resp BP Pulse Ox 97.6 F 72 20 141/69 H 99 01/12/19 13:08 01/12/19 13:08 01/12/19 13:08 01/12/19 13:08 01/12/19 13:08 Discharge - Discharge Clinical Impression: Scalp hematoma Qualifiers: Encounter type: initial encounter Qualified Code(s): S00.03XA - Contusion of scalp, initial encounter Head injury Qualifiers: Encounter type: initial encounter Qualified Code(s): S09.90XA - Unspecified injury of head, initial encounter Facial bruising Qualifiers: Encounter type: initial encounter Qualified Code(s): S00.83XA - Contusion of other part of head, initial encounter Condition: Stable Disposition: HOME, SELF-CARE Instructions: Head Injury Precautions ([facility]), Scalp Hematoma ([facility]) Additional Instructions: Please return to the emergency department if you have any worsening, or concern of your symptoms. Please return to the emergency department if you develop severe headache, vision changes, numbness/weakness, difficulty breathing, severe abdominal pain, or ongoing vomiting. Please follow-up with your primary care physician tomorrow If prescribed, take all medications as directed. If you have any questions or concerns do not hesitate to return the emergency department for evaluation. Referrals: HELEN LOPEZ MD [Primary Care Provider] - Follow up tomorrow
[2019-01-12 14:54] VITALS: BP 126/65
== END 2019-01-12 15:37 | disposition home or self-care (01) ==
LOC: ER 12:37
DX: S00.03XA Contusion of scalp, initial encounter (principal); S00.83XA Contusion of other part of head, initial encounter; F03.90 Unspecified dementia, unspecified severity, without behavioral disturbance, psychotic disturbance, mood disturbance, and anxiety; W18.11XA Fall from or off toilet without subsequent striking against object, initial encounter; Y92.002 Bathroom of unspecified non-institutional (private) residence as the place of occurrence of the external cause; I50.9 Heart failure, unspecified; I11.0 Hypertensive heart disease with heart failure; E78.00 Pure hypercholesterolemia, unspecified; Z79.01 Long term (current) use of anticoagulants; Z88.3 Allergy status to other anti-infective agents; Z86.718 Personal history of other venous thrombosis and embolism; I25.2 Old myocardial infarction; Z86.73 Personal history of transient ischemic attack (TIA), and cerebral infarction without residual deficits
CPT/HCPCS: 70450; 99283

== ENCOUNTER 2019-01-23 04:59 | Emergency (ER) | payer MEDICARE, MEDICAID ==
--- NOTE | 2019-01-23 05:41 | ER Document Report ---
ED Medical Screen (RME) - General Chief Complaint: Facial Injury Stated Complaint: FALL Time Seen by Provider: 01/23/19 05:28 Primary Care Provider: HELEN LOPEZ MD [Primary Care Provider] - Follow up as needed Notes: 83-year-old female comes from home with her son for chief complaint of head injury this morning after a near syncopal episode. Son states that she has had syncopal episodes for a while but now it is almost constant. She is not on a blood thinner. Patient will not speak but she will follow directions. Seen twice recently at [facility] for syncopal episodes and has paperwork with them. Patient with multiple healing facial and lower extremity bruises from recent falls. TRAVEL OUTSIDE OF THE [place] IN LAST 30 DAYS: No - Related Data Allergies/Adverse Reactions: clindamycin Allergy (Verified 01/12/19 12:58) clopidogrel [From Plavix] Allergy (Verified 01/12/19 12:58) diatrizoate meglumine [From SHERYLGastroview] Allergy (Verified 01/12/19 12:58) diatrizoate sodium [From MD-Gastroview] Allergy (Verified 01/12/19 12:58) dipyridamole [From Aggrenox] Allergy (Verified 01/12/19 12:58) erythromycin base [From Erythrocin] Allergy (Verified 01/12/19 12:58) meloxicam Allergy (Verified 01/12/19 12:58) pantoprazole Allergy (Verified 01/12/19 12:58) risedronate sodium [From Actonel] Allergy (Verified 01/12/19 12:58) sulfamethoxazole [From Bactrim] Allergy (Verified 01/12/19 12:58) ticlopidine Allergy (Verified 01/12/19 12:58) tobramycin Allergy (Verified 01/12/19 12:58) trimethoprim [From Bactrim] Allergy (Verified 01/12/19 12:58) IVC dye Allergy (Uncoded 01/12/19 12:58) Past Medical History - Past Medical History Cardiac Medical History: Reports: Hx Congestive Heart Failure, Hx DVT, Hx Heart Attack, Hx Hypercholesterolemia, Hx Hypertension Neurological Medical History: Reports: Hx Cerebrovascular Accident. Denies: Hx Seizures Renal/ Medical History: Denies: Hx Peritoneal Dialysis Musculoskeltal Medical History: Reports Hx Arthritis Psychiatric Medical History: Reports: Hx Anxiety, Hx Dementia Denies: Hx Depression Past Surgical History: Reports: Hx Cardiac Catheterization, Hx Cardiac Surgery, Other - Immunizations History of Influenza Vaccine for 02/2017 - 07/2017 Season: Yes Physical Exam - Vital signs Vitals: Temp Pulse Resp BP Pulse Ox 98.4 F 71 16 158/62 H 98 01/23/19 05:07 01/23/19 05:07 01/23/19 05:07 01/23/19 05:07 01/23/19 05:07 - HEENT Head: No: Atraumatic - Multiple healing bruises over the face, there appears to be a new hematoma over the right upper forehead area - Respiratory Respiratory status: No respiratory distress Chest status: No: Tender Breath sounds: Normal Course - Re-evaluation Re-evalutation: I have greeted and performed a rapid initial assessment of this patient. A comprehensive ED assessment and evaluation of the patient, analysis of test results and completion of the medical decision making process will be conducted by additional ED providers. - Vital Signs Vital signs: Temp Pulse Resp BP Pulse Ox 98.4 F 71 16 158/62 H 98 01/23/19 05:07 01/23/19 05:07 01/23/19 05:07 01/23/19 05:07 01/23/19 05:07 Doctor's Discharge - Discharge Referrals: HELEN LOPEZ MD [Primary Care Provider] - Follow up as needed
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
--- NOTE | 2019-01-23 06:55 | RADIOLOGY REPORT (SQ) ---
EXAM DESCRIPTION: XR CHEST 1 VIEW COMPLETED DATE/TME: 01/23/2019 05:38 CLINICAL HISTORY: 83 years, Female, near syncope COMPARISON: 12/25/2018 NUMBER OF VIEWS: One TECHNIQUE: AP view of the chest LIMITATIONS: None. FINDINGS: Grossly stable chronic interstitial opacities. There is no focal consolidation. The heart is mildly enlarged. There is no pneumothorax or pleural effusion. The bones are demineralized. IMPRESSION: No acute cardiopulmonary abnormality. No significant change compared to the prior exam. copyright 2010 [employer]- All Rights Reserved
--- NOTE | 2019-01-23 06:58 | RADIOLOGY REPORT (SQ) ---
EXAM DESCRIPTION: CT HEAD WITHOUT IV CONTRAST COMPLETED DATE/TME: 01/23/2019 05:38 CLINICAL HISTORY: 83 years, Female, head injury COMPARISON: 01/12/2019 TECHNIQUE: Axial CT images of the brain were obtained without contrast. Sagittal and coronal reformats were performed. DLP 1070 Images stored on PACS. All CT scanners at this facility use dose modulation, iterative reconstruction, and/or weight based dosing when appropriate to reduce radiation dose to as low as reasonably achievable (ALARA). [facility]: Dose Right [facility]: CareDose [facility]: Dose Right [facility]: Teradose 4D [facility]: [employer] Interactive LIMITATIONS: None. FINDINGS: There is soft tissue swelling with a hematoma along the right frontal scalp. There is no underlying fracture. There is no acute cortical infarct, hemorrhage, mass, edema, hydrocephalus, or extra-axial fluid collection. There is diffuse cerebral atrophy with moderate to severe periventricular and deep white matter chronic microvascular changes. There are old lacunar infarcts involving the bilateral basal ganglia. The paranasal sinuses and mastoid air cells are clear. IMPRESSION: Soft tissue swelling with a hematoma along the right frontal scalp. No underlying fracture or intracranial hemorrhage. TECHNICAL DOCUMENTATION: Quality ID # 436: Final reports with documentation of one or more dose reduction techniques (e.g., Automated exposure control, adjustment of the mA and/or kV according to patient size, use of iterative reconstruction technique) copyright 2011 [employer]- All Rights Reserved
--- NOTE | 2019-01-23 07:01 | RADIOLOGY REPORT (SQ) ---
EXAM DESCRIPTION: CT CERVICAL SPINE WITHOUT IV CONTRAST COMPLETED DATE/TME: 01/23/2019 05:38 CLINICAL HISTORY: 83 years, Female, head injury COMPARISON: 01/02/2019 TECHNIQUE: Axial CT images of the cervical spine were obtained without contrast. Sagittal and coronal reformats were performed. DLP 142 Images stored on PACS. All CT scanners at this facility use dose modulation, iterative reconstruction, and/or weight based dosing when appropriate to reduce radiation dose to as low as reasonably achievable (ALARA). [facility]: Dose Right [facility]: CareDose [facility]: Dose Right [facility]: Teradose 4D [facility]: [employer] LIMITATIONS: None. FINDINGS: The alignment of the cervical spine is satisfactory. There is no acute fracture or subluxation. The vertebral heights are maintained. The prevertebral soft tissues are normal. The odontoid process is intact. The craniocervical junction is intact. There is mild disc space narrowing with endplate sclerosis and marginal osteophytes at C4-C5 and C5-C6. A 2 cm right thyroid nodule is again noted. IMPRESSION: No acute fracture or subluxation involving the cervical spine. TECHNICAL DOCUMENTATION: Quality ID # 436: Final reports with documentation of one or more dose reduction techniques (e.g., Automated exposure control, adjustment of the mA and/or kV according to patient size, use of iterative reconstruction technique) copyright 2011 [employer]- All Rights Reserved
[2019-01-23 07:09] VITALS: BP 156/97
== END 2019-01-23 07:33 | disposition home or self-care (01) ==
LOC: ER 04:59
DX: S00.83XA Contusion of other part of head, initial encounter (principal); S00.03XA Contusion of scalp, initial encounter; W19.XXXA Unspecified fall, initial encounter; R55 Syncope and collapse; I10 Essential (primary) hypertension; F03.90 Unspecified dementia, unspecified severity, without behavioral disturbance, psychotic disturbance, mood disturbance, and anxiety; Z88.1 Allergy status to other antibiotic agents; Z88.8 Allergy status to other drugs, medicaments and biological substances; Z91.041 Radiographic dye allergy status
CPT/HCPCS: 70450; 71045; 72125; 99284

== ENCOUNTER 2019-02-12 16:33 | Emergency (ER) | payer MEDICARE, MEDICAID ==
--- NOTE | 2019-02-12 18:28 | RADIOLOGY REPORT (SQ) ---
EXAM DESCRIPTION: CT HEAD WITHOUT COMPLETED DATE/TIME: 02/12/2019 6:13 pm REASON FOR STUDY: syncope COMPARISON: 01/23/2019 TECHNIQUE: Axial images acquired through the brain without intravenous contrast. Images reviewed wi th bone, brain and subdural windows. Additional sagittal and coronal reconstructions were generated. Images stored on PACS. All CT scanners at this facility use dose modulation, iterative reconstruction, and/or weight based d osing when appropriate to reduce radiation dose to as low as reasonably achievable (ALARA). [facility]: Dose Right [facility]: CareDose [facility]: Dose Right [facility]: Teradose 4D [facility]: [employer] RADIATION DOSE: CT Rad equipment meets quality standard of care and radiation dose reduction techniq ues were employed. CTDIvol: 53.2 mGy. DLP: 964 mGy-cm. mGy. LIMITATIONS: None. FINDINGS: VENTRICLES: Prominent ventricles secondary to involutional atrophy. CEREBRUM: Cortical atrophy. No masses. No hemorrhage. No midline shift. Old lacunar infarction on the left. No evidence for acute infarction. Areas of low density in the white matter most likely ch ronic small vessel ischemic changes. CEREBELLUM: No masses. No hemorrhage. No alteration of density. No evidence for acute infarction. EXTRAAXIAL SPACES: No fluid collections. No masses. ORBITS AND GLOBE: No intra- or extraconal masses. Normal contour of globe without masses. CALVARIUM: No fracture. PARANASAL SINUSES: No fluid or mucosal thickening. SOFT TISSUES: Scalp hematoma in the right frontal region. OTHER: No other significant finding. IMPRESSION: Scalp hematoma. Involutional changes with chronic microvascular ischemia. No acute int racranial imaging findings. EVIDENCE OF ACUTE STROKE: NO. COMMENT: Quality ID # 436: Final reports with documentation of one or more dose reduction techniques (e.g., Automated exposure control, adjustment of the mA and/or kV according to patient size, use of iterative reconstruction technique) TECHNICAL DOCUMENTATION: JOB ID: [id number] [employer]- All Rights Reserved Reading location - IP/workstation name: [email or web address]
[2019-02-12 19:02] LABS: ABSOLUTE BASOPHILS # (AUTO) 0.1 10^3/uL (0.0-0.2); ABSOLUTE EOSINOPHILS # (AUTO) 0.1 10^3/uL (0.0-0.6); ABSOLUTE MONOCYTES (AUTO) 0.7 10^3/uL (0.1-1.4); EOSINOPHILS % (AUTO) 1.8 % (0-6); MEAN CORPUSCULAR VOLUME 68 fl (80-97); TOTAL CELLS COUNTED % (AUTO) 100 %
[2019-02-12 19:06] LABS: APPEARANCE,URINE CLEAR; BILIRUBIN,URINE NEGATIVE (NEGATIVE); COLOR,URINE YELLOW; GLUCOSE, URINE NEGATIVE (NEGATIVE); KETONES,URINE NEGATIVE (NEGATIVE); LEUKOCYTE ESTERASE,URINE NEGATIVE (NEGATIVE); NITRITE,URINE NEGATIVE (NEGATIVE); PROTEIN,URINE NEGATIVE (NEGATIVE); URINE SPECIFIC GRAVITY 1.017; UROBILINOGEN,URINE NEGATIVE mg/dL (<2.0)
[2019-02-12 19:13] LABS: ABSOLUTE NEUT (AUTO) 4.2 10^3/uL (1.7-8.2); BASOPHILS % (AUTO) 0.8 % (0-2); HEMATOCRIT 33.7 % (36.0-47.0); HEMOGLOBIN 10.9 g/dL (12.0-15.5); LYMPHOCYTES % (AUTO) 16.9 % (13-45); MEAN CORPUSCULAR HGB CONC 32.4 g/dL (32.0-36.0); MONOCYTES % (AUTO) 11.4 % (3-13); PLATELET COUNT 225 10^3/uL (150-450); RED BLOOD COUNT 4.97 10^6/uL (3.72-5.28); RED CELL DISTRIBUTION WIDTH 18.9 % (11.5-14.0); SEGMENTED NEUTROPHILS % (AUTO) 69.1 % (42-78); WHITE BLOOD COUNT 6.1 10^3/uL (4.0-10.5)
[2019-02-12 19:23] LABS: ALBUMIN 3.8 g/dL (3.5-5.0); ALKALINE PHOSPHATASE 92 U/L (38-126); ANION GAP 8 (5-19); ASPARTATE AMINO TRANSFERASE 21 U/L (14-36); BILIRUBIN,DIRECT 0.2 mg/dL (0.0-0.4); BILIRUBIN,TOTAL 0.4 mg/dL (0.2-1.3); BLOOD UREA NITROGEN 27 mg/dL (7-20); CALCIUM 9.1 mg/dL (8.4-10.2); CARBON DIOXIDE 24 mmol/L (22-30); CHLORIDE 101 mmol/L (98-107); GLUCOSE 103 mg/dL (75-110); POTASSIUM 4.7 mmol/L (3.6-5.0); TOTAL PROTEIN 6.4 g/dL (6.3-8.2)
--- NOTE | 2019-02-12 19:52 | ER Document Report ---
ED Blood Pressure Problem - General Chief Complaint: Low Blood Pressure Stated Complaint: BLOOD PRESSURE ISSUE Time Seen by Provider: 02/12/19 17:07 Primary Care Provider: HELEN LOPEZ MD [Primary Care Provider] - Follow up as needed Mode of Arrival: Medic Information source: Relative TRAVEL OUTSIDE OF THE [place] IN LAST 30 DAYS: No - HPI Notes: Patient is brought in for low blood pressure. Son does accompany patient to the hospital. He states that the patient had low blood pressure today and had a near syncopal episode. He states this is happened multiple times and that she has been seen in taking care of most recently at [facility] for this. He states no cause can be found for the syncope and near syncopal episodes. He does state that a heart monitor is scheduled to be placed through Dr. Andreia orozco. Patient has significant dementia and is not able to contribute to the history. There is no known injuries today as she did not fall she was seated when she had a near syncopal episode. No vomiting or diarrhea. No recent fevers. No cough cold or congestion. No new medication changes. Symptoms were intermittent. They were mild to moderate. Nothing made them better or worse. There is no radiation symptoms. Patient cannot characterize the symptoms. - Related Data Allergies/Adverse Reactions: clindamycin Allergy (Verified 01/12/19 12:58) clopidogrel [From Plavix] Allergy (Verified 01/12/19 12:58) diatrizoate meglumine [From MD-Gastroview] Allergy (Verified 01/12/19 12:58) diatrizoate sodium [From MD-Gastroview] Allergy (Verified 01/12/19 12:58) dipyridamole [From Aggrenox] Allergy (Verified 01/12/19 12:58) erythromycin base [From Erythrocin] Allergy (Verified 01/12/19 12:58) meloxicam Allergy (Verified 01/12/19 12:58) pantoprazole Allergy (Verified 01/12/19 12:58) risedronate sodium [From Actonel] Allergy (Verified 01/12/19 12:58) sulfamethoxazole [From Bactrim] Allergy (Verified 01/12/19 12:58) ticlopidine Allergy (Verified 01/12/19 12:58) tobramycin Allergy (Verified 01/12/19 12:58) trimethoprim [From Bactrim] Allergy (Verified 01/12/19 12:58) IVC dye Allergy (Uncoded 01/12/19 12:58) Past Medical History - General Information source: Relative Cannot obtain history due to: Dementia - Social History Smoking Status: Never Smoker Frequency of alcohol use: None Drug Abuse: None Family History: Reviewed & Not Pertinent Patient has suicidal ideation: No Patient has homicidal ideation: No - Past Medical History Cardiac Medical History: Reports: Hx Congestive Heart Failure, Hx DVT, Hx Heart Attack, Hx Hypercholesterolemia, Hx Hypertension Neurological Medical History: Reports: Hx Cerebrovascular Accident. Denies: Hx Seizures Renal/ Medical History: Denies: Hx Peritoneal Dialysis Musculoskeletal Medical History: Reports Hx Arthritis Psychiatric Medical History: Reports: Hx Anxiety, Hx Dementia Denies: Hx Depression Past Surgical History: Reports: Hx Cardiac Catheterization, Hx Cardiac Surgery, Other Review of Systems - Review of Systems -: Yes ROS unobtainable due to patient's medical condition - Cannot obtain review of symptoms due to severe dementia Physical Exam - Vital signs Interpretation: Normal - General General appearance: Appears well, Alert, Other - Patient will follow some commands. She is nonverbal. In distress: None - HEENT Head: Normocephalic, Atraumatic Eyes: Normal Pupils: PERRL - Respiratory Respiratory status: No respiratory distress Chest status: Nontender Breath sounds: Normal Chest palpation: Normal - Cardiovascular Rhythm: Regular Heart sounds: Normal auscultation Murmur: No - Abdominal Inspection: Normal Distension: No distension Bowel sounds: Normal Tenderness: Nontender Organomegaly: No organomegaly - Back Back: Normal, Nontender - Extremities General upper extremity: Normal inspection, Nontender, Normal color, Normal ROM, Normal temperature General lower extremity: Normal inspection, Nontender, Normal color, Normal ROM, Normal temperature, Normal weight bearing. No: Jae's sign - Neurological Cognition: Confused Orientation: Disoriented to person, Disoriented to place, Disoriented to time [place] Coma Scale Eye Opening: Spontaneous Martínez Coma Scale Verbal: None Martínez Coma Scale Motor: Obeys Commands Martínez Coma Scale Total: 11 - Psychological Associated symptoms: Confused, Flat affect - Skin Skin Temperature: Warm Skin Moisture: Dry Skin Color: Normal Course - Re-evaluation Re-evalutation: 02/12/19 19:50 Patient is brought in by son for a near syncopal episode. Patient has had numerous similar episodes. She has had extensive work-up without unknown cause being found. She is due to see Dr. Hdz tomorrow. I did call and talk with Dr. Hdz. He states he will see the patient in the office tomorrow and arrange for the monitor technician to be placed. Son was okay with this plan. Work-up here was essentially unremarkable. - Laboratory Result Diagrams: 02/12/19 18:33 02/12/19 18:33 Laboratory results interpreted by me: 02/12/19 02/12/19 18:33 18:33 Hgb 10.9 L Hct 33.7 L MCV 68 L MCH 22.0 L RDW 18.9 H Sodium 132.7 L BUN 27 H Est GFR (MDRD) Non-Af 51 L - EKG Interpretation by Me EKG shows normal: Sinus rhythm Rate: Normal - 64 Rhythm: NSR [place]/QRS: Left axis deviation Discharge - Discharge Clinical Impression: Near syncope Condition: Fair Disposition: HOME, SELF-CARE Instructions: Near Syncopal Episode ([facility]) Additional Instructions: Please go to Dr. Hdz's office tomorrow Referrals: GREGORIO HDZ MD [ACTIVE STAFF] - Follow up tomorrow
[2019-02-12 19:56] VITALS: BP 159/80
--- NOTE | 2019-02-13 00:28 | EKG REPORT ---
SEVERITY:- ABNORMAL ECG - ACCELERATED JUNCTIONAL ESCAPE RHYTHM VERSUS SINUS BRADYCARDIA BORDERLINE LEFT AXIS DEVIATION : Confirmed by: Tami Radford MD 13-Feb-2019 00:27:54
== END 2019-02-12 20:16 | disposition home or self-care (01) ==
LOC: ER 16:33
DX: R55 Syncope and collapse (principal); I95.9 Hypotension, unspecified; I50.9 Heart failure, unspecified; E78.00 Pure hypercholesterolemia, unspecified; I11.0 Hypertensive heart disease with heart failure; Z88.3 Allergy status to other anti-infective agents; Z88.1 Allergy status to other antibiotic agents; Z91.041 Radiographic dye allergy status; I25.2 Old myocardial infarction
CPT/HCPCS: 36415; 70450; 80053; 81001; 84443; 84484; 85025; 93005; 93010

== ENCOUNTER 2019-04-01 05:19 | Emergency (ER) | payer MEDICARE, MEDICAID ==
[2019-04-01 07:09] LABS: ABSOLUTE BASOPHILS # (AUTO) 0.1 10^3/uL (0.0-0.2); ABSOLUTE EOSINOPHILS # (AUTO) 0.2 10^3/uL (0.0-0.6); ABSOLUTE LYMPHOCYTES (AUTO) 1.5 10^3/uL (0.5-4.7); ABSOLUTE MONOCYTES (AUTO) 0.9 10^3/uL (0.1-1.4); ABSOLUTE NEUT (AUTO) 5.9 10^3/uL (1.7-8.2); BASOPHILS % (AUTO) 1.4 % (0-2); EOSINOPHILS % (AUTO) 2.1 % (0-6); HEMATOCRIT 33.2 % (36.0-47.0); HEMOGLOBIN 10.8 g/dL (12.0-15.5); LYMPHOCYTES % (AUTO) 17.4 % (13-45); MEAN CORPUSCULAR HEMOGLOBIN 21.9 pg (27.0-33.4); MEAN CORPUSCULAR HGB CONC 32.5 g/dL (32.0-36.0); MEAN CORPUSCULAR VOLUME 67 fl (80-97); MONOCYTES % (AUTO) 10.7 % (3-13); PLATELET COUNT 231 10^3/uL (150-450); RED BLOOD COUNT 4.92 10^6/uL (3.72-5.28); RED CELL DISTRIBUTION WIDTH 19.1 % (11.5-14.0); SEGMENTED NEUTROPHILS % (AUTO) 68.4 % (42-78); TOTAL CELLS COUNTED % (AUTO) 100 %; WHITE BLOOD COUNT 8.6 10^3/uL (4.0-10.5)
[2019-04-01 07:12] LABS: INTERNATIONAL RATION (INR) 1.14; PROTHROMBIN TIME 14.7 SEC (11.4-15.4)
[2019-04-01 07:13] LABS: PARTIAL THROMBOPLASTIN TIME 26.9 SEC (23.5-35.8)
--- NOTE | 2019-04-01 07:24 | RADIOLOGY REPORT (SQ) ---
EXAM: X-ray acute abdomen series CLINICAL DATA: 83-year-old female with decreased bowel movement x3 days TECHNICAL DATA: Three x-ray images of the chest and abdomen were performed including a PA radiograph of the chest as well as supine and upright views of the abdomen. This study was performed on 04/01/2019 at 6:54 AM. Comparison: Prior chest x-ray performed on 01/23/2019. FINDINGS: The lungs are well expanded. The cardiac silhouette is stable and mildly prominent. There is no focal consolidation, pleural effusion or pneumothorax. The costophrenic sulci are clear. The bowel gas pattern is nonspecific and nonobstructive. There is mild fecal residue scattered throughout the colon. There is no evidence of free air or significant air-fluid levels. No pathologic abdominal calcifications are identified. No focal soft tissue abnormalities are seen. There is mild diffuse bone demineralization. IMPRESSION: 1. No evidence of acute intrathoracic disease. There is stable prominence of the cardiac silhouette. 2. Nonspecific nonobstructive bowel gas pattern. There is mild fecal residue scattered throughout the colon.
[2019-04-01 07:25] LABS: ALBUMIN 3.7 g/dL (3.5-5.0); ALKALINE PHOSPHATASE 89 U/L (38-126); ANION GAP 11 (5-19); ASPARTATE AMINO TRANSFERASE 20 U/L (14-36); BILIRUBIN,DIRECT 0.1 mg/dL (0.0-0.4); BILIRUBIN,TOTAL 0.5 mg/dL (0.2-1.3); BLOOD UREA NITROGEN 29 mg/dL (7-20); CALCIUM 8.5 mg/dL (8.4-10.2); CARBON DIOXIDE 19 mmol/L (22-30); CHLORIDE 105 mmol/L (98-107); GLUCOSE 94 mg/dL (75-110); POTASSIUM 4.5 mmol/L (3.6-5.0); TOTAL PROTEIN 6.6 g/dL (6.3-8.2)
[2019-04-01 08:39] VITALS: BP 157/76
--- NOTE | 2019-04-02 15:16 | ER Document Report ---
Entered by JAMES VAZQUEZ SCRIBE 04/01/19 0637 Acting as scribe for:ROMAN HILTON IV, MD ED General - General Chief Complaint: Hemorrhoids Stated Complaint: RECTAL BLEEDING Primary Care Provider: HELEN LOPEZ MD [Primary Care Provider] - Follow up as needed Mode of Arrival: Medic Cannot obtain history due to: Dementia Notes: This 83-year-old female patient presents to the emergency department today for complaints of rectal pain. History was given to nursing staff by the patient's son who is no longer here in the emergency department. Patient is quite de mented and does not converse so history is quite limited. According to nursing notes, the patient has large external hemorrhoids that occasionally bleed, particularly when trying to have a bowel movement. Patient is on Xarelto for previous DVT. Pertinent PMHx/PSHx: On Xarelto for prior DVT. Hemorrhoids. Additional history as recorded. PCP: Dr. Helen Lopez TRAVEL OUTSIDE OF THE [place] IN LAST 30 DAYS: No - Related Data Allergies/Adverse Reactions: clindamycin Allergy (Verified 04/01/19 05:22) clopidogrel [From Plavix] Allergy (Verified 04/01/19 05:22) diatrizoate meglumine [From MD-Gastroview] Allergy (Verified 04/01/19 05:22) diatrizoate sodium [From MD-Gastroview] Allergy (Verified 04/01/19 05:22) dipyridamole [From Aggrenox] Allergy (Verified 04/01/19 05:22) erythromycin base [From Erythrocin] Allergy (Verified 04/01/19 05:22) meloxicam Allergy (Verified 04/01/19 05:22) pantoprazole Allergy (Verified 04/01/19 05:22) risedronate sodium [From Actonel] Allergy (Verified 04/01/19 05:22) sulfamethoxazole [From Bactrim] Allergy (Verified 04/01/19 05:22) ticlopidine Allergy (Verified 04/01/19 05:22) tobramycin Allergy (Verified 04/01/19 05:22) trimethoprim [From Bactrim] Allergy (Verified 04/01/19 05:22) IVC dye Allergy (Uncoded 04/01/19 05:22) Home Medications: lipitor. xarelto. thyroid. diovan. carvedilol. prednisone. omeprazole. This is a EMS list, no family with demented pt Past Medical History - General Information source: Relative, [facility] Records Cannot obtain history due to: Dementia - Social History Smoking Status: Former Smoker Cigarette use (# per day): No Frequency of alcohol use: None Drug Abuse: None Lives with: Family Family History: Reviewed & Not Pertinent Patient has suicidal ideation: No Patient has homicidal ideation: No - Past Medical History Cardiac Medical History: Reports: Hx Congestive Heart Failure, Hx DVT, Hx Heart Attack, Hx Hypercholesterolemia, Hx Hypertension Neurological Medical History: Reports: Hx Cerebrovascular Accident Musculoskeletal Medical History: Reports Hx Arthritis Psychiatric Medical History: Reports: Hx Anxiety, Hx Dementia Past Surgical History: Reports: Hx Cardiac Catheterization, Hx Cardiac Surgery, Other Review of Systems - Review of Systems -: Yes ROS unobtainable due to patient's medical condition Physical Exam - Vital signs Vitals: Temp Pulse Resp BP Pulse Ox 97.6 F 79 16 124/64 100 04/01/19 05:37 04/01/19 05:37 04/01/19 05:37 04/01/19 05:37 04/01/19 05:37 - Notes Notes: Physical Exam: General: Alert. Nonverbal at baseline. HEENT: Normocephalic. Atraumatic. PERRL. Extraocular movements intact. Oropharynx clear. Neck: Supple. Non-tender. Respiratory: No respiratory distress. Clear and equal breath sounds bilaterally. Cardiovascular: Regular rate and rhythm. Abdominal: Normal Inspection. Non-tender. No distension. Normal Bowel Sounds. Rectal: Performed with nurse in attendance. Multiple external hemorrhoids. These hemorrhoids are tender with palpation. None are thrombosed. Back: No gross abnormalities. Extremities: Moves all four extremities. Upper extremities: Normal inspection. Normal ROM. Lower extremities: Normal inspection. No edema. Normal ROM. Neurological: Severely demented, does not speak during interaction which is baseline according to records. Psychological: Unable to assess. Skin: Warm. Dry. Normal color. Course - Re-evaluation Re-evalutation: 04/01/19 07:52 Patient is lying in bed. Easily arousable appears to be in no acute distress. - Vital Signs Vital signs: Temp Pulse Resp BP Pulse Ox 97.8 F 107 H 18 157/76 H 96 04/01/19 08:34 04/01/19 08:34 04/01/19 08:34 04/01/19 08:34 04/01/19 08:34 - Laboratory Result Diagrams: 04/01/19 06:50 04/01/19 06:50 Laboratory results interpreted by me: 04/01/19 04/01/19 06:50 06:50 Hgb 10.8 L Hct 33.2 L MCV 67 L MCH 21.9 L RDW 19.1 H Sodium 135.0 L Carbon Dioxide 19 L BUN 29 H Est GFR ( Amer) 52 L Est GFR (MDRD) Non-Af 43 L Discharge - Discharge Clinical Impression: External hemorrhoids without complication Constipation Qualifiers: Constipation type: unspecified constipation type Qualified Code(s): K59.00 - Constipation, unspecified Condition: Good Disposition: HOME, SELF-CARE Instructions: Constipation ([facility]), Hemorrhoids ([facility]) Additional Instructions: Return to the Emergency Department without delay if any worse. HOME CARE INSTRUCTIONS & INFORMATION: Thank you for choosing us for your medical needs. We hope you're satisfied with the care you received. After you leave, you must properly care for your problem and, at the same time, observe its progress. Any condition can change. Some illnesses can change rapidly over hours or days. If your condition worsens, return to the Emergency Department or see your physician promptly. ABOUT YOUR X-RAYS AND EKG'S: If you had an EKG or X-rays taken, they have been read by the Emergency Physician. The X-rays and EKG's will also be read by a Radiologist or Product Development Assistant within 24 hours. If discrepancies are noted, you will be notified by telephone. Please be certain the ED has a correct telephone number & address where you can be reached. Also, realize that some fractures or abnormalities do not show up on initial X-rays. If your symptoms continue, see your physician. ABOUT YOUR LABORATORY TEST: If you had laboratory tests, the results have been reviewed by the Emergency Physician. Some test results (for example cultures) may not be available for several days. You will be contacted if any test result shows you need additional treatment. Please be certain the ED has a correct telephone number and address where you can be reached. ABOUT YOUR MEDICATIONS: You will receive instructions on how to take your medicine on the prescription label you receive. Additional information may be provided by the Pharmacy. If you have questions afterwards, call the ED for clarification or further instructions. Some prescribed medications may cause drowsiness. Do not perform tasks such as driving a car or operating machinery without consulting your Pharmacist. If you feel you need a refill of pain medication, your condition will need re-evaluation. Please do not call for a refill of any medication. ABOUT YOUR SIGNATURE: Signature of this document acknowledges to followin. Understanding that you received emergency treatment and that you may be released before al medical problems are known or treated. Please be certain the ED has a correct phone number & address where you can be reached. 2. Acknowledgement that you will arrange for follow-up care as recommended. 3. Authorization for the Emergency Physician to provide information to your follow-up Physician in order to maximize your care. AT ANY TIME, IF YOUR SYMPTOMS CHANGE SIGNIFICANTLY OR WORSEN OR YOU DEVELOP NEW SYMPTOMS, RETURN TO THE EMERGENCY DEPARTMENT IMMEDIATELY FOR RE-EVALUATION. OUR GOAL IS TO PROVIDE EXCELLENT MEDICAL CARE! WE HOPE THAT WE HAVE MET YOUR EXPECTATIONS DURING YOUR EMERGENCY DEPARTMENT VISIT AND THAT YOU FEEL YOU HAVE RECEIVED EXCELLENT CARE! Prescriptions: Hydrocortisone Acetate [Anusol Hc 25 mg Supp.rect] 1 supp.rect [place] BID #14 supp.rect Polyethylene Glycol 3350 [Miralax] 1 cap PO DAILY #527 powder Referrals: HELEN LOPEZ MD [Primary Care Provider] - Follow up as needed I personally performed the services described in the documentation, reviewed and edited the documentation which was dictated to the scribe in my presence, and it accurately records my words and actions.
== END 2019-04-01 08:45 | disposition home or self-care (01) ==
LOC: ER 05:19
DX: K64.4 Residual hemorrhoidal skin tags (principal); K59.00 Constipation, unspecified; K62.89 Other specified diseases of anus and rectum; Z86.718 Personal history of other venous thrombosis and embolism; Z79.01 Long term (current) use of anticoagulants; Z87.891 Personal history of nicotine dependence; I50.9 Heart failure, unspecified; I25.2 Old myocardial infarction; I11.0 Hypertensive heart disease with heart failure
CPT/HCPCS: 36415; 74022; 80053; 85025; 85610; 85730; 99284

== ENCOUNTER 2019-04-23 10:38 | Emergency (ER) | payer MEDICARE, MEDICAID ==
--- NOTE | 2019-04-23 12:03 | ER Document Report ---
ED Medical Screen (RME) - General Chief Complaint: Slurred Speech Stated Complaint: SLURRED SPEECH, CONFUSION,WEAKNESS Time Seen by Provider: 04/23/19 11:44 Primary Care Provider: HELEN LOPEZ MD [Primary Care Provider] - Follow up as needed Mode of Arrival: Wheelchair Information source: Relative Notes: Patient presents with her son with complaints of slurred speech for the past 3 days. Son states that he did take patient to [facility], and pt had a negative CT scan. Pt's son states that initially she could not sit upright although those symptoms have improved. Patient states that her speech is somewhat less slurred although is still altered from her baseline. Patient son states that he took patient out of the hospital and that the hospital threatened to notify Adult Protective Services. Patient son states that he was concerned that they could not do an MRI there. Son is demanding an MRI at this time. Son states that he is here for an MRI. Consulted with Dr. Hallman regarding patient presentation, Dr. Hallman advises CT scan at this time. Dr. Hallman feels that the decision to order MRI will be up to the physician in the back who does a complete neurologic examination on patient I have greeted and performed a rapid initial assessment of this patient. A comprehensive ED assessment and evaluation of the patient, analysis of test results and completion of the medical decision making process will be conducted by additional ED providers. TRAVEL OUTSIDE OF THE [place] IN LAST 30 DAYS: No - Related Data Allergies/Adverse Reactions: clindamycin Allergy (Verified 04/23/19 11:46) clopidogrel [From Plavix] Allergy (Verified 04/23/19 11:46) diatrizoate meglumine [From MD-Gastroview] Allergy (Verified 04/23/19 11:46) diatrizoate sodium [From MD-Gastroview] Allergy (Verified 04/23/19 11:46) dipyridamole [From Aggrenox] Allergy (Verified 04/23/19 11:46) erythromycin base [From Erythrocin] Allergy (Verified 04/23/19 11:46) meloxicam Allergy (Verified 04/23/19 11:46) pantoprazole Allergy (Verified 04/23/19 11:46) risedronate sodium [From Actonel] Allergy (Verified 04/23/19 11:46) sulfamethoxazole [From Bactrim] Allergy (Verified 12/09/19 11:46) ticlopidine Allergy (Verified 04/23/19 11:46) tobramycin Allergy (Verified 04/23/19 11:46) trimethoprim [From Bactrim] Allergy (Verified 04/23/19 11:46) IVC dye Allergy (Uncoded 04/23/19 11:46) Past Medical History - Social History Chew tobacco use (# tins/day): No Frequency of alcohol use: None Drug Abuse: None - Past Medical History Cardiac Medical History: Reports: Hx Congestive Heart Failure, Hx DVT, Hx Heart Attack, Hx Hypercholesterolemia, Hx Hypertension Neurological Medical History: Reports: Hx Cerebrovascular Accident. Denies: Hx Seizures Renal/ Medical History: Denies: Hx Peritoneal Dialysis Musculoskeltal Medical History: Reports Hx Arthritis Psychiatric Medical History: Reports: Hx Anxiety, Hx Dementia Denies: Hx Depression Past Surgical History: Reports: Hx Cardiac Catheterization, Hx Cardiac Surgery, Other Physical Exam - Vital signs Vitals: Temp Pulse Resp BP Pulse Ox 97.7 F 85 18 119/69 96 04/23/19 11:46 04/23/19 11:46 04/23/19 11:46 04/23/19 11:46 04/23/19 11:46 - General General appearance: Appears well, Alert Notes: Patient awake, alert, patient is [id number]. Patient does answer son when he asked her questions. Difficult to determine if speech is slurred as patient is [id number] Course - Vital Signs Vital signs: Temp Pulse Resp BP Pulse Ox 97.7 F 85 18 119/69 96 04/23/19 11:46 04/23/19 11:46 04/23/19 11:46 04/23/19 11:46 04/23/19 11:46 Doctor's Discharge - Discharge Referrals: HELEN LOPEZ MD [Primary Care Provider] - Follow up as needed
--- NOTE | 2019-04-23 13:40 | EKG REPORT ---
SEVERITY:- BORDERLINE ECG - SINUS RHYTHM BORDERLINE LEFT AXIS DEVIATION BORDERLINE T WAVE ABNORMALITIES : Confirmed by: Brayan Bashir MD 23-Apr-2019 13:39:27
--- NOTE | 2019-04-23 19:49 | RADIOLOGY REPORT (SQ) ---
EXAM DESCRIPTION: MRI HEAD WITHOUT COMPLETED DATE/TIME: 04/23/2019 7:29 pm REASON FOR STUDY: altered mental status COMPARISON: 01/02/2019 TECHNIQUE: Multiplanar imaging includes non-contrasted T1, T2, FLAIR, and diffusion with ADC map seq uences. Images stored on PACS. LIMITATIONS: None. FINDINGS: ANATOMY: Patent major vascular flow voids. Pituitary fossa normal. CSF SPACES: Atrophy induced prominence of ventricles and CSF spaces. CEREBRUM: Extensive increased T2 signal intensity lesions and atrophy throughout the white matter on FLAIR imaging similar to the prior exam. No evidence of extraaxial fluid collection. POSTERIOR FOSSA: No acute signal alteration. No hemorrhage. No edema, masses or mass effect. Interna l auditory canals, cerebello-pontine angles, mastoids normal. DIFFUSION IMAGING: Negative for acute or sub-acute infarction. ORBITS: No masses. Globes normal. PARANASAL SINUSES: No fluid levels. Mucosa normal. OTHER: No other significant finding. IMPRESSION: Negative for acute or sub-acute infarction. EVIDENCE OF ACUTE STROKE: NO. TECHNICAL DOCUMENTATION: JOB ID: [id number] [id number] 2010 [employer]- All Rights Reserved Reading location - IP/workstation name: [email or web address]
--- NOTE | 2019-04-23 20:05 | ER Document Report ---
ED General - General Chief Complaint: Slurred Speech Stated Complaint: SLURRED SPEECH, CONFUSION,WEAKNESS Time Seen by Provider: 04/23/19 11:44 Primary Care Provider: HELEN LOPEZ MD [ACTIVE STAFF] - Follow up as needed Mode of Arrival: Wheelchair Information source: Relative, Legal Guardian TRAVEL OUTSIDE OF THE [place] IN LAST 30 DAYS: No - HPI Notes: Patient is brought in by son who is legal guardian. Son states he would like an MRI of the patient's brain. He states that several days ago patient had an episode where she became "limp like a wet noodle". And fell and hit her head in the bathroom. He initially took her to [facility] where she had an extensive work- up. I did personally review this work-up by requesting old records from [facility]. At this facility she had normal laboratories including a urine. She also had a CT scan of the brain that showed no acute pathology. The son states that he asked for an MRI but they told him that the patient would have to be admitted for that. He states that he did not want to be admitted so he has to be discharged. The outside facility did contact Adult Protective Services. Adult Protective Services has been in contact with the patient and states they have been involved in the patient's care for the last year. When I initially walked in the room the son was talking to Adult Protective Services on the phone. Patient has dementia and is unable to give any significant history. She denies any current pain or problems. There is no known radiation of any of her symptoms. Nothing known makes her symptoms better or worse. Her symptoms have apparently been intermittent and the son states they are improving. The symptoms include weakness and altered mental status that are now improving. - Related Data Allergies/Adverse Reactions: clindamycin Allergy (Verified 04/23/19 11:46) clopidogrel [From Plavix] Allergy (Verified 04/23/19 11:46) diatrizoate meglumine [From SHERYLGastroview] Allergy (Verified 04/23/19 11:46) diatrizoate sodium [From MDSharathGastroview] Allergy (Verified 04/23/19 11:46) dipyridamole [From Aggrenox] Allergy (Verified 04/23/19 11:46) erythromycin base [From Erythrocin] Allergy (Verified 04/23/19 11:46) meloxicam Allergy (Verified 04/23/19 11:46) pantoprazole Allergy (Verified 04/23/19 11:46) risedronate sodium [From Actonel] Allergy (Verified 04/23/19 11:46) sulfamethoxazole [From Bactrim] Allergy (Verified 04/23/19 11:46) ticlopidine Allergy (Verified 04/23/19 11:46) tobramycin Allergy (Verified 04/23/19 11:46) trimethoprim [From Bactrim] Allergy (Verified 04/23/19 11:46) IVC dye Allergy (Uncoded 04/23/19 11:46) Past Medical History - General Information source: Relative - Social History Smoking Status: Never Smoker Chew tobacco use (# tins/day): No Frequency of alcohol use: None Drug Abuse: None Family History: Reviewed & Not Pertinent Patient has suicidal ideation: No Patient has homicidal ideation: No - Past Medical History Cardiac Medical History: Reports: Hx Congestive Heart Failure, Hx DVT, Hx Heart Attack, Hx Hypercholesterolemia, Hx Hypertension Neurological Medical History: Reports: Hx Cerebrovascular Accident. Denies: Hx Seizures Renal/ Medical History: Denies: Hx Peritoneal Dialysis Musculoskeletal Medical History: Reports Hx Arthritis Psychiatric Medical History: Reports: Hx Anxiety, Hx Dementia Denies: Hx Depression Past Surgical History: Reports: Hx Cardiac Catheterization, Hx Cardiac Surgery, Other Review of Systems - Review of Systems -: Yes ROS unobtainable due to patient's medical condition - Review of symptoms are unobtainable due to patient's dementia Physical Exam - Vital signs Vitals: Temp Pulse Resp BP Pulse Ox 97.7 F 85 18 119/69 96 04/23/19 11:46 04/23/19 11:46 04/23/19 11:46 04/23/19 11:46 04/23/19 11:46 Interpretation: Normal - General General appearance: Appears well, Alert In distress: None - HEENT Head: Normocephalic, Ecchymosis - Has mild ecchymosis to the left lateral zygomatic arch Eyes: Normal Pupils: PERRL - Respiratory Respiratory status: No respiratory distress Chest status: Nontender Breath sounds: Normal Chest palpation: Normal - Cardiovascular Rhythm: Regular Heart sounds: Normal auscultation Murmur: No - Abdominal Inspection: Normal Distension: No distension Bowel sounds: Normal Tenderness: Nontender Organomegaly: No organomegaly - Back Back: Normal, Nontender - Extremities General upper extremity: Normal inspection, Nontender, Normal color, Normal ROM, Normal temperature General lower extremity: Normal inspection, Nontender, Normal color, Normal ROM, Normal temperature, Normal weight bearing. No: Jae's sign - Neurological Neuro grossly intact: Yes Cognition: Confused Orientation: Disoriented to place, Disoriented to time [place] Coma Scale Eye Opening: Spontaneous [place] Coma Scale Verbal: Confused [place] Coma Scale Motor: Obeys Commands Martínez Coma Scale Total: 14 Speech: Normal Sensory: Normal - Psychological Associated symptoms: Flat affect, Psychomotor depression - Skin Skin Temperature: Warm Skin Moisture: Dry Skin Color: Normal Course - Re-evaluation Re-evalutation: 04/23/19 20:04 Son who is legal guardian states he wants no other test performed other than an MRI. Patient did have all normal laboratories just 2 days ago so this did seem reasonable. MRI shows no evidence of any type of bleed mass or infarct. Patient states he is most concerned about bleeding due to the fact that the patient is on a blood thinner. Patient was recently on hospice and apparently Adult Protective Services is working with the patient and the caregiver to have the patient placed back on hospice. I do not think the patient would benefit from further inpatient work-up and the son, who is the legal guardian, wishes to be discharged which I believe is reasonable. He cares for both of his patients who both have significant dementia. He states that they are admitted it becomes significantly more difficult for him and does not believe will benefit the patient. I agree with this assessment at this time. - Vital Signs Vital signs: Temp Pulse Resp BP Pulse Ox 97.7 F 85 18 119/69 96 04/23/19 11:46 04/23/19 11:46 04/23/19 11:46 04/23/19 11:46 04/23/19 11:46 - Diagnostic Test Radiology reviewed: Image reviewed, Reports reviewed Discharge - Discharge Clinical Impression: Weakness Altered mental status Qualifiers: Altered mental status type: disorientation Qualified Code(s): R41.0 - Disorientation, unspecified Condition: Stable Disposition: HOME, SELF-CARE Additional Instructions: Please follow-up with your primary care physician as soon as possible Referrals: HELEN LOPEZ MD [ACTIVE STAFF] - Follow up tomorrow
[2019-04-23 21:10] VITALS: BP 146/80
== END 2019-04-23 21:10 | disposition home or self-care (01) ==
LOC: ER 10:38
DX: R53.1 Weakness (principal); F03.90 Unspecified dementia, unspecified severity, without behavioral disturbance, psychotic disturbance, mood disturbance, and anxiety; S00.83XA Contusion of other part of head, initial encounter; W19.XXXA Unspecified fall, initial encounter; I10 Essential (primary) hypertension; I25.2 Old myocardial infarction; Z79.899 Other long term (current) drug therapy; Z91.041 Radiographic dye allergy status; Z86.73 Personal history of transient ischemic attack (TIA), and cerebral infarction without residual deficits; Z88.1 Allergy status to other antibiotic agents; Z88.8 Allergy status to other drugs, medicaments and biological substances
CPT/HCPCS: 70551; 93005; 93010; 99285

== ENCOUNTER 2019-05-04 01:15 | Emergency (ER) | payer MEDICARE, MEDICAID ==
[2019-05-04 02:07] LABS: ABSOLUTE BASOPHILS # (AUTO) 0.1 10^3/uL (0.0-0.2); ABSOLUTE EOSINOPHILS # (AUTO) 0.1 10^3/uL (0.0-0.6); ABSOLUTE LYMPHOCYTES (AUTO) 0.9 10^3/uL (0.5-4.7); ABSOLUTE NEUT (AUTO) 5.5 10^3/uL (1.7-8.2); BASOPHILS % (AUTO) 0.7 % (0-2); EOSINOPHILS % (AUTO) 1.8 % (0-6); LYMPHOCYTES % (AUTO) 11.9 % (13-45); MEAN CORPUSCULAR HEMOGLOBIN 22.2 pg (27.0-33.4); MEAN CORPUSCULAR HGB CONC 32.4 g/dL (32.0-36.0); MEAN CORPUSCULAR VOLUME 69 fl (80-97); MONOCYTES % (AUTO) 13.2 % (3-13); PLATELET COUNT 185 10^3/uL (150-450); RED BLOOD COUNT 4.51 10^6/uL (3.72-5.28); RED CELL DISTRIBUTION WIDTH 19.1 % (11.5-14.0); SEGMENTED NEUTROPHILS % (AUTO) 72.4 % (42-78); TOTAL CELLS COUNTED % (AUTO) 100 %; WHITE BLOOD COUNT 7.6 10^3/uL (4.0-10.5)
[2019-05-04 02:25] LABS: ALBUMIN 3.1 g/dL (3.5-5.0); ALKALINE PHOSPHATASE 73 U/L (38-126); ANION GAP 9 (5-19); ASPARTATE AMINO TRANSFERASE 31 U/L (14-36); BILIRUBIN,DIRECT 0.2 mg/dL (0.0-0.4); BILIRUBIN,TOTAL 0.8 mg/dL (0.2-1.3); BLOOD UREA NITROGEN 18 mg/dL (7-20); CALCIUM 8.6 mg/dL (8.4-10.2); CARBON DIOXIDE 21 mmol/L (22-30); CHLORIDE 104 mmol/L (98-107); GLUCOSE 147 mg/dL (75-110); POTASSIUM 4.2 mmol/L (3.6-5.0)
[2019-05-04 05:07] LABS: APPEARANCE,URINE CLEAR; BILIRUBIN,URINE NEGATIVE (NEGATIVE); COLOR,URINE YELLOW; GLUCOSE, URINE NEGATIVE (NEGATIVE); KETONES,URINE NEGATIVE (NEGATIVE); LEUKOCYTE ESTERASE,URINE NEGATIVE (NEGATIVE); NITRITE,URINE NEGATIVE (NEGATIVE); PROTEIN,URINE 30 mg/dL (NEGATIVE); URINE SPECIFIC GRAVITY 1.019
[2019-05-04] MEDS ORDERED: ACETAMINOPHEN 650 MG SUPP.RECT PR ONE (06:10)
[2019-05-04] MEDS ORDERED: NORMAL SALINE 1000 ML 1,000 ML IV ONE (07:21)
--- NOTE | 2019-05-04 07:32 | ER Document Report ---
ED General - General TRAVEL OUTSIDE OF THE [place] IN LAST 30 DAYS: No <LORETA LOPEZ - Last Filed: 05/04/19 08:29> <RIA GOODMAN - Last Filed: 05/04/19 10:59> - General Chief Complaint: Syncope Stated Complaint: NAUSEA,VOMITING Time Seen by Provider: 05/04/19 05:20 Primary Care Provider: LEO HURTADO MD [Primary Care Provider] - Follow up in 3-5 days Notes: Historian is son, limited by patient due to dementia and nonverbal 83-year-old female with history of dementia who presents for intermittent altered mental status and syncope since the seventh. Patient is on Xarelto and has fallen multiple times and has varying healing hematoma/contusions on her body. Patient son states that she has been to [facility] and [facility] recently. Patient had a full work-up at [facility] and patient's son signed out her out AGAINST MEDICAL ADVICE because he did not want her admitted. Patient also was seen here in [facility] and was given an MRI of the brain which was negative few weeks ago and patient son did not want her admitted at that time. (LORETA LOPEZ) - Related Data Allergies/Adverse Reactions: clindamycin Allergy (Verified 04/23/19 11:46) clopidogrel [From Plavix] Allergy (Verified 04/23/19 11:46) diatrizoate meglumine [From MD-Gastroview] Allergy (Verified 04/23/19 11:46) diatrizoate sodium [From MD-Gastroview] Allergy (Verified 04/23/19 11:46) dipyridamole [From Aggrenox] Allergy (Verified 04/23/19 11:46) erythromycin base [From Erythrocin] Allergy (Verified 04/23/19 11:46) meloxicam Allergy (Verified 04/23/19 11:46) pantoprazole Allergy (Verified 04/23/19 11:46) risedronate sodium [From Actonel] Allergy (Verified 04/23/19 11:46) sulfamethoxazole [From Bactrim] Allergy (Verified 04/23/19 11:46) ticlopidine Allergy (Verified 04/23/19 11:46) tobramycin Allergy (Verified 04/23/19 11:46) trimethoprim [From Bactrim] Allergy (Verified 04/23/19 11:46) IVC dye Allergy (Uncoded 04/23/19 11:46) Past Medical History - Social History Smoking Status: Unknown if Ever Smoked Family History: Reviewed & Not Pertinent Patient has suicidal ideation: No Patient has homicidal ideation: No - Past Medical History Cardiac Medical History: Reports: Hx Congestive Heart Failure, Hx DVT, Hx Heart Attack, Hx Hypercholesterolemia, Hx Hypertension Neurological Medical History: Reports: Hx Cerebrovascular Accident. Denies: Hx Seizures Renal/ Medical History: Denies: Hx Peritoneal Dialysis Musculoskeletal Medical History: Reports Hx Arthritis Psychiatric Medical History: Reports: Hx Anxiety, Hx Dementia Denies: Hx Depression Past Surgical History: Reports: Hx Cardiac Catheterization, Hx Cardiac Surgery, Other <LORETA LOPEZ - Last Filed: 05/04/19 08:29> Review of Systems - Review of Systems -: Yes ROS unobtainable due to patient's medical condition <LORETA LOPEZ - Last Filed: 05/04/19 08:29> Physical Exam <LORETA LOPEZ - Last Filed: 05/04/19 08:29> - Vital signs Vitals: Resp Pulse Ox 21 H 99 05/04/19 01:21 05/04/19 01:21 - Notes Notes: GENERAL: Well-appearing, well-nourished and in no acute distress. Patient is resting comfortably. HEAD: Normocephalic, generalized hematomas noted to face. LUNGS: Breath sounds clear to auscultation bilaterally and equal. No wheezes rales or rhonchi. HEART: Regular rate and rhythm without murmurs, rubs or gallops. ABDOMEN: Soft, nontender, normoactive bowel sounds. No guarding, no rebound. No masses appreciated. EXTREMITIES: Normal range of motion, no pitting or edema. No clubbing or cyanosis. NEUROLOGICAL: Patient is nonverbal. GCS 13 PSYCH: Normal mood, normal affect. SKIN: Warm, Dry, normal turgor, no rashes or lesions noted. (LORETA LOPEZ) Course - Laboratory Result Diagrams: 05/04/19 01:25 05/04/19 01:25 <LORETA LOPEZ - Last Filed: 05/04/19 08:29> - Laboratory Result Diagrams: 05/04/19 01:25 05/04/19 01:25 <RIA GOODMAN - Last Filed: 05/04/19 10:59> - Re-evaluation Re-evalutation: 05/04/19 Initial Work which included a CBC and CMP shows no leukocytosis however today in the ER patient was found to have a rectal temp of 100.5 F and septic work-up was initiated. Patient son is demanding that she have an MRA of her brain at this time. Patient son is also demanding to speak to a doctor. 05/04/19 07:[address] Goss, attending, who also reviewed labwork and previous notes. Dr. Goss to bedside to discuss MRA with pt's son. Pt has UTI which will be treated and social work consult will be placed to help pt's son who would like to keep pt at home if possible. No leukocytosis. Lactic is 1.8. At this time will defer MRA. Rocephin 1 gm IV ordered. (LORETA LOPEZ) - Vital Signs Vital signs: Temp Pulse Resp BP Pulse Ox 100.2 F 19 98/54 L 97 05/04/19 05:56 05/04/19 07:01 05/04/19 07:01 05/04/19 07:01 - Laboratory Laboratory results interpreted by me: 05/04/19 05/04/19 05/04/19 01:25 01:25 04:40 Hgb 10.0 L Hct 31.0 L MCV 69 L MCH 22.2 L RDW 19.1 H Lymph % (Auto) 11.9 L Christian % (Auto) 13.2 H Sodium 134.0 L Carbon Dioxide 21 L Glucose 147 H Total Protein 6.0 L Albumin 3.1 L Urine Protein 30 H Urine Blood SMALL H Urine Urobilinogen 2.0 H Discharge <LORETA LOPEZ - Last Filed: 05/04/19 08:29> <RIA GOODMAN - Last Filed: 05/04/19 10:59> - Discharge Clinical Impression: UTI (urinary tract infection) Qualifiers: Urinary tract infection type: site unspecified Hematuria presence: with hem aturia Qualified Code(s): N39.0 - Urinary tract infection, site not specified Dementia Qualifiers: Dementia type: unspecified type Dementia behavioral disturbance: without behavioral disturbance Qualified Code(s): F03.90 - Unspecified dementia without behavioral disturbance Condition: Stable Disposition: HOME, SELF-CARE Additional Instructions: Your work-up today indicates a urinary tract infection. Please take Keflex as prescribed and finish all doses unless we called to change it based off your urine culture. Please follow-up with your primary care doctor in 2 to 3 days. Return immediately to ER if you start having any worsening symptoms, including fever, worsening mental status, chest pain, abdominal pain, urinary symptoms, shortness of breath, or any other symptoms that are concerning to you. Prescriptions: Cephalexin Monohydrate [Keflex 250 mg/5 ml Susp 100 ml] 500 mg PO QID 10 Days ml Cephalexin Monohydrate [Keflex 500 mg Capsule] 500 mg PO QID #28 capsule Referrals: LEO HURTADO MD [Primary Care Provider] - Follow up in 3-5 days
[2019-05-04] MEDS ORDERED: CEFTRIAXONE INJ 1000 MG VIAL IV ONE (07:50)
--- NOTE | 2019-05-04 08:20 | RADIOLOGY REPORT (SQ) ---
EXAM DESCRIPTION: CT HEAD WITHOUT COMPLETED DATE/TIME: 05/04/2019 7:35 am REASON FOR STUDY: syncope, AMS, on blood thinners COMPARISON: 02/12/2019 TECHNIQUE: Axial images acquired through the brain without intravenous contrast. Images reviewed wi th bone, brain and subdural windows. Additional sagittal and coronal reconstructions were generated. Images stored on PACS. All CT scanners at this facility use dose modulation, iterative reconstruction, and/or weight based d osing when appropriate to reduce radiation dose to as low as reasonably achievable (ALARA). [facility]: Dose Right [facility]: CareDose [facility]: Dose Right [facility]: Teradose 4D [facility]: Smart WalletKit RADIATION DOSE: CT Rad equipment meets quality standard of care and radiation dose reduction techniq ues were employed. CTDIvol: 53.2 mGy. DLP: 1044 mGy-cm. mGy. LIMITATIONS: None. FINDINGS: VENTRICLES: Normal size and contour. CEREBRUM: No masses. No hemorrhage. No midline shift. No evidence for acute infarction. Extensive periventricular and deep white matter hypodensity and remote lacunar infarctions of the bilateral bas al ganglia. CEREBELLUM: No masses. No hemorrhage. No alteration of density. No evidence for acute infarction. EXTRAAXIAL SPACES: No fluid collections. No masses. ORBITS AND GLOBE: No intra- or extraconal masses. Normal contour of globe without masses. CALVARIUM: No fracture. PARANASAL SINUSES: No fluid or mucosal thickening. SOFT TISSUES: There are large bilateral scalp hematomas (series 2, image 21). OTHER: No other significant finding. IMPRESSION: 1. No acute intracranial pathology. 2. 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 3. Large bilateral scalp hematomas. EVIDENCE OF ACUTE STROKE: NO. COMMENT: Quality ID # [id number]: Final reports with documentation of one or more dose reduction techniques (e.g., Automated exposure control, adjustment of the mA and/or kV according to patient size, use of iterative reconstruction technique) TECHNICAL DOCUMENTATION: JOB ID: [id number] [employer]- All Rights Reserved Reading location - IP/workstation name: [email or web address]
--- NOTE | 2019-05-04 08:28 | RADIOLOGY REPORT (SQ) ---
EXAM DESCRIPTION: CHEST SINGLE VIEW COMPLETED DATE/TIME: 05/04/2019 7:41 am REASON FOR STUDY: fever COMPARISON: AP view of the chest from 01/23/2019. EXAM PARAMETERS: NUMBER OF VIEWS: One view. TECHNIQUE: An AP view of the chest was obtained. RADIATION DOSE: NA LIMITATIONS: None. FINDINGS: LUNGS AND PLEURA: No consolidation, pleural effusion or pneumothorax. MEDIASTINUM AND HILAR STRUCTURES: No mediastinal or hilar contour abnormality. HEART AND VASCULAR STRUCTURES: The cardiac silhouette is enlarged. The pulmonary vasculature is with in normal limits. BONES: No acute findings. HARDWARE: None in the chest. OTHER: No other finding. IMPRESSION: No acute cardiopulmonary process. TECHNICAL DOCUMENTATION: JOB ID: [id number] [employer]- All Rights Reserved Reading location - IP/workstation name: [email or web address]
[2019-05-04 11:14] VITALS: BP 137/67
--- NOTE | 2019-05-04 15:58 | EKG REPORT ---
SEVERITY:- OTHERWISE NORMAL ECG - SINUS RHYTHM BORDERLINE LEFT AXIS DEVIATION : Confirmed by: Vikki Boswell 04-May-2019 15:58:09
== END 2019-05-04 13:45 | disposition home or self-care (01) ==
LOC: ER 01:15
DX: N39.0 Urinary tract infection, site not specified (principal); R31.9 Hematuria, unspecified; F03.90 Unspecified dementia, unspecified severity, without behavioral disturbance, psychotic disturbance, mood disturbance, and anxiety; R55 Syncope and collapse; T14.8XXA Other injury of unspecified body region, initial encounter; W19.XXXA Unspecified fall, initial encounter; R29.6 Repeated falls; I10 Essential (primary) hypertension; I25.2 Old myocardial infarction; Z86.73 Personal history of transient ischemic attack (TIA), and cerebral infarction without residual deficits; Z79.01 Long term (current) use of anticoagulants; Z88.1 Allergy status to other antibiotic agents; Z88.8 Allergy status to other drugs, medicaments and biological substances; Z91.041 Radiographic dye allergy status
CPT/HCPCS: 93005; 99285; 51701; 96365; 36415; 87040; 87086; 85025; 87077; 80053; 81001; 84484; 83605; 87150 ×26; 71045; 70450; 93010; A9270; J0696; J7030; 87186

== ENCOUNTER 2019-05-19 21:51 | Emergency (ER) | payer MEDICARE, MEDICAID ==
[2019-05-19 22:50] LABS: ABSOLUTE EOSINOPHILS # (AUTO) 0.1 10^3/uL (0.0-0.6); ABSOLUTE LYMPHOCYTES (AUTO) 0.7 10^3/uL (0.5-4.7); ABSOLUTE MONOCYTES (AUTO) 0.5 10^3/uL (0.1-1.4); ABSOLUTE NEUT (AUTO) 5.9 10^3/uL (1.7-8.2); BASOPHILS % (AUTO) 0.6 % (0-2); EOSINOPHILS % (AUTO) 0.7 % (0-6); HEMATOCRIT 30.6 % (36.0-47.0); HEMOGLOBIN 9.9 g/dL (12.0-15.5); LYMPHOCYTES % (AUTO) 9.5 % (13-45); MEAN CORPUSCULAR HEMOGLOBIN 21.7 pg (27.0-33.4); MEAN CORPUSCULAR HGB CONC 32.2 g/dL (32.0-36.0); MEAN CORPUSCULAR VOLUME 67 fl (80-97); MONOCYTES % (AUTO) 7.4 % (3-13); PLATELET COUNT 288 10^3/uL (150-450); RED BLOOD COUNT 4.53 10^6/uL (3.72-5.28); RED CELL DISTRIBUTION WIDTH 19.7 % (11.5-14.0); SEGMENTED NEUTROPHILS % (AUTO) 81.8 % (42-78); TOTAL CELLS COUNTED % (AUTO) 100 %; WHITE BLOOD COUNT 7.3 10^3/uL (4.0-10.5)
[2019-05-19 22:59] LABS: ALBUMIN 3.3 g/dL (3.5-5.0); ALKALINE PHOSPHATASE 82 U/L (38-126); ANION GAP 10 (5-19); ASPARTATE AMINO TRANSFERASE 23 U/L (14-36); BILIRUBIN,DIRECT 0.2 mg/dL (0.0-0.4); BILIRUBIN,TOTAL 0.8 mg/dL (0.2-1.3); BLOOD UREA NITROGEN 23 mg/dL (7-20); CALCIUM 8.4 mg/dL (8.4-10.2); CARBON DIOXIDE 22 mmol/L (22-30); CHLORIDE 101 mmol/L (98-107); GLUCOSE 144 mg/dL (75-110); POTASSIUM 4.6 mmol/L (3.6-5.0); TOTAL PROTEIN 6.3 g/dL (6.3-8.2)
--- NOTE | 2019-05-19 22:59 | EKG REPORT ---
SEVERITY:- NORMAL ECG - SINUS RHYTHM : Confirmed by: Brayan Bashir MD 19-May-2019 22:58:17
[2019-05-19 23:01] LABS: ALCOHOL < 10 mg/dL (NONE DETECTED)
[2019-05-20 02:28] LABS: APPEARANCE,URINE CLEAR; BILIRUBIN,URINE NEGATIVE (NEGATIVE); COLOR,URINE YELLOW; GLUCOSE, URINE NEGATIVE (NEGATIVE); KETONES,URINE NEGATIVE (NEGATIVE); LEUKOCYTE ESTERASE,URINE NEGATIVE (NEGATIVE); NITRITE,URINE NEGATIVE (NEGATIVE); PROTEIN,URINE 30 mg/dL (NEGATIVE); URINE SPECIFIC GRAVITY 1.024
--- NOTE | 2019-05-20 04:00 | RADIOLOGY REPORT (SQ) ---
CT head without contrast on 05/20/2019 2:37 AM CLINICAL INDICATION: Altered mental status TECHNIQUE: Multiple axial images are obtained throughout the head without the administration of contrast. This exam was performed according to our departmental dose-optimization program, which includes automated exposure control, adjustment of the mA and/or kV according to patient size and/or use of iterative reconstruction technique. Total DLP is 855.26 mGy*cm. COMPARISON: 05/04/2019 FINDINGS: There is generalized cerebral atrophy. There is low-density in the periventricular white matter consistent with chronic small vessel ischemic changes. There are small old bilateral periventricular lacunar infarcts again noted. There is no CT evidence of acute infarct. There is large right frontal scalp hematoma. There is no hemorrhage. There are no abnormal extra-axial fluid collections. There is no mass, mass effect or midline shift. No bony abnormality is noted. IMPRESSION: Right frontal scalp hematoma with no acute intracranial abnormality.
--- NOTE | 2019-05-20 04:11 | ER Document Report ---
ED General - General Chief Complaint: Altered Mental Status Stated Complaint: UNRESPONSIVE,FALL,AMS Time Seen by Provider: 05/19/19 23:28 Primary Care Provider: LEO HURTADO MD [Primary Care Provider] - Follow up as needed Mode of Arrival: Medic Information source: Patient, Relative Cannot obtain history due to: Dementia TRAVEL OUTSIDE OF THE [place] IN LAST 30 DAYS: No - HPI Patient complains to provider of: passing out while going to the bathroom Onset: Other - gradually over the last several months Onset/Duration: Gradual Quality of pain: No pain Severity: None Associated symptoms: Other - Syncope Exacerbated by: Other - vagal events Relieved by: Other - nothing Similar symptoms previously: Yes Recently seen / treated by doctor: Yes - patient was seen in this ER for the same thing in [facility] Notes: 83 year old female with a history of Dementia, prior CVA, Anxiety, Prior Syncopal Events, HTN, HLD, CAD, Arthritis brought to the ER for altered mental status and concern of syncopal event. The patient was apparently going to the bathroom and she groaned and then let her head fall down and became minimally responsive. The patient has apparently done this several times before. The patient's son tells the patient has done this several times before and she has been worked up for this in the past. The patient's son tells me that the healthcare in the [facility] is terrible and he cannot see how this patient cannot have MRAs of her head and neck and a full cardiac evaluation in the ER. The patient was seen in this ER in [facility] and she had an MRI of her head then showing no acute process. The patient had the same complaints in [facility] when she was seen. Looking back, the patient has been seen many times in this ER for syncope. - Related Data Allergies/Adverse Reactions: clindamycin Allergy (Verified 04/23/19 11:46) clopidogrel [From Plavix] Allergy (Verified 04/23/19 11:46) diatrizoate meglumine [From SHERYLGastroview] Allergy (Verified 04/23/19 11:46) diatrizoate sodium [From MDSharathGastroview] Allergy (Verified 04/23/19 11:46) dipyridamole [From Aggrenox] Allergy (Verified 04/23/19 11:46) erythromycin base [From Erythrocin] Allergy (Verified 04/23/19 11:46) meloxicam Allergy (Verified 04/23/19 11:46) pantoprazole Allergy (Verified 04/23/19 11:46) risedronate sodium [From Actonel] Allergy (Verified 04/23/19 11:46) sulfamethoxazole [From Bactrim] Allergy (Verified 04/23/19 11:46) ticlopidine Allergy (Verified 04/23/19 11:46) tobramycin Allergy (Verified 04/23/19 11:46) trimethoprim [From Bactrim] Allergy (Verified 04/23/19 11:46) IVC dye Allergy (Uncoded 04/23/19 11:46) Past Medical History - Social History Smoking Status: Current Every Day Smoker Chew tobacco use (# tins/day): No Frequency of alcohol use: None Drug Abuse: None Family History: Reviewed & Not Pertinent Patient has suicidal ideation: No Patient has homicidal ideation: No - Past Medical History Cardiac Medical History: Reports: Hx Congestive Heart Failure, Hx DVT, Hx Heart Attack, Hx Hypercholesterolemia, Hx Hypertension Neurological Medical History: Reports: Hx Cerebrovascular Accident. Denies: Hx Seizures Renal/ Medical History: Denies: Hx Peritoneal Dialysis Musculoskeletal Medical History: Reports Hx Arthritis Psychiatric Medical History: Reports: Hx Anxiety, Hx Dementia Denies: Hx Depression Past Surgical History: Reports: Hx Cardiac Catheterization, Hx Cardiac Surgery, Other Review of Systems - Review of Systems Constitutional: Weakness EENT: No symptoms reported Cardiovascular: No symptoms reported Respiratory: No symptoms reported Gastrointestinal: No symptoms reported Genitourinary: No symptoms reported Female Genitourinary: No symptoms reported Musculoskeletal: No symptoms reported Skin: No symptoms reported Hematologic/Lymphatic: No symptoms reported Neurological/Psychological: Other - syncope, altered mental status Physical Exam - Vital signs Vitals: Resp Pulse Ox 26 H 96 05/19/19 21:55 05/19/19 21:55 - Notes Notes: GENERAL: Chronically Ill Appearing, well-nourished, in no acute distress. Patient is able to respond but she does not like to do so. HEAD: Atraumatic, normocephalic. EYES: Pupils equal round and reactive to light, extraocular movements intact, sclera anicteric, conjunctiva are normal. ENT: TMs normal, nares patent, oropharynx clear without exudates. Moist mucous membranes. NECK: Normal range of motion, supple without lymphadenopathy or JVD. LUNGS: Breath sounds clear to auscultation bilaterally and equal. No wheezes rales or rhonchi. HEART: Regular rate and rhythm without murmurs, rubs or gallops. ABDOMEN: Soft, nontender, normoactive bowel sounds. No guarding, no rebound. No masses appreciated. EXTREMITIES: Normal range of motion, no pitting or edema. No clubbing or cyanosis. NEUROLOGICAL: Patient will not participate in a full neuro exam. Patient has no focal deficits. PSYCH: Normal mood, normal affect. SKIN: Warm, Dry, normal turgor, no rashes or lesions noted. Course - Re-evaluation Re-evalutation: 05/20/19 05:57 The patient has a history of chronic syncope, dementia, and anxiety. The patient has no acute lab abnormalities and no acute process on head CT. Patient's son is upset that special imaging such as an MRA of the patient's head and neck cannot be done in the ER. The patient's son tells me over and over that the healthcare in this state "sucks" and that he would like to bring the patient to [facility] where more can be done. The patient's son was told that he needs to have the patient follow up with the patient's PCP and that they can consider outpatient Neuro work ups. The patient's son says the patient has no good doctors in this area. - Vital Signs Vital signs: Temp Pulse Resp BP Pulse Ox 97.8 F 17 139/58 H 97 05/20/19 04:31 05/20/19 04:31 05/20/19 04:31 05/20/19 04:31 - Laboratory Result Diagrams: 05/19/19 22:10 05/19/19 22:10 Laboratory results interpreted by me: 05/19/19 05/19/19 05/20/19 22:10 22:10 01:34 Hgb 9.9 L Hct 30.6 L MCV 67 L MCH 21.7 L RDW 19.7 H Lymph % (Auto) 9.5 L Seg Neutrophils % 81.8 H Sodium 132.6 L BUN 23 H Creatinine 1.29 H Est GFR ( Amer) 48 L Est GFR (MDRD) Non-Af 39 L Glucose 144 H Albumin 3.3 L Urine Protein 30 H Urine Urobilinogen 4.0 H Discharge - Discharge Clinical Impression: Dementia Qualifiers: Dementia type: unspecified type Dementia behavioral disturbance: without behavi oral disturbance Qualified Code(s): F03.90 - Unspecified dementia without b ehavioral disturbance Failure to thrive Qualifiers: Failure to thrive age range: in adult Qualified Code(s): R62.7 - Adult failure to thrive Condition: Stable Disposition: HOME, SELF-CARE Instructions: Altered Mental Status ([facility]), Dementia ([facility]) Additional Instructions: Follow up with a primary care doctor and with a Neurologist and tell them about your ER visits. You have had blood work, a Urine Analysis, and imaging (MRI in Apr and CT scan in May) showing no acute process. Referrals: LEO HURTADO MD [Primary Care Provider] - Follow up as needed
[2019-05-20 04:37] VITALS: BP 139/58
== END 2019-05-20 04:55 | disposition home or self-care (01) ==
LOC: ER 21:51
DX: F03.90 Unspecified dementia, unspecified severity, without behavioral disturbance, psychotic disturbance, mood disturbance, and anxiety (principal); R62.7 Adult failure to thrive; R41.82 Altered mental status, unspecified; W19.XXXA Unspecified fall, initial encounter; R55 Syncope and collapse; F17.200 Nicotine dependence, unspecified, uncomplicated; Z86.73 Personal history of transient ischemic attack (TIA), and cerebral infarction without residual deficits; I50.9 Heart failure, unspecified; I25.2 Old myocardial infarction; I11.0 Hypertensive heart disease with heart failure
CPT/HCPCS: 36415; 70450; 80053; 80307; 81001; 83735; 85025; 93005; 93010; 99285

== ENCOUNTER 2019-07-05 04:45 | Emergency (ER) | payer MEDICARE, MEDICAID ==
--- NOTE | 2019-07-05 06:06 | ER Document Report ---
ED General - General Time Seen by Provider: 07/05/19 06:05 Primary Care Provider: LEO HURTADO MD [Primary Care Provider] - Follow up as needed Notes: 84-year-old female with multiple strokes dementia bedbound lives at home presents with altered mental status with possible loss consciousness. Apparently has recurrent episodes of falling asleep versus syncope at home, and today had a similar episode but was found to be slightly hypoxic. On 2 L, cannot give a history at all. TRAVEL OUTSIDE OF THE [place] IN LAST 30 DAYS: No - Related Data Allergies/Adverse Reactions: clindamycin Allergy (Verified 04/23/19 11:46) clopidogrel [From Plavix] Allergy (Verified 04/23/19 11:46) diatrizoate meglumine [From -Gastroview] Allergy (Verified 04/23/19 11:46) diatrizoate sodium [From MD-Gastroview] Allergy (Verified 04/23/19 11:46) dipyridamole [From Aggrenox] Allergy (Verified 04/23/19 11:46) erythromycin base [From Erythrocin] Allergy (Verified 04/23/19 11:46) meloxicam Allergy (Verified 04/23/19 11:46) pantoprazole Allergy (Verified 04/23/19 11:46) risedronate sodium [From Actonel] Allergy (Verified 04/23/19 11:46) sulfamethoxazole [From Bactrim] Allergy (Verified 04/23/19 11:46) ticlopidine Allergy (Verified 04/23/19 11:46) tobramycin Allergy (Verified 04/23/19 11:46) trimethoprim [From Bactrim] Allergy (Verified 04/23/19 11:46) IVC dye Allergy (Uncoded 04/23/19 11:46) Past Medical History - General Information source: Relative - Social History Smoking Status: Unknown if Ever Smoked Family History: Reviewed & Not Pertinent - Past Medical History Cardiac Medical History: Reports: Hx Congestive Heart Failure, Hx DVT, Hx Heart Attack, Hx Hypercholesterolemia, Hx Hypertension Neurological Medical History: Reports: Hx Cerebrovascular Accident. Denies: Hx Seizures Renal/ Medical History: Denies: Hx Peritoneal Dialysis Musculoskeletal Medical History: Reports Hx Arthritis Psychiatric Medical History: Reports: Hx Anxiety, Hx Dementia Denies: Hx Depression Past Surgical History: Reports: Hx Cardiac Catheterization, Hx Cardiac Surgery, Other Review of Systems - Review of Systems Notes: REVIEW OF SYSTEMS Cannot obtained: Dementia PHYSICAL EXAMINATION General: Elderly frail Head: Atraumatic, normocephalic ENT: Mouth normal, oropharynx moist, no exudates or tonsillar enlargement Eyes: Conjunctiva normal, pupils equal, lids normal Neck: No JVD, supple, no guarding CVS: Normal rate, regular rhythm, no murmurs Resp: No resp distress, equal and normal breath sounds bilaterally GI: Nondistended, soft, no tenderness to palpation, no rebound or guarding Ext: No deformities, no edema, normal range of motion in upper and lower ext Back: No CVA or midline TTP Skin: No rash, warm Lymphatic: No lymphadeopathy noted Neuro: As to pain and loud voice. Seems contracted, noncompliant with neurologic exam Physical Exam - Vital signs Vitals: Temp Pulse Resp BP Pulse Ox 98.4 F 64 17 158/78 H 100 07/05/19 08:16 07/05/19 08:16 07/05/19 08:16 07/05/19 08:16 07/05/19 08:16 Course - Re-evaluation Re-evalutation: 07/05/19 09:00 Elderly female with multiple strokes bedbound and demented presents with similar She does not seem to have any loss of consciousness here and her mental status appears at baseline based on her chart and family reviewed, she is not febrile and her metabolic work-up is negative except for very slight hyponatremia which is likely from dehydration. No new stroke or bleed on CT, no UTI. I think that she is stable for discharge home as she does not have any acute cause of syncope identified and seems to be at her baseline. Hospital admission would probably worsen her condition I have discussed with the patient there likely diagnosis, aftercare plan, follow-up plans and my usual and customary return precautions. They verbalized understanding of this. - Vital Signs Vital signs: Temp Pulse Resp BP Pulse Ox 98.4 F 64 17 158/78 H 100 07/05/19 08:16 07/05/19 08:16 07/05/19 08:16 07/05/19 08:16 07/05/19 08:16 - Laboratory Result Diagrams: 07/05/19 06:46 07/05/19 06:46 Laboratory results interpreted by me: 07/05/19 07/05/19 07/05/19 06:46 06:46 06:46 Hgb 10.8 L Hct 34.1 L MCV 68 L MCH 21.6 L MCHC 31.7 L RDW 19.5 H Lymph % (Auto) 11.9 L Sodium 136.3 L Glucose 117 H Urine Protein 100 H Urine Urobilinogen 4.0 H - Diagnostic Test Radiology reviewed: Image reviewed, Reports reviewed Discharge - Discharge Clinical Impression: Altered mental status Qualifiers: Altered mental status type: transient alteration of awareness Qualified Code(s): R40.4 - Transient alteration of awareness Condition: Good Disposition: HOME, SELF-CARE Instructions: Syncopal Episode ([facility]) Referrals: LEO HURTADO MD [Primary Care Provider] - Follow up as needed
[2019-07-05 07:03] LABS: ABSOLUTE EOSINOPHILS # (AUTO) 0.1 10^3/uL (0.0-0.6); ABSOLUTE LYMPHOCYTES (AUTO) 0.9 10^3/uL (0.5-4.7); ABSOLUTE MONOCYTES (AUTO) 0.7 10^3/uL (0.1-1.4); ABSOLUTE NEUT (AUTO) 5.8 10^3/uL (1.7-8.2); BASOPHILS % (AUTO) 0.4 % (0-2); EOSINOPHILS % (AUTO) 1.5 % (0-6); HEMATOCRIT 34.1 % (36.0-47.0); HEMOGLOBIN 10.8 g/dL (12.0-15.5); LYMPHOCYTES % (AUTO) 11.9 % (13-45); MEAN CORPUSCULAR HEMOGLOBIN 21.6 pg (27.0-33.4); MEAN CORPUSCULAR HGB CONC 31.7 g/dL (32.0-36.0); MEAN CORPUSCULAR VOLUME 68 fl (80-97); MONOCYTES % (AUTO) 9.9 % (3-13); PLATELET COUNT 217 10^3/uL (150-450); RED CELL DISTRIBUTION WIDTH 19.5 % (11.5-14.0); SEGMENTED NEUTROPHILS % (AUTO) 76.3 % (42-78); TOTAL CELLS COUNTED % (AUTO) 100 %; WHITE BLOOD COUNT 7.6 10^3/uL (4.0-10.5)
[2019-07-05 07:11] LABS: APPEARANCE,URINE SLIGHTLY-CLOUDY; BILIRUBIN,URINE NEGATIVE (NEGATIVE); COLOR,URINE YELLOW; GLUCOSE, URINE NEGATIVE (NEGATIVE); KETONES,URINE NEGATIVE (NEGATIVE); LEUKOCYTE ESTERASE,URINE NEGATIVE (NEGATIVE); NITRITE,URINE NEGATIVE (NEGATIVE); PROTEIN,URINE 100 mg/dL (NEGATIVE)
[2019-07-05 07:25] LABS: ANION GAP 10 (5-19); BLOOD UREA NITROGEN 18 mg/dL (7-20); CALCIUM 9.2 mg/dL (8.4-10.2); CARBON DIOXIDE 23 mmol/L (22-30); CHLORIDE 103 mmol/L (98-107); GLUCOSE 117 mg/dL (75-110); POTASSIUM 4.2 mmol/L (3.6-5.0)
--- NOTE | 2019-07-05 07:35 | RADIOLOGY REPORT (SQ) ---
EXAM DESCRIPTION: CT HEAD WITHOUT IV CONTRAST COMPLETED DATE/TME: 07/05/2019 06:05 CLINICAL HISTORY: AMS COMPARISON: 05/20/2019 TECHNIQUE: Axial CT of the head obtained from the skull apex to the skull base without contrast. FINDINGS: No acute intracranial hemorrhage identified. No mass, mass effect, shift of the midline, abnormal extra-axial fluid collection or CT evidence of acute ischemic change identified. The ventricular system and sulcal spaces are mildly enlarged compatible with mild cerebral atrophy. Confluent areas of hypodensity throughout the supratentorial white matter are nonspecific and may be related to chronic small vessel ischemic change. Right subinsular encephalomalacia compatible with remote infarction. Left basal ganglia lacunar type infarction. The visualized paranasal sinuses and the mastoids are clear. No skull fracture identified. Visualized orbits and globes are unremarkable. Atherosclerotic calcification of the intracranial internal carotid arteries. IMPRESSION: 1. No acute intracranial abnormality by CT criteria. This exam was performed according to our departmental dose-optimization program, which includes automated exposure control, adjustment of the mA and/or kV according to patient size and/or use of iterative reconstruction technique.
[2019-07-05 08:17] VITALS: BP 158/78
--- NOTE | 2019-07-05 09:09 | EKG REPORT ---
SEVERITY:- ABNORMAL ECG - SINUS RHYTHM VENTRICULAR PREMATURE COMPLEX NONSPECIFIC IVCD WITH LAD PROBABLE INFERIOR INFARCT, AGE INDETERMINATE : Confirmed by: Vikki Boswell 05-Jul-2019 09:09:05
== END 2019-07-05 08:30 | disposition home or self-care (01) ==
LOC: ER 04:45
DX: R40.4 Transient alteration of awareness (principal); Z86.73 Personal history of transient ischemic attack (TIA), and cerebral infarction without residual deficits; F03.90 Unspecified dementia, unspecified severity, without behavioral disturbance, psychotic disturbance, mood disturbance, and anxiety; I11.0 Hypertensive heart disease with heart failure; I50.9 Heart failure, unspecified; I25.2 Old myocardial infarction
CPT/HCPCS: 36415; 51701; 70450; 80048; 81001; 85025; 93005; 93010; 99285

== ENCOUNTER 2019-07-23 16:18 | Inpatient (IN) | payer MEDICARE, MEDICAID ==
--- NOTE | 2019-07-23 17:06 | ER Document Report ---
ED General - General Chief Complaint: Altered Mental Status Stated Complaint: ALTERED MENTAL STATUS Time Seen by Provider: 07/23/19 17:04 Primary Care Provider: LEO HURTADO MD [Primary Care Provider] - Follow up as needed Mode of Arrival: Medic Information source: Relative, Emergency Med Personnel Cannot obtain history due to: Dementia, Altered mental status TRAVEL OUTSIDE OF THE [place] IN LAST 30 DAYS: No - HPI Onset: Other - some time today Onset/Duration: Gradual Quality of pain: No pain Severity: Moderate Pain Level: Denies Associated symptoms: Fever, Weakness, Other - altered mental status Exacerbated by: Denies Relieved by: Denies Similar symptoms previously: Yes - patient has had many syncopal events in past but she has a fever today Recently seen / treated by doctor: Yes - patient seen in Jun 2019 for a questionable syncopal event Notes: 84 year old female with a history of Dementia, CVA with left hemiparesis, CHF, DVT, HTN, HLD, Anxiety brought in by EMS due to concern of altered level of consciousness. The patient arrived Febrile and only responsive to painful stimuli. The patient apparently does not speak normally and is pretty much bed bound. The patient has been seen in this ER several times for syncopal events in the past. The patient is unable to give a history due to her Dementia. - Related Data Allergies/Adverse Reactions: clindamycin Allergy (Verified 04/23/19 11:46) clopidogrel [From Plavix] Allergy (Verified 04/23/19 11:46) diatrizoate meglumine [From MD-Gastroview] Allergy (Verified 04/23/19 11:46) diatrizoate sodium [From MD-Gastroview] Allergy (Verified 04/23/19 11:46) dipyridamole [From Aggrenox] Allergy (Verified 04/23/19 11:46) erythromycin base [From Erythrocin] Allergy (Verified 04/23/19 11:46) meloxicam Allergy (Verified 04/23/19 11:46) pantoprazole Allergy (Verified 04/23/19 11:46) risedronate sodium [From Actonel] Allergy (Verified 04/23/19 11:46) sulfamethoxazole [From Bactrim] Allergy (Verified 04/23/19 11:46) ticlopidine Allergy (Verified 04/23/19 11:46) tobramycin Allergy (Verified 04/23/19 11:46) trimethoprim [From Bactrim] Allergy (Verified 04/23/19 11:46) IVC dye Allergy (Uncoded 04/23/19 11:46) Past Medical History - General Information source: Relative, Emergency Med Personnel Cannot obtain history due to: Dementia - PMH obtained from EMR, EMS, and Family - Social History Smoking Status: Never Smoker Chew tobacco use (# tins/day): No Frequency of alcohol use: None Drug Abuse: None Family History: Reviewed & Not Pertinent Patient has suicidal ideation: No Patient has homicidal ideation: No - Past Medical History Cardiac Medical History: Reports: Hx Congestive Heart Failure, Hx DVT, Hx Heart Attack, Hx Hypercholesterolemia, Hx Hypertension Neurological Medical History: Reports: Hx Cerebrovascular Accident. Denies: Hx Seizures Renal/ Medical History: Denies: Hx Peritoneal Dialysis Musculoskeletal Medical History: Reports Hx Arthritis Psychiatric Medical History: Reports: Hx Anxiety, Hx Dementia Denies: Hx Depression Past Surgical History: Reports: Hx Cardiac Catheterization, Hx Cardiac Surgery, Other Review of Systems - Review of Systems Notes: ROS from family and EMS since patient nonverbal -: Yes ROS unobtainable due to patient's medical condition Constitutional: Fever, Weakness Neurological/Psychological: Confusion, Dementia, Weakness -: Yes All other systems reviewed and negative Physical Exam - Vital signs Vitals: Resp BP 26 H 159/73 H 07/23/19 16:31 07/23/19 16:31 - Notes Notes: GENERAL: Chronically Ill Appearing, well-nourished, in no acute distress. Patient is currently nonresponsive except to painful stimuli HEAD: Bruises on face. Normocephalic. EYES: Pupils equal round and reactive to light, extraocular movements intact, sclera anicteric, conjunctiva are normal. ENT: Nares patent, oropharynx clear without exudates. Moist mucous membranes. NECK: Normal range of motion, supple without lymphadenopathy or JVD. LUNGS: Breath sounds clear to auscultation bilaterally and equal. No wheezes rales or rhonchi. HEART: Regular rate and rhythm without murmurs, rubs or gallops. ABDOMEN: Soft, nontender, normoactive bowel sounds. No guarding, no rebound. No masses appreciated. EXTREMITIES: Normal range of motion, no pitting or edema. No clubbing or cyanosis. NEUROLOGICAL: Patient will not participate in a full neuro exam. Patient seem to have some left sided contractures. PSYCH: Unable to assess at this time SKIN: Warm, Dry, normal turgor, no rashes or lesions noted. Course - Re-evaluation Re-evalutation: 07/23/19 18:25 The patient meets sepsis criteria (elevated WBC count, elevated lactic acid, and she has a source - UTI). Patient treated with Fluids and IV Rocephin and admitted for further treatment and work up. Patient had a head and neck CT since she has bruising on her face of unknown origin (her son told nursing staff she has been hitting her head on her bed). - Vital Signs Vital signs: Temp Pulse Resp BP Pulse Ox 21 H 158/67 H 97 07/23/19 17:01 07/23/19 17:01 07/23/19 17:05 - Laboratory Result Diagrams: 07/23/19 16:05 07/23/19 16:05 Laboratory results interpreted by me: 07/23/19 07/23/19 07/23/19 16:05 16:05 16:05 WBC 13.7 H Hgb 11.0 L Hct 35.2 L MCV 68 L MCH 21.1 L MCHC 31.2 L RDW 18.8 H Lymph % (Auto) 5.4 L Absolute Neuts (auto) 11.3 H Absolute Monos (auto) 1.7 H Seg Neutrophils % 82.0 H PT 24.0 H VBG pCO2 Sodium 132.9 L Carbon Dioxide 19 L BUN 22 H Glucose 186 H Lactic Acid NT-Pro-B Natriuret Pep Urine Protein Urine Glucose (UA) Urine Ketones Urine Blood Urine Nitrite Ur Leukocyte Esterase 07/23/19 07/23/19 07/23/19 16:05 16:50 16:50 WBC Hgb Hct MCV MCH MCHC RDW Lymph % (Auto) Absolute Neuts (auto) Absolute Monos (auto) Seg Neutrophils % PT VBG pCO2 31.8 L Sodium Carbon Dioxide BUN Glucose Lactic Acid 2.2 H NT-Pro-B Natriuret Pep 1310 H Urine Protein Urine Glucose (UA) Urine Ketones Urine Blood Urine Nitrite Ur Leukocyte Esterase 07/23/19 16:50 WBC Hgb Hct MCV MCH MCHC RDW Lymph % (Auto) Absolute Neuts (auto) Absolute Monos (auto) Seg Neutrophils % PT VBG pCO2 Sodium Carbon Dioxide BUN Glucose Lactic Acid NT-Pro-B Natriuret Pep Urine Protein 30 H Urine Glucose (UA) 50 H Urine Ketones TRACE H Urine Blood SMALL H Urine Nitrite POSITIVE H Ur Leukocyte Esterase LARGE H - Diagnostic Test Radiology reviewed: Image reviewed, Reports reviewed Discharge - Discharge Clinical Impression: UTI (urinary tract infection) Qualifiers: Urinary tract infection type: acute cystitis Hematuria presence: without hematuria Qualified Code(s): N30.00 - Acute cystitis without hematuria Sepsis Qualifiers: Sepsis type: sepsis due to unspecified organism Sepsis acute organ dysfunction status: unspecified Qualified Code(s): A41.9 - Sepsis, unspecified organism Altered mental status Qualifiers: Altered mental status type: unspecified Qualified Code(s): R41.82 - Altered me ntal status, unspecified Condition: Fair Disposition: ADMITTED INPATIENT Admitting Provider: Kvng (Hospitalist) Unit Admitted: Medical Floor Referrals: LEO HURTADO MD [Primary Care Provider] - Follow up as needed
[2019-07-23 17:16] LABS: VENOUS BLOOD BASE EXCESS -3.8 mmol/L; VENOUS BLOOD PCO2 31.8 mmHg (35-63); VENOUS BLOOD PH 7.42 (7.30-7.42)
[2019-07-23 17:17] LABS: ABSOLUTE LYMPHOCYTES (AUTO) 0.7 10^3/uL (0.5-4.7); ABSOLUTE MONOCYTES (AUTO) 1.7 10^3/uL (0.1-1.4); ABSOLUTE NEUT (AUTO) 11.3 10^3/uL (1.7-8.2); BASOPHILS % (AUTO) 0.2 % (0-2); EOSINOPHILS % (AUTO) 0.1 % (0-6); HEMATOCRIT 35.2 % (36.0-47.0); LYMPHOCYTES % (AUTO) 5.4 % (13-45); MEAN CORPUSCULAR HEMOGLOBIN 21.1 pg (27.0-33.4); MEAN CORPUSCULAR HGB CONC 31.2 g/dL (32.0-36.0); MEAN CORPUSCULAR VOLUME 68 fl (80-97); MONOCYTES % (AUTO) 12.3 % (3-13); PLATELET COUNT 244 10^3/uL (150-450); RED CELL DISTRIBUTION WIDTH 18.8 % (11.5-14.0); TOTAL CELLS COUNTED % (AUTO) 100 %; WHITE BLOOD COUNT 13.7 10^3/uL (4.0-10.5)
[2019-07-23 17:23] LABS: ALKALINE PHOSPHATASE 119 U/L (38-126); ANION GAP 11 (5-19); ASPARTATE AMINO TRANSFERASE 35 U/L (14-36); BILIRUBIN,DIRECT 0.1 mg/dL (0.0-0.4); BILIRUBIN,TOTAL 0.8 mg/dL (0.2-1.3); BLOOD UREA NITROGEN 22 mg/dL (7-20); CALCIUM 9.1 mg/dL (8.4-10.2); CARBON DIOXIDE 19 mmol/L (22-30); CHLORIDE 103 mmol/L (98-107); GLUCOSE 186 mg/dL (75-110); POTASSIUM 4.7 mmol/L (3.6-5.0)
[2019-07-23 17:24] LABS: INTERNATIONAL RATION (INR) 2.11
[2019-07-23 17:26] LABS: APPEARANCE,URINE CLOUDY; BILIRUBIN,URINE NEGATIVE (NEGATIVE); COLOR,URINE YELLOW; GLUCOSE, URINE 50 mg/dL (NEGATIVE); KETONES,URINE TRACE mg/dL (NEGATIVE); LEUKOCYTE ESTERASE,URINE LARGE (NEGATIVE); NITRITE,URINE POSITIVE (NEGATIVE); PROTEIN,URINE 30 mg/dL (NEGATIVE); UROBILINOGEN,URINE NEGATIVE mg/dL (<2.0)
[2019-07-23] MEDS ORDERED: NORMAL SALINE 1000 ML 1,000 ML IV ONE (17:35)
--- NOTE | 2019-07-23 17:56 | RADIOLOGY REPORT (SQ) ---
EXAM DESCRIPTION: CT HEAD WITHOUT COMPLETED DATE/TIME: 07/23/2019 5:36 pm REASON FOR STUDY: eval for AMS. patient altered with a fever COMPARISON: 07/05/2019 TECHNIQUE: Axial images acquired through the brain without intravenous contrast. Images reviewed wi th bone, brain and subdural windows. Additional sagittal and coronal reconstructions were generated. Images stored on PACS. All CT scanners at this facility use dose modulation, iterative reconstruction, and/or weight based d osing when appropriate to reduce radiation dose to as low as reasonably achievable (ALARA). [facility]: Dose Right [facility]: CareDose [facility]: Dose Right [facility]: Teradose 4D [facility]: Smart Engagor RADIATION DOSE: mGy. LIMITATIONS: None. FINDINGS: VENTRICLES: Prominent. CEREBRUM: No masses. No hemorrhage. No midline shift. Areas of low density in the white matter mos t likely due to chronic micro-vascular ischemic change. No evidence for acute infarction. CEREBELLUM: No masses. No hemorrhage. No alteration of density. No evidence for acute infarction. EXTRAAXIAL SPACES: Age-related involutional change. No fluid collections. No masses. ORBITS AND GLOBE: No intra- or extraconal masses. Normal contour of globe without masses. CALVARIUM: No fracture. PARANASAL SINUSES: No fluid or mucosal thickening. SOFT TISSUES: No mass or hematoma. OTHER: No other significant finding. IMPRESSION: CHRONIC CHANGES OF ATROPHY AND MICROVASCULAR ISCHEMIA. NO ACUTE PROCESS. EVIDENCE OF ACUTE STROKE: NO. TECHNICAL DOCUMENTATION: JOB ID: [id number] Quality ID # [id number]: Final reports with documentation of one or more dose reduction techniques (e.g., Au tomated exposure control, adjustment of the mA and/or kV according to patient size, use of iterative reconstruction technique) 2010 [employer]- All Rights Reserved Reading location - IP/workstation name: [email or web address]
[2019-07-23 18:09] LABS: A TYPE INFLUENZA AG NEGATIVE (NEGATIVE); B INFLUENZA AG NEGATIVE (NEGATIVE)
--- NOTE | 2019-07-23 18:14 | RADIOLOGY REPORT (SQ) ---
EXAM DESCRIPTION: CT CERVICAL SPINE WITHOUT COMPLETED DATE/TIME: 07/23/2019 5:36 pm REASON FOR STUDY: eval for neck trauma COMPARISON: 01/23/2019 TECHNIQUE: Axial images acquired through the cervical spine without intravenous contrast. Images re viewed with lung, soft tissue and bone windows. Reconstructed coronal and sagittal MPR images review ed. Images stored on PACS. All CT scanners at this facility use dose modulation, iterative reconstruction, and/or weight based d osing when appropriate to reduce radiation dose to as low as reasonably achievable (ALARA). [facility]: Dose Right [facility]: CareDose [facility]: Dose Right [facility]: Teradose 4D [facility]: Smart [employer] RADIATION DOSE: CT Rad equipment meets quality standard of care and radiation dose reduction techniq ues were employed. CTDIvol: 13.1 - 53.2 mGy. DLP: 1458 mGy-cm. LIMITATIONS: None. FINDINGS: ALIGNMENT: Exaggerated lordosis no significant abnormal listhesis. MINERALIZATION: Normal. VERTEBRAL BODIES: No fractures or dislocation. DISCS: Multilevel disc space narrowing with osteophytes. FACETS, LATERAL MASSES, POSTERIOR ELEMENTS: Facet arthropathy. No fractures. No dislocation. No ac [place] findings. HARDWARE: None in the spine. VISUALIZED RIBS: No fractures. LUNG APICES AND SOFT TISSUES: No acute findings. OTHER: No other significant finding. IMPRESSION: CHRONIC DEGENERATIVE CHANGES. NO ACUTE FINDINGS. TECHNICAL DOCUMENTATION: JOB ID: [id number] Quality ID # [id number]: Final reports with documentation of one or more dose reduction techniques (e.g., Au tomated exposure control, adjustment of the mA and/or kV according to patient size, use of iterative reconstruction technique) 2010 [employer]- All Rights Reserved Reading location - IP/workstation name: [email or web address]
--- NOTE | 2019-07-23 18:34 | RADIOLOGY REPORT (SQ) ---
EXAM DESCRIPTION: CHEST SINGLE VIEW COMPLETED DATE/TIME: 07/23/2019 5:39 pm REASON FOR STUDY: eval for pneumonia. cough, fever. COMPARISON: 05/04/2019 EXAM PARAMETERS: NUMBER OF VIEWS: One view. TECHNIQUE: Single frontal radiographic view of the chest acquired. RADIATION DOSE: NA LIMITATIONS: None. FINDINGS: LUNGS AND PLEURA: No opacities, masses or pneumothorax. No pleural effusion. MEDIASTINUM AND HILAR STRUCTURES: No masses. Contour normal. HEART AND VASCULAR STRUCTURES: Stable calcific and tortuous appearance of the aorta. BONES: No acute findings. HARDWARE: None in the chest. OTHER: No other significant finding. IMPRESSION: No evidence of an acute cardiopulmonary process TECHNICAL DOCUMENTATION: JOB ID: [id number] 2010 [employer]- All Rights Reserved Reading location - IP/workstation name: [email or web address]
--- NOTE | 2019-07-23 19:13 | PDOC H&P ---
History of Present Illness Admission Date/PCP: LEO HURTADO MD Patient complains of: ams History of Present Illness: KEVAN SEAY is a 84 year old female with a history of prior CVA, advanced dementia, CHF, who presents to the hospital via EMS after son noted that patient became lethargic. Apparently this afternoon around 2 PM, patient became nauseous and vomited her food and medications. Her blood pressure was noted to be very elevated at that time in the 180s systolic. She subsequently became lethargic. He called the ambulance. Upon presentation of EMS patient was notably hypertensive but also febrile at 101.9 per documentation. In the ER, patient was noted to still be encephalopathic and febrile. Head CT was negative. Patient subsequently referred to hospitalist service for admission with suspicion of urinary tract infection. Currently, history only obtainable from patient's son as patient is altered. Past Medical History Cardiac Medical History: Reports: Congestive Heart Failure, DVT, Myocardial Infarction, Hyperlipidema, Hypertension Neurological Medical History: Denies: Seizures Musculoskeltal Medical History: Reports: Arthritis Psychiatric Medical History: Reports: Dementia Denies: Depression Past Surgical History Past Surgical History: Reports: Cardiac Catheterization, Other Social History Smoking Status: Never Smoker Electronic Cigarette use?: No Frequency of Alcohol Use: None Hx Recreational Drug Use: No Drugs: None Hx Prescription Drug Abuse: No - Advance Directive Resuscitation Status: Do Not Resuscitate - Patient son Ian confirms the patient is DNR/DNI and no tube feeds Family History Family History: Reviewed & Not Pertinent Parental Family History Reviewed: No Children Family History Reviewed: NA Sibling(s) Family History Reviewed.: NA Medication/Allergy Home Medications: Atorvastatin Calcium [Lipitor 20 mg Tablet] 20 mg PO QHS 03/30/18 Carvedilol [Coreg 3.125 mg Tablet] 3.125 mg PO BIDP PRN 03/30/18 Levothyroxine Sodium [Synthroid 0.1 mg Tablet] 0.1 mg PO Q6AM 03/30/18 Prednisone [Deltasone 5 mg Tablet] 2.5 mg PO Q2D 03/30/18 Amlodipine Besylate [Norvasc 5 mg Tablet] 5 mg PO DAILY 01/02/19 Rivaroxaban [Xarelto] 20 mg PO DAILY 01/02/19 Valsartan 80 mg PO Q12 01/02/19 Omeprazole 20 mg PO DAILY 07/23/19 Allergies/Adverse Reactions: clindamycin Allergy (Verified 04/23/19 11:46) clopidogrel [From Plavix] Allergy (Verified 04/23/19 11:46) diatrizoate meglumine [From MD-Gastroview] Allergy (Verified 04/23/19 11:46) diatrizoate sodium [From MD-Gastroview] Allergy (Verified 04/23/19 11:46) dipyridamole [From Aggrenox] Allergy (Verified 04/23/19 11:46) erythromycin base [From Erythrocin] Allergy (Verified 04/23/19 11:46) meloxicam Allergy (Verified 04/23/19 11:46) pantoprazole Allergy (Verified 04/23/19 11:46) risedronate sodium [From Actonel] Allergy (Verified 04/23/19 11:46) sulfamethoxazole [From Bactrim] Allergy (Verified 04/23/19 11:46) ticlopidine Allergy (Verified 04/23/19 11:46) tobramycin Allergy (Verified 04/23/19 11:46) trimethoprim [From Bactrim] Allergy (Verified 04/23/19 11:46) IVC dye Allergy (Uncoded 04/23/19 11:46) Review of Systems ROS unobtainable: Due to mental status Physical Exam Vital Signs: Temp Pulse Resp BP Pulse Ox 24 H 199/107 H 97 07/23/19 18:39 07/23/19 18:39 07/23/19 18:39 Intake & Output 07/22/19 07/23/19 07/24/19 06:59 06:59 06:59 Weight 53.1 kg General appearance: PRESENT: other - Lethargic. Grunting. ABSENT: cooperative Head exam: PRESENT: other - Bruising noted over cheekbones Eye exam: PRESENT: PERRLA Mouth exam: PRESENT: dry mucosa Neck exam: ABSENT: JVD Respiratory exam: PRESENT: clear to auscultation nikolas, unlabored. ABSENT: tachypnea, wheezes Cardiovascular exam: PRESENT: +S1, +S2, tachycardia. ABSENT: irregular rhythm GI/Abdominal exam: PRESENT: soft, tenderness - Over lower abdomen. ABSENT: guarding, rebound, rigid Extremities exam: ABSENT: pedal edema Musculoskeletal exam: ABSENT: ambulatory Neurological exam: PRESENT: altered, other - Not participating in lethargic, not responding to conversation and only minimally opening her eyes to painful stimulus. Not participating in encounter. ABSENT: alert, awake, oriented to person, oriented to place, oriented to time, oriented to situation Psychiatric exam: ABSENT: agitated, anxious Results Laboratory Results: 07/23/19 16:05 07/23/19 16:05 07/23/19 07/23/19 07/23/19 16:05 16:05 16:50 WBC 13.7 H RBC 5.20 Hgb 11.0 L Hct 35.2 L MCV 68 L MCH 21.1 L MCHC 31.2 L RDW 18.8 H Plt Count 244 Seg Neutrophils % 82.0 H VBG pH 7.42 VBG pCO2 31.8 L VBG HCO3 20.0 VBG Base Excess -3.8 Sodium 132.9 L Potassium 4.7 Chloride 103 Carbon Dioxide 19 L Anion Gap 11 BUN 22 H Creatinine 0.73 Est GFR ( Amer) > 60 Glucose 186 H Lactic Acid Calcium 9.1 Total Bilirubin 0.8 AST 35 Alkaline Phosphatase 119 Total Protein 7.0 Albumin 4.0 Urine Color Urine Appearance Urine pH Ur Specific [place] Urine Protein Urine Glucose (UA) Urine Ketones Urine Blood Urine Nitrite Ur Leukocyte Esterase Urine WBC (Auto) Urine RBC (Auto) 07/23/19 07/23/19 16:50 16:50 WBC RBC Hgb Hct MCV MCH MCHC RDW Plt Count Seg Neutrophils % VBG pH VBG pCO2 VBG HCO3 VBG Base Excess Sodium Potassium Chloride Carbon Dioxide Anion Gap BUN Creatinine Est GFR ( Amer) Glucose Lactic Acid 2.2 H Calcium Total Bilirubin AST Alkaline Phosphatase Total Protein Albumin Urine Color YELLOW Urine Appearance CLOUDY Urine pH 7.0 Ur Specific [place] 1.020 Urine Protein 30 H Urine Glucose (UA) 50 H Urine Ketones TRACE H Urine Blood SMALL H Urine Nitrite POSITIVE H Ur Leukocyte Esterase LARGE H Urine WBC (Auto) >182 Urine RBC (Auto) 11 07/23/19 07/23/19 16:05 16:05 Troponin I < 0.012 NT-Pro-B Natriuret Pep 1310 H Impressions: Chest X-Ray 07/23/19 17:11 IMPRESSION: No evidence of an acute cardiopulmonary process Head CT 07/23/19 17:15 IMPRESSION: CHRONIC CHANGES OF ATROPHY AND MICROVASCULAR ISCHEMIA. NO ACUTE PROCESS. EVIDENCE OF ACUTE STROKE: NO. Cervical Spine CT 07/23/19 17:21 IMPRESSION: CHRONIC DEGENERATIVE CHANGES. NO ACUTE FINDINGS. Assessment and Plan - Diagnosis (1) Acute metabolic encephalopathy Is this a current diagnosis for this admission?: Yes (2) Advanced dementia Is this a current diagnosis for this admission?: Yes (3) Uncontrolled hypertension Is this a current diagnosis for this admission?: Yes (4) Sepsis Qualifiers: Sepsis type: sepsis due to unspecified organism Sepsis acute organ dysfunction status: with acute organ dysfunction Severe sepsis acute organ dysfunction type: encephalopathy Severe sepsis shock status: without septic shock Qualified Code(s): A41.9 - Sepsis, unspecified organism; R65.20 - Severe sepsis without septic shock; G93.40 - Encephalopathy, unspecified Is this a current diagnosis for this admission?: Yes (5) UTI (urinary tract infection) Qualifiers: Urinary tract infection type: acute cystitis Hematuria presence: without hematuria Qualified Code(s): N30.00 - Acute cystitis without hematuria Is this a current diagnosis for this admission?: Yes - Plan Summary Summary: Patient's acute encephalopathy likely secondary to sepsis or CVA Received IV fluids. Will give gentle hydration for 1 more liter and recheck lactic acid given current lactic acidosis. However mental status change was very acute raising suspicion for CVA even despite negative head CT. We will check MRI of the brain stat I will leave patient on permissive hypertension until MRI of the brain confirms negative for acute stroke and then I will resume antihypertensives. Discussed with patient's son who confirms patient is DNR/DNI. He also confirms that patient has advanced dementia at baseline but was awake today and able to eat. Ceftriaxone for treatment of UTI follow-up urine and blood cultures. - Time Time Spent with patient: 35 or more minutes
[2019-07-23] MEDS ORDERED: HYDRALAZINE HCL INJ/PF 20 MG/1 ML SDV IV PRN (19:16)
[2019-07-23] MEDS ORDERED: NORMAL SALINE 1000 ML 500 ML IV PRN (19:20)
[2019-07-23] MEDS ORDERED: CEFTRIAXONE 1 GM/D5W RTU 1 GM/50 ML RTUPB IV ONE (19:30)
--- NOTE | 2019-07-23 20:54 | RADIOLOGY REPORT (SQ) ---
MRI of the brain without intravenous contrast: 07/23/2019 7:39 PM CDT INDICATION: 84-year-old patient with altered mental status, hypertension COMPARISON: CT the head from 07/05/2019 TECHNIQUE: Sagittal T1; axial diffusion, ADC, T2, FLAIR, gradient echo images through the brain were obtained without intravenous contrast administered. FINDINGS: There is moderate prominence of the cerebral sulci and ventricles, suggestive of cerebral atrophy. Moderate nonspecific periventricular hyperintense signal is also seen, which may reflect chronic microvascular ischemia. No obvious restricted diffusion is seen. The cervicomedullary junction is unremarkable. There are remote infarcts seen at the bilateral basal ganglia. The visualized orbits also appear unremarkable. There are trace bilateral subdural hemorrhages measuring up to 4 to 5 mm on the left and 3 to 4 mm on the right. Hemorrhages are T1 isointense and No midline shift or mass effect is seen. The visualized vascular flow voids appear normal. The cerebellopontine angles appear normal. The sosa-white matter differentiation is normal. There is mild mucoperiosteal thickening at the ethmoid sinuses. IMPRESSION: 1. There are trace bilateral subdural hemorrhages without significant midline shift.. 2. Moderate cerebral atrophy and periventricular white matter changes are seen.
[2019-07-23] MEDS: LABETALOL HCL INJ 20 MG/4 ML DISP.SYRIN IV SCH (23:22)
[2019-07-24] MEDS: HYDRALAZINE HCL INJ/PF 20 MG/1 ML SDV IV PRN ×2 (01:35→21:28)
[2019-07-24] MEDS: LABETALOL HCL INJ 20 MG/4 ML DISP.SYRIN IV SCH (05:59)
[2019-07-24 06:04] LABS: ABSOLUTE LYMPHOCYTES (AUTO) 1.1 10^3/uL (0.5-4.7); ABSOLUTE MONOCYTES (AUTO) 2.1 10^3/uL (0.1-1.4); ABSOLUTE NEUT (AUTO) 11.6 10^3/uL (1.7-8.2); BASOPHILS % (AUTO) 0.3 % (0-2); HEMATOCRIT 28.9 % (36.0-47.0); HEMOGLOBIN 9.3 g/dL (12.0-15.5); LYMPHOCYTES % (AUTO) 7.6 % (13-45); MEAN CORPUSCULAR HEMOGLOBIN 21.2 pg (27.0-33.4); MEAN CORPUSCULAR HGB CONC 32.1 g/dL (32.0-36.0); MEAN CORPUSCULAR VOLUME 66 fl (80-97); MONOCYTES % (AUTO) 14.2 % (3-13); PLATELET COUNT 196 10^3/uL (150-450); RED BLOOD COUNT 4.38 10^6/uL (3.72-5.28); SEGMENTED NEUTROPHILS % (AUTO) 77.9 % (42-78); TOTAL CELLS COUNTED % (AUTO) 100 %; WHITE BLOOD COUNT 14.8 10^3/uL (4.0-10.5)
[2019-07-24 06:08] LABS: ANION GAP 10 (5-19); BLOOD UREA NITROGEN 15 mg/dL (7-20); CALCIUM 8.7 mg/dL (8.4-10.2); CARBON DIOXIDE 20 mmol/L (22-30); CHLORIDE 104 mmol/L (98-107); CHOLESTEROL 118.63 mg/dL (0-200); GLUCOSE 131 mg/dL (75-110); TRIGLYCERIDES 37 mg/dL (<150)
[2019-07-24 06:19] LABS: DIRECT LDL 66 mg/dL (<100)
[2019-07-24] MEDS ORDERED: ENOXAPARIN SODIUM INJ 40 MG/0.4 ML DISP.SYRIN SUBCUT SCH (10:00)
[2019-07-24] MEDS ORDERED: CEFTRIAXONE 1 GM/D5W RTU 1 GM/50 ML RTUPB IV SCH (10:00)
[2019-07-24] MEDS: CEFEPIME 1 GM/D5W RTU 1 GM/50 ML RTUPB IV SCH ×2 (11:33→21:30)
--- NOTE | 2019-07-24 11:46 | EKG REPORT ---
SEVERITY:- OTHERWISE NORMAL ECG - SINUS RHYTHM BORDERLINE LEFT AXIS DEVIATION : Confirmed by: Vikki Boswell 24-Jul-2019 11:46:01
[2019-07-24] MEDS ORDERED: CARVEDILOL 3.125 MG TABLET PO PRN (11:48)
[2019-07-24] MEDS: AMLODIPINE BESYLATE 5 MG TABLET PO SCH (13:21)
--- NOTE | 2019-07-24 14:18 | PDOC PROGRESS REPORT ---
Subjective Progress Note for:: 07/24/19 Subjective:: Patient is nonverbal and as such no subjective is obtainable. I have discussed patient's case with his son. Reason For Visit: ENCEPHALOPATHY,FEVER Physical Exam Vital Signs: Temp Pulse Resp BP Pulse Ox 99.0 F 84 20 136/69 H 97 07/24/19 12:35 07/24/19 12:35 07/24/19 12:35 07/24/19 12:35 07/24/19 12:35 Intake & Output 07/23/19 07/24/19 07/25/19 06:59 06:59 06:59 Intake Total 1050 Balance 1050 Weight 48 kg General appearance: PRESENT: no acute distress, cooperative Eye exam: PRESENT: other - Right pupil 3 mm left pupil 2 mm Neck exam: ABSENT: JVD Respiratory exam: PRESENT: clear to auscultation nikolas, unlabored. ABSENT: ta chypnea, wheezes Cardiovascular exam: PRESENT: RRR, +S1, +S2. ABSENT: tachycardia GI/Abdominal exam: PRESENT: normal bowel sounds, soft. ABSENT: rebound, rigid, tenderness Neurological exam: PRESENT: altered, motor sensory deficit - Contracture noted in left arm, aphasic - M[place] at baseline, other - Unable to follow instructions. Skin exam: PRESENT: other - Ecchymosis over left cheekbone Results Laboratory Results: 07/24/19 05:20 07/24/19 05:20 07/23/19 07/23/19 07/23/19 16:05 16:05 16:50 WBC 13.7 H RBC 5.20 Hgb 11.0 L Hct 35.2 L MCV 68 L MCH 21.1 L MCHC 31.2 L RDW 18.8 H Plt Count 244 Seg Neutrophils % 82.0 H VBG pH 7.42 VBG pCO2 31.8 L VBG HCO3 20.0 VBG Base Excess -3.8 Sodium 132.9 L Potassium 4.7 Chloride 103 Carbon Dioxide 19 L Anion Gap 11 BUN 22 H Creatinine 0.73 Est GFR ( Amer) > 60 Glucose 186 H Lactic Acid Calcium 9.1 Total Bilirubin 0.8 AST 35 Alkaline Phosphatase 119 Total Protein 7.0 Albumin 4.0 Triglycerides Cholesterol LDL Cholesterol Direct VLDL Cholesterol HDL Cholesterol Urine Color Urine Appearance Urine pH Ur Specific [place] Urine Protein Urine Glucose (UA) Urine Ketones Urine Blood Urine Nitrite Ur Leukocyte Esterase Urine WBC (Auto) Urine RBC (Auto) 07/23/19 07/23/19 07/23/19 16:50 16:50 19:33 WBC RBC Hgb Hct MCV MCH MCHC RDW Plt Count Seg Neutrophils % VBG pH VBG pCO2 VBG HCO3 VBG Base Excess Sodium Potassium Chloride Carbon Dioxide Anion Gap BUN Creatinine Est GFR ( Amer) Glucose Lactic Acid 2.2 H 1.4 Calcium Total Bilirubin AST Alkaline Phosphatase Total Protein Albumin Triglycerides Cholesterol LDL Cholesterol Direct VLDL Cholesterol HDL Cholesterol Urine Color YELLOW Urine Appearance CLOUDY Urine pH 7.0 Ur Specific [place] 1.020 Urine Protein 30 H Urine Glucose (UA) 50 H Urine Ketones TRACE H Urine Blood SMALL H Urine Nitrite POSITIVE H Ur Leukocyte Esterase LARGE H Urine WBC (Auto) >182 Urine RBC (Auto) 11 07/23/19 07/24/19 07/24/19 23:18 05:20 05:20 WBC 14.8 H RBC 4.38 Hgb 9.3 L Hct 28.9 L MCV 66 L MCH 21.2 L MCHC 32.1 RDW 19.0 H Plt Count 196 Seg Neutrophils % 77.9 VBG pH VBG pCO2 VBG HCO3 VBG Base Excess Sodium 134.3 L Potassium 4.0 Chloride 104 Carbon Dioxide 20 L Anion Gap 10 BUN 15 Creatinine 0.60 Est GFR ( Amer) > 60 Glucose 131 H Lactic Acid 1.3 Calcium 8.7 Total Bilirubin AST Alkaline Phosphatase Total Protein Albumin Triglycerides 37 Cholesterol 118.63 LDL Cholesterol Direct 66 VLDL Cholesterol 7.0 L HDL Cholesterol 46 Urine Color Urine Appearance Urine pH Ur Specific [place] Urine Protein Urine Glucose (UA) Urine Ketones Urine Blood Urine Nitrite Ur Leukocyte Esterase Urine WBC (Auto) Urine RBC (Auto) 07/23/19 07/23/19 16:05 16:05 Troponin I < 0.012 NT-Pro-B Natriuret Pep 1310 H Impressions: Head MRI 07/23/19 00:00 IMPRESSION: 1. There are trace bilateral subdural hemorrhages without significant midline shift.. 2. Moderate cerebral atrophy and periventricular white matter changes are seen. Chest X-Ray 07/23/19 17:11 IMPRESSION: No evidence of an acute cardiopulmonary process Head CT 07/23/19 17:15 IMPRESSION: CHRONIC CHANGES OF ATROPHY AND MICROVASCULAR ISCHEMIA. NO ACUTE PROCESS. EVIDENCE OF ACUTE STROKE: NO. Cervical Spine CT 07/23/19 17:21 IMPRESSION: CHRONIC DEGENERATIVE CHANGES. NO ACUTE FINDINGS. Assessment and Plan - Diagnosis (1) Subdural hemorrhage Is this a current diagnosis for this admission?: Yes (2) Acute metabolic encephalopathy Is this a current diagnosis for this admission?: Yes (3) Advanced dementia Is this a current diagnosis for this admission?: Yes (4) Uncontrolled hypertension Is this a current diagnosis for this admission?: Yes (5) Sepsis Qualifiers: Sepsis type: sepsis due to unspecified organism Sepsis acute organ dysfunction status: with acute organ dysfunction Severe sepsis acute organ dysfunction type: encephalopathy Severe sepsis shock status: without septic shock Qualified Code(s): A41.9 - Sepsis, unspecified organism; R65.20 - Severe sepsis without septic shock; G93.40 - Encephalopathy, unspecified Is this a current diagnosis for this admission?: Yes (6) UTI (urinary tract infection) Qualifiers: Urinary tract infection type: acute cystitis Hematuria presence: without hematuria Qualified Code(s): N30.00 - Acute cystitis without hematuria Is this a current diagnosis for this admission?: Yes - Plan Summary Summary: Patient's acute encephalopathy likely secondary to sepsis or CVA Received IV fluids. Will give gentle hydration for 1 more liter and recheck lactic acid given current lactic acidosis. However mental status change was very acute raising suspicion for CVA even despite negative head CT. We will check MRI of the brain stat I will leave patient on permissive hypertension until MRI of the brain confirms negative for acute stroke and then I will resume antihypertensives. Discussed with patient's son who confirms patient is DNR/DNI. He also confirms that patient has advanced dementia at baseline but was awake today and able to eat. Ceftriaxone for treatment of UTI follow-up urine and blood cultures. 07/24/2019 Head MRI revealed old strokes as well as trace bilateral's subdural hemorrhages. Has subdural hemorrhages likely precipitated by her significant brain atrophy, age and may have fallen at home and on Xarelto. We will focus on optimal blood pressure control. BP better optimized this morning. Will discontinue IV labetalol and resume patient on oral amlodipine and valsartan as well as Coreg. Will repeat head CT in the morning to ensure no worsening of the subdural hemorrhage. Have notified patient's son findings and that patient will need to be off Xarelto or any other anticoagulants despite a history of blood clots and the risk of having another VTE which he understands and agrees to. Start on a pured diet now more awake. Antibiotics changed to cefepime for treatment of UTI - Time Time Spent with patient: 15-24 minutes
--- NOTE | 2019-07-24 16:30 | ADVANCED CARE ---
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 Patient not able to participate in conversation given her advanced dementia. I informed patient's son of risks and benefits of stopping all anticoagulation and explained that it puts her at significant risk for recurrent or worsening brain bleed. Patient's son is in agreement with stopping all anticoagulation and understands the risks that she could develop venous thromboembolism. I have also proposed palliative and hospice care for patient and explained to him that it would be beneficial for her given her end-stage dementia especially now that patient barely eats even at home. He understands and states that patient was actually hospice before but he discontinued hospice services because they wanted to discontinue most of other medications which she felt would kill her quickly. I explained to him that the whole point of hospice care is to stop life-prolonging measures and encouraged him to think about what patient would prefer in terms of quality of life. At this time, he does not want hospice care but does state that he does not want any aggressive enteral feeding/NG tube or parenteral feeding. Maintaining DNR/DNI. Patient will like to take mother home when medically cleared. Time Spent: 18 mins
[2019-07-24] MEDS: ACETAMINOPHEN 650 MG SUPP.RECT PR PRN (21:29)
[2019-07-24] MEDS ORDERED: ATORVASTATIN CALCIUM 40 MG TABLET PO SCH (22:00)
[2019-07-25] MEDS: VALSARTAN 80 MG TABLET PO SCH ×2 (00:55→12:14)
[2019-07-25] MEDS: HYDRALAZINE HCL INJ/PF 20 MG/1 ML SDV IV PRN (03:39)
[2019-07-25] MEDS ORDERED: LEVOTHYROXINE SODIUM 0.1 MG TABLET PO SCH (06:00)
[2019-07-25 06:04] LABS: ABSOLUTE LYMPHOCYTES (AUTO) 0.8 10^3/uL (0.5-4.7); ABSOLUTE MONOCYTES (AUTO) 1.3 10^3/uL (0.1-1.4); ABSOLUTE NEUT (AUTO) 8.5 10^3/uL (1.7-8.2); BASOPHILS % (AUTO) 0.4 % (0-2); EOSINOPHILS % (AUTO) 0.5 % (0-6); HEMOGLOBIN 9.6 g/dL (12.0-15.5); LYMPHOCYTES % (AUTO) 7.7 % (13-45); MEAN CORPUSCULAR HEMOGLOBIN 21.8 pg (27.0-33.4); MEAN CORPUSCULAR VOLUME 66 fl (80-97); MONOCYTES % (AUTO) 11.9 % (3-13); PLATELET COUNT 215 10^3/uL (150-450); RED BLOOD COUNT 4.41 10^6/uL (3.72-5.28); RED CELL DISTRIBUTION WIDTH 19.2 % (11.5-14.0); SEGMENTED NEUTROPHILS % (AUTO) 79.5 % (42-78); TOTAL CELLS COUNTED % (AUTO) 100 %; WHITE BLOOD COUNT 10.6 10^3/uL (4.0-10.5)
[2019-07-25] MEDS: ACETAMINOPHEN 650 MG SUPP.RECT PR PRN (08:15)
[2019-07-25] MEDS ORDERED: NORMAL SALINE 250 ML IV PRN ×2 (08:44)
--- NOTE | 2019-07-25 08:45 | RADIOLOGY REPORT (SQ) ---
EXAM DESCRIPTION: CT HEAD WITHOUT COMPLETED DATE/TIME: 07/25/2019 7:59 am REASON FOR STUDY: Subdural hemorrhage follow up COMPARISON: 07/23/2019 TECHNIQUE: Axial images acquired through the brain without intravenous contrast. Images reviewed wi th bone, brain and subdural windows. Additional sagittal and coronal reconstructions were generated. Images stored on PACS. All CT scanners at this facility use dose modulation, iterative reconstruction, and/or weight based d osing when appropriate to reduce radiation dose to as low as reasonably achievable (ALARA). [facility]: Dose Right [facility]: CareDose [facility]: Dose Right [facility]: Teradose 4D [facility]: Smart [employer] RADIATION DOSE: CT Rad equipment meets quality standard of care and radiation dose reduction techniq ues were employed. CTDIvol: 48.6 mGy. DLP: 905 mGy-cm.mGy. LIMITATIONS: None. FINDINGS: VENTRICLES: Prominent. CEREBRUM: Two views cerebral atrophy. Left-sided subdural hematoma has increased in size. Along the left temporal bone it measures up to 13.8 mm. It extends along the left aspect of the tentorium new from prior MRI. Very small right subdural hematoma is unchanged. There is no midline shift. There is considerable mass effect on the left temporal lobe. CEREBELLUM: No masses. No hemorrhage. No alteration of density. No evidence for acute infarction. EXTRAAXIAL SPACES: Age-related involutional change. No fluid collections. No masses. ORBITS AND GLOBE: No intra- or extraconal masses. Normal contour of globe without masses. CALVARIUM: No fracture. PARANASAL SINUSES: No fluid or mucosal thickening. SOFT TISSUES: No mass or hematoma. OTHER: No other significant finding. IMPRESSION: Left-sided subdural hematoma has increased in size as described. Extends along the tent orium on the current study. Largest diameter is 13.8 mm. Due to the patient's generalized cerebral atrophy there is no significant midline shift. There is some mass effect on the left temporal lobe b est demonstrated on coronal reconstructions. EVIDENCE OF ACUTE STROKE: NO. COMMENT: This report was called to GREGORY PIRES MD at08:38 on 07/25/2019. TECHNICAL DOCUMENTATION: JOB ID: [id number] Quality ID # [id number]: Final reports with documentation of one or more dose reduction techniques (e.g., Au tomated exposure control, adjustment of the mA and/or kV according to patient size, use of iterative reconstruction technique) 2010 [employer] [facility] [employer]- All Rights Reserved Reading location - IP/workstation name: [email or web address]
[2019-07-25] MEDS ORDERED: PHYTONADIONE INJ 10 MG/1 ML AMPULE IV ONE ×2 (08:46→09:30)
[2019-07-25] MEDS ORDERED: LABETALOL HCL INJ 20 MG/4 ML DISP.SYRIN IV SCH (09:00)
[2019-07-25 09:04] VITALS: BP 161/96
[2019-07-25] MEDS ORDERED: PREDNISONE 5 MG TABLET PO SCH (10:00)
--- NOTE | 2019-07-25 10:41 | Progress Note ---
Provider Note Provider Note: I have reviewed the case at Dr. Calderon's request, and I agree with his assessment of the patient, and I also agree with his plan for comfort measures.
[2019-07-25] MEDS: AMLODIPINE BESYLATE 5 MG TABLET PO SCH (12:14)
[2019-07-25] MEDS: CEFEPIME 1 GM/D5W RTU 1 GM/50 ML RTUPB IV SCH (12:15)
[2019-07-25 12:24] LABS: INTERNATIONAL RATION (INR) 1.38; PROTHROMBIN TIME 17.1 SEC (11.4-15.4)
--- NOTE | 2019-07-25 15:35 | PDOC DISCHARGE SUMMARY ---
Impression - Admit/DC Date/PCP Admission Date/Primary Care Provider: 07/23/19 19:13 LEO HURTADO MD Discharge Date: 07/25/19 - Discharge Diagnosis (1) Subdural hemorrhage Is this a current diagnosis for this admission?: Yes (2) Acute metabolic encephalopathy Is this a current diagnosis for this admission?: Yes (3) Advanced dementia Is this a current diagnosis for this admission?: Yes (4) Uncontrolled hypertension Is this a current diagnosis for this admission?: Yes (5) Sepsis Is this a current diagnosis for this admission?: Yes (6) UTI (urinary tract infection) Is this a current diagnosis for this admission?: Yes - Assessment Summary: Patient's acute encephalopathy likely secondary to sepsis or CVA Received IV fluids. Will give gentle hydration for 1 more liter and recheck lactic acid given current lactic acidosis. However mental status change was very acute raising suspicion for CVA even despite negative head CT. We will check MRI of the brain stat I will leave patient on permissive hypertension until MRI of the brain confirms negative for acute stroke and then I will resume antihypertensives. Discussed with patient's son who confirms patient is DNR/DNI. He also confirms that patient has advanced dementia at baseline but was awake today and able to eat. Ceftriaxone for treatment of UTI follow-up urine and blood cultures. 07/24/2019 Head MRI revealed old strokes as well as trace bilateral's subdural hemorrhages. Has subdural hemorrhages likely precipitated by her significant brain atrophy, age and may have fallen at home and on Xarelto. We will focus on optimal blood pressure control. BP better optimized this morning. Will discontinue IV labetalol and resume patient on oral amlodipine and valsartan as well as Coreg. Will repeat head CT in the morning to ensure no worsening of the subdural hemorrhage. Have notified patient's son findings and that patient will need to be off Xarelto or any other anticoagulants despite a history of blood clots and the risk of having another VTE which he understands and agrees to. Start on a pured diet now more awake. Antibiotics changed to cefepime for treatment of UTI - Additional Information Resuscitation Status: Do Not Resuscitate - Patient son Ian confirms the patient is DNR/DNI and no tube feeds Discharge Diet: Regular Referrals: LEO HURTADO MD [Primary Care Provider] - Follow up as needed Prescriptions: Lorazepam [Lorazepam Intensol] 1 mg PO Q4HP PRN #5 oral.conc PRN Reason: Anxiety/Agitation Acetaminophen [Tylenol 650 mg Supp] 650 mg MI Q4HP PRN #10 supp.rect PRN Reason: Home Medications: Carvedilol [Coreg 3.125 mg Tablet] 3.125 mg PO Q12HP PRN 03/30/18 Levothyroxine Sodium [Synthroid 0.1 mg Tablet] 0.1 mg PO Q6AM 03/30/18 Amlodipine Besylate [Norvasc 5 mg Tablet] 5 mg PO DAILYP PRN 01/02/19 Valsartan 80 mg PO Q12 01/02/19 Acetaminophen [Tylenol 650 mg Supp] 650 mg MI Q4HP PRN #10 supp.rect 07/25/19 Lorazepam [Lorazepam Intensol] 1 mg PO Q4HP PRN #5 oral.conc 07/25/19 History of Present Illiness History of Present Illness: KEVAN SEAY is a 84 year old female with a history of prior CVA, advanced dementia, CHF, who presents to the hospital via EMS after son noted that patient became lethargic. Apparently this afternoon around 2 PM, patient became nauseous and vomited her food and medications. Her blood pressure was noted to be very elevated at that time in the 180s systolic. She subsequently became lethargic. He called the ambulance. Upon presentation of EMS patient was notably hypertensive but also febrile at 101.9 per documentation. In the ER, patient was noted to still be encephalopathic and febrile. Head CT was negative. Patient subsequently referred to hospitalist service for admission with suspicion of urinary tract infection. Currently, history only obtainable from patient's son as patient is altered. Hospital Course Hospital Course: Patient was noted to be very much lethargic almost obtunded upon presentation. Head CT done showed no new strokes. Lab work revealed urinary tract infection for which urine culture later grew E. coli. Patient was started on IV antibiot ics with cefepime upon admission. Has completed 3-day IV course of antibiotics for treatment of UTI. MRI of the brain was also obtained upon admission which revealed trace bilateral subdural hemorrhages. Patient was noted to have end- stage advanced dementia and she is immobile and mute/aphasic at baseline with poor swallowing mechanisms. Patient was noted to have been on Xarelto given her history of blood clots. Her blood clots were discontinued upon admission. Unfortunately, there are no reversal agents for Xarelto and as such we pursued adequate blood pressure control with a goal of keeping BP below 160 systolic based of trials/medical literature. IV antihypertensives were used as patient does not swallow adequately. Patient became more awake and able to keep eyes open but often goes back to sleep. Repeat head CT was done today for evaluation of bleed but showed increase in size of the subdural hemorrhages. We discussed situation with patient's son/JOSSIE Sosa and after extensive conversation, he opted for home hospice. Patient has been set up for home hospice to be initiated tomorrow. Patient's son insists adamantly that patient be discharged today back to his home on comfort care measures only and home hospice can follow-up with them tomorrow. Physical Exam Vital Signs: Temp Pulse Resp BP Pulse Ox 99.0 F 117 H 18 161/96 H 94 07/25/19 09:15 07/25/19 08:12 07/25/19 08:12 07/25/19 08:12 07/25/19 08:12 Intake & Output 07/24/19 07/25/19 07/26/19 06:59 06:59 06:59 Intake Total 1050 100 0 Balance 1050 100 0 Weight 48 kg 48.2 kg General appearance: PRESENT: no acute distress Neurological exam: PRESENT: alert, altered, awake, aphasic Results Laboratory Results: WBC 10.6 10^3/uL (4.0-10.5) H 07/25/19 05:25 RBC 4.41 10^6/uL (3.72-5.28) 07/25/19 05:25 Hgb 9.6 g/dL (12.0-15.5) L 07/25/19 05:25 Hct 29.0 % (36.0-47.0) L 07/25/19 05:25 MCV 66 fl (80-97) L 07/25/19 05:25 MCH 21.8 pg (27.0-33.4) L 07/25/19 05:25 MCHC 33.0 g/dL (32.0-36.0) 07/25/19 05:25 RDW 19.2 % (11.5-14.0) H 07/25/19 05:25 Plt Count 215 10^3/uL (150-450) 07/25/19 05:25 Lymph % (Auto) 7.7 % (13-45) L 07/25/19 05:25 Dickson % (Auto) 11.9 % (3-13) 07/25/19 05:25 Eos % (Auto) 0.5 % (0-6) 07/25/19 05:25 Baso % (Auto) 0.4 % (0-2) 07/25/19 05:25 Absolute Neuts (auto) 8.5 10^3/uL (1.7-8.2) H 07/25/19 05:25 Absolute Lymphs (auto) 0.8 10^3/uL (0.5-4.7) 07/25/19 05:25 Absolute Monos (auto) 1.3 10^3/uL (0.1-1.4) 07/25/19 05:25 Absolute Eos (auto) 0.0 10^3/uL (0.0-0.6) 07/25/19 05:25 Absolute Basos (auto) 0.0 10^3/uL (0.0-0.2) 07/25/19 05:25 Seg Neutrophils % 79.5 % (42-78) H 07/25/19 05:25 PT 17.1 SEC (11.4-15.4) H 07/25/19 12:00 INR 1.38 07/25/19 12:00 VBG pH 7.42 (7.30-7.42) 07/23/19 16:50 VBG pCO2 31.8 mmHg (35-63) L 07/23/19 16:50 VBG HCO3 20.0 mmol/L (20-32) 07/23/19 16:50 VBG Base Excess -3.8 mmol/L 07/23/19 16:50 Sodium 134.3 mmol/L (137-145) L 07/24/19 05:20 Potassium 4.0 mmol/L (3.6-5.0) 07/24/19 05:20 Chloride 104 mmol/L (98-107) 07/24/19 05:20 Carbon Dioxide 20 mmol/L (22-30) L 07/24/19 05:20 Anion Gap 10 (5-19) 07/24/19 05:20 BUN 15 mg/dL (7-20) 07/24/19 05:20 Creatinine 0.60 mg/dL (0.52-1.25) 07/24/19 05:20 Est GFR ( Amer) > 60 (>60) 07/24/19 05:20 Est GFR (MDRD) Non-Af > 60 (>60) 07/24/19 05:20 Glucose 131 mg/dL (75-110) H 07/24/19 05:20 Lactic Acid 1.3 mmol/L (0.7-2.1) 07/23/19 23:18 Calcium 8.7 mg/dL (8.4-10.2) 07/24/19 05:20 Total Bilirubin 0.8 mg/dL (0.2-1.3) 07/23/19 16:05 Direct Bilirubin 0.1 mg/dL (0.0-0.4) 07/23/19 16:05 Neonat Total Bilirubin Not Reportable 07/23/19 16:05 Neonat Direct Bilirubin Not Reportable 07/23/19 16:05 Neonat Indirect Bili Not Reportable 07/23/19 16:05 AST 35 U/L (14-36) 07/23/19 16:05 ALT 14 U/L (<35) 07/23/19 16:05 Alkaline Phosphatase 119 U/L (38-126) 07/23/19 16:05 Troponin I < 0.012 ng/mL 07/23/19 16:05 NT-Pro-B Natriuret Pep 1310 pg/mL (<450) H 07/23/19 16:05 Total Protein 7.0 g/dL (6.3-8.2) 07/23/19 16:05 Albumin 4.0 g/dL (3.5-5.0) 07/23/19 16:05 Triglycerides 37 mg/dL (<150) 07/24/19 05:20 Cholesterol 118.63 mg/dL (0-200) 07/24/19 05:20 LDL Cholesterol Direct 66 mg/dL (<100) 07/24/19 05:20 VLDL Cholesterol 7.0 mg/dL (10-31) L 07/24/19 05:20 HDL Cholesterol 46 mg/dL (>40) 07/24/19 05:20 Urine Color YELLOW 07/23/19 16:50 Urine Appearance CLOUDY 07/23/19 16:50 Urine pH 7.0 (5.0-9.0) 07/23/19 16:50 Ur Specific [place] 1.020 07/23/19 16:50 Urine Protein 30 mg/dL (NEGATIVE) H 07/23/19 16:50 Urine Glucose (UA) 50 mg/dL (NEGATIVE) H 07/23/19 16:50 Urine Ketones TRACE mg/dL (NEGATIVE) H 07/23/19 16:50 Urine Blood SMALL (NEGATIVE) H 07/23/19 16:50 Urine Nitrite POSITIVE (NEGATIVE) H 07/23/19 16:50 Urine Bilirubin NEGATIVE (NEGATIVE) 07/23/19 16:50 Urine Urobilinogen NEGATIVE mg/dL (<2.0) 07/23/19 16:50 Ur Leukocyte Esterase LARGE (NEGATIVE) H 07/23/19 16:50 Urine WBC (Auto) >182 /HPF 07/23/19 16:50 Urine RBC (Auto) 11 /HPF 07/23/19 16:50 Urine Bacteria (Auto) 3+ /HPF 07/23/19 16:50 Urine WBC Clumps MANY /HPF 07/23/19 16:50 U Non-Squamous Epis Auto 3 /HPF 07/23/19 16:50 Urine Mucus (Auto) RARE /LPF 07/23/19 16:50 Urine Ascorbic Acid NEGATIVE (NEGATIVE) 07/23/19 16:50 Influenza A (Rapid) NEGATIVE (NEGATIVE) 07/23/19 17:36 Influenza B (Rapid) NEGATIVE (NEGATIVE) 07/23/19 17:36 Blood Type A NEGATIVE 07/25/19 09:08 Antibody Screen NEGATIVE 07/25/19 09:08 07/23/19 07/23/19 16:05 16:05 Troponin I < 0.012 NT-Pro-B Natriuret Pep 1310 H Impressions: Head MRI 07/23/19 00:00 IMPRESSION: 1. There are trace bilateral subdural hemorrhages without significant midline shift.. 2. Moderate cerebral atrophy and periventricular white matter changes are seen. Chest X-Ray 07/23/19 17:11 IMPRESSION: No evidence of an acute cardiopulmonary process Head CT 07/23/19 17:15 IMPRESSION: CHRONIC CHANGES OF ATROPHY AND MICROVASCULAR ISCHEMIA. NO ACUTE PROCESS. EVIDENCE OF ACUTE STROKE: NO. Cervical Spine CT 07/23/19 17:21 IMPRESSION: CHRONIC DEGENERATIVE CHANGES. NO ACUTE FINDINGS. Head CT 07/25/19 06:00 IMPRESSION: Left-sided subdural hematoma has increased in size as described. Extends along the tentorium on the current study. Largest diameter is 13.8 mm. Due to the patient's generalized cerebral atrophy there is no significant midline shift. There is some mass effect on the left temporal lobe best demonstrated on coronal reconstructions. EVIDENCE OF ACUTE STROKE: NO. Plan Time Spent: Greater than 30 Minutes Stroke Is this a Stroke Patient?: Yes Stroke Pt being discharged on Anti-thrombolytic therapy?: No Reason(s) for not prescribing Anti-thrombolytic therapy:: Contraindicated, Hospice Care Stroke Pt being discharged on Anti-coagulation therapy?: No Reason(s) for not prescribing Anti-coagulation therapy:: Contraindicated, Hospice Care Stroke Pt being discharged on Statins?: No Reason(s) for not prescribing Statins therapy:: Hospice Care Acute Heart Failure - Is this a Heart Failure Patient?: No
--- NOTE | 2019-07-25 15:42 | ADVANCED CARE ---
- Diagnosis (1) Subdural hemorrhage Diagnosis Current: Yes (3) Advanced dementia Diagnosis Current: Yes Attendance: Patient corine Sosa and myself. Patient cannot participate due to her mental state. Resuscitation Status: Do Not Resuscitate - Patient corine Sosa confirms the patient is DNR/DNI and no tube feeds Discussion: We had an extensive conversation for over 30 minutes about patient's overall situation. We extensively discussed patient's subdural hemorrhages including the etiology, has cerebral atrophy, fall and Xarelto use which all contributed to her subdural hemorrhage. We also discussed potential treatment options and discussed the Xarelto reversal is limited and poor availability of antidote, potential of trying FFP's which would only be temporary lasting just a few hours, transfer to tertiary Institution for further care and whether he would want any surgical intervention really if subdural hemorrhage should worsen. Discussed side effects of treatment with FFP's. Further went on to discuss overall goals of care given patient's overall end-stage advanced dementia which has rendered her mute, aphasic, bedbound and unable to swallow adequately. He admits that feeding her takes up to 3 hours because he often has to squirt food into her mouth. He understands that her prognosis is very poor and that further treatment of her subdural hemorrhage would not improve her quality of life. I explained to him the concept of hospice care which he voices understanding to and has wished to proceed with comfort care measures only and hospice. He would like for hospice to be set up in his home. His wishes will be upheld and patient will be set up for home hospice. Time Spent: 35 minutes
== END 2019-07-25 17:20 | disposition hospice, home (50) | DRG 64 ==
LOC: ER 16:18 → EH 19:13 → 3W 22:58
PROVIDERS: ADMIT Internal Medicine; ATTEND Internal Medicine
DX: I62.01 Nontraumatic acute subdural hemorrhage (principal); A41.9 Sepsis, unspecified organism; G93.41 Metabolic encephalopathy; N30.00 Acute cystitis without hematuria; F03.90 Unspecified dementia, unspecified severity, without behavioral disturbance, psychotic disturbance, mood disturbance, and anxiety; I11.0 Hypertensive heart disease with heart failure; I50.9 Heart failure, unspecified; E78.5 Hyperlipidemia, unspecified; M19.90 Unspecified osteoarthritis, unspecified site; Z66 Do not resuscitate; Z88.1 Allergy status to other antibiotic agents; I25.2 Old myocardial infarction; Z88.8 Allergy status to other drugs, medicaments and biological substances; Z88.2 Allergy status to sulfonamides; Z91.041 Radiographic dye allergy status; Z79.01 Long term (current) use of anticoagulants
CPT/HCPCS: 36415; 70450; 70551; 71045; 72125; 80048; 80053; 80061; 81001; 82803; 83605; 83880; 84484; 85025; 85610; 86850; 86900; 86901; 87040; 87086; 87088; 87186; 87804; 93005; 93010; 96365; 99285; J0360; J0692; J0696; J3490; J7030

== ENCOUNTER 2019-08-02 15:43 | Emergency (ER) | payer MEDICARE, MEDICAID ==
--- NOTE | 2019-08-02 16:02 | ER Document Report ---
ED Medical Screen (RME) - General Chief Complaint: Rectal Pain Stated Complaint: RECTAL PAIN Time Seen by Provider: 08/02/19 15:58 Primary Care Provider: LEO HURTADO MD [Primary Care Provider] - Follow up as needed TRAVEL OUTSIDE OF THE [place] IN LAST 30 DAYS: No - HPI Notes: 08/02/19 16:00 84-year-old female presents via EMS with a history of prior CVA, advanced dementia, CHF to the hospital for noted having blood on the bed sheets in the halfway today. patient does have a history of hemorrhoids. No family at the bedside at this time Unable to obtain history due to patient being nonverbal. No other history has been provided about what brings patient to the emergency room today I have greeted and performed a rapid initial assessment of this patient. A comprehensive ED assessment and evaluation of the patient, analysis of test results and completion of the medical decision making process will be conducted by additional ED providers. PHYSICAL EXAMINATION: CV: s1, s2 regular LUNGS: No respiratory distress - Related Data Allergies/Adverse Reactions: clindamycin Allergy (Verified 04/23/19 11:46) clopidogrel [From Plavix] Allergy (Verified 04/23/19 11:46) diatrizoate meglumine [From SHERYLGastroview] Allergy (Verified 04/23/19 11:46) diatrizoate sodium [From MDSharathGastroview] Allergy (Verified 04/23/19 11:46) dipyridamole [From Aggrenox] Allergy (Verified 04/23/19 11:46) erythromycin base [From Erythrocin] Allergy (Verified 04/23/19 11:46) meloxicam Allergy (Verified 04/23/19 11:46) pantoprazole Allergy (Verified 04/23/19 11:46) risedronate sodium [From Actonel] Allergy (Verified 04/23/19 11:46) sulfamethoxazole [From Bactrim] Allergy (Verified 04/23/19 11:46) ticlopidine Allergy (Verified 04/23/19 11:46) tobramycin Allergy (Verified 04/23/19 11:46) trimethoprim [From Bactrim] Allergy (Verified 04/23/19 11:46) IVC dye Allergy (Uncoded 04/23/19 11:46) Past Medical History - Past Medical History Cardiac Medical History: Reports: Hx Congestive Heart Failure, Hx DVT, Hx Heart Attack, Hx Hypercholesterolemia, Hx Hypertension Neurological Medical History: Reports: Hx Cerebrovascular Accident. Denies: Hx Seizures Renal/ Medical History: Denies: Hx Peritoneal Dialysis Musculoskeltal Medical History: Reports Hx Arthritis Psychiatric Medical History: Reports: Hx Anxiety, Hx Dementia Denies: Hx Depression Past Surgical History: Reports: Hx Cardiac Catheterization, Hx Cardiac Surgery, Other Doctor's Discharge - Discharge Referrals: LEO HURTADO MD [Primary Care Provider] - Follow up as needed
[2019-08-02 16:28] LABS: ABSOLUTE EOSINOPHILS # (AUTO) 0.2 10^3/uL (0.0-0.6); ABSOLUTE LYMPHOCYTES (AUTO) 1.3 10^3/uL (0.5-4.7); ABSOLUTE NEUT (AUTO) 6.8 10^3/uL (1.7-8.2); BASOPHILS % (AUTO) 0.5 % (0-2); EOSINOPHILS % (AUTO) 2.3 % (0-6); HEMATOCRIT 30.7 % (36.0-47.0); HEMOGLOBIN 9.4 g/dL (12.0-15.5); LYMPHOCYTES % (AUTO) 13.5 % (13-45); MEAN CORPUSCULAR HEMOGLOBIN 21.5 pg (27.0-33.4); MEAN CORPUSCULAR HGB CONC 30.8 g/dL (32.0-36.0); MONOCYTES % (AUTO) 11.1 % (3-13); PLATELET COUNT 243 10^3/uL (150-450); RED BLOOD COUNT 4.38 10^6/uL (3.72-5.28); RED CELL DISTRIBUTION WIDTH 19.9 % (11.5-14.0); SEGMENTED NEUTROPHILS % (AUTO) 72.6 % (42-78); TOTAL CELLS COUNTED % (AUTO) 100 %; WHITE BLOOD COUNT 9.4 10^3/uL (4.0-10.5)
[2019-08-02 16:38] LABS: INTERNATIONAL RATION (INR) 1.21; PROTHROMBIN TIME 15.4 SEC (11.4-15.4)
[2019-08-02 16:39] LABS: PARTIAL THROMBOPLASTIN TIME 28.7 SEC (23.5-35.8)
[2019-08-02 16:41] LABS: MEAN CORPUSCULAR VOLUME 70 fl (80-97)
[2019-08-02 16:48] LABS: ALBUMIN 2.9 g/dL (3.5-5.0); ALKALINE PHOSPHATASE 84 U/L (38-126); ANION GAP 11 (5-19); ASPARTATE AMINO TRANSFERASE 27 U/L (14-36); BILIRUBIN,DIRECT 0.2 mg/dL (0.0-0.4); BILIRUBIN,TOTAL 0.7 mg/dL (0.2-1.3); BLOOD UREA NITROGEN 16 mg/dL (7-20); CALCIUM 8.3 mg/dL (8.4-10.2); CARBON DIOXIDE 19 mmol/L (22-30); CHLORIDE 102 mmol/L (98-107); GLUCOSE 133 mg/dL (75-110); POTASSIUM 4.3 mmol/L (3.6-5.0); TOTAL PROTEIN 6.2 g/dL (6.3-8.2)
--- NOTE | 2019-08-02 17:29 | RADIOLOGY REPORT (SQ) ---
EXAM DESCRIPTION: KUB/ABDOMEN (SINGLE VIEW) COMPLETED DATE/TIME: 08/02/2019 3:43 pm REASON FOR STUDY: melena COMPARISON: None. NUMBER OF VIEWS: One view. TECHNIQUE: Supine radiographic image of the abdomen acquired. LIMITATIONS: None. FINDINGS: BOWEL GAS PATTERN: Normal bowel gas pattern. No dilated loops. CONSTIPATION: Large amount of stool in the colon and rectum. CALCIFICATIONS: No suspicious calcifications. SOFT TISSUES: No gross mass or suggestion of organomegaly. HARDWARE: None in the abdomen. BONES: No acute fracture. No worrisome bone lesions. OTHER: No other significant finding. IMPRESSION: Large amount of stool in the colon and rectum. This can be seen with constipation. Nonobstructive bowel gas pattern. TECHNICAL DOCUMENTATION: JOB ID: [id number] 2010 [employer]- All Rights Reserved Reading location - IP/workstation name: [email or web address]
[2019-08-02] MEDS ORDERED: MINERAL OIL ENEMA 133 ML PR ONE (18:08)
--- NOTE | 2019-08-02 18:29 | ER Document Report ---
ED General - General Chief Complaint: Rectal Bleeding Stated Complaint: RECTAL PAIN Time Seen by Provider: 08/02/19 15:58 Primary Care Provider: LEO HURTADO MD [Primary Care Provider] - Follow up as needed TRAVEL OUTSIDE OF THE [place] IN LAST 30 DAYS: No - HPI Notes: Patient is an 84-year-old female sent into the emergency department for evaluation for possible rectal bleeding. Patient herself is nonverbal. Information is piece together from EMS and nursing reports. The patient lives with her son at home. She was sent in by EMS because there was blood in the sheets. She did have several bowel movements today, the last of which was large. Otherwise, no other acute ports of pain or problems were noted. She was found to have blood in her bed sheets, so she is sent here for further evaluation. EMS did note that the patient had bruising to the left side of her face and ear. Patient's son notes that she "bangs her head against the hospital bed." - Related Data Allergies/Adverse Reactions: clindamycin Allergy (Verified 08/02/19 18:08) clopidogrel [From Plavix] Allergy (Verified 08/02/19 18:08) diatrizoate meglumine [From -Gastroview] Allergy (Verified 08/02/19 18:08) diatrizoate sodium [From MD-Gastroview] Allergy (Verified 08/02/19 18:08) dipyridamole [From Aggrenox] Allergy (Verified 08/02/19 18:08) erythromycin base [From Erythrocin] Allergy (Verified 08/02/19 18:08) meloxicam Allergy (Verified 08/02/19 18:08) pantoprazole Allergy (Verified 08/02/19 18:08) risedronate sodium [From Actonel] Allergy (Verified 08/02/19 18:08) sulfamethoxazole [From Bactrim] Allergy (Verified 08/02/19 18:08) ticlopidine Allergy (Verified 08/02/19 18:08) tobramycin Allergy (Verified 08/02/19 18:08) trimethoprim [From Bactrim] Allergy (Verified 08/02/19 18:08) IVC dye Allergy (Uncoded 08/02/19 18:08) Past Medical History - General Information source: Emergency Med Personnel - Social History Smoking Status: Unknown if Ever Smoked Frequency of alcohol use: None Drug Abuse: None Family History: Reviewed & Not Pertinent Patient has suicidal ideation: No Patient has homicidal ideation: No - Past Medical History Cardiac Medical History: Reports: Hx Congestive Heart Failure, Hx DVT, Hx Heart Attack, Hx Hypercholesterolemia, Hx Hypertension Neurological Medical History: Reports: Hx Cerebrovascular Accident, Other - History of subdural hematoma. Denies: Hx Seizures Renal/ Medical History: Denies: Hx Peritoneal Dialysis Musculoskeletal Medical History: Reports Hx Arthritis Psychiatric Medical History: Reports: Hx Anxiety, Hx Dementia Denies: Hx Depression Past Surgical History: Reports: Hx Cardiac Catheterization, Hx Cardiac Surgery, Other Review of Systems - Review of Systems -: Yes ROS unobtainable due to patient's medical condition Physical Exam - Vital signs Vitals: Temp Pulse Resp BP Pulse Ox 97.3 F 95 16 134/86 H 99 08/02/19 15:49 08/02/19 15:49 08/02/19 15:49 08/02/19 15:49 08/02/19 15:49 - Notes Notes: This is an 84-year-old female who appears her stated age. She makes absolutely no purposeful movements. She does not respond in any way to my exam. She is in no acute distress. Head is normocephalic, pupils are equal round, reactive to light. Onychosis moist. She does have what appears to be healing ecchymosis noted over the left zygoma with mild swelling and healing ecchymosis in the left pinna. No apparent tenderness. No subcutaneous emphysema, no palpable step-off of the facial bones. Nares are patent, no septal hematoma. No obvious nasal deformity. Onychosis moist. Heart regular rate and rhythm, lungs encrustation bilaterally. Abdomen soft, nontender, normoactive bowel sounds. Rectal exam is performed with SHARON Mcdonough, present in the room. She has large external hemorrhoids. There is a small amount of stool with visible blood noted. The a rodney is cleansed, and she does have a scant amount of active bleeding from the external hemorrhoid overlying the patient's right gluteal region. Extremities without cyanosis or clubbing. Skin is warm and dry. Patient has good tone, but again makes no purposeful movements. Her eyes are open at baseline. Course - Re-evaluation Re-evalutation: 08/02/19 18:29 Patient presents to the emergency department for evaluation. She laboratory investigations and imaging is ordered through triage. Her hemoglobin is actually improved over what it has been in the past. My strong suspicion is that the source of this blood was the external hemorrhoid. Of course, we cannot rule out an occult lesion in her colon that could been contributing to some blood. We will refer on back to internal medicine for possible GI referral/colonoscopy. At any rate, she does have a large amount of stool at her rectum. I did not feel that manual disimpaction would be appropriate at this time. We will attempt enema. Patient is stable at this time, we will continue to monitor. 08/02/19 19:35 Patient had large results from enema. I will discharge her to home. She is to follow-up with primary care in 1 to 2 days, return to the ED with worsening. - Vital Signs Vital signs: Temp Pulse Resp BP Pulse Ox 97.3 F 95 16 134/86 H 99 08/02/19 15:49 08/02/19 15:49 08/02/19 15:49 08/02/19 15:49 08/02/19 15:49 - Laboratory Result Diagrams: 08/02/19 16:15 08/02/19 16:15 Laboratory results interpreted by me: 08/02/19 08/02/19 16:15 16:15 Hgb 9.4 L Hct 30.7 L MCV 70 L D MCH 21.5 L MCHC 30.8 L RDW 19.9 H Sodium 132.4 L Carbon Dioxide 19 L Est GFR (MDRD) Non-Af 52 L Glucose 133 H Calcium 8.3 L Total Protein 6.2 L Albumin 2.9 L - Diagnostic Test Radiology reviewed: Image reviewed, Reports reviewed Radiology results interpreted by me: 08/02/19 19:35 KUB X-Ray 08/02/19 16:02 IMPRESSION: Large amount of stool in the colon and rectum. This can be seen wi th constipation. Nonobstructive bowel gas pattern. Discharge - Discharge Clinical Impression: Lower GI bleeding, External hemorrhoid Constipation Qualifiers: Constipation type: unspecified constipation type Qualified Code(s): K59.00 - Constipation, unspecified Condition: Stable Disposition: HOME, SELF-CARE Instructions: Rectal Bleeding, Unclear Cause ([facility]) Additional Instructions: It is likely that the blood seen today was secondary to hemorrhoids. Enema did result in a large bowel movement. Of course, we are unable to rule out a more serious pathology in the rest of her GI tract. You should consider follow-up with gastroenterology. Otherwise, try to keep stools soft. Follow-up with primary care this week. Return to the emergency department for worsening or new concerning symptoms of any sort. Referrals: LEO HURTADO MD [Primary Care Provider] - Follow up as needed
[2019-08-02 21:18] VITALS: BP 147/90
== END 2019-08-02 21:15 | disposition home or self-care (01) ==
LOC: ER 15:43
DX: K92.2 Gastrointestinal hemorrhage, unspecified (principal); K59.00 Constipation, unspecified; K64.4 Residual hemorrhoidal skin tags; I10 Essential (primary) hypertension; Z88.1 Allergy status to other antibiotic agents; Z88.8 Allergy status to other drugs, medicaments and biological substances; Z91.041 Radiographic dye allergy status
CPT/HCPCS: 99284; 36415; 85025; 85610; 85730; 80053; 74018; A9270; J3490

== ENCOUNTER 2019-08-09 01:49 | Emergency (ER) | payer MEDICARE, MEDICAID ==
[2019-08-09] MEDS ORDERED: NORMAL SALINE 500 ML IV ONE (02:16)
[2019-08-09] MEDS ORDERED: ONDANSETRON HCL INJ/PF 4 MG/2 ML SDV IV ONE (02:16)
--- NOTE | 2019-08-09 02:16 | ER Document Report ---
ED General - General Chief Complaint: Vomiting Stated Complaint: VOMITING Time Seen by Provider: 08/09/19 02:09 Primary Care Provider: LEO HURTADO MD [Primary Care Provider] - Follow up tomorrow Notes: Patient is a 84-year-old female that comes from home for chief complaint of vomiting. She comes by EMS. Reportedly patient is nonverbal and bedbound at baseline, EMS reports that patient vomited on 3 separate occasions during the day and son reported he was concerned she might have aspirated. She is not had any fever, there are no other symptoms reported. Patient also has a medical history of CAD, NV, DVT, CHF, hypertension, hyperlipidemia, CVA, dementia. EMS reported that patient is DNR and she has this paper with her, reportedly patient was recently on hospice but was taken off by family. TRAVEL OUTSIDE OF THE [place] IN LAST 30 DAYS: No - Related Data Allergies/Adverse Reactions: clindamycin Allergy (Verified 08/09/19 02:09) clopidogrel [From Plavix] Allergy (Verified 08/09/19 02:09) diatrizoate meglumine [From -Gastroview] Allergy (Verified 08/09/19 02:09) diatrizoate sodium [From MD-Gastroview] Allergy (Verified 08/09/19 02:09) dipyridamole [From Aggrenox] Allergy (Verified 08/09/19 02:09) erythromycin base [From Erythrocin] Allergy (Verified 08/09/19 02:09) meloxicam Allergy (Verified 08/09/19 02:09) pantoprazole Allergy (Verified 08/09/19 02:09) risedronate sodium [From Actonel] Allergy (Verified 08/09/19 02:09) sulfamethoxazole [From Bactrim] Allergy (Verified 08/09/19 02:09) ticlopidine Allergy (Verified 08/09/19 02:09) tobramycin Allergy (Verified 08/09/19 02:09) trimethoprim [From Bactrim] Allergy (Verified 08/09/19 02:09) IVC dye Allergy (Uncoded 08/09/19 02:09) Past Medical History - General Information source: [facility], [facility] Records - Social History Smoking Status: Never Smoker Frequency of alcohol use: None Drug Abuse: None Lives with: Family Family History: Reviewed & Not Pertinent - Past Medical History Cardiac Medical History: Reports: Hx Congestive Heart Failure, Hx DVT, Hx Heart Attack, Hx Hypercholesterolemia, Hx Hypertension Neurological Medical History: Reports: Hx Cerebrovascular Accident. Denies: Hx Seizures Renal/ Medical History: Denies: Hx Peritoneal Dialysis Musculoskeletal Medical History: Reports Hx Arthritis Psychiatric Medical History: Reports: Hx Anxiety, Hx Dementia Denies: Hx Depression Past Surgical History: Reports: Hx Cardiac Catheterization, Hx Cardiac Surgery, Other - Immunizations Hx Diphtheria, Pertussis, Tetanus Vaccination: Yes Review of Systems - Review of Systems Constitutional: No symptoms reported EENT: No symptoms reported Cardiovascular: No symptoms reported Respiratory: No symptoms reported Gastrointestinal: See HPI Genitourinary: No symptoms reported Female Genitourinary: No symptoms reported Musculoskeletal: No symptoms reported Skin: No symptoms reported Hematologic/Lymphatic: No symptoms reported Neurological/Psychological: No symptoms reported Physical Exam - Vital signs Vitals: BP Pulse Ox 136/65 H 97 08/09/19 02:01 08/09/19 02:01 - Notes Notes: GENERAL: Alert, no signs of distress HEAD: Normocephalic, atraumatic. EYES: Pupils equal, round, and reactive to light. Extraocular movements intact. ENT: Oral mucosa moist, tongue midline. Oropharynx unremarkable. Airway patent. Nares patent NECK: Full range of motion. Supple. Trachea midline. LUNGS: Clear to auscultation bilaterally, no wheezes, rales, or rhonchi. No respiratory distress. HEART: Regular rate and rhythm. No murmur ABDOMEN: Soft, non-tender. Non-distended. Bowel sounds present in all 4 quadrants. GENITOURINARY: No signs of skin breakdown or concerning findings externally EXTREMITIES: No edema, normal radial and dorsalis pedis pulses bilaterally. No cyanosis. BACK: no cervical, thoracic, lumbar midline tenderness. NEUROLOGICAL: Alert but nonverbal at baseline. PSYCH: No signs of distress SKIN: Warm, dry, normal turgor. No rashes or lesions noted. Course - Re-evaluation Re-evalutation: Patient is nonverbal, physical exam is actually unremarkable, patient appears well cared for. Vital signs unremarkable. Abdomen is nonspecific with no noticeable distention, no noted pain, and bowel sounds are present. She does not appear to be in pain. CBC nonspecific, hemoglobin unchanged from prior. Chemistry unremarkable. Troponin negative. EKG without ischemic change. Chest x-ray unremarkable. Patient has been discussed with Dr. Chairez, recommend CT with IV contrast, patient apparently can only tolerate oral with thickened fluids and we do not have this. She will be premedicated, she recommends [address] showing possible developing fecal rectal impaction, possible mass on the kidney, aorta that needs to be monitored. No acute findings. I did digitally disimpact patient (this was still soft and there was only a moderate amount of stool that was removed, no bleeding, patient tolerated well, rectal exam otherwise unremarkable). Provided with copy of CT imaging, recommendations, nausea medication, follow-up, return precautions. Stable at time of discharge, son has been spoken to over the phone. - Vital Signs Vital signs: Temp Pulse Resp BP Pulse Ox 99.6 F 104 H 19 124/62 95 08/09/19 05:30 08/09/19 02:40 08/09/19 06:01 08/09/19 06:00 08/09/19 06:01 - Laboratory Result Diagrams: 08/09/19 04:00 08/09/19 04:00 Laboratory results interpreted by me: 08/09/19 08/09/19 08/09/19 02:40 04:00 04:00 Hgb 9.6 L Hct 29.6 L MCV 67 L MCH 21.7 L RDW 21.0 H Sodium 131.4 L BUN 21 H Est GFR ( Amer) 57 L Est GFR (MDRD) Non-Af 47 L Glucose 127 H Albumin 3.3 L Urine Urobilinogen 2.0 H Discharge - Discharge Clinical Impression: Vomiting Qualifiers: Vomiting type: unspecified Vomiting Intractability: non-intractable Nausea presence: unspecified Qualified Code(s): R11.10 - Vomiting, unspecified Condition: Stable Disposition: HOME, SELF-CARE Additional Instructions: Her work-up does not show any concerning findings in regards to the vomiting. There is no pneumonia or concerning finding on the CAT scan that would be causing this. There does not appear to be any infection or heart abnormality either. A relatively small fecal impaction was removed during her stay, please see the CAT scan report and follow-up with her primary provider closely for additional imaging and additional management. Give Zofran if needed for nausea. Return if she worsens including uncontrolled vomiting, spiking fever, swelling of the abdomen or severe abdominal pain, difficulty breathing, or any other concerning symptoms. Prescriptions: Ondansetron [Zofran Odt 4 mg Tablet] 1 tab PO Q4H PRN #15 tab.rapdis PRN Reason: For Nausea/Vomiting Referrals: LEO HURTADO MD [Primary Care Provider] - Follow up tomorrow
[2019-08-09 03:08] LABS: APPEARANCE,URINE CLEAR; BILIRUBIN,URINE NEGATIVE (NEGATIVE); COLOR,URINE YELLOW; GLUCOSE, URINE NEGATIVE (NEGATIVE); KETONES,URINE NEGATIVE (NEGATIVE); PROTEIN,URINE NEGATIVE (NEGATIVE); URINE SPECIFIC GRAVITY 1.019
--- NOTE | 2019-08-09 03:16 | RADIOLOGY REPORT (SQ) ---
EXAM DESCRIPTION: XR CHEST 1 VIEW COMPLETED DATE/TME: 08/09/2019 02:15 CLINICAL HISTORY: 84 years, Female, vomiting, possible aspiration COMPARISON: 07/23/2019 NUMBER OF VIEWS: One TECHNIQUE: AP view of the chest LIMITATIONS: None. FINDINGS: The lungs are clear. The heart is at the upper limit of normal in size. There are atherosclerotic calcifications of the aorta. There is no pneumothorax or pleural effusion. The bones are demineralized. IMPRESSION: No acute cardiopulmonary abnormality copyright 2010 [employer]- All Rights Reserved
[2019-08-09] MEDS ORDERED: METHYLPREDNISOLONE INJ 125 MG/2 ML SDV IV ONE (03:33)
[2019-08-09] MEDS ORDERED: FAMOTIDINE INJ/PF 20 MG/2 ML SDV IV ONE (03:33)
[2019-08-09] MEDS ORDERED: DIPHENHYDRAMINE HCL 50 MG/ML VIAL IV ONE (03:33)
[2019-08-09 04:15] LABS: ABSOLUTE EOSINOPHILS # (AUTO) 0.1 10^3/uL (0.0-0.6); ABSOLUTE LYMPHOCYTES (AUTO) 1.4 10^3/uL (0.5-4.7); ABSOLUTE NEUT (AUTO) 6.5 10^3/uL (1.7-8.2); BASOPHILS % (AUTO) 0.4 % (0-2); EOSINOPHILS % (AUTO) 1.2 % (0-6); HEMATOCRIT 29.6 % (36.0-47.0); HEMOGLOBIN 9.6 g/dL (12.0-15.5); LYMPHOCYTES % (AUTO) 15.7 % (13-45); MEAN CORPUSCULAR HEMOGLOBIN 21.7 pg (27.0-33.4); MEAN CORPUSCULAR HGB CONC 32.5 g/dL (32.0-36.0); MEAN CORPUSCULAR VOLUME 67 fl (80-97); MONOCYTES % (AUTO) 10.6 % (3-13); PLATELET COUNT 256 10^3/uL (150-450); RED BLOOD COUNT 4.43 10^6/uL (3.72-5.28); SEGMENTED NEUTROPHILS % (AUTO) 72.1 % (42-78); TOTAL CELLS COUNTED % (AUTO) 100 %
[2019-08-09 04:32] LABS: ALBUMIN 3.3 g/dL (3.5-5.0); ALKALINE PHOSPHATASE 97 U/L (38-126); ANION GAP 8 (5-19); ASPARTATE AMINO TRANSFERASE 26 U/L (14-36); BILIRUBIN,DIRECT 0.2 mg/dL (0.0-0.4); BILIRUBIN,TOTAL 0.5 mg/dL (0.2-1.3); BLOOD UREA NITROGEN 21 mg/dL (7-20); CALCIUM 8.9 mg/dL (8.4-10.2); CARBON DIOXIDE 24 mmol/L (22-30); CHLORIDE 99 mmol/L (98-107); GLUCOSE 127 mg/dL (75-110); POTASSIUM 4.8 mmol/L (3.6-5.0); TOTAL PROTEIN 6.9 g/dL (6.3-8.2)
--- NOTE | 2019-08-09 05:55 | RADIOLOGY REPORT (SQ) ---
CT abdomen and pelvis with contrast on 08/09/2019 at 5:18 AM CLINICAL INDICATION: Generalized abdominal pain, vomiting TECHNIQUE: Multiple axial images are obtained throughout the abdomen and pelvis following the administration of IV contrast, 56 mL of Omnipaque 350 contrast was administered intravenously without complication. This exam was performed according to our departmental dose-optimization program, which includes automated exposure control, adjustment of the mA and/or kV according to patient size and/or use of iterative reconstruction technique. Total DLP is 636.14 mGy*cm. COMPARISON: CT chest and upper abdomen from 09/06/2017 FINDINGS: Abdomen: There is mild bibasilar atelectasis. Vascular calcifications are noted. There is a 3.6 cm infrarenal abdominal aortic aneurysm. Recommend follow-up imaging every two years. Bilateral renal cysts are noted including parapelvic renal cysts. There is a 1 cm exophytic lesion off the lateral lower pole of the left kidney that is not a simple cyst. This measures 75 Hounsfield units. This may represent hyperdense renal cyst or small malignancy. When feasible would recommend follow-up renal mass protocol CT with and without contrast to evaluate if this enhances or not. Solid abdominal organs are otherwise unremarkable. There is no abdominal adenopathy. There is no free fluid or free air within the abdomen. The abdominal portion of the GI tract is unremarkable. Pelvis: Increased stool is noted in the rectum consistent with a mild fecal impaction. There is diverticulosis. Pelvic portion of the GI tract including the appendix is otherwise unremarkable. Pelvic organs appear unremarkable by CT. There is no free fluid in the pelvis. There is no pelvic adenopathy. There are old compression fractures of the superior endplates of T12 and L1. No acute bony abnormality is noted. IMPRESSION: 1. Increased stool in the rectum consistent with a mild fecal impaction. 2. 3.6 cm infrarenal abdominal aortic aneurysm, recommend follow-up imaging every two years. 3. 1 cm left renal lesion that is not a simple cyst and may represent hyperdense renal cyst or malignancy. When feasible after clearing of this contrast would recommend follow-up renal mass protocol CT with and without contrast.
--- NOTE | 2019-08-09 08:20 | EKG REPORT ---
SEVERITY:- ABNORMAL ECG - SINUS TACHYCARDIA MULTIPLE VENTRICULAR PREMATURE COMPLEXES BORDERLINE LEFT AXIS DEVIATION : Confirmed by: Brayan Bashir MD 09-Aug-2019 08:20:05
[2019-08-09 09:06] VITALS: BP 98/57
== END 2019-08-09 09:07 | disposition home or self-care (01) ==
LOC: ER 01:49
DX: R11.10 Vomiting, unspecified (principal); I10 Essential (primary) hypertension; Z74.01 Bed confinement status; Z88.1 Allergy status to other antibiotic agents; Z88.8 Allergy status to other drugs, medicaments and biological substances; Z91.041 Radiographic dye allergy status
CPT/HCPCS: 93005; 99285; 96361; 96374; 96375; 36415; 83690; 85025; 80053; 81001; 84484; 71045; 74177; 93010; J1200; J2930; J2405; J7040; S0028